=== PATIENT | male | born 1960 | race Caucasian/White ===

== ENCOUNTER 2020-04-06 20:52 | Emergency (ER) | payer OTHER, MEDICAID, SELFPAY ==
[2020-04-06 20:59] VITALS: BP 156/68; PULSE 87; RESP 18; TEMP 36.4; O2SAT 98
--- NOTE | 2020-04-06 21:01 | ED.GENADUL_ITS ---
Discharge Plan Disposition Patient Disposition: HOME Condition: Good Discharge Details Chief Complaint: RashLesion Clinical Impression: Acute neck pain Primary Care Provider: Rekha Keys ED Provider: Yvonne Kunz Home Meds and New Rx's Prescriptions: New ibuprofen 800 mg tablet 800 mg PO Q8H PRN (Reason: pain) Qty: 20 RF: 0 Continued trazodone 50 MG tablet 100 mg PO HS RF: 0 lisinopril 20 MG tablet 20 mg PO DAILY RF: 0 fluphenazine HCl 5 MG tablet 15 mg PO HS RF: 0 Benztropine 2 mg PO BID RF: 0 aspirin 81 MG tablet,delayed release (DR/EC) 81 mg PO DAILY Qty: 90 RF: 0 metformin 500 MG tablet 1,000 mg PO BID Qty: 180 RF: 0 amlodipine 10 MG tablet 10 mg PO DAILY Qty: 0 RF: 0 atorvastatin [Lipitor] 20 MG tablet 20 mg PO QPM RF: 0 divalproex 500 MG tablet extended release 24 hr 1,000 mg PO BID RF: 0 ibuprofen 800 MG tablet 800 mg PO TID PRN PRNRF: 0 fluphenazine decanoate 125 MG/5 ML solution 25 mg IJ Q14D RF: 0 Humulin N NPH U-100 Insulin 100 UNIT/ML suspension 40 unit SQ HS RF: 0 insulin lispro [Humalog U-100 Insulin] 100 UNIT/ML solution 0 unit SQ DIRECTED RF: 0 Discontinued baclofen 10 MG tablet 10 mg PO BID PRN PRNRF: 0 Discharge Instructions Instructions: Neck Pain (ED) Additional Instructions: Encourage gentle stretching as discussed. Encourage good posture. You may use the ibuprofen as prescribed. Please follow-up with your primary care next week if pain persist. If you develop any weakness, sensation changes, fever/chills or other new/worsening symptoms please seek care urgently once again. Referrals: Rekha Keys PA [Primary Care Provider] - Medical Decision Making <Lamont Mckenna MD - Last Filed: 04/06/20 21:05> I had a [id number] encounter with the patient. I evaluated the patient. I discussed case with CYLINDER TESTER/PA and I reviewed CYLINDER TESTER/PA note and agree with note as documented <JEAN Centeno - Last Filed: 04/06/20 21:55> Patient is a pleasant 59-year-old male presented with chief complaint of right neck lump. He reports the pain began yesterday. States that he did have an increase in Zyprexa approximately 1 month ago and is concerned that this may be linked. Has not had any symptoms until yesterday. Patient also reports that he did recently get a little dog and has been bending forward to watch the dog and walk with the dog more frequently. He denies any weakness. No sensory deficits. No known trauma. Indicates the base of the occipital region of the skull on the right side is area of discomfort. Patient objectively feels a mass I am unable to feel any abnormality. However, the patient does feel tight along the trapezius and this is the area of discomfort for the patient. He has no nuchal rigidity, rash, evidence of infection. He has great range of motion. 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 He has not tried anything for his discomfort but states that 800 mg ibuprofen 3 times daily has worked well for him historically. Will prescribe ibuprofen once again. Advise close follow-up with primary care. He was given return precautions. Advised is likely muscular. All questions and concerns were addressed and is in agreement this plan. HPI <Lamont Mckenna MD - Last Filed: 04/06/20 21:05> General Date/Time Provider Initiated Documentation: 04/06/20 21:01 . Related Data Home Medications Medication Instructions Recorded Confirmed Benztropine 2 mg PO BID 09/14/14 04/06/20 fluphenazine HCl 15 mg PO HS 09/14/14 11/20/16 lisinopril 20 mg PO DAILY 09/14/14 04/06/20 trazodone 100 mg PO HS 09/14/14 04/06/20 amlodipine 10 mg PO DAILY #0 09/15/14 11/20/16 aspirin 81 mg PO DAILY #90 tabec 09/15/14 04/06/20 metformin 1,000 mg PO BID #180 09/15/14 04/06/20 Humulin N NPH U-100 Insulin 40 unit SQ HS 11/20/16 04/06/20 atorvastatin [Lipitor] 20 mg PO QPM 11/20/16 04/06/20 divalproex 1,000 mg PO BID 02/16/17 07/03/20 fluphenazine decanoate 25 mg IJ Q14D 11/20/16 11/20/16 ibuprofen 800 mg PO TID PRN PRN 11/20/16 11/20/16 insulin lispro [Humalog U-100 0 unit SQ DIRECTED 11/20/16 04/06/20 Insulin] ibuprofen 800 mg PO Q8H PRN #20 tab 04/06/20 Previous Rx's Medication Instructions Recorded amlodipine 10 mg PO DAILY #0 09/15/14 aspirin 81 mg PO DAILY #90 tabec 09/15/14 metformin 1,000 mg PO BID #180 09/15/14 ibuprofen 800 mg PO Q8H PRN #20 tab 04/06/20 Allergies Allergy/AdvReac Type Severity Reaction Status Date / Time Penicillins Allergy Mild Skin Rash Unverified 04/06/20 21:03 clopidogrel [From Plavix] Allergy Unverified 04/06/20 21:03 <JEAN Centeno - Last Filed: 04/06/20 21:55> General Mode of arrival: ambulatory . Limitations to Documentation: no limitations . Information obtained by: patient and RN notes reviewed . History of Present Illness 59 year old M presents to the emergency department with the chief complaint of right sided neck pain, described as severe, with intensity rated at 10. Quality is described as aching, and is localized to the neck. Patient reports no radiation. Patient started experiencing this day(s) (1) and it has been constant. Immobilization improves symptom(s), Movement worsens symptoms . Patient notes no other symptoms.. Patient did receive the following treatments prior to arrival, none <JEAN Centeno - Last Filed: 04/06/20 21:55> Constitutional Constitutional: Reports as per HPI, Denies chills, Denies fatigue, Denies feve r(s), Denies frequent falls and Denies headache(s) Eyes Eyes: Denies change in vision ENT Ears, Nose, Mouth, and Throat: Denies headache(s) Cardiovascular Cardiovascular: Denies chest pain, Denies dyspnea and Denies dyspnea on exertion Respiratory Respiratory: Denies cough, Denies dyspnea and Denies dyspnea on exertion Gastrointestinal Gastrointestinal: Denies abdominal pain, Denies change in bowel habits and Denies fecal incontinence Genitourinary Genitourinary: Reports as per HPI, Denies urinary hesitancy and Denies urinary incontinence Musculoskeletal Musculoskeletal: Reports as per HPI, Reports back pain (neck pain), Denies muscle weakness, Denies numbness, Denies radiating pain into limb, Reports stiffness and Denies tingling Integumentary/Breasts Skin/Breast: Reports as per HPI and Denies rash Neurologic Neurologic: Reports as per HPI, Denies frequent falls, Denies headache(s), Denies localized weakness, Denies numbness, Denies radicular pain, Denies sensory deficit, Denies tingling and Denies paresthesias Endocrine Endocrine: Denies fatigue PFSH <Lamont Mckenna MD - Last Filed: 04/06/20 21:05> Social History Smoking/Tobacco Use Status: Current every day Tobacco Type: cigarettes Alcohol Intake: current Drug use: Never Do you feel safe at home: Yes Do you feel safe in your relationship?: Yes Exam <Lamont Mckenna MD - Last Filed: 04/06/20 21:05> Neck Neck images: 1. area of discomfort. Patient feels subjective lump. Unable to palpate this myself. Patient does feel tight along trapezius bilaterally. No erythema, warmth,fluctuance, swelling. No nuchal rigidity. No lymphadenopathy. <JEAN Centeno - Last Filed: 04/06/20 21:55> Const General: cooperative, healthy appearing, comfortable (patient has poor posture, hunches forward), no acute distress, well developed and well groomed Nutritional Appearance: average body habitus and well nourished Orientation: alert and awake Eyes General: appearance normal, both eyes and all related structures Neck Neck: normal visual inspection, full ROM, no lymphadenopathy, no meningeal signs, trachea midline, supple, no anterior neck swelling, no lymphadenopathy noted, no midline deformity, tender (as drawn below) and no torticollis Thyroid: thyroid normal Carotids: normal carotid upstroke Lymphatic: no lymphadenopathy noted and no lymphedema noted Neck images: 1. area of discomfort. Patient feels subjective lump. Unable to palpate this myself. Patient does feel tight along trapezius bilaterally. No erythema, warmth,fluctuance, swelling. No nuchal rigidity. No lymphadenopathy. Resp Effort & Inspection: normal respiratory effort and able to speak in complete sentences Auscultation: clear to auscultation bilaterally, no rales, no rhonchi and no wheezes Cardio Rate: regular rate Rhythm: regular rhythm Heart Sounds: S1 normal and S2 normal Back/Spine/Pelvis Cervical Spine: No normal cervical lordosis (patient is kyphotic, he reports this is baseline and unchanged) and cervical ROM normal Thoracic/Lumbar Spine: thoraco-lumbar ROM normal, kyphosis and No thoracic spinal tenderness Skin General skin exam: no rashes or lesions noted Neuro General: patient alert and patient awake Cognition: normal cognition Speech: speech normal Gait: normal gait Motor: muscle tone normal throughout, strength 5/5 throughout, no movement abnormalities noted and no fasciculations Extrem General: normal to inspection, full ROM, capillary refill normal, no joint enlargement, no pedal edema, no calf tenderness and normal gait Psych Appearance: grossly normal and well kempt Mental Status: mental status grossly normal Speech and Movement: speech and movement normal
[2020-04-06 21:20] VITALS: BP 156/68; PULSE 87; RESP 18; TEMP 36.4; O2SAT 98
[2020-04-06] MEDS: Ibuprofen 800 MG TAB PO (21:21)
== END 2020-04-06 21:25 | disposition home or self-care (01) ==
LOC: ER 21:47
PROVIDERS: Emergency Provider Physician Assistant; PCP Physician Assistant Medical
DX: M54.2 Cervicalgia (principal)
CPT/HCPCS: 99282

== ENCOUNTER 2020-08-31 14:34 | Outpatient (REF) | payer OTHER, MEDICAID, SELFPAY ==
[2020-09-03 04:08] LABS: Patient Race White; SARS-CoV-2 RNA Undetected (Undetected); SARS-CoV-2 Specimen Source Nasal
== END 2020-08-31 14:54 ==
LOC: NCHCN 14:34
PROVIDERS: PCP Physician Assistant Medical; Visit Provider Physician Assistant Medical
DX: R09.89 Other specified symptoms and signs involving the circulatory and respiratory systems (principal)
CPT/HCPCS: U0003

== ENCOUNTER 2021-01-18 16:54 | Outpatient (REF) | payer OTHER, MEDICAID, SELFPAY ==
[2021-01-18 18:48] LABS: Anion Gap 11.8 mmol/L (3-11); BUN 19 mg/dL (7-18); CO2 25.2 mmol/L (21.0-32.0); Chloride 102 mmol/L (98-107); Glucose 169 mg/dL (74-106); Magnesium 2.2 mg/dL (1.8-2.4); Potassium 5.1 mmol/L (3.5-5.1); Sodium 139 mmol/L (136-145)
== END 2021-01-18 16:55 | disposition home or self-care (01) ==
LOC: NCHCN 16:54
PROVIDERS: PCP Physician Assistant Medical; Visit Provider Physician Assistant Medical
DX: R25.2 Cramp and spasm (principal)
CPT/HCPCS: 80048; 83735

== ENCOUNTER 2021-03-13 16:06 | Outpatient (REF) | payer OTHER, SELFPAY ==
[2021-03-13 20:32] LABS: Hemoglobin A1C 7.8 % (<5.7)
[2021-03-13 20:50] LABS: VALPROIC ACID 97.2 ug/mL (50-100)
[2021-03-13 21:16] LABS: ALT 26 U/L (16-63); AST 18 U/L (15-37); Albumin 3.9 g/dL (3.4-5.0); Alkaline Phosphatase 56 U/L (46-116); Anion Gap 14.3 mmol/L (3-11); BUN 22 mg/dL (7-18); Bilirubin, Total 0.3 mg/dL (0.2-1.0); CO2 22.7 mmol/L (21.0-32.0); CREATININE 0.9 mg/dL (0.70-1.30); Calcium 9.3 mg/dL (8.5-10.1); Calculated LDL 47 mg/dL (<100); Chloride 107 mmol/L (98-107); Cholesterol 100 mg/dL (<200); Glucose 179 mg/dL (74-106); HDL Cholesterol 38 mg/dL (40-60); Sodium 144 mmol/L (136-145); TSH 0.97 uIU/mL (0.36-3.74); Total Protein 7.1 g/dL (6.4-8.2); Triglyceride 79 mg/dL (<150); Vitamin B12 590 pg/mL (193-986)
[2021-03-14 05:15] LABS: Vitamin D 25 Total 25.6 ng/mL (30-100)
[2021-03-14 17:10] LABS: CRP, High Sensitivity <0.34 mg/L (See Note)
[2021-03-14 18:47] LABS: T3,Free 3.9 pg/mL (2.8-5.3)
== END 2021-03-13 16:07 | disposition home or self-care (01) ==
LOC: NCHCN 16:06
PROVIDERS: PCP Physician Assistant Medical; Visit Provider Physician Assistant Medical
DX: E11.8 Type 2 diabetes mellitus with unspecified complications (principal); Z79.4 Long term (current) use of insulin; F25.9 Schizoaffective disorder, unspecified
CPT/HCPCS: 80053; 80061; 82306; 86141; 80164; 82607; 83036; 83735; 84439; 84443; 84481

== ENCOUNTER 2021-07-12 23:10 | Emergency (ER) | payer OTHER, SELFPAY ==
[2021-07-12 23:14] VITALS: BP 134/73; PULSE 83; RESP 16; TEMP 36.4; O2SAT 95
[2021-07-12 23:24] LABS: Bilirubin Negative (Negative); Blood Large (Negative); Clarity Sl Cloudy (Clear); Glucose Negative (Negative); Ketones 15 mg/dL (Negative); Leukocyte Esterase Negative (Negative); Nitrite Negative (Negative); Specific Gravity >= 1.030 (1.005-1.025)
--- NOTE | 2021-07-12 23:25 | ED.GENADUL_ITS ---
Discharge Plan Disposition Patient Disposition: HOME Condition: Good Discharge Details Clinical Impression: Hematuria, Prostate irregularity Primary Care Provider: Rekha Keys ED Provider: Jeffrey Lopez Bessemer Meds and New Rx's Prescriptions: Continued trazodone 50 MG tablet 100 mg PO HS RF: 0 lisinopril 20 MG tablet 40 mg PO DAILY RF: 0 Benztropine 2 mg PO BID RF: 0 aspirin 81 MG tablet,delayed release (DR/EC) 81 mg PO DAILY Qty: 90 RF: 0 metformin 500 MG tablet 1,000 mg PO BID Qty: 180 RF: 0 amlodipine 10 MG tablet 10 mg PO DAILY Qty: 0 RF: 0 atorvastatin [Lipitor] 20 MG tablet 40 mg PO QPM RF: 0 divalproex 500 MG tablet extended release 24 hr 1,000 mg PO BID RF: 0 Humulin N NPH U-100 Insulin 100 UNIT/ML suspension 40 unit SQ HS RF: 0 insulin lispro [Humalog U-100 Insulin] 100 UNIT/ML solution 0 unit SQ DIRECTED RF: 0 diazepam 2 mg tablet 2 mg PO BID RF: 0 olanzapine 15 mg tablet 15 mg PO HS RF: 0 Discharge Instructions Additional Instructions: We will treat you with a one-time dose of antibiotic for presumed bladder infection. However, because of the blood in your urine and irregular prostate will have you follow-up with Dr. Jaramillo. Keep your appointment with primary care as well. Recommend follow-up with colonoscopy due to the findings of possible rectal wall thickening on CAT scan. Return to ED for inability to void, fever, flank pain, abdominal pain, pelvic pain, other concerns. Referrals: Juan Jaramillo MD [ [facility] STAFF PHYSICIAN] - Rekha Keys PA [Primary Care Provider] - Medical Decision Making Urine collected from triage was manuel-colored but not grossly bloody per nursing. UA is positive for blood, ketones, protein and urobilinogen. On micro greater than 50 red cells noted. No white cells and rare bacteria. Will place IV to check CBC and chemistry and hydrate. If no evidence of renal injury will obtain CT of the abdomen/pelvis due to the fall last night. Obtain bladder scan to rule out urinary retention. Bladder scan revealed only 18 mL in the bladder. White count elevated. Kidney function normal. CT scan with no kidney injury. Prostate noted to be enlarged and irregular. Rectal wall questionably thickened. Age-indeterminate L2 fracture which patient reports occurred a long time ago. Because of the couple of days prior to this evening symptoms of urgency, frequency, burning and elevated white count will presume cystitis. He has no CVAT, fever, abdominal pain, perineal pain. Will treat with one-time dose of fosfomycin. Because of the hematuria and irregular prostate will refer to Dr. Jaramillo for follow-up. Also discussed the rectal wall findings with patient. He reports that he has follow-up with primary care and is due for colonoscopy. Discharge home to return to ED for inability to urinate, fever, flank pain, abdominal pain, other concerns. HPI General Mode of arrival: ambulatory . Date/Time Provider Initiated Documentation: 07/12/21 23:21 . Limitations to Documentation: no limitations . Information obtained by: patient and RN notes reviewed . HPI Narrative: Patient presents to ED with complaint of blood in urine. Patient reports difficulty urinating with decreased urination over the last couple of days. He fell getting out of bed last night to go to the bathroom. Complains of back pain also seems lower in the flank region. He denies any fever, cough, chest pain, shortness of breath, abdominal pain, vomiting. He denies having hematuria for the past. He states he is able to urinate but the stream does not seem to be as strong. Related Data Home Medications Medication Instructions Recorded Confirmed Benztropine 2 mg PO BID 09/14/14 07/12/21 lisinopril 40 mg PO DAILY 09/14/14 07/12/21 trazodone 100 mg PO HS 09/14/14 07/12/21 amlodipine 10 mg PO DAILY #0 09/15/14 11/20/16 aspirin 81 mg PO DAILY #90 tabec 09/15/14 07/12/21 metformin 1,000 mg PO BID #180 09/15/14 07/12/21 Humulin N NPH U-100 Insulin 40 unit SQ HS 11/20/16 07/12/21 atorvastatin [Lipitor] 40 mg PO QPM 11/20/16 07/12/21 divalproex 1,000 mg PO BID 11/20/16 07/12/21 insulin lispro [Humalog U-100 0 unit SQ DIRECTED 11/20/16 07/12/21 Insulin] diazepam 2 mg PO BID 07/12/21 07/12/21 olanzapine 15 mg PO HS 07/12/21 07/12/21 Previous Rx's Medication Instructions Recorded amlodipine 10 mg PO DAILY #0 09/15/14 aspirin 81 mg PO DAILY #90 tabec 09/15/14 metformin 1,000 mg PO BID #180 09/15/14 Allergies Allergy/AdvReac Type Severity Reaction Status Date / Time Penicillins Allergy Mild Skin Rash Unverified 07/12/21 23:25 clopidogrel [From Plavix] Allergy Unverified 07/12/21 23:25 General Stated Complaint: Urinary HALLIE: 3 Review of Systems Narrative: As documented in HPI otherwise negative as below. Const: no fever, chills, weakness Resp: no cough, SOB, pleuritic pain CV: no CP, diaphoresis, edema, syncope GI: no abdominal pain, nausea, vomiting, diarrhea Neuro: no headache, numbness, focal weakness, confusion PFSH Medical History Benign prostatic hypertrophy CAD (coronary artery disease) COPD (chronic obstructive pulmonary disease) chronic tobacco use, but no symptoms Hypertension Schizoaffective disorder (09/15/14) a. increased delusional thoughts b. depressed mood Type II diabetes mellitus Surgical History History of heart artery stent Social History Smoking/Tobacco Use Status: Current every day Tobacco Type: cigarettes Smoking risk assessment performed?: Yes Alcohol Intake: current Alcohol Intake frequency: a few times a week Alcohol type: beer Drug use: Never Substance use type: does not use Do you feel safe at home: Yes Do you feel safe in your relationship?: Yes Exam Narrative Exam Narrative: Const: WDWN male in NAD. HEENT: NC/AT. Normal facial exam. Eyes: Normal conjunctiva and sclera. Neck: Supple. Trachea midline. Lungs: Normal respiratory effort. Lungs are clear. Cor: RRR without murmur/gallop. Good radial pulses. GI: Soft. NT/ND. No guarding or rebound. Back: No CVAT. No spinal tenderness. Neuro: A+O x 3. Normal speech, mentation. Cranial nerves II - XII grossly intact. No gross motor or sensory deficit. Ext: No C/C/E. Skin: Warm and dry without rash. Course Vital Signs Vital signs: Vital Signs Temperature 97.5 F L 07/12/21 23:14 Pulse 83 07/12/21 23:14 Respiratory Rate 16 07/12/21 23:14 Blood Pressure 134/73 07/12/21 23:14 Pulse Oximetry 95 07/12/21 23:14 Temperature 97.5 F L 07/12/21 23:14 Temperature Source Skin 07/12/21 23:14 Pulse 83 07/12/21 23:14 Respiratory Rate 16 07/12/21 23:14 Blood Pressure 134/73 07/12/21 23:14 Blood Pressure Position Sitting 07/12/21 23:14 Pulse Oximetry 95 07/12/21 23:14 Oxygen Delivery Method Room Air 07/12/21 23:14 Oxygen Flow Rate 0 07/12/21 23:14 Pain Level 7 07/12/21 23:14 Comment 07/12/21 23:14
[2021-07-12 23:32] LABS: Bacteria Few HPF (Negative); C & S Indicated? No; Casts Negative LPF (Negative); Crystals Negative HPF (Negative); Epithelial Cells Few HPF (Negative); Mucus Negative (Negative); RBC >50 HPF (0-2); WBC 0-2 HPF (0-5)
[2021-07-12 23:49] LABS: Abs Immature Grans 0.09 10^3/uL (0.0-0.06); Absolute Eosinophil Count 0.08 10^3/uL (0.0-0.7); Absolute Lymphocyte Count 3.14 10^3/uL (1.2-3.4); Absolute Monocyte Count 2.42 10^3/uL (0.1-0.8); Basophils % 0.3; Eosinophils % 0.4; HCT 40.6 % (40.0-50.0); HGB 13.4 g/dL (13.5-17.5); Immature Grans % 0.5; Lymphocytes % 16.6; MCH 27.9 pg (27.0-33.0); MCV 84.6 fL (80-95); MPV 8.6 fL (8.0-11.0); Monocytes % 12.8; Neutrophils % 69.4; Nucleated RBC 0 %; Platelet Count 132 10^3/uL (130-400); RDW 14.8 % (11.8-14.1); RDW-SD 45.5 fL; WBC 18.94 10^3/uL (4.4-10.8)
[2021-07-12 23:53] LABS: Absolute Basophil Count 0.06 10^3/uL (0.0-0.2); Absolute Neutrophil Count 13.14 10^3/uL (1.2-6.7)
[2021-07-12] MEDS: Normal Saline 1,000 ML 1000 ML IV (23:54)
[2021-07-12 23:59] LABS: BUN 23 mg/dL (7-18); CREATININE 1.1 mg/dL (0.70-1.30); Calcium 9.4 mg/dL (8.5-10.1); Chloride 103 mmol/L (98-107); Glucose 95 mg/dL (74-106); Potassium 4.4 mmol/L (3.5-5.1); Sodium 137 mmol/L (136-145)
--- NOTE | 2021-07-13 | DI.CT_ITS ---
Exam(s) CT ABDOMEN PELVIS W EXAM: CT ABDOMEN PELVIS W CLINICAL HISTORY: fall, back pain, hematuria. TECHNIQUE: Imaging Protocol: Axial computed tomography images with coronal and sagittal reformatted images were created and reviewed CONTRAST MATERIAL: Intravenous: Omnipaque 100cc Oral: None COMPARISON: No exams were available for comparison FINDINGS: VISUALIZED LUNG BASES: Mild increased markings right lung base. No pleural effusions. ABDOMEN: There is no ascites. No evidence of mesenteric nor bowel wall hematoma. LIVER: There are no focal hepatic lesions evident. No evidence of hepatic laceration. GALLBLADDER/BILIARY: No obvious gallbladder pathology. CBD is not dilated. PANCREAS: No evidence of pancreatic mass nor dilatation of the pancreatic duct. SPLEEN: Spleen is not enlarged. No obvious intrasplenic lesions. No splenic laceration. Splenic an d portal veins are patent. ADRENALS: There are no significant adrenal masses. KIDNEYS:No cysts evident. No solid renal masses nor calculi nor hydronephrosis. No evidence of subca psular hematoma nor renal laceration. No evidence of retroperitoneal hemorrhage.. ABDOMINAL AORTA: Atherosclerotic-calcified but not enlarged. LYMPH NODES:There is no retroperitoneal nor paraaortic adenopathy. ABDOMINAL WALL: No evidence of significant anterior abdominal hernia. GI: There is no evidence of bowel obstruction, free air, nor abscess. Redundant sigmoid which reaches to the level of the transverse colon. No significant diverticular di sease. Abundant fecal material throughout the colon with the exception of the rectum. PELVIS: GI: No evidence of appendicitis.No evidence of sigmoid diverticulitis. LYMPH NODES: There is no intrapelvic nor inguinal adenopathy. REPRODUCTIVE: Enlarged prostate gland URINARY BLADDER: Urinary bladder wall thickening both left and right sides with masses blow sides the urinary bladder continue contiguous with prostate extension. Possible malignancy OSSEOUS: There is a compression fracture of L2, age indeterminate. Vacuum phenomenon seen within the L1-2 disc space and within the anterior aspect of the L2-3 disc space. There is 3 millimeters poste rior displacement of the posterior cortex of the L2 vertebral body. IMPRESSION: 1. L2 vertebral body compression fracture; difficult to determine old versus new. 3 millimeters retr opulsion posterior cortex at this level. No prominent central spinal canal stenosis. 2. Enlarged and regularly shaped prostate with bladder extension. Suspicious for possible malignancy , either prostate with extension or bladder primary. Urology consultation is recommended. This study 1st read by [facility]. RADIATION DOSE DELIVERED: 1,107.53mGy.cm Total DLP DATA REPOSITORY: All CT scans at this facility are submitted to the National Radiology Data Registry (NRDR) Dose Index Registry (DIR) with the [employer] (A[employer]). RADIATION OPTIMIZATION: All CT scans at this facility use at least one of these dose optimization te chniques: automated exposure control; mA and/or kV adjustment per patient size (includes targeted exa ms where dose is matched to clinical indication); or iterative reconstruction.
[2021-07-13 00:03] LABS: Diff Comment Agrees w/ Instrument; RBC Morphology Normal
[2021-07-13] MEDS: Normal Saline - Diluent 50 ML VIAL IV (00:27)
[2021-07-13] MEDS: Omnipaque 350 MG/ML 100 ML BTL IJ (00:35)
[2021-07-13 00:40] VITALS: BP 119/61; PULSE 69; RESP 16; O2SAT 96
[2021-07-13 01:00] VITALS: BP 123/66; PULSE 72; RESP 16; O2SAT 100
[2021-07-13 01:30] VITALS: BP 118/56; PULSE 68; RESP 16; O2SAT 96
--- NOTE | 2021-07-13 01:56 | DI.VRAD_ITS ---
PROCEDURE INFORMATION: Exam: CT Abdomen And Pelvis With Contrast Exam date and time: 07/13/2021 12:04 AM Age: 61 years old Clinical indication: Other: Fall, back pain, hematuria TECHNIQUE: Imaging protocol: Computed tomography of the abdomen and pelvis with contrast. COMPARISON: No relevant prior studies available. FINDINGS: Mediastinal space: Small hiatal hernia. Liver: Normal. No mass. Gallbladder and bile ducts: Normal. No calcified stones. No ductal dilation. Pancreas: Normal. No ductal dilation. Spleen: Normal. No splenomegaly. Adrenal glands: Normal. No mass. Kidneys and ureters: Normal. No hydronephrosis. Stomach and bowel: No dilated loops of small bowel or colonic dilatation. There is a large amount of stool in the colon. Circumferential thickening of rectal wall to between 7 and 8 mm. Appendix: Normal appendix. Intraperitoneal space: Unremarkable. No free air. No significant fluid collection. Vasculature: Unremarkable. No abdominal aortic aneurysm. Lymph nodes: Unremarkable. No enlarged lymph nodes. Urinary bladder: Urinary bladder wall minimally thickened. Reproductive: Enlarged irregularly-shaped prostate with extrinsic compression on or extension into bladder floor. Bones/joints: Age-indeterminate, L2 vertebral body compression fracture. No retropulsion. Soft tissues: Unremarkable. IMPRESSION: 1. Age-indeterminate L2 vertebral body compression fracture. Correlate clinically as to acuity. 2. Enlarged, irregularly shaped prostate with extrinsic compression upon or extension into bladder floor. Clinical and laboratory correlation recommended. 3. Circumferential thickening of rectal wall may be due to incomplete distension, inflammatory process, infection or diffuse infiltrating process. Follow-up recommended. 4. Small hiatal hernia. Dictated and Authenticated by: Navarro Neely MD. Ordering:GO Murphy MD
[2021-07-13 02:00] VITALS: BP 115/51; PULSE 67; RESP 18; O2SAT 96
[2021-07-13] MEDS: Fosfomycin Tromethamine 3 GM PACKET PO (02:34)
== END 2021-07-13 02:42 | disposition home or self-care (01) ==
PROVIDERS: Emergency Provider Emergency Medicine; PCP Physician Assistant Medical
DX: R31.9 Hematuria, unspecified (principal); N42.89 Other specified disorders of prostate; N40.0 Benign prostatic hyperplasia without lower urinary tract symptoms
CPT/HCPCS: 80048; 96360; 96361; 99285; 74177; 81003; 81015; 85025; 99284; J3490

== ENCOUNTER 2021-07-16 12:42 | Emergency (ER) | payer OTHER, SELFPAY ==
[2021-07-16 12:51] VITALS: BP 133/64; PULSE 80; RESP 16; TEMP 36.5; O2SAT 98
--- NOTE | 2021-07-16 13:00 | DI.CT_ITS ---
Exam(s) CT HEAD WO EXAM: CT HEAD WO CLINICAL HISTORY: Fall, Urinary incontinence. TECHNIQUE: Imaging Protocol: Axial computed tomography images with coronal and sagittal reformatted images were created and reviewed COMPARISON: No exams were available for comparison FINDINGS: There are no skull fractures nor fluid in the visualized paranasal sinuses. There is no evidence of intracranial hemorrhage, mass effect, or shift of midline structures. There are no extra-axial fluid collections. The ventricles are not enlarged or shifted and there is no blo od within the ventricular system nor within the basal cisterns. IMPRESSION: No acute intracranial findings on this noninfused CT scan of the brain. Report called to emergency room. RADIATION DOSE DELIVERED: 858.98mGy.cm Total DLP DATA REPOSITORY: All CT scans at this facility are submitted to the National Radiology Data Registry (NRDR) Dose Index Registry (DIR) with the [employer] (ACR). RADIATION OPTIMIZATION: All CT scans at this facility use at least one of these dose optimization te chniques: automated exposure control; mA and/or kV adjustment per patient size (includes targeted exa ms where dose is matched to clinical indication); or iterative reconstruction.
--- NOTE | 2021-07-16 13:07 | ED.GENADUL_ITS ---
Discharge Plan Disposition Patient Disposition: HOME Condition: Stable Discharge Details Clinical Impression: Hematuria Primary Care Provider: Rekha Keys ED Provider: Yamileth Mckenzie Home Meds and New Rx's Prescriptions: New phenazopyridine [Pyridium] 100 mg tablet 100 mg PO TID PRN (Reason: pain) Qty: 6 RF: 0 No Action trazodone 50 MG tablet 100 mg PO HS RF: 0 lisinopril 20 MG tablet 40 mg PO DAILY RF: 0 Benztropine 2 mg PO BID RF: 0 aspirin 81 MG tablet,delayed release (DR/EC) 81 mg PO DAILY Qty: 90 RF: 0 metformin 500 MG tablet 1,000 mg PO BID Qty: 180 RF: 0 amlodipine 10 MG tablet 10 mg PO DAILY Qty: 0 RF: 0 atorvastatin [Lipitor] 20 MG tablet 40 mg PO QPM RF: 0 divalproex 500 MG tablet extended release 24 hr 1,000 mg PO BID RF: 0 Humulin N NPH U-100 Insulin 100 UNIT/ML suspension 40 unit SQ HS RF: 0 insulin lispro [Humalog U-100 Insulin] 100 UNIT/ML solution 0 unit SQ DIRECTED RF: 0 diazepam 2 mg tablet 2 mg PO BID RF: 0 olanzapine 15 mg tablet 15 mg PO HS RF: 0 Discharge Instructions Instructions: Hematuria (ED) Additional Instructions: I spoke with Dr. Jaramillo and he is setting up a different type of x-ray to look specifically at your bladder and prostate. He will then after that test is done, schedule you for an appointment in the clinic. A CT urogram with and without contrast should be ordered by your primary care provider according to Dr. Jaramillo. Follow up with primary care provider in 3-5 days. Return to ED sooner if any worsening or concerns. Increase oral fluids. Take the Pyridium as instructed as needed for difficulty urinating. Referrals: Juan Jaramillo MD [ [facility] STAFF PHYSICIAN] - Rekha Keys PA [Primary Care Provider] - Discharge Data Discharge Date/Time-TO BE ENTERED AT DEPARTURE: 07/16/21 16:19 Medical Decision Making 61-year-old male presents to the ER with chief complaint of worsening urinary frequency and hematuria. Patient was seen here in the emergency department on July 12 1 day status post a fall. He had a CT abdomen pelvis ordered at that time and urinalysis at that time he did have a high white blood cell count of 18,000. He was given fosfomycin one-time dose. Instead he has been in contact with his primary care provider who has placed him on a sulfa antibiotic twice daily which he has been taking per patient report. Patient was referred to Dr. Jaramillo with urology when he was seen on the . Medical records reviewed. On CT abdomen pelvis the lumbar spine was seen and no canal stenosis or concerns for cauda equina. CT T and L-spine canceled at this time. Patient is alert and oriented x4. Urine dip by the lab today shows 15 ketones large blood positive nitrite small bilirubin 1.0 urobilinogen. Patient has given a another urine sample an additional urinalysis was ordered. Bladder scan per staff scientist is 0. Patient is able to urinate in the urinal. 1604: Spoke with Dr. Jaramillo he is familar with patient, he recommends outpatient CT urogram which should be ordered by PCP, will inform patient about plan of care. This text was generated using [employer] system, please disregard any oddities of phrase or misspellings. HPI General Mode of arrival: ambulatory . Date/Time Provider Initiated Documentation: 07/16/21 13:02 . Limitations to Documentation: no limitations . Information obtained by: patient, RN notes reviewed and old records reviewed . HPI Narrative: 61-year-old male presents to the ER with chief complaint of worsening urinary frequency and hematuria. Patient was seen here in the emergency department on July 12 1 day status post a fall. He had a CT abdomen pelvis ordered at that time and urinalysis at that time he did have a high white blood cell count of 18,000. He was given fosfomycin one-time dose. Instead he has been in contact with his primary care provider who has placed him on a sulfa antibiotic twice daily which he has been taking per patient report. Patient was referred to Dr. Jaramillo with urology when he was seen on the . Related Data Home Medications Medication Instructions Recorded Confirmed Benztropine 2 mg PO BID 09/14/14 07/17/21 lisinopril 40 mg PO DAILY 09/14/14 07/17/21 trazodone 100 mg PO HS 09/14/14 07/17/21 amlodipine 10 mg PO DAILY #0 09/15/14 07/17/21 aspirin 81 mg PO DAILY #90 tabec 09/15/14 07/17/21 metformin 1,000 mg PO BID #180 09/15/14 07/17/21 Humulin N NPH U-100 Insulin 40 unit SQ HS 11/20/16 07/17/21 atorvastatin [Lipitor] 40 mg PO QPM 11/20/16 07/17/21 divalproex 1,000 mg PO BID 11/20/16 07/17/21 insulin lispro [Humalog U-100 0 unit SQ DIRECTED 11/20/16 07/17/21 Insulin] diazepam 2 mg PO BID 07/12/21 07/17/21 olanzapine 15 mg PO HS 07/12/21 07/17/21 phenazopyridine [Pyridium] 100 mg PO TID PRN #6 tab 07/16/21 07/17/21 Previous Rx's Medication Instructions Recorded amlodipine 10 mg PO DAILY #0 09/15/14 aspirin 81 mg PO DAILY #90 tabec 09/15/14 metformin 1,000 mg PO BID #180 09/15/14 phenazopyridine [Pyridium] 100 mg PO TID PRN #6 tab 07/16/21 Allergies Allergy/AdvReac Type Severity Reaction Status Date / Time Penicillins Allergy Mild Skin Rash Unverified 07/17/21 05:55 clopidogrel [From Plavix] Allergy Unverified 07/17/21 05:55 General Stated Complaint: Urinary HALLIE: 3 Review of Systems Genitourinary Genitourinary: Reports as per HPI, Reports hematuria, Reports dysuria, Reports nocturia and Reports urinary frequency Comments: Reports blood clots after urination [facility] Medical History Benign prostatic hypertrophy CAD (coronary artery disease) COPD (chronic obstructive pulmonary disease) chronic tobacco use, but no symptoms Hypertension Schizoaffective disorder (09/15/14) a. increased delusional thoughts b. depressed mood Type II diabetes mellitus Surgical History History of heart artery stent Social History Smoking/Tobacco Use Status: Current every day Tobacco Type: cigarettes Smoking risk assessment performed?: Yes Alcohol Intake: current Alcohol Intake frequency: a few times a week Alcohol type: beer Drug use: Never Substance use type: does not use Do you feel safe at home: Yes Do you feel safe in your relationship?: Yes Exam Narrative Exam Narrative: Constitutional: Alert and oriented x3. Appears stated age. Normal body habitus. Head: Normocephalic, no trauma. Eyes: Pupils PERRLA, Red reflex noted, EOM's intact. Eyelids symmetrical without lesions, discharge, or swelling. ENT: Bilateral TM's WNL, External ear normal to inspection, no mastoid TTP, swelling, or erythema, Nasal turbinates WNL, no nasal discharge. Normal dentition, Posterior pharynx WNL, no exudate. Chest: RRR, Normal S1, S2, distal pulses intact. Resp: Lungs clear to auscultation bilaterally, no wheezes, rales, or rhonchi. Abdomen: Soft, nondistended nontender with palpation. : No scrotal swelling Musculoskeletal: Normal gait, 5/5 strength to all four extremities. Skin: No suspicious rashes or lesions. Capillary refill less than 2 sec. Neurologic: Cranial nerves II-XII intact. Alert and oriented x 3. DTR's intact. Hematologic/Lymphatic: No ecchymosis, no lymphadenopathy. Course Vital Signs Vital signs: Vital Signs Temperature 36.5 C 07/16/21 12:51 Pulse 80 07/16/21 12:51 Respiratory Rate 16 07/16/21 12:51 Blood Pressure 133/64 07/16/21 12:51 Pulse Oximetry 98 07/16/21 12:51 Temperature 36.5 C 07/16/21 12:51 Temperature Source Temporal Artery Scan 07/16/21 12:51 Pulse 80 07/16/21 12:51 Respiratory Rate 16 07/16/21 12:51 Respiratory Effort 07/16/21 12:55 Blood Pressure 133/64 07/16/21 12:51 Pulse Oximetry 98 07/16/21 12:51 Oxygen Delivery Method Room Air 07/16/21 12:51 Oxygen Flow Rate 0 07/16/21 12:51
[2021-07-16 13:25] LABS: Bilirubin Small (Negative); Blood Large (Negative); Clarity Sl Cloudy (Clear); Glucose 500 mg/dL (Negative); Ketones 15 mg/dL (Negative); Leukocyte Esterase Negative (Negative); Nitrite Positive (Negative); Specific Gravity >= 1.030 (1.005-1.025)
[2021-07-16 13:29] LABS: C & S Indicated? No
[2021-07-16 13:32] LABS: Abs Immature Grans 0.05 10^3/uL (0.0-0.06); Absolute Basophil Count 0.04 10^3/uL (0.0-0.2); Absolute Eosinophil Count 0.51 10^3/uL (0.0-0.7); Absolute Lymphocyte Count 2.37 10^3/uL (1.2-3.4); Absolute Monocyte Count 1.01 10^3/uL (0.1-0.8); Absolute Neutrophil Count 5.67 10^3/uL (1.2-6.7); Basophils % 0.4; Eosinophils % 5.3; HCT 43.4 % (40.0-50.0); HGB 13.8 g/dL (13.5-17.5); Immature Grans % 0.5; Lymphocytes % 24.6; MCHC 31.8 % (32.0-36.0); MPV 8.4 fL (8.0-11.0); Monocytes % 10.5; Neutrophils % 58.7; Nucleated RBC 0 %; Platelet Count 202 10^3/uL (130-400); RBC 4.93 10^6/uL (4.36-5.78); RDW 14.4 % (11.8-14.1); RDW-SD 46.4 fL; WBC 9.65 10^3/uL (4.4-10.8)
[2021-07-16 13:51] LABS: ALT 26 U/L (16-63); AST 20 U/L (15-37); Albumin 3.3 g/dL (3.4-5.0); Alkaline Phosphatase 73 U/L (46-116); Anion Gap 8.6 mmol/L (3-11); BUN 12 mg/dL (7-18); Bilirubin, Total 0.3 mg/dL (0.2-1.0); CO2 28.4 mmol/L (21.0-32.0); CREATININE 1.2 mg/dL (0.70-1.30); Calcium 9.2 mg/dL (8.5-10.1); Chloride 102 mmol/L (98-107); Glucose 249 mg/dL (74-106); Potassium 4.7 mmol/L (3.5-5.1); Sodium 139 mmol/L (136-145); Total Protein 6.7 g/dL (6.4-8.2)
[2021-07-16] MEDS: Normal Saline 500 ML IV (14:22)
[2021-07-16] MEDS: Phenazopyridine 100 MG TAB PO (16:10)
[2021-07-16 16:18] VITALS: BP 127/82; PULSE 88; RESP 20; TEMP 36.8; O2SAT 98
== END 2021-07-16 16:19 | disposition home or self-care (01) ==
PROVIDERS: Emergency Provider Registered Nurse Emergency; PCP Physician Assistant Medical
DX: R31.9 Hematuria, unspecified (principal); R35.0 Frequency of micturition; R32 Unspecified urinary incontinence
CPT/HCPCS: 36415; 80053; 96360; 99284; 70450; 81003; 81015; 85025

== ENCOUNTER 2021-07-17 05:49 | Emergency (ER) | payer OTHER, SELFPAY ==
[2021-07-17 05:49] VITALS: BP 142/54; PULSE 85; RESP 18; TEMP 36.6; O2SAT 96
--- NOTE | 2021-07-17 06:07 | ED.GENADUL_ITS ---
Discharge Plan Disposition Patient Disposition: HOME Condition: Good Discharge Details Clinical Impression: Urinary hesitancy, Mahmood catheter present Primary Care Provider: Rekha Keys ED Provider: Tyler Field Home Meds and New Rx's Prescriptions: Continued trazodone 50 MG tablet 100 mg PO HS RF: 0 lisinopril 20 MG tablet 40 mg PO DAILY RF: 0 Benztropine 2 mg PO BID RF: 0 aspirin 81 MG tablet,delayed release (DR/EC) 81 mg PO DAILY Qty: 90 RF: 0 metformin 500 MG tablet 1,000 mg PO BID Qty: 180 RF: 0 amlodipine 10 MG tablet 10 mg PO DAILY Qty: 0 RF: 0 phenazopyridine [Pyridium] 100 mg tablet 100 mg PO TID PRN (Reason: pain) Qty: 6 RF: 0 atorvastatin [Lipitor] 20 MG tablet 40 mg PO QPM RF: 0 divalproex 500 MG tablet extended release 24 hr 1,000 mg PO BID RF: 0 Humulin N NPH U-100 Insulin 100 UNIT/ML suspension 40 unit SQ HS RF: 0 insulin lispro [Humalog U-100 Insulin] 100 UNIT/ML solution 0 unit SQ DIRECTED RF: 0 diazepam 2 mg tablet 2 mg PO BID RF: 0 olanzapine 15 mg tablet 15 mg PO HS RF: 0 Discharge Instructions Instructions: Mahmood Catheter Placement and Care (ED) Additional Instructions: At your request we have placed a Mahmood catheter. We have included instructions for care of a Mahmood catheter. Because of your bleeding it may get clogged. If it does, do not hesitate to contact us or the urologist for troubleshooting of this. Please follow-up closely with Dr. Jaramillo. If you notice any worsening of your symptoms, or any new symptoms such as vomiting, diarrhea, fever, chills, shortness of breath, chest pain, numbness, weakness, or fainting , please return immediately to the emergency department for reevaluation. Please follow up with your primary care provider as soon as possible for reassessment and reevaluation. As always, it was a pleasure participating in your medical care today. Referrals: Juan Jaramillo MD [ [facility] STAFF PHYSICIAN] - Rekha Keys PA [Primary Care Provider] - Medical Decision Making This is a 61-year-old male with a past medical history of COPD, coronary artery disease, BPH, hypertension, type 2 diabetes, schizoaffective disorder, who presents today for evaluation of penile abnormality. Over the past few weeks the patient has had bladder spasms and intermittent hematuria. The patient was seen and assessed in the emergency department and by his PCP. Most recent CAT scan of the abdomen demonstrated evidence of thickening/mass of the bladder, and prostatic hypertrophy concerning for malignancy. He is scheduled for outpatient follow-up with Dr. Jaramillo. Over the last few weeks he has had mild difficulty urinating, and has been passing occasional blood and blood clots. However this evening he states that while he had an erection he felt a firm mass on the proximal component of the urethra. He was concerned it was a kidney stone or gallstone or ricardo that he had swallowed years ago, and came to the ER via EMS for further evaluation. He denies any acute change in his symptoms otherwise. No other complaints at this time. Of note he is currently taking oral antibiotics for urinary tract infection. Physical exam demonstratesunremarkable penis, palpation of the urethra demonstrates some mild firmness throughout the urethral tract itself, but no large significant abnormality. Bedside ultrasound of the urethra does demonstrate small atypical tissue structure at the proximal component of the urethra outside of the urethra, but there is no evidence of stone otherwise. Patient is still able to urinate. He does not show evidence of retention at this time. I had a long discussion with the patient regarding risks and benefits of Mahmood catheter and the importance of urology follow-up. Through shared decision-making process weighing the risks and benefits and options, patient has requested a Mahmood catheter. We will place Mahmood catheter, and have the patient follow-up closely with urology on a prompt outpatient basis at his scheduled appointment. If you notice any worsening of your symptoms, or any new symptoms such as vomiting, diarrhea, fever, chills, shortness of breath, chest pain, numbness, weakness, or fainting , please return immediately to the emergency department for reevaluation. Please follow up with your primary care provider as soon as possible for reassessment and reevaluation. As always, it was a pleasure participating in your medical care today. HPI General Date/Time Provider Initiated Documentation: 07/17/21 06:07 . HPI Narrative: This is a 61-year-old male with a past medical history of COPD, coronary artery disease, BPH, hypertension, type 2 diabetes, schizoaffective disorder, who presents today for evaluation of penile abnormality. Over the past few weeks the patient has had bladder spasms and intermittent hematuria. The patient was seen and assessed in the emergency department and by his PCP. Most recent CAT scan of the abdomen demonstrated evidence of thickening/mass of the bladder, and prostatic hypertrophy concerning for malignancy. He is scheduled for outpatient follow-up with Dr. Jaramillo. Over the last few weeks he has had mild difficulty urinating, and has been passing occasional blood and blood clots. However this evening he states that while he had an erection he felt a firm mass on the proximal component of the urethra. He was concerned it was a kidney stone or gallstone or ricardo that he had swallowed years ago, and came to the ER via EMS for further evaluation. He denies any acute change in his symptoms otherwise. No other complaints at this time. Of note he is currently taking oral antibiotics for urinary tract infection. Related Data Home Medications Medication Instructions Recorded Confirmed Benztropine 2 mg PO BID 09/14/14 07/17/21 lisinopril 40 mg PO DAILY 09/14/14 07/17/21 trazodone 100 mg PO HS 09/14/14 07/17/21 amlodipine 10 mg PO DAILY #0 09/15/14 07/17/21 aspirin 81 mg PO DAILY #90 tabec 09/15/14 07/17/21 metformin 1,000 mg PO BID #180 09/15/14 07/17/21 Humulin N NPH U-100 Insulin 40 unit SQ HS 11/20/16 07/17/21 atorvastatin [Lipitor] 40 mg PO QPM 11/20/16 07/17/21 divalproex 1,000 mg PO BID 11/20/16 07/17/21 insulin lispro [Humalog U-100 0 unit SQ DIRECTED 11/20/16 07/17/21 Insulin] diazepam 2 mg PO BID 07/12/21 07/17/21 olanzapine 15 mg PO HS 07/12/21 07/17/21 phenazopyridine [Pyridium] 100 mg PO TID PRN #6 tab 07/16/21 07/17/21 Previous Rx's Medication Instructions Recorded amlodipine 10 mg PO DAILY #0 09/15/14 aspirin 81 mg PO DAILY #90 tabec 09/15/14 metformin 1,000 mg PO BID #180 09/15/14 phenazopyridine [Pyridium] 100 mg PO TID PRN #6 tab 07/16/21 Allergies Allergy/AdvReac Type Severity Reaction Status Date / Time Penicillins Allergy Mild Skin Rash Unverified 07/17/21 05:55 clopidogrel [From Plavix] Allergy Unverified 07/17/21 05:55 General Stated Complaint: Urinary HALLIE: 4 Review of Systems All systems reviewed & are unremarkable except as noted in HPI and below PFSH Medical History Benign prostatic hypertrophy CAD (coronary artery disease) COPD (chronic obstructive pulmonary disease) chronic tobacco use, but no symptoms Hypertension Schizoaffective disorder (09/15/14) a. increased delusional thoughts b. depressed mood Type II diabetes mellitus Surgical History History of heart artery stent Social History Smoking/Tobacco Use Status: Current every day Tobacco Type: cigarettes Smoking risk assessment performed?: Yes Alcohol Intake: current Alcohol Intake frequency: a few times a week Alcohol type: beer Drug use: Never Substance use type: does not use Do you feel safe at home: Yes Do you feel safe in your relationship?: Yes Exam Narrative Exam Narrative: 1.Const: Well-nourished, Well-developed, appearing stated age 2.Eyes: PERRL, no conjunctival injection, and symmetrical lids. 3.ENT: Atraumatic external nose and ears. Moist MM. Neck: Symmetric, trachea midline, No thyromegaly. 4.CVS: +S1/S2, No murmurs or gallops. Peripheral pulses 2+ and equal in all extremities. Brisk capillary refill in all extremities. 5.RESP: Unlabored respiratory effort. Clear to auscultation bilaterally. No wheezes rales or rhonchi 6.GI: Soft, Nontender/Nondistended, No hepatosplenomegaly. No guarding or rebound. Genital exam: Genital exam demonstrates unremarkable penis, palpation of the urethra demonstrates some mild firmness throughout the urethral tract itself, but no large significant abnormality. Bedside ultrasound of the urethra does demonstrate small atypical tissue structure at the proximal component of the urethra outside of the urethra, but there is no evidence of stone otherwise. 7.MSK: Normocephalic/Atraumatic, Extremities w/o deformity or ttp No cyanosis or clubbing, Normal movement of all extremities 8.Skin: Warm, Dry. No rashes or lesions. 9.Neuro: electronic lab technician II-XII grossly intact. Sensation grossly intact, no focal neurologic deficits. 10.Psych: (AAO) x3. Appropriate mood and affect Course Vital Signs Vital signs: Vital Signs Temperature 36.6 C 07/17/21 05:49 Pulse 85 07/17/21 05:49 Respiratory Rate 18 07/17/21 05:49 Blood Pressure 142/54 H 07/17/21 05:49 Pulse Oximetry 96 07/17/21 05:49 Temperature 36.6 C 07/17/21 05:49 Temperature Source Temporal Artery Scan 07/17/21 05:49 Pulse 85 07/17/21 05:49 Respiratory Rate 18 07/17/21 05:49 Respiratory Effort Non-Labored 07/17/21 05:57 Blood Pressure 142/54 H 07/17/21 05:49 Blood Pressure Position Sitting 07/17/21 05:49 Pulse Oximetry 96 07/17/21 05:49 Oxygen Delivery Method Room Air 07/17/21 05:49 Oxygen Flow Rate 0 07/17/21 05:49 Pain Level 0 07/17/21 05:59
[2021-07-17] MEDS: Lidocaine 2% Jelly 11 ML SYR (06:22)
== END 2021-07-17 06:30 | disposition home or self-care (01) ==
LOC: ER 06:36
PROVIDERS: Emergency Provider Student in an Organized Health Care Education/Training Program; PCP Physician Assistant Medical
DX: N40.1 Benign prostatic hyperplasia with lower urinary tract symptoms (principal); R39.11 Hesitancy of micturition; Z96.0 Presence of urogenital implants
CPT/HCPCS: 51702; 99283

== ENCOUNTER 2021-07-23 11:31 | Outpatient (REF) | payer OTHER, SELFPAY | END 2021-07-23 11:32 | disposition home or self-care (01) | LOC: NCHCN 11:31 | PROVIDERS: PCP Physician Assistant Medical; Visit Provider Physician Assistant Medical | DX: Z12.5 Encounter for screening for malignant neoplasm of prostate (principal); R31.9 Hematuria, unspecified; N42.9 Disorder of prostate, unspecified | CPT/HCPCS: 84153 ==

== ENCOUNTER 2021-08-01 01:30 | Outpatient (CLI) | payer MEDICARE, SELFPAY ==
[2021-08-01] MEDS: Normal Saline - Diluent 50 ML VIAL IV (08:52)
[2021-08-01] MEDS: Omnipaque 350 MG/ML 100 ML BTL IJ (08:52)
[2021-08-01] MEDS: Normal Saline Flush 10 ML SYR IVP (08:55)
--- NOTE | 2021-08-01 09:00 | DI.CT_ITS ---
Exam(s) CT ABDOMEN PELVIS WO/W EXAM: CT ABDOMEN PELVIS WO/W CLINICAL HISTORY: HEMATURIA, R31.9,PROSTATE IRREGULARITY,N42.9. TECHNIQUE: Imaging Protocol: Axial computed tomography images with coronal and sagittal reformatted images were created and reviewed CONTRAST MATERIAL: Intravenous: Omnipaque 100cc Oral: None COMPARISON: CT CT ABDOMEN PELVIS W from 07/13/2021 FINDINGS: VISUALIZED LUNG BASES: No nodules nor pleural effusions evident. ABDOMEN: There is no ascites. LIVER: There are no focal hepatic lesions evident . GALLBLADDER/BILIARY: No obvious gallbladder pathology. CBD is not dilated. PANCREAS: No evidence of pancreatic mass nor dilatation of the pancreatic duct. SPLEEN: Spleen is not enlarged. No obvious intrasplenic lesions. Splenic and portal veins are paten t. ADRENALS: There are no significant adrenal masses. KIDNEYS:No cysts evident. No solid renal masses. No calculi nor hydronephrosis.. ABDOMINAL AORTA: Abdominal aorta is not enlarged. LYMPH NODES:There is no retroperitoneal nor paraaortic adenopathy. ABDOMINAL WALL: No evidence of significant anterior abdominal wall nor inguinal hernia. GI: There is no evidence of bowel obstruction, free air, nor abscess. PELVIS: GI: No evidence of appendicitis.No evidence of sigmoid diverticulitis. LYMPH NODES: There is no intrapelvic nor inguinal adenopathy. REPRODUCTIVE: Prostate gland size is slightly prominent. It contains calcifications. Seminal vesicl es appear unremarkable. URINARY BLADDER: There is now Mahmood catheter in the urinary bladder. The bladder is collapsed around the Mahmood catheter and therefore cannot be assessed accurately. OSSEOUS: L2 compression fractures again noted. Appears unchanged. IMPRESSION: 1. There is no Mahmood catheter in the urinary bladder. The bladder is collapsed around this Mahmood cat heter and therefore cannot assess the wall of the urinary bladder (which appeared abnormal on the rec ent CT scan of 07/13/2021). This should be followed by urology. Prostate size is unchanged, slightl y prominent. The prostate is also noted to contain calcifications. 2. L2 compression fracture appears unchanged. No new fractures identified. 3. 4. RADIATION DOSE DELIVERED: 2,475.34mGy.cm Total DLP DATA REPOSITORY: All CT scans at this facility are submitted to the National Radiology Data Registry (NRDR) Dose Index Registry (DIR) with the [employer] ([employer]). RADIATION OPTIMIZATION: All CT scans at this facility use at least one of these dose optimization te chniques: automated exposure control; mA and/or kV adjustment per patient size (includes targeted exa ms where dose is matched to clinical indication); or iterative reconstruction.
[2021-08-01 09:12] LABS: Abs Immature Grans 0.04 10^3/uL (0.0-0.06); Absolute Basophil Count 0.08 10^3/uL (0.0-0.2); Absolute Eosinophil Count 0.36 10^3/uL (0.0-0.7); Absolute Lymphocyte Count 2.78 10^3/uL (1.2-3.4); Absolute Monocyte Count 0.77 10^3/uL (0.1-0.8); Absolute Neutrophil Count 6.82 10^3/uL (1.2-6.7); Basophils % 0.7; Eosinophils % 3.3; HCT 43.4 % (40.0-50.0); HGB 13.7 g/dL (13.5-17.5); Immature Grans % 0.4; Lymphocytes % 25.6; MCH 27.8 pg (27.0-33.0); MCHC 31.6 % (32.0-36.0); MCV 88.2 fL (80-95); MPV 8.6 fL (8.0-11.0); Monocytes % 7.1; Neutrophils % 62.9; Nucleated RBC 0 %; Platelet Count 210 10^3/uL (130-400); RBC 4.92 10^6/uL (4.36-5.78); RDW 14.6 % (11.8-14.1); RDW-SD 47.1 fL; WBC 10.85 10^3/uL (4.4-10.8)
[2021-08-01 18:27] LABS: PSA, Screening 2.1 ng/mL (0.0-4.5)
== END 2021-08-01 01:50 ==
PROVIDERS: PCP Physician Assistant Medical; Visit Provider Physician Assistant Medical
DX: R31.9 Hematuria, unspecified (principal); N42.89 Other specified disorders of prostate; Z12.5 Encounter for screening for malignant neoplasm of prostate
CPT/HCPCS: 84153; 74178; 85025; J3490

== ENCOUNTER 2021-08-07 23:29 | Emergency (ER) | payer MEDICARE, SELFPAY ==
--- NOTE | 2021-08-07 23:31 | W.ED.GENAD ---
Discharge Plan Disposition Patient Disposition: HOME Condition: Good Discharge Details Clinical Impression: Malfunction of Mahmood catheter, Encounter for Mahmood catheter replacement Primary Care Provider: Rekha Keys ED Provider: Jeffrey Lopez Home Meds and New Rx's Prescriptions: Continued trazodone 50 MG tablet 100 mg PO HS RF: 0 lisinopril 20 MG tablet 40 mg PO DAILY RF: 0 Benztropine 2 mg PO BID RF: 0 aspirin 81 MG tablet,delayed release (DR/EC) 81 mg PO DAILY Qty: 90 RF: 0 metformin 500 MG tablet 1,000 mg PO BID Qty: 180 RF: 0 amlodipine 10 MG tablet 10 mg PO DAILY Qty: 0 RF: 0 phenazopyridine [Pyridium] 100 mg tablet 100 mg PO TID PRN (Reason: pain) Qty: 6 RF: 0 budesonide-formoterol [Symbicort] 160-4.5 mcg/actuation HFA aerosol inhaler 2 inh INHALATION BID RF: 0 Trulicity 1.5 mg/0.5 mL pen injector 3 mg SUBCUT QWEEK RF: 0 atorvastatin [Lipitor] 20 MG tablet 40 mg PO QPM RF: 0 divalproex 500 MG tablet extended release 24 hr 1,000 mg PO BID RF: 0 Humulin N NPH U-100 Insulin 100 UNIT/ML suspension 40 unit SQ HS RF: 0 insulin lispro [Humalog U-100 Insulin] 100 UNIT/ML solution 0 unit SQ DIRECTED RF: 0 diazepam 2 mg tablet 2 mg PO BID RF: 0 olanzapine 15 mg tablet 15 mg PO HS RF: 0 Discharge Instructions Additional Instructions: Keep your scheduled follow-up appointment especially with [facility] appointment for procedure. Return to ED for further problems with catheter, fever, abdominal pain, back pain. Medical Decision Making I am unable to find a note from urology here in regards to his referral to [facility]. In any event patient seems to be having a catheter malfunction. Bladder scanning only reveals about 50 mL, however, patient report leakage around the catheter whenever he stands. We will go ahead and have nursing change his catheter. We will keep his scheduled appointment with urology as planned. Medical Records Medical records reviewed: Yes I reviewed the patient's medical records. HPI General Mode of arrival: EMS. Date/Time Provider Initiated Documentation: 08/07/21 23:31. Limitations to Documentation: no limitations. Information obtained by: patient. HPI Narrative: Patient presents to the with Mahmood malfunction. Patient reports that he has had suprapubic discomfort on and off today. Catheter does not seem to be draining daily usually does. He has a lot of narrowing around the catheter. Catheter is in place until he is seen at [facility] later this month for procedure. He has been seen here and found to have an enlarged irregular prostate. He has followed up in the urology clinic but has been referred to For further management. There has been no hematuria as of late. He denies fever. He denies back or flank pain. Related Data Home Medications Medication Instructions Recorded Confirmed Benztropine 2 mg PO BID 09/14/14 08/07/21 lisinopril 40 mg PO DAILY 09/14/14 08/07/21 trazodone 100 mg PO HS 09/14/14 08/07/21 amlodipine 10 mg PO DAILY #0 09/15/14 07/17/21 aspirin 81 mg PO DAILY #90 tabec 09/15/14 08/07/21 metformin 1,000 mg PO BID #180 09/15/14 08/07/21 Humulin N NPH U-100 Insulin 40 unit SQ HS 11/20/16 08/07/21 atorvastatin [Lipitor] 40 mg PO QPM 11/20/16 08/07/21 divalproex 1,000 mg PO BID 11/20/16 08/07/21 insulin lispro [Humalog U-100 0 unit SQ DIRECTED 11/20/16 07/17/21 Insulin] diazepam 2 mg PO BID 07/12/21 08/07/21 olanzapine 15 mg PO HS 07/12/21 08/07/21 phenazopyridine [Pyridium] 100 mg PO TID PRN #6 tab 07/16/21 07/17/21 Trulicity 3 mg SUBCUT QWEEK 08/07/21 08/07/21 budesonide-formoterol [Symbicort] 2 inh INHALATION BID 08/07/21 08/07/21 Previous Rx's Medication Instructions Recorded amlodipine 10 mg PO DAILY #0 09/15/14 aspirin 81 mg PO DAILY #90 tabec 09/15/14 metformin 1,000 mg PO BID #180 09/15/14 phenazopyridine [Pyridium] 100 mg PO TID PRN #6 tab 07/16/21 Allergies Allergy/AdvReac Type Severity Reaction Status Date / Time Penicillins Allergy Mild Skin Rash Unverified 08/07/21 23:37 clopidogrel [From Plavix] Allergy Unverified 08/07/21 23:37 General HALLIE: 4 Review of Systems Narrative: As documented in HPI otherwise negative as below. Const: no fever, chills, weakness Resp: no cough, SOB, pleuritic pain CV: no CP, diaphoresis, edema, syncope GI: no nausea, vomiting, diarrhea Neuro: no headache, numbness, focal weakness, confusion PFSH Medical History Benign prostatic hypertrophy CAD (coronary artery disease) COPD (chronic obstructive pulmonary disease) chronic tobacco use, but no symptoms Hypertension Schizoaffective disorder (09/15/14) a. increased delusional thoughts b. depressed mood Type II diabetes mellitus Surgical History History of heart artery stent Social History Smoking/Tobacco Use Status: Current every day Tobacco Type: cigarettes Smoking risk assessment performed?: Yes Alcohol Intake: current Alcohol Intake frequency: a few times a week Alcohol type: beer Drug use: Never Substance use type: does not use Do you feel safe at home: Yes Do you feel safe in your relationship?: Yes Exam Narrative Exam Narrative: Const: WDWN male in NAD. HEENT: NC/AT. Normal facial exam. Eyes: Normal conjunctiva and sclera. Neck: Supple. Trachea midline. Lungs: Normal respiratory effort. Cor: RRR. Good radial pulses. GI: Soft. NT/ND. No guarding or rebound. Neuro: A+O x 3. Normal speech, mentation, gait. Cranial nerves II - XII grossly intact. No gross motor or sensory deficit. Ext: No C/C/E.
[2021-08-07 23:34] VITALS: BP 146/61; PULSE 81; RESP 16; TEMP 36.8; O2SAT 97
[2021-08-07] MEDS: Lidocaine 2% Jelly 6 ML SYR (23:49)
== END 2021-08-08 01:43 | disposition home or self-care (01) ==
LOC: ER 08-08 01:09
PROVIDERS: Emergency Provider Emergency Medicine; PCP Physician Assistant Medical
DX: T83.098A Other mechanical complication of other urinary catheter, initial encounter (principal)
CPT/HCPCS: 51702; 99283

== ENCOUNTER 2021-08-13 03:15 | Emergency (ER) | payer MEDICARE, SELFPAY ==
[2021-08-13 03:13] VITALS: PULSE 74; RESP 16; TEMP 36.4; O2SAT 97
[2021-08-13 03:22] VITALS: BP 129/67
[2021-08-13 03:23] VITALS: RESP 16
--- NOTE | 2021-08-13 03:28 | W.ED.GENAD ---
Discharge Plan Disposition Patient Disposition: HOME Condition: Good Discharge Details Clinical Impression: Muscle twitching Primary Care Provider: Rekha Keys ED Provider: Tyler Field Home Meds and New Rx's Prescriptions: Continued trazodone 50 MG tablet 100 mg PO HS RF: 0 lisinopril 20 MG tablet 40 mg PO DAILY RF: 0 Benztropine 2 mg PO BID RF: 0 aspirin 81 MG tablet,delayed release (DR/EC) 81 mg PO DAILY Qty: 90 RF: 0 metformin 500 MG tablet 1,000 mg PO BID Qty: 180 RF: 0 amlodipine 10 MG tablet 10 mg PO DAILY Qty: 0 RF: 0 phenazopyridine [Pyridium] 100 mg tablet 100 mg PO TID PRN (Reason: pain) Qty: 6 RF: 0 budesonide-formoterol [Symbicort] 160-4.5 mcg/actuation HFA aerosol inhaler 2 inh INHALATION BID RF: 0 Trulicity 1.5 mg/0.5 mL pen injector 3 mg SUBCUT QWEEK RF: 0 atorvastatin [Lipitor] 20 MG tablet 40 mg PO QPM RF: 0 divalproex 500 MG tablet extended release 24 hr 1,000 mg PO BID RF: 0 Humulin N NPH U-100 Insulin 100 UNIT/ML suspension 40 unit SQ HS RF: 0 insulin lispro [Humalog U-100 Insulin] 100 UNIT/ML solution 0 unit SQ DIRECTED RF: 0 diazepam 2 mg tablet 2 mg PO BID RF: 0 olanzapine 15 mg tablet 15 mg PO HS RF: 0 Discharge Instructions Additional Instructions: At this time it is unclear as to what caused your twitching, but it may have been from mild dehydration, or muscle spasm. At this time there is no evidence of significant abnormality noted on your work-up. Symptoms are inconsistent with stroke and seizures thankfully. Please drink plenty of fluids, stay well-hydrated and follow-up closely with your primary care provider. If you notice any worsening of your symptoms, or any new symptoms such as vomiting, diarrhea, fever, chills, shortness of breath, chest pain, numbness, weakness, or fainting , please return immediately to the emergency department for reevaluation. Please follow up with your primary care provider as soon as possible for reassessment and reevaluation. As always, it was a pleasure participating in your medical care today. Referrals: Rekha Keys PA [Primary Care Provider] - Medical Decision Making This is a 61-year-old male with a past medical history of COPD, coronary artery disease, BPH, hypertension, type 2 diabetes, schizoaffective disorder, and Mahmood catheter presents today for evaluation of twitching of his right foot. About an hour ago the patient states that he was lying in bed watching a movie when he noticed his toes twitching and subsequently his foot began twitching. He contacted 911 and when [facility] arrived his twitching stopped and resolved. He came to the ER for further assessment. He does have peripheral neuropathy but he denies any new numbness or tingling. He denies any new weakness falls or trauma. No significant changes in medication. No pain in his foot. No history of seizures. No other complaints this time. No other modifying factors. Right now the patient states he feels fine, and the symptoms have completely resolved. Physical exam demonstrates a completely reassuring exam, no focal neurologic deficits, normal sensation both to light touch and pinprick on the foot. No tenderness, normal neurovascular exam. Symptoms at this time are clinically inconsistent with stroke. History appears inconsistent with focal seizure. We will gently rehydrate the patient, evaluate for electrolyte abnormality, monitor closely and reassess. Laboratory work-up has returned negative, no significant abnormality. Patient continues to have a normal neurologic exam. Symptoms and consider with stroke, or seizure. Recommend close follow-up with his primary care provider on an outpatient basis. Discussed red flags which to return. I have extensively reviewed the treatment plan and discharge instructions with the patient. I have addressed all patient concerns at this time. The patient was made aware of what symptoms to monitor for that would warrant a return to the emergency department. Discussed the plan with the patient, they demonstrate verbal understanding and agreement with our assessment and plan at this time. The documentation in this chart was dictated using [employer] dictation software. Please excuse any dictation errors. HPI General Date/Time Provider Initiated Documentation: 08/13/21 03:25. HPI Narrative: This is a 61-year-old male with a past medical history of COPD, coronary artery disease, BPH, hypertension, type 2 diabetes, schizoaffective disorder, and Mahmood catheter presents today for evaluation of twitching of his right foot. About an hour ago the patient states that he was lying in bed watching a movie when he noticed his toes twitching and subsequently his foot began twitching. He contacted 911 and when [facility] arrived his twitching stopped and resolved. He came to the ER for further assessment. He does have peripheral neuropathy but he denies any new numbness or tingling. He denies any new weakness falls or trauma. No significant changes in medication. No pain in his foot. No history of seizures. No other complaints this time. No other modifying factors. Right now the patient states he feels fine, and the symptoms have completely resolved. Related Data Home Medications Medication Instructions Recorded Confirmed Benztropine 2 mg PO BID 09/14/14 08/13/21 lisinopril 40 mg PO DAILY 09/14/14 08/13/21 trazodone 100 mg PO HS 09/14/14 08/13/21 amlodipine 10 mg PO DAILY #0 09/15/14 08/13/21 aspirin 81 mg PO DAILY #90 tabec 09/15/14 08/13/21 metformin 1,000 mg PO BID #180 09/15/14 08/13/21 Humulin N NPH U-100 Insulin 40 unit SQ HS 11/20/16 08/13/21 atorvastatin [Lipitor] 40 mg PO QPM 11/20/16 08/13/21 divalproex 1,000 mg PO BID 11/20/16 08/13/21 insulin lispro [Humalog U-100 0 unit SQ DIRECTED 11/20/16 08/13/21 Insulin] diazepam 2 mg PO BID 07/12/21 08/13/21 olanzapine 15 mg PO HS 07/12/21 08/13/21 phenazopyridine [Pyridium] 100 mg PO TID PRN #6 tab 07/16/21 08/13/21 Trulicity 3 mg SUBCUT QWEEK 08/07/21 08/13/21 budesonide-formoterol [Symbicort] 2 inh INHALATION BID 08/07/21 08/13/21 Previous Rx's Medication Instructions Recorded amlodipine 10 mg PO DAILY #0 09/15/14 aspirin 81 mg PO DAILY #90 tabec 09/15/14 metformin 1,000 mg PO BID #180 09/15/14 phenazopyridine [Pyridium] 100 mg PO TID PRN #6 tab 07/16/21 Allergies Allergy/AdvReac Type Severity Reaction Status Date / Time Penicillins Allergy Mild Skin Rash Unverified 08/13/21 03:22 clopidogrel [From Plavix] Allergy Unverified 08/13/21 03:22 General Stated Complaint: GenMedical HALLIE: 3 Review of Systems All systems reviewed & are unremarkable except as noted in HPI and below PFSH Medical History Benign prostatic hypertrophy CAD (coronary artery disease) COPD (chronic obstructive pulmonary disease) chronic tobacco use, but no symptoms Hypertension Schizoaffective disorder (09/15/14) a. increased delusional thoughts b. depressed mood Type II diabetes mellitus Surgical History History of heart artery stent Social History Smoking/Tobacco Use Status: Current every day Tobacco Type: cigarettes Smoking risk assessment performed?: Yes Alcohol Intake: current Alcohol Intake frequency: a few times a week Alcohol type: beer Drug use: Never Substance use type: does not use Do you feel safe at home: Yes Do you feel safe in your relationship?: Yes Exam Narrative Exam Narrative: 1.Const: Well-nourished, Well-developed, appearing stated age 2.Eyes: PERRL, no conjunctival injection, and symmetrical lids. 3.ENT: Atraumatic external nose and ears. Moist MM. Neck: Symmetric, trachea midline, No thyromegaly. 4.CVS: +S1/S2, No murmurs or gallops. Peripheral pulses 2+ and equal in all extremities. Brisk capillary refill in all extremities. 5.RESP: Unlabored respiratory effort. Clear to auscultation bilaterally. No wheezes rales or rhonchi 6.GI: Soft, Nontender/Nondistended, No hepatosplenomegaly. No guarding or rebound. 7.MSK: Normocephalic/Atraumatic, Extremities w/o deformity or ttp No cyanosis or clubbing, Normal movement of all extremities, right foot demonstrates intact sensation throughout to both light touch and pinprick. No significant abnormalities. Dorsalis pedis and posterior tibial pulse 2 bilaterally. Normal plantar and dorsiflexion of the foot and toes. Normal strength throughout. No calf tenderness. 8.Skin: Warm, Dry. No rashes or lesions. 9.Neuro: subassembly assembler II-XII grossly intact. Sensation grossly intact, no focal neurologic deficits. All 6 cardinal planes of vision are fully intact. No evidence of rotatory or vertical nystagmus. The patient demonstrated a normal [id number], good dexterity. There was no evidence of dysdiadochokinesia. Patient was able to ambulate without difficulty. There was no wide-based gait. Romberg testing was normal. [id number]-[id number] testing was normal. Sensation was intact bilaterally as well as muscle strength bilaterally for all extremities. Patient was able to verbalize butter cup with no slurring, or miss pronunciation. 10.Psych: (AAO) x3. Appropriate mood and affect Course Vital Signs Vital signs: Vital Signs Temperature 36.4 C L 08/13/21 03:13 Pulse 74 08/13/21 03:13 Respiratory Rate 16 08/13/21 03:13 Pulse Oximetry 97 08/13/21 03:13 Temperature 36.4 C L 08/13/21 03:13 Temperature Source Skin 08/13/21 03:13 Pulse 74 08/13/21 03:13 Respiratory Rate 16 08/13/21 03:23 Respiratory Effort 08/13/21 03:23 Blood Pressure 129/67 08/13/21 03:22 Pulse Oximetry 97 08/13/21 03:13
[2021-08-13] MEDS: Normal Saline 1,000 ML 1000 ML IV (03:29)
[2021-08-13 03:35] LABS: Abs Immature Grans 0.03 10^3/uL (0.0-0.06); Absolute Basophil Count 0.04 10^3/uL (0.0-0.2); Absolute Eosinophil Count 0.55 10^3/uL (0.0-0.7); Absolute Lymphocyte Count 2.55 10^3/uL (1.2-3.4); Absolute Monocyte Count 0.87 10^3/uL (0.1-0.8); Absolute Neutrophil Count 4.15 10^3/uL (1.2-6.7); Basophils % 0.5; Eosinophils % 6.7; HCT 38.1 % (40.0-50.0); HGB 12.4 g/dL (13.5-17.5); Immature Grans % 0.4; Lymphocytes % 31.1; MCH 27.9 pg (27.0-33.0); MCHC 32.5 % (32.0-36.0); MCV 85.8 fL (80-95); MPV 8.6 fL (8.0-11.0); Monocytes % 10.6; Neutrophils % 50.7; Nucleated RBC 0 %; Platelet Count 159 10^3/uL (130-400); RBC 4.44 10^6/uL (4.36-5.78); RDW 13.9 % (11.8-14.1); RDW-SD 43.4 fL; WBC 8.19 10^3/uL (4.4-10.8)
[2021-08-13 03:53] LABS: ALT 28 U/L (16-63); AST 19 U/L (15-37); Alkaline Phosphatase 52 U/L (46-116); BUN 18 mg/dL (7-18); Bilirubin, Total 0.2 mg/dL (0.2-1.0); CREATININE 0.9 mg/dL (0.70-1.30); Calcium 9.1 mg/dL (8.5-10.1); Chloride 104 mmol/L (98-107); Glucose 209 mg/dL (74-106); Potassium 4.3 mmol/L (3.5-5.1); Sodium 141 mmol/L (136-145); Total Protein 6.3 g/dL (6.4-8.2)
[2021-08-13 05:09] VITALS: BP 123/71; PULSE 62; RESP 18; O2SAT 97
== END 2021-08-13 05:20 | disposition home or self-care (01) ==
LOC: ER 03:37
PROVIDERS: Emergency Provider Student in an Organized Health Care Education/Training Program; PCP Physician Assistant Medical
DX: R25.3 Fasciculation (principal)
CPT/HCPCS: 80053; 99283; 85025; 99282

== ENCOUNTER 2021-08-29 02:51 | Emergency (ER) | payer MEDICARE, SELFPAY ==
--- NOTE | 2021-08-29 02:53 | ED.GENADUL_ITS ---
Discharge Plan Disposition Patient Disposition: HOME Condition: Good Discharge Details Clinical Impression: Malfunction of Mahmood catheter Primary Care Provider: Rekha Keys ED Provider: Jeffrey Lopez Home Meds and New Rx's Prescriptions: No Action trazodone 50 MG tablet 100 mg PO HS RF: 0 lisinopril 20 MG tablet 40 mg PO DAILY RF: 0 Benztropine 2 mg PO BID RF: 0 aspirin 81 MG tablet,delayed release (DR/EC) 81 mg PO DAILY Qty: 90 RF: 0 metformin 500 MG tablet 1,000 mg PO BID Qty: 180 RF: 0 amlodipine 10 MG tablet 10 mg PO DAILY Qty: 0 RF: 0 phenazopyridine [Pyridium] 100 mg tablet 100 mg PO TID PRN (Reason: pain) Qty: 6 RF: 0 budesonide-formoterol [Symbicort] 160-4.5 mcg/actuation HFA aerosol inhaler 2 inh INHALATION BID RF: 0 Trulicity 1.5 mg/0.5 mL pen injector 3 mg SUBCUT QWEEK RF: 0 atorvastatin [Lipitor] 20 MG tablet 40 mg PO QPM RF: 0 divalproex 500 MG tablet extended release 24 hr 1,000 mg PO BID RF: 0 Humulin N NPH U-100 Insulin 100 UNIT/ML suspension 40 unit SQ HS RF: 0 insulin lispro [Humalog U-100 Insulin] 100 UNIT/ML solution 0 unit SQ DIRECTED RF: 0 diazepam 2 mg tablet 2 mg PO BID RF: 0 olanzapine 15 mg tablet 15 mg PO HS RF: 0 Discharge Instructions Additional Instructions: Follow-up with primary care as planned. Return if problems. Medical Decision Making New bag was exchanged for old bag. Patient reports that as he has no further blood in the urine he is not following up at [facility]. I did discuss with him that I thought his referral to [facility] was because of the irregularity noted in his prostate. Patient states he was not told that and will discuss with his primary care when he sees him. Patient requesting discharge and request a second Mahmood bag so that he does not need to return if this develops leak. HPI General Mode of arrival: EMS . Date/Time Provider Initiated Documentation: 08/29/21 02:53 . Limitations to Documentation: no limitations . Information obtained by: patient, RN notes reviewed and old records reviewed . HPI Narrative: Patient presents to the ED by ambulance with complaint that his Mahmood bag is leaking. Patient has had Mahmood in place for some time now. He was supposed to have an appointment at [facility] but canceled it. Catheter itself is working fine but the bag has a leak and patient called EMS to bring him to the ED to have it changed. He otherwise has no complaint. Related Data Home Medications Medication Instructions Recorded Confirmed Benztropine 2 mg PO BID 09/14/14 08/13/21 lisinopril 40 mg PO DAILY 09/14/14 08/13/21 trazodone 100 mg PO HS 09/14/14 08/13/21 amlodipine 10 mg PO DAILY #0 09/15/14 08/13/21 aspirin 81 mg PO DAILY #90 tabec 09/15/14 08/13/21 metformin 1,000 mg PO BID #180 09/15/14 08/13/21 Humulin N NPH U-100 Insulin 40 unit SQ HS 11/20/16 08/13/21 atorvastatin [Lipitor] 40 mg PO QPM 11/20/16 08/13/21 divalproex 1,000 mg PO BID 11/20/16 08/13/21 insulin lispro [Humalog U-100 0 unit SQ DIRECTED 11/20/16 08/13/21 Insulin] diazepam 2 mg PO BID 07/12/21 08/13/21 olanzapine 15 mg PO HS 07/12/21 08/13/21 phenazopyridine [Pyridium] 100 mg PO TID PRN #6 tab 07/16/21 08/13/21 Trulicity 3 mg SUBCUT QWEEK 08/07/21 08/13/21 budesonide-formoterol [Symbicort] 2 inh INHALATION BID 08/07/21 08/13/21 Previous Rx's Medication Instructions Recorded amlodipine 10 mg PO DAILY #0 09/15/14 aspirin 81 mg PO DAILY #90 tabec 09/15/14 metformin 1,000 mg PO BID #180 09/15/14 phenazopyridine [Pyridium] 100 mg PO TID PRN #6 tab 07/16/21 Allergies Allergy/AdvReac Type Severity Reaction Status Date / Time Penicillins Allergy Mild Skin Rash Unverified 08/29/21 03:08 clopidogrel [From Plavix] Allergy Unverified 08/29/21 03:08 General HALLIE: 3 Review of Systems Constitutional Constitutional: Denies fever(s) Cardiovascular Cardiovascular: Denies chest pain and Denies dyspnea Respiratory Respiratory: Denies cough and Denies dyspnea Gastrointestinal Gastrointestinal: Denies abdominal pain [facility] Active Problem List Hematuria (Acute) Prostate irregularity (Acute) Hematuria (Acute) Urinary hesitancy (Acute) Mahmood catheter present (Acute) Malfunction of Mahmood catheter (Acute) Encounter for Mahmood catheter replacement (Acute) Muscle twitching (Acute) Benign prostatic hypertrophy (Chronic) Elevated WBC count (Acute 09/15/14) Hyponatremia (Chronic) Person awaiting admission to adequate facility elsewhere (Acute 09/15/14) Tobacco use disorder (Chronic) 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 increased delusional thoughts b. depressed mood Type II diabetes mellitus Surgical History History of heart artery stent Social History Smoking/Tobacco Use Status: Current every day Tobacco Type: cigarettes Smoking risk assessment performed?: Yes Alcohol Intake: current Alcohol Intake frequency: a few times a week Alcohol type: beer Drug use: Never Substance use type: does not use Do you feel safe at home: Yes Do you feel safe in your relationship?: Yes Exam Const General: no acute distress Orientation: alert HENAK Head: normocephalic and atraumatic Neck Neck: trachea midline and supple Resp Effort & Inspection: normal respiratory effort Neuro General: patient alert, patient oriented x3 and moves all extremities Cognition: normal cognition Speech: speech normal Gait: normal gait
[2021-08-29 02:55] VITALS: BP 163/94; PULSE 96; RESP 16; TEMP 37.1; O2SAT 100
== END 2021-08-29 03:53 | disposition home or self-care (01) ==
LOC: ER 03:02
PROVIDERS: Emergency Provider Emergency Medicine; PCP Physician Assistant Medical
DX: T83.118A Breakdown (mechanical) of other urinary devices and implants, initial encounter (principal)
CPT/HCPCS: 99283; 99282

== ENCOUNTER 2021-09-23 16:36 | Outpatient (REF) | payer MEDICARE, SELFPAY | END 2021-09-23 16:37 | disposition home or self-care (01) | LOC: LBN 16:36 | PROVIDERS: PCP Physician Assistant Medical; Visit Provider Family Medicine | DX: N42.89 Other specified disorders of prostate (principal); R82.79 Other abnormal findings on microbiological examination of urine | CPT/HCPCS: 87077; 87086; 87186 ==

== ENCOUNTER 2021-09-25 16:13 | Outpatient (REF) | payer MEDICARE, SELFPAY ==
[2021-09-25 21:14] LABS: Anion Gap 5.3 mmol/L (3-11); BUN 17 mg/dL (7-18); CO2 29.7 mmol/L (21.0-32.0); CREATININE 0.8 mg/dL (0.70-1.30); Calcium 9.2 mg/dL (8.5-10.1); Chloride 100 mmol/L (98-107); Glucose 156 mg/dL (74-106); Potassium 4.9 mmol/L (3.5-5.1); Sodium 135 mmol/L (136-145)
[2021-09-27 13:56] LABS: COVID-19 RT-PCR UVMMC Result Negative (Negative)
== END 2021-09-25 16:14 | disposition home or self-care (01) ==
LOC: NCHCN 16:13
PROVIDERS: PCP Physician Assistant Medical; Visit Provider Physician Assistant Medical
DX: I10 Essential (primary) hypertension (principal); I25.10 Atherosclerotic heart disease of native coronary artery without angina pectoris; R05.8 Other specified cough; Z20.822 Contact with and (suspected) exposure to COVID-19
CPT/HCPCS: 80048; U0003

== ENCOUNTER 2021-09-30 16:30 | Outpatient (REF) | payer MEDICARE, SELFPAY ==
[2021-09-30 19:29] LABS: Anion Gap 4.9 mmol/L (3-11); BUN 16 mg/dL (7-18); CO2 28.1 mmol/L (21.0-32.0); CREATININE 0.9 mg/dL (0.70-1.30); Calcium 9.1 mg/dL (8.5-10.1); Chloride 92 mmol/L (98-107); Glucose 185 mg/dL (74-106); Potassium 4.9 mmol/L (3.5-5.1); Sodium 125 mmol/L (136-145)
== END 2021-09-30 16:31 | disposition home or self-care (01) ==
LOC: NCHCN 16:30
PROVIDERS: PCP Physician Assistant Medical; Visit Provider Nurse Practitioner Family
DX: Z00.8 Encounter for other general examination (principal)
CPT/HCPCS: 80048

== ENCOUNTER → 2021-11-06 08:28 | Outpatient (BNVA) | payer MEDICARE, SELFPAY | PROVIDERS: PCP Physician Assistant Medical; Referring Provider Family Medicine; Visit Provider Nurse Practitioner Gerontology | DX: E11.9 Type 2 diabetes mellitus without complications (principal); I10 Essential (primary) hypertension; J44.9 Chronic obstructive pulmonary disease, unspecified; R31.9 Hematuria, unspecified; N42.9 Disorder of prostate, unspecified; Z96.0 Presence of urogenital implants; F17.210 Nicotine dependence, cigarettes, uncomplicated | CPT/HCPCS: 99214 ==

== ENCOUNTER 2021-11-07 10:25 | Observation (INO) | payer MEDICARE, SELFPAY ==
[2021-11-07] VITALS (106 sets, daily range): BP systolic 115–212; BP diastolic 40–107; PULSE 59–114; RESP 8–25; TEMP 36.3–37; O2SAT 66–100; BMI 29.2
[2021-11-07] MEDS: EPINEPHrine 1 MG/ML AMP pres-free 0.3 MG SC (10:25)
--- NOTE | 2021-11-07 10:29 | ED.GENADUL_ITS ---
Discharge Plan Disposition Patient Disposition: [facility] INPATIENT Condition: Stable Discharge Details Clinical Impression: Angioedema Primary Care Provider: Rekha Keys ED Provider: Daniel Munguia Home Meds and New Rx's Prescriptions: Discontinued lisinopril 20 MG tablet 40 mg PO DAILY RF: 0 No Action acetaminophen 325 mg capsule 650 mg PO ONCE PRNRF: 0 olanzapine [Zyprexa] 15 mg tablet 15 mg PO DAILY RF: 0 rosuvastatin 40 mg tablet 40 mg PO DAILY RF: 0 trazodone 50 MG tablet 100 mg PO HS RF: 0 Benztropine 2 mg PO BID RF: 0 metformin 500 MG tablet 1,000 mg PO BID Qty: 180 RF: 0 budesonide-formoterol [Symbicort] 160-4.5 mcg/actuation HFA aerosol inhaler 2 inh INHALATION BID RF: 0 Trulicity 1.5 mg/0.5 mL pen injector 3 mg SUBCUT QWEEK RF: 0 Humulin N NPH U-100 Insulin 100 UNIT/ML suspension 40 unit SQ HS RF: 0 insulin lispro [Humalog U-100 Insulin] 100 UNIT/ML solution 0 unit SQ DIRECTED RF: 0 diazepam 2 mg tablet 2 mg PO BID RF: 0 olanzapine 15 mg tablet 15 mg PO HS RF: 0 Medical Decision Making 61-year-old male presents via EMS. He presents with angioedema and near complete airway obstruction. He states by writing that this began he believes after cutting his tongue on broken teeth. He does take an 8 inhibitor, lisinopril 40 mg. Patient had been given 10 mg of dexamethasone and 50 mg of Benadryl by EMS. He arrives unable to speak, writing by communication. Exam is concerning for progressive and occlusive airway obstruction. Patient administered subcutaneous epinephrine, additional anti-inflammatory with Solu-Medrol as well as antihistamine with famotidine. 1 g transexamic acid ordered. Anesthesia consulted emergently and screening chest x-ray obtained. Anesthesia consented the patient for intubation. Multiple attempts by multiple providers with assisted video laryngoscopy, nasopharyngeal approach, direct laryngoscopy with bougie were unsuccessful. We were able to ventilate the patient. Dr. Salcedo consulted and presented to the bedside to evaluate the patient including bedside nasopharyngoscopy. He recommends admission to the ICU with repeat nasopharyngoscopy this afternoon. We will continue steroids, transexamic and FFP. After patient's evaluation by Dr. Salcedo, he is able to handle secretions, his tongue is less protuberant, and he is able to begin speaking. HPI General Date/Time Provider Initiated Documentation: 11/07/21 10:27 . History of Present Illness 61 year old M presents to the emergency department with the chief complaint of Swollen tongue, difficulty breathing, described as moderate and similar to prior episodes, and is localized to the mouth. Patient reports no radiation. Patient started experiencing this hour(s) and it has been constant. No relieving factors improve symptom(s), No exacerbating factors reported . Patient notes shortness of breath; denies syncope. Patient did receive the following treatments prior to arrival, other (50 Benadryl 50 mg, dexamethasone 10 mg) Related Data Home Medications Medication Instructions Recorded Confirmed Benztropine 2 mg PO BID 09/14/14 11/07/21 trazodone 100 mg PO HS 09/14/14 11/07/21 metformin 1,000 mg PO BID #180 09/15/14 11/07/21 Humulin N NPH U-100 Insulin 40 unit SQ HS 11/20/16 11/07/21 insulin lispro [Humalog U-100 0 unit SQ DIRECTED 11/20/16 11/07/21 Insulin] diazepam 2 mg PO BID 07/12/21 11/07/21 olanzapine 15 mg PO HS 07/12/21 11/07/21 Trulicity 3 mg SUBCUT QWEEK 08/07/21 11/07/21 budesonide-formoterol [Symbicort] 2 inh INHALATION BID 08/07/21 11/07/21 rosuvastatin 40 mg tablet 40 mg PO DAILY 10/02/21 11/07/21 acetaminophen 325 mg capsule 650 mg PO ONCE PRN cap 11/06/21 11/07/21 olanzapine 15 mg tablet 15 mg PO DAILY 11/06/21 11/07/21 Previous Rx's Medication Instructions Recorded metformin 1,000 mg PO BID #180 09/15/14 Allergies Allergy/AdvReac Type Severity Reaction Status Date / Time Penicillins Allergy Mild Skin Rash Unverified 11/06/21 08:39 clopidogrel [From Plavix] Allergy Unverified 11/06/21 08:39 Sulfa (Sulfonamide Allergy Verified 11/06/21 08:40 Antibiotics) JOSE Inhibitors AdvReac Severe Verified 11/07/21 12:40 General HALLIE: 5 Review of Systems Narrative: Patient is communicating by writing. States he has had similar tongue swelling 1 his poor dentition/broken teeth have cut the tongue and feels this is recurrent. 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 increased delusional thoughts b. depressed mood Type II diabetes mellitus Surgical History History of heart artery stent Social History Smoking/Tobacco Use Status: Current every day Tobacco Type: cigarettes Smoking risk assessment performed?: Yes Alcohol Intake: current Alcohol Intake frequency: a few times a week Alcohol type: beer Drug use: Never Substance use type: does not use Do you feel safe at home: Yes Do you feel safe in your relationship?: Yes Exam Narrative Exam Narrative: GEN: awake, alert, well groomed, interactive. HEAD: Normocephalic, atraumatic ENT: Mucous membranes moist, nearly occlusive angioedema of the tongue. With tongue depressor unable to see the posterior pharynx/hard palate. Broken teeth noted. EYES: PERRL, EOMI NECK: Full ROM, no ALEKS, no menigismus CHEST/RESP: Nontender, clear to auscultation bilateral, no wheeze/rhonchi/rales CARDIOVASCULAR: RRR, no murmur, rub marilee. 2+ Rad pulse bilateral ABDOMEN: Soft, nontender, no mass. +Bowel sounds EXT: Full ROM, no edema, no rash Neuro: Grossly normal neurologic exam. Psych: Speech fluent, thoughts congruent, affect normal Critical Care Time Critical Care Time Critical Care Time: Yes Total Critical Care Time: 30 Attestation: Bedside management, discussion with consultants
[2021-11-07] MEDS: methylPREDNISolone SUCC 125 MG VIAL IVP ×4 (10:30→21:27)
--- NOTE | 2021-11-07 10:30 | DI.RAD_ITS ---
Exam(s) XR PORTABLE CHEST AP EXAM: XR PORTABLE CHEST AP CLINICAL HISTORY: airway obstruction TECHNIQUE: COMPARISON: CR CHEST 2 VIEWS PA,LAT from 01/09/2015 FINDINGS: The lungs appear hypoinflated but clear. Cardiac size is within normal limits. No gross pleural eff usion seen on this AP view. IMPRESSION: RADIATION DOSE DELIVERED: Total DLP
[2021-11-07] MEDS: FAMOTIDINE 20 MG/50 ML BAG 200 MG IVPB (10:39)
--- NOTE | 2021-11-07 10:49 | ANES.PREOP_ITS ---
General Info Date of Service Date Performed: 11/07/21 Height: 5 ft 9 in Weight: 89.8 kg Body Mass Index (BMI): 29.2 Meds Allergies and Home Medications Allergies Allergy/AdvReac Type Severity Reaction Status Date / Time Penicillins Allergy Mild Skin Rash Unverified 11/06/21 08:39 clopidogrel [From Plavix] Allergy Unverified 11/06/21 08:39 Sulfa (Sulfonamide Allergy Verified 11/06/21 08:40 Antibiotics) Home Medication Medication Instructions Recorded Benztropine 2 mg PO BID 09/14/14 lisinopril 40 mg PO DAILY 09/14/14 trazodone 100 mg PO HS 09/14/14 metformin 1,000 mg PO BID #180 09/15/14 Humulin N NPH U-100 Insulin 40 unit SQ HS 11/20/16 insulin lispro [Humalog U-100 0 unit SQ DIRECTED 11/20/16 Insulin] diazepam 2 mg PO BID 07/12/21 olanzapine 15 mg PO HS 07/12/21 Trulicity 3 mg SUBCUT QWEEK 08/07/21 budesonide-formoterol [Symbicort] 2 inh INHALATION BID 08/07/21 rosuvastatin 40 mg tablet 40 mg PO DAILY 10/02/21 acetaminophen 325 mg capsule 650 mg PO ONCE PRN cap 11/06/21 olanzapine 15 mg tablet 15 mg PO DAILY 11/06/21 Current Visit Medications: Current Medications Generic Name Dose Route Start Last Admin Trade Name Freq PRN Reason Stop Dose Admin Succinylcholine Chloride 100 mg 11/07/21 10:45 Succinylcholine 200 Mg/10 Ml Vial IVP DIRECTED [facility] Active Problems Active Problems: Problem Status Onset Code Hematuria R31.9 Prostate irregularity N42.9 Hematuria R31.9 Urinary hesitancy R39.11 Mahmood catheter present Z97.8 Malfunction of Mahmood catheter T83.011A Encounter for Mahmood catheter replacement Z46.6 Muscle twitching R25.3 Benign prostatic hypertrophy N40.0 Elevated WBC count 09/15/14 D72.829 Hyponatremia E87.1 Person awaiting admission to adequate facility elsewhere 09/15/14 Z75.1 Tobacco use disorder Z72.0 Type II diabetes mellitus with ophthalmic manifestations E11.39 Medical History Medical History CAD (coronary artery disease) COPD (chronic obstructive pulmonary disease) chronic tobacco use, but no symptoms Hypertension 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 increased delusional thoughts b. depressed mood Type II diabetes mellitus Surgical History Surgical History History of heart artery stent Tobacco Smoking/Tobacco Use Status: Current every day Tobacco Type: cigarettes Alcohol Alcohol Intake: current Alcohol intake frequency: a few times a week Alcohol type: beer Substance Use Substance use: Never Substance use type: does not use Vital Signs and Lab Results Lab Results Result Diagrams: 11/07/21 10:25 11/07/21 10:25 Blood Type / Crossmatch: No Data to Display Complete Blood Count: White Blood Count 12.75 10^3/uL (4.4-10.8) H 11/07/21 10:25 11/07/21 Red Blood Count 5.03 10^6/uL (4.36-5.78) 11/07/21 10:25 11/07/21 Hemoglobin 13.9 g/dL (13.5-17.5) 11/07/21 10:25 11/07/21 Hematocrit 42.0 % (40.0-50.0) 11/07/21 10:25 11/07/21 Platelet Count 190 10^3/uL (130-400) 11/07/21 10:25 11/07/21 Complete Metabolic Panel: No Data to Display Liver Function Panel: No Data to Display Coagulation Panel: No Data to Display Cardiac Panel: No Data to Display Arterial Blood Gas: No Data to Display Venous Blood Gas: No Data to Display Pancreas Panel: No Data to Display Thyroid Panel: No Data to Display Infectious Disease: No Data to Display Blood Cultures: No Data to Display Toxicology Panel: No Data to Display Anesthesia Assessment and Plan Anesthesia History Personal History: No History of Anesthesia Complications Family History: No Family History of Anesthesia Complications Exercise Tolerance Exercise Tolerance: Metabolic Equivalents>4 Pertinent Negatives Pertinent Negatives: No Symptoms of GERD, No Major Pulmonary Symptoms or Complaints and No History of CVA/TIA Cardiac & Pulmonary Exam Cardiac Exam: Normal S1/S2 Heart Sounds Pulmonary Exam: Clear Bilateral Breath Sounds Implantable Cardiac Device Does patient have a Pacemaker or an ICD?: No Airway Exam Known Difficult Airway: No Previous Airway Comments:: Significant angioedema, no stridor Mallampati Class: Unable to Assess Mouth Opening: Normal (> 3cm) Thyromental Distance: Greater than 3 cm Neck Range of Motion: Full ROM Neck Circumference: Normal Teeth Condition: Unable to Assess ASA Classification ASA Score: ASA 2 Emergency Case?: Yes NPO Status NPO Status: NPO Clears >2 hours, Solids >8 hours Anesthesia Plan Resuscitation Status: Full Code Anesthesia Technique: General Anesthesia Airway Planned: Endotracheal Tube (RSI glidescope) Monitors Used: Standard Monitors
[2021-11-07 10:55] LABS: Abs Immature Grans 0.13 10^3/uL (0.0-0.06); Absolute Basophil Count 0.08 10^3/uL (0.0-0.2); Absolute Lymphocyte Count 2.61 10^3/uL (1.2-3.4); Absolute Monocyte Count 1.31 10^3/uL (0.1-0.8); Basophils % 0.6; Eosinophils % 3.5; HGB 13.9 g/dL (13.5-17.5); Lymphocytes % 20.5; MCH 27.6 pg (27.0-33.0); MCHC 33.1 % (32.0-36.0); MCV 83.5 fL (80-95); MPV 8.4 fL (8.0-11.0); Monocytes % 10.3; Neutrophils % 64.1; Nucleated RBC 0 %; Platelet Count 190 10^3/uL (130-400); RBC 5.03 10^6/uL (4.36-5.78); RDW 14.6 % (11.8-14.1); RDW-SD 44.9 fL; WBC 12.75 10^3/uL (4.4-10.8)
[2021-11-07 10:56] LABS: Absolute Eosinophil Count 0.45 10^3/uL (0.0-0.7); Absolute Neutrophil Count 8.17 10^3/uL (1.2-6.7)
[2021-11-07 11:08] LABS: ALT 12 U/L (16-63); AST 9 U/L (15-37); Albumin 3.3 g/dL (3.4-5.0); Alkaline Phosphatase 71 U/L (46-116); BUN 15 mg/dL (7-18); Bilirubin, Total 0.3 mg/dL (0.2-1.0); CREATININE 0.8 mg/dL (0.70-1.30); Calcium 9.7 mg/dL (8.5-10.1); Chloride 97 mmol/L (98-107); Glucose 91 mg/dL (74-106); Potassium 4.6 mmol/L (3.5-5.1); Sodium 133 mmol/L (136-145); Total Protein 7.4 g/dL (6.4-8.2)
[2021-11-07 11:10] LABS: PTT Activated 28.3 sec (21.0-27.5); Prothrombin Time 10.4 sec (9.3-11.0)
[2021-11-07] MEDS: Propofol 200 MG/20 ML VIAL 70 MG IVP (11:33)
[2021-11-07] MEDS: PROPOFOL 500 MG/50 ML BTL 26.7 MG IVPB (11:34)
[2021-11-07] MEDS: Succinylcholine 200 MG/10 ML VIAL 100 MG IVP (11:34)
--- NOTE | 2021-11-07 12:46 | ANES.AIR_ITS ---
Airway Management Note Procedure Date and Time DO NOT use this note for patients in the OR, Use Intraop Record Instead Date Performed: 11/07/21 Procedure Time: 11:30 Procedure Location Procedure Location: Emergency Department Requesting Provider: Daniel Munguia Number of Previous Intubation attempts by other providers: 0 Procedure Type Procedure Type: Urgent Pre-Induction Setup Sterility: Hand Hygiene, Surgical Cap, Surgical Mask and Chlorhexidine (Neck was prepped but not cut. ) Preinduction Setup: Standard monitors applied, BVM at bedside, Suction ready (x2), Airway equipment ready, Medications ready, IV/IO access patent & flowing and Post induction medications ready Induction Induction Time: 11:27 Induction setup: Pt. evaluated prior to induction, Pt. Ramped, Head of Bed Elevated, Apneic Oxygenation, NRB - High Flow, Bag Valve Mask Ventilation (Available post RSI), Rapid Sequence Induction and Cricoid Pressure Applied Induction Medications (Indicate Dose Given): Propofol IV Dose:: 200 mg, Propofol (mcg/kg/min) Dose:: 100 mcg and Succinylcholine IV Dose:: 200 mg Mask Ventilation: None (Initially none.), 2 provider Technique (Two provider after first desaturation) and Oral Airway Used Airway Device Airway Type: Intubation Laryngoscopy: Teeth Intact (to baseline ), Pre-existing tooth chip, Poor Dentition and Soft Tissue Injury (See Explanation) (Posterior nasopharynx) Airway Grade: 4 Airway Blades: Mac 4, Glidescope 3, Glidescope 4 and Flexible Video Scope Used Fiberoptic: Oral Placement, Nasal Placement, Used with Video Laryngoscopy, Pt. Sedated for placement and Unable to place into trachea despite repositioning Endotracheal Tube: Oral, Nasal, Cuffed, Stylet Used, Bougie Used, 6.5mm and 7.0mm ETT Depth Where Secured (cm): 0 Placement Confirmation: Cuff inflated with minimally occlusive pressure, Absent breath sounds, ETCO2 waveform present (with bag mask ventilation), ETCO2 absent (on intubation attempts) and Recognized Esophageal Intubation, ETT Removed Number of Attempts (See previous attempts in note section): 6 Post Induction Management Post Induction Medications (Indicate Dose Given): Managed by Requesting Provider (Allowed to awaken) Gastric Tube Gastric Tube: Not Placed Procedure Complications Procedure Complications: Blood Noted in Airway/Soft Tissue Injury and Difficult Airway Procedure Outcome Procedure Outcome: Unsuccessful Procedure Comment: Called to ER for patient at risk for airway compromise. Patient's tongue severely swollen and protruding. Patient unable to close mouth, patient is unable to make himself clear and is having difficulty managing his secretions. Agreed and consented for attempt to intubate with GA and discussed all risks, benefits, and possible outcomes. Patient allowed to call his bottom liner one more time, left voicemail. All materials and personnel required at bedside. Timeout performed for recognized difficult airway due to angioedema. Patient preoxygenated with N/C, plan for RSI. Patient induced and post-fasciculation attempted indirect laryngoscopy with [place] 3. Unable to distinguish normal landmarks. Severely edematous posterior airway. Des Hodgson attempted with fiberoptic glide, unable to place ETT. Third attempt by Sarah Schwab with [place] 4, visualized the epiglottis, unable to visualize edge of epiglottis or glottic opening. Direct laryngoscopy with bougie by Lisandro Munguia; no ETCO2, appeared in the esophagus, removed and bagged the patient. Des Hodgson attempted with glide 4, able to once again visualize epiglottis, unable to pass ETT. Attempted nasally as final attempt, able to visualize esophagus, unable to visualize glottic opening. Patient airway had some difficulty, discussed potential for crichothyrotemy or waking patient. Notified Dr. Salcedo, ENT for consult. Able to maintain patients airway with OPA. Decision was to awaken with backup plan to perform crichothyrotemy on the patient if his airway deteriorated. Propofol turned off and patient woke and able to maintain airway. Dr. Salcedo at bedside. Patient tongue size has noticeably improved. After his assessment Dr. Salcedo and team discussed options with the patient. Decision to admit to ICU without an airway and continuing medications that have appeared to help. Patient agrees and is maintaining 99% saturation on 7 lpm facemask. Patient left in care of ER team and Dr. Munguia. Proceduralist Performed By: Jeramie Schwab Other (not listed above): Rupert Hodgson and Daniel Munguia also attempted.
[2021-11-07 13:22] LABS: Source Nasal/Nares
--- NOTE | 2021-11-07 13:23 | W.PM.HP.N ---
Date of service: 11/07/21 Time of Service: 13:23 Assessment and Plan Assessment and plan (1) Angioedema: Status: Acute Assessment and plan: Continue high-dose Solu-Medrol along with further doses of tranexamic acid 1 gm. I have ordered this 1 gm q4hr prn however, I will have nursing give this on scheduled basis for two more doses tonight. He will remain in the ICU overnight. Cricothyrotomy kit should be immediately available. Qualifiers: Encounter type: initial encounter Qualified Code(s): T78.3XXA - Angioneurotic edema, initial encounter (2) Hypertension: Status: Acute Assessment and plan: patient should not have any further JOSE-inhibitors nor ARB for his bp control. I would treat his HTN w/ either BB or CCB. Qualifiers: Hypertension type: primary hypertension Qualified Code(s): I10 - Essential (primary) hypertension (3) Type II diabetes mellitus with ophthalmic manifestations: Status: Chronic Assessment and plan: patient will be NPO for tonight. I will order SSI Novolog and monitor glucose q6h while NPO. History of Present Illness History of Present Illness Chief Complaint: swollen tongue, and face Narrative: 61-year-old male with type 2 diabetes mellitus on chronic insulin therapy, essential hypertension, BPH who has been chronically on lisinopril presented with acute swelling of his tongue, mouth and lips and had trouble swalling his saliva. He says that he went to bed last night and was fine but woke up this morning w/ swelling of his face, and tongue and it became progressively worse to the point that he was drooling and his tongue protruded out of his mouth so his called EMS. Patient has poor dentition and blames the swollen tongue on biting his tongue. EMS treated the patient with dexamethasone 10 mg IV push and Benadryl 50 mg IV push. After arrival to emergency department Dr. Munguia assumed his care and treat him with Solu-Medrol 125 mg and Pepcid and epinephrine 0.3 mg and Transexamic acid 1 gm and FFP 1 unit. It was decided that the patient should be intubated to protect his airway but after multiple attempts by the ED personnel and anesthesia, the patient could not be intubated but they were able to manage his airway noninvasively and called Dr. Salcedo, ENT who performed nasopharyngeal endoscopy. It was decided after the PEN AND PENCIL REPAIRER endoscopy that the patient's airway was ok and that he could be treated medically in the ICU w/ further steroids and further TXA. I evaluated the patient upon his arrival to the ICU and he was feeling much better but still had a Mallampati class 4 airway but his tongue was no longer protruding out of his mouth and he was able to talk and he was controlling his secretions. His tongue still obscured his uvula but I could see his soft palate. I later evaluated the patient with the recessing machine operator during sign out and at that time the patient's airway was now class 2/3 Mallampati in which his uvula is visible and I could see the beginning of his posterior pharynx. Review of Systems Unobtainable due to (unobtainable d/t patient's upper airway condition) [facility] All Active Problems (Updated 11/07/21 @ 20:45 by Joni Hinojosa) Schizoaffective disorder (Acute 09/15/14) a. increased delusional thoughts b. 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 increased delusional thoughts b. depressed mood Type II diabetes mellitus Surgical History History of heart artery stent Social History Smoking/Tobacco Use Status: Current every day Tobacco Type: cigarettes Smoking risk assessment performed?: Yes Alcohol Intake: current Alcohol Intake frequency: a few times a week Alcohol type: beer Drug use: Never Substance use type: does not use Do you feel safe at home: Yes Do you feel safe in your relationship?: Yes Meds Allergies and Home Medications Allergies Allergy/AdvReac Type Severity Reaction Status Date / Time Penicillins Allergy Mild Skin Rash Unverified 11/06/21 08:39 clopidogrel [From Plavix] Allergy Unverified 11/06/21 08:39 Sulfa (Sulfonamide Allergy Verified 11/06/21 08:40 Antibiotics) JOSE Inhibitors AdvReac Severe Verified 11/07/21 12:40 Home Medications Medication Instructions Recorded Confirmed Type Benztropine 2 mg PO BID 09/14/14 11/07/21 History trazodone 100 mg PO HS 09/14/14 11/07/21 History metformin 1,000 mg PO BID #180 09/15/14 11/07/21 Rx Humulin N NPH U-100 Insulin 40 unit SQ HS 11/20/16 11/07/21 History insulin lispro [Humalog U-100 0 unit SQ DIRECTED 11/20/16 11/07/21 History Insulin] diazepam 2 mg PO BID 07/12/21 11/07/21 History olanzapine 15 mg PO HS 07/12/21 11/07/21 History Trulicity 3 mg SUBCUT QWEEK 08/07/21 11/07/21 History budesonide-formoterol [Symbicort] 2 inh INHALATION BID 08/07/21 11/07/21 History rosuvastatin 40 mg tablet 40 mg PO DAILY 10/02/21 11/07/21 History acetaminophen 325 mg capsule 650 mg PO ONCE PRN cap 11/06/21 11/07/21 History olanzapine 15 mg tablet 15 mg PO DAILY 11/06/21 11/07/21 History Exam Narrative Exam Narrative: Obese white male sitting up right in his bed. He is no longer drooling. Speech is still difficult to understand due to his thick tongue but he is able to talk. HEENT is remarkable for swollen lips and tongue however I am now able to see his uvula and his tongue is no longer protruding. Neck is supple nontender Lungs are clear to auscultation no wheezes rales or rhonchi and no stridor. Heart is regular rate and rhythm Abdomen is obese soft and nontender Extremities without peripheral cyanosis or edema Neuro exam nonfocal grossly intact no focal motor deficits. Sensory exam not performed DTRs not performed as these are not relevant to his current condition Results Labs Result diagrams: 11/07/21 10:25 11/07/21 10:25 Labs: Laboratory Results - last 24 hr 11/07/21 11/07/21 11/07/21 10:25 10:25 10:25 WBC 12.75 H RBC 5.03 Hgb 13.9 Hct 42.0 MCV 83.5 MCH 27.6 MCHC 33.1 RDW 14.6 H Plt Count 190 MPV 8.4 Immature Gran % 1.0 Neutrophils % 64.1 Lymphocytes % 20.5 Monocytes % 10.3 Eosinophils % 3.5 Basophils % 0.6 Nucleated RBC % 0 Absolute Neutrophils 8.17 H Absolute Lymphocytes 2.61 Absolute Monocytes 1.31 H Absolute Eosinophils 0.45 Absolute Basophils 0.08 PT 10.4 INR 1.0 APTT 28.3 H Sodium 133 L Potassium 4.6 Chloride 97 L Carbon Dioxide 27.0 Anion Gap 9.0 BUN 15 Creatinine 0.8 Estimated GFR/1.73 m2 >= 60.00 Glucose 91 Calcium 9.7 Total Bilirubin 0.3 AST 9 L ALT 12 L Alkaline Phosphatase 71 Total Protein 7.4 Albumin 3.3 L COVID-19 Source Patient ABO/Rh 11/07/21 11/07/21 12:20 13:13 WBC RBC Hgb Hct MCV MCH MCHC RDW Plt Count MPV Immature Gran % Neutrophils % Lymphocytes % Monocytes % Eosinophils % Basophils % Nucleated RBC % Absolute Neutrophils Absolute Lymphocytes Absolute Monocytes Absolute Eosinophils Absolute Basophils PT INR APTT Sodium Potassium Chloride Carbon Dioxide Anion Gap BUN Creatinine Estimated GFR/1.73 m2 Glucose Calcium Total Bilirubin AST ALT Alkaline Phosphatase Total Protein Albumin COVID-19 Source Nasal/Nares Patient ABO/Rh A Positive Last Vital Signs Temp 36.6 C 11/07/21 11:09 Pulse 79 11/07/21 13:00 Resp 14 11/07/21 13:00 BP 132/69 11/07/21 13:00 Pulse Ox 98 11/07/21 13:00
[2021-11-07] MEDS: CLINDAMYCIN 900 MG/50 ML BAG 50 MG IVPB ×2 (13:40→21:20)
[2021-11-07 16:14] LABS: COVID-19 PCR Negative (Negative)
[2021-11-07] MEDS: Normal Saline Flush 10 ML SYR ×2 (17:12→21:27)
--- NOTE | 2021-11-07 17:50 | W.ENTCONSULT ---
History of Present Illness History of Present Illness Chief Complaint: Angioedema Narrative: The patient is feeling markedly better. He feels that he can breathe more comfortably, and is finding speaking easily. He notes no pain with swallowing. He notes no soreness in his mouth. He notes that his voice is returning to normal. He denies any shortness of breath. Assessment and Plan Assessment and plan (1) Angioedema: Status: Acute Assessment and plan: I spoke with the hospitalist. My recommendation would be to continue the steroids and the TXA until all edema within the oral cavity has resolved completely. I would also keep him in the ICU overnight. I would then discontinue the TXA and steroids, but continue to observe him for 24 hours to make sure that the problem does not recur. As I strongly believe this angioedema was probably secondary to his JOSE inhibitor's, I have also strongly recommended that they he discontinue these. Assuming no worsening of symptoms and only continued improvement, I do not see a role for me reassessing his airway at this point in time. If despite discontinuing the JOSE inhibitor's, this were to ever recur, he will need a work-up for idiopathic angioedema. Qualifiers: Encounter type: initial encounter Qualified Code(s): T78.3XXA - Angioneurotic edema, initial encounter [facility] All Active Problems Angioedema (Acute) Hematuria (Acute) Prostate irregularity (Acute) Hematuria (Acute) Urinary hesitancy (Acute) Mahmood catheter present (Acute) Malfunction of Mahmood catheter (Acute) Encounter for Mahmood catheter replacement (Acute) Muscle twitching (Acute) Benign prostatic hypertrophy (Chronic) Elevated WBC count (Acute 09/15/14) Hyponatremia (Chronic) Person awaiting admission to adequate facility elsewhere (Acute 09/15/14) Tobacco use disorder (Chronic) 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 increased delusional thoughts b. depressed mood Type II diabetes mellitus Surgical History History of heart artery stent Social History Smoking/Tobacco Use Status: Current every day Tobacco Type: cigarettes Smoking risk assessment performed?: Yes Alcohol Intake: current Alcohol Intake frequency: a few times a week Alcohol type: beer Drug use: Never Substance use type: does not use Do you feel safe at home: Yes Do you feel safe in your relationship?: Yes Exam HENDE Head: normal to inspection Ears: external ears normal and TM's normal bilaterally General nose exam: external nose normal and nasal mucous membranes and turbinates normal Face and sinus: normal facial exam Teeth and gingiva: dentition normal Other: Oral examination reveals that his tongue edema continues to recede. The floor of mouth is not elevated. There is no tenderness. There are no discrete masses. I cannot visualize his hypopharynx or larynx using a mirror secondary to anatomy and residual tongue edema. Flexible laryngoscopy: Flexible laryngoscopy was performed again through the right naris. This revealed that the epiglottic, uvular, and arytenoid edema is dramatically reduced. Vocal cord motion is symmetric. His airway appears markedly improved. There are no signs of masses or lesions. Neck Lymphatic: no lymphadenopathy noted Other: Neck edema continues to recede. There is no palpable crepitance or tenderness. Resp Auscultation: clear to auscultation bilaterally Cardio Rate: regular rate Rhythm: regular rhythm Skin Other: No evidence of cellulitis across the head and neck Results Last Vital Signs Temp 36.7 C 11/07/21 15:29 Pulse 76 11/07/21 15:56 Resp 17 11/07/21 15:56 BP 134/67 11/07/21 15:02 Pulse Ox 99 11/07/21 15:56 Labs Result diagrams: 11/07/21 10:25 11/07/21 10:25 Labs: Laboratory Results - last 24 hr 11/07/21 11/07/21 11/07/21 10:25 10:25 10:25 WBC 12.75 H RBC 5.03 Hgb 13.9 Hct 42.0 MCV 83.5 MCH 27.6 MCHC 33.1 RDW 14.6 H Plt Count 190 MPV 8.4 Immature Gran % 1.0 Neutrophils % 64.1 Lymphocytes % 20.5 Monocytes % 10.3 Eosinophils % 3.5 Basophils % 0.6 Nucleated RBC % 0 Absolute Neutrophils 8.17 H Absolute Lymphocytes 2.61 Absolute Monocytes 1.31 H Absolute Eosinophils 0.45 Absolute Basophils 0.08 PT 10.4 INR 1.0 APTT 28.3 H Sodium 133 L Potassium 4.6 Chloride 97 L Carbon Dioxide 27.0 Anion Gap 9.0 BUN 15 Creatinine 0.8 Estimated GFR/1.73 m2 >= 60.00 Glucose 91 Calcium 9.7 Total Bilirubin 0.3 AST 9 L ALT 12 L Alkaline Phosphatase 71 Total Protein 7.4 Albumin 3.3 L COVID-19 Source SARS-CoV-2 (PCR) Patient ABO/Rh 11/07/21 11/07/21 12:20 13:13 WBC RBC Hgb Hct MCV MCH MCHC RDW Plt Count MPV Immature Gran % Neutrophils % Lymphocytes % Monocytes % Eosinophils % Basophils % Nucleated RBC % Absolute Neutrophils Absolute Lymphocytes Absolute Monocytes Absolute Eosinophils Absolute Basophils PT INR APTT Sodium Potassium Chloride Carbon Dioxide Anion Gap BUN Creatinine Estimated GFR/1.73 m2 Glucose Calcium Total Bilirubin AST ALT Alkaline Phosphatase Total Protein Albumin COVID-19 Source Nasal/Nares SARS-CoV-2 (PCR) Negative Patient ABO/Rh A Positive
[2021-11-07] MEDS: Nicotine 21 MG/24 HR PATCH TD (19:10)
[2021-11-07] MEDS: Insulin Aspart 300 UNITS/3 ML PEN SC (23:53)
[2021-11-08] VITALS (51 sets, daily range): BP systolic 107–158; BP diastolic 52–99; PULSE 59–81; RESP 11–25; TEMP 36–37.2; O2SAT 92–100
[2021-11-08] MEDS: Insulin Aspart 300 UNITS/3 ML PEN SC ×3 (06:38→17:29)
[2021-11-08] MEDS: CLINDAMYCIN 900 MG/50 ML BAG 50 MG IVPB ×3 (07:29→21:13)
--- NOTE | 2021-11-08 08:40 | W.PULMCC ---
General Date of Service Date of service: 11/08/21 Time of Service: 08:41 Reason for Admission to ICU: Angioedema Assessment and Plan Assessment and plan (1) Tobacco use disorder: Status: Chronic (2) Type II diabetes mellitus with ophthalmic manifestations: Status: Chronic (3) Prostate irregularity: Status: Acute (4) Angioedema: Status: Acute Qualifiers: Encounter type: initial encounter Qualified Code(s): T78.3XXA - Angioneurotic edema, initial encounter (5) COPD (chronic obstructive pulmonary disease): Status: Acute (6) Tongue laceration: Status: Acute (7) Dental caries: Status: Acute Assessment and plan: This is a 61 yo man with COPD, tobacco use and diabetes who is admitted to the ICU for angioedema. He had failed intubation attempts yesterday but did not require emergent cric and he began to improve with medical management. It is most likely that the angioedema is due to his ACEi, however still would recommend some blood work for this. Typically a C4 level, C1 esterase functional testing, CRP and ESR are indicated for him. It does not seem as though he had anaphylaxis or any urticaria. He does have poor dentition, so it is reasonable to continue a short course of Clindamycin. He does not need the ICU anymore, but would recommend one more night in hospital for observation to ensure he does not have recurrence of swelling once the steroids wear off. Recommendations Pulmonary: Angioedema - s/p TXA, steroids, benadryl, famotidine, FFP - improving - I have ordered C1 esterase inhibitor functional status and antigen, C4, ESR and CRP - reasonable to advance diet as tolerate - if his swelling returns and he cannot be conventionally intubated would recommend an awake nasal intubation (6.0 tube typically will fit) or fiberoptic intubation with a bronchoscope h/o COPD - no current exacerbation, no negative pressure pulmonary edema - at home he is on Symbicort, but given his COPD diagnosis and the state of his mouth I do not think an ICS inhaler to appropriate for him - would recommend Stiolto while in hospital and on discharge (no ICS) - order for stiolto placed - added albuterol HFA to MAR and for him to have on D/C in addition to prn Duonebs - orders placed Cardiac: No acute concerns - can restart his home rosuvastatin Renal: No acute concerns - continue to hold metformin and utilize sliding scale I&O: Intake & Output 11/05/21 11/06/21 11/07/21 11/08/21 23:59 23:59 23:59 23:59 Intake Total 952.47 / 952.47 110 / 110 Output Total 1025 / 1025 1000 / 1000 Balance -72.53 / -72.53 -890 / -890 Weight 90.8 kg Daily Fluid Goal:: even GI Nutrition: Can advance diet as tolerated Date of Last Bowel Movement: 11/07/21 Infectious Disease: Dental caries - agree with clindamycin for 5 days - recommend probiotics or eating yogurt with this medication - can be switched from IV to PO Hematologic: No acute concerns Neurologic: No acute concerns - would continue to hold any potentially sedating medications for now including trazodone, diazepam, and olanzapine Endocrine: No acute concerns Lines: PIV Prophylaxis: Recommend DVT ppx - Lovenox No indication for GI ppx currently Code Status: Resuscitation Status Full Code Subjective Critical and life-threatening events over the past 24 hours: This is a 61 yo man admitted to the ICU for angioedema in the setting of ACEi use. There were attempts at intubation however these were unsuccessful given the degree of swelling, luckily the patient began to improve with time. He tells me that a month ago he did notice some swelling but that it went away on its own. He has never had tongue or lip swlling in the past for any reason. He received TXA and FFP in the ED in addition to steroids, benadryl, 0.3 of epi and famotidine. He was seen by ENT who recommended keeping him on steroids and TXA until all of the swelling had resolved and to observe him for 24 hour to ensure the symptoms do not recur. It is through his angioedema is due to the ACEi. Today he is doing much better. He feels well and is anxious to go home as he has a service dog who has anxiety. He does not think his mouth feels full but does mention some voice hoarseness. Exam Const General: no acute distress Nutritional Appearance: well nourished [facility] Head: other (fullness of cheeks L>R) Ears: external ears normal and no periauricular adenopathy General nose exam: nasal mucous membranes and turbinates normal Face and sinus: sinuses nontender Mouth: moist mucous membranes, muffled voice and tongue abnormal discolored Teeth and gingiva: dentition normal Eyes General: appearance normal, both eyes and all related structures Pupils: PERRL Neck Neck: normal visual inspection and no lymphadenopathy Chest Chest: normal inspection of the chest Resp Effort & Inspection: normal respiratory effort Auscultation: clear to auscultation bilaterally, no rales, no rhonchi, no wheezes and other (NO STRIDOR) Cardio Rate: regular rate Rhythm: regular rhythm Heart Sounds: S1 normal, S2 normal and no murmurs Pulses: radial pulses present bilaterally GI Inspection: normal to inspection Palpation: soft Skin General skin exam: no rashes or lesions noted Neuro General: patient alert, patient awake and patient oriented x3 Extrem General: no clubbing, cyanosis or edema Psych Mental Status: mental status grossly normal Affect: normal affect Attitude: cooperative Most Recent VS/Results Last Vital Signs Temp 36.9 C 11/08/21 04:13 Pulse 63 11/08/21 06:00 Resp 15 11/08/21 06:01 BP 111/66 11/08/21 06:00 Pulse Ox 95 11/08/21 08:35 Laboratory Results - last 24 hr 11/07/21 11/07/21 11/07/21 10:25 10:25 10:25 WBC 12.75 H RBC 5.03 Hgb 13.9 Hct 42.0 MCV 83.5 MCH 27.6 MCHC 33.1 RDW 14.6 H Plt Count 190 MPV 8.4 Immature Gran % 1.0 Neutrophils % 64.1 Lymphocytes % 20.5 Monocytes % 10.3 Eosinophils % 3.5 Basophils % 0.6 Nucleated RBC % 0 Absolute Neutrophils 8.17 H Absolute Lymphocytes 2.61 Absolute Monocytes 1.31 H Absolute Eosinophils 0.45 Absolute Basophils 0.08 PT 10.4 INR 1.0 APTT 28.3 H Sodium 133 L Potassium 4.6 Chloride 97 L Carbon Dioxide 27.0 Anion Gap 9.0 BUN 15 Creatinine 0.8 Estimated GFR/1.73 m2 >= 60.00 Glucose 91 Calcium 9.7 Total Bilirubin 0.3 AST 9 L ALT 12 L Alkaline Phosphatase 71 Total Protein 7.4 Albumin 3.3 L COVID-19 Source SARS-CoV-2 (PCR) Patient ABO/Rh 11/07/21 11/07/21 12:20 13:13 WBC RBC Hgb Hct MCV MCH MCHC RDW Plt Count MPV Immature Gran % Neutrophils % Lymphocytes % Monocytes % Eosinophils % Basophils % Nucleated RBC % Absolute Neutrophils Absolute Lymphocytes Absolute Monocytes Absolute Eosinophils Absolute Basophils PT INR APTT Sodium Potassium Chloride Carbon Dioxide Anion Gap BUN Creatinine Estimated GFR/1.73 m2 Glucose Calcium Total Bilirubin AST ALT Alkaline Phosphatase Total Protein Albumin COVID-19 Source Nasal/Nares SARS-CoV-2 (PCR) Negative Patient ABO/Rh A Positive Review of Systems All systems reviewed & are unremarkable except as noted in HPI and below Time spent with patient Time spent in Critical Care: 45 Time spent in Critical care included: Coordination of care, Chart review, Documenting critically ill care, Time at immediate bedside and Discussing critically ill care with other medical staff
[2021-11-08 11:49] LABS: ESR 7 mm/hr (0-20)
--- NOTE | 2021-11-08 15:27 | W.PULMCC ---
General Date of Service Date of service: 11/08/21 Time of Service: 12:00 Recommendations I&O: Intake & Output 11/05/21 11/06/21 11/07/21 11/08/21 23:59 23:59 23:59 23:59 Intake Total 952.47 / 952.47 520 / 520 Output Total 1025 / 1025 1000 / 1000 Balance -72.53 / -72.53 -480 / -480 Weight 90.8 kg Date of Last Bowel Movement: 11/07/21 Code Status: Resuscitation Status Full Code Most Recent VS/Results Last Vital Signs Temp 36.5 C 11/08/21 08:20 Pulse 67 11/08/21 14:01 Resp 14 11/08/21 14:01 BP 126/63 11/08/21 14:01 Pulse Ox 96 11/08/21 14:01 Laboratory Results - last 24 hr 11/07/21 11/07/21 11/08/21 12:20 13:13 10:44 ESR C-Reactive Protein 1.60 H SARS-CoV-2 (PCR) Negative Patient ABO/Rh A Positive 11/08/21 10:44 ESR 7 C-Reactive Protein SARS-CoV-2 (PCR) Patient ABO/Rh
--- NOTE | 2021-11-08 16:24 | W.PM.PROGNOT ---
Date of Service Date of service: 11/08/21 Time of Service: 16:25 Assessment and Plan Assessment and plan (1) Angioedema: Status: Acute Assessment and plan: An episode of severe angioedema of the tongue and oropharynx. Attempts to intubate him failed but the medications took effect in time to allow him to resume normal breathing. He appears to have near complete resolution of the swelling. He is now just getting off of the Solu-Medrol, Pepcid, TXA. To ensure that he does not have any evidence of recurrence will observe him overnight. Transfer to the regular floor. He can no longer take JOSE/ARB inhibitor medication. Qualifiers: Encounter type: initial encounter Qualified Code(s): T78.3XXA - Angioneurotic edema, initial encounter (2) Dental caries: Status: Acute Assessment and plan: He has severe dental caries. He has an appointment with the dentist. He has been on IV clindamycin for the subclinical infections. Transition to p.o. clindamycin with follow-up as an outpatient with oral surgery for extractions. (3) Schizoaffective disorder: Status: Acute Assessment and plan: Longstanding mental illness. He says he is planning to write a book about all of his treatment since 1980. Continue present medications which include olanzapine. (4) Type II diabetes mellitus with ophthalmic manifestations: Status: Chronic Assessment and plan: Blood sugars have been under reasonably good control. (5) Obstructive uropathy: Status: Acute Assessment and plan: He has a chronic indwelling Mahmood. I spoke with Dr. Jaramillo. He was evaluated on 11/06/2021 by Magdalena June. He apparently has his Mahmood catheter personal preference. He had some hematuria in the past and has not had that worked up completely. He needs a cystoscopy which Dr. Jaramillo's office plans to schedule him for. The plan was to continue the Mahmood catheter per patient preference. Subjective Subjective Interval history since last seen: 61-year-old that came in with severe angioedema of her tongue and oropharynx. He responded to medical treatments overnight and today he states his tongue feels back to normal but his neck still has some swelling. He was started back on a regular diet and has tolerated it well. He is finishing off a course of Solu-Medrol, Pepcid, [place] a. He is being further observe off of all of these medications with plan discharge tomorrow if he remains stable. Exam Narrative Exam Narrative: On exam he is somewhat gregarious and talkative. He has no respiratory difficulty. He showed me his tongue and oropharynx which appeared grossly normal midline and without significant swelling. His neck is supple without significant adenopathy or asymmetry. His lung exam showed no wheezes or rales on the right or left. He was able to breathe with full excursion and no apparent difficulty. He has an obese abdomen that is nontender lower extremities no significant edema. Objective Last Vital Signs Temp 36.5 C 11/08/21 08:20 Pulse 67 11/08/21 14:01 Resp 14 11/08/21 14:01 BP 126/63 11/08/21 14:01 Pulse Ox 96 11/08/21 14:01 Laboratory Results - last 24 hr 11/08/21 11/08/21 10:44 10:44 ESR 7 C-Reactive Protein 1.60 H PAWSS Pt Consumed Any Amount of Alcohol Within the Last 30 days OR had positive SHMUEL Upon Admission: No
[2021-11-08] MEDS: Nicotine 21 MG/24 HR PATCH TD (17:31)
--- NOTE | 2021-11-08 18:20 | INITIAL_ITS ---
- If Service Date Differs Date of service: 11/08/21 Time of Service: 18:20 Care Management Initial Assess REASON FOR HOSPITALIZATION:: Angioedema PAST MEDICAL HISTORY/PAST SURGICAL HISTORY:: All Active Problems. Schizoaffective disorder (Acute 09/15/14). a. increased delusional thoughts. b. depressed mood. COPD (chronic obstructive pulmonary disease) (Acute). chronic tobacco use, but no symptoms. Hypertension (Acute). Angioedema (Acute). Prostate irregularity (Acute). Urinary hesitancy (Acute). Encounter for Casillas catheter replacement (Acute). Benign prostatic hypertrophy (Chronic). Tobacco use disorder (Chronic). 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 Medical History. CAD (coronary artery disease). COPD (chronic obstructive pulmonary disease). chronic tobacco use, but no symptoms. Hypertension. Retinopathy. a. due to diabetes type 2. Schizoaffective disorder (09/15/14). a. increased delusional thoughts. b. depressed mood. Type II diabetes mellitus. Surgical History. History of heart artery stent PREVIOUS FUNCTIONAL STATUS/SOCIAL/FAMILY SUPPORTS:: Kel lives in [place], alone. He reports that he has supportive neighbors, friends at [employer], and has a therapy dog at home. He is retired from working as a electrical machinist for many years. He has HH RN currently, but is independent with ADL's at baseline. He uses [facility] for transportation. CURRENT FUNCTIONAL STATUS:: Kel was lying in bed when CM met with him. He reported that his experience was very scary, but he is feeling much better today. He stated that he is able to eat and swallow well now, and per MD he will likely be ready for discharge tomorrow after a period of observation tonight. He will need a resumption of HH RN for his casillas care, and a ride home via [employer] vehicle. CM will continue to follow. ADVANCE DIRECTIVES:: None on file. Has patient been provided with info about the portal/API?: Yes Did the patient sign up for the portal?: No CODE STATUS:: Full Code INSURANCE COVERAGE / FINANCIAL ISSUES:: [facility] replacement; financial assist 100% CURRENT HOME/COMMUNITY SERVICES/EQUIPMENT:: Kel has current HH RN for casillas care, and uses [facility] for transportation. PRIMARY CARE PHYSICIAN:: Jeniane Rathburn POTENTIAL DISCHARGE NEEDS:: Evaluation for further needs, follow up appointments. PATIENT/FAMILY EDUCATION NEEDS:: Review discharge instructions regarding activity levels and medications, discussion of self care needs including ask me three. ANTICIPATED BARRIERS TO DISCHARGE:: None identified at this time. TRANSPORTATION:: via [facility] private vehicle. PLAN:: Kel will be observed overnight. When he is medically cleared he will return home with a resumption of RN. He will be driven home via private vehicle by [facility], coordinated by CM. He will follow up with his PCP and discharge plan of care. CM will continue to follow.
[2021-11-08 19:37] LABS: Bilirubin Negative (Negative); Blood Small (Negative); Clarity Clear (Clear); Glucose 250 mg/dL (Negative); Ketones Negative (Negative); Leukocyte Esterase Moderate (Negative); Nitrite Negative (Negative)
[2021-11-08 19:46] LABS: Bacteria Moderate HPF (Negative); C & S Indicated? Yes; Casts Negative LPF (Negative); Crystals Negative HPF (Negative); Epithelial Cells Few HPF (Negative); Mucus Negative (Negative); RBC 0-2 HPF (0-2); WBC >50 HPF (0-5)
[2021-11-08] MEDS: diazePAM 2 MG TAB PO (21:10)
[2021-11-08] MEDS: Divalproex Sodium 500 MG TAB.ER.24H 1000 MG PO (21:11)
[2021-11-08] MEDS: Benztropine 1 MG TAB 2 MG PO (21:11)
[2021-11-08] MEDS: traZODone 50 MG TAB 100 MG PO (21:12)
[2021-11-08] MEDS: OLANZapine 5 MG TAB 15 MG PO (21:12)
[2021-11-08] MEDS: Budesonide/Formoterol 160/4.5 6 GM 60 PUFF INH IH (21:13)
[2021-11-08] MEDS: Insulin NPH-Human 300 UNITS/3 ML PEN 40 UNIT SC (21:28)
[2021-11-08 22:43] LABS: Bilirubin Negative (Negative); Blood Moderate (Negative); Clarity Sl Cloudy (Clear); Glucose 500 mg/dL (Negative); Ketones Negative (Negative); Leukocyte Esterase Small (Negative); Nitrite Negative (Negative); pH 7.5 (5-8)
[2021-11-08 22:53] LABS: Bacteria Few HPF (Negative); Crystals Negative HPF (Negative); Epithelial Cells Rare HPF (Negative); WBC 20-50 HPF (0-5)
[2021-11-08 22:54] LABS: Casts Negative LPF (Negative); Mucus Negative (Negative)
[2021-11-08 23:05] LABS: C & S Indicated? No
[2021-11-09] VITALS: BP 103/62; PULSE 58; RESP 18; O2SAT 93
[2021-11-09] MEDS: CLINDAMYCIN 900 MG/50 ML BAG 50 MG IVPB (05:21)
[2021-11-09 06:14] VITALS: BP 92/58; PULSE 55; PULSE 68; RESP 14; O2SAT 90
--- NOTE | 2021-11-09 06:52 | NUR.NOTE ---
Nursing Note: Patient's morning FS - 58, rechecked after 3 mins FS 56. Patient asymptomatic HR-61, BP-92/58, RR-17, SpO2 98% on room air. Patient coherent, talking, verbalized not feeling dizzy. Given 300ml orange juice, 2 pkts of harpreet crackers and oral glucose gel 15gm. after 15 mints, FS-127.
[2021-11-09 07:22] VITALS: BP 103/55; PULSE 59; RESP 13; TEMP 36.5; O2SAT 98
[2021-11-09] MEDS: Normal Saline Flush 10 ML SYR (07:36)
[2021-11-09] MEDS: Benztropine 1 MG TAB 2 MG PO (07:43)
[2021-11-09] MEDS: Tiotropium/Olodaterol 10 PUFF INHALER 2 PUFF IH (07:44)
[2021-11-09] MEDS: diazePAM 2 MG TAB PO (07:44)
[2021-11-09] MEDS: Divalproex Sodium 500 MG TAB.ER.24H 1000 MG PO (07:44)
[2021-11-09] MEDS: Budesonide/Formoterol 160/4.5 6 GM 60 PUFF INH IH (07:45)
--- NOTE | 2021-11-09 07:54 | DSE_ITS ---
Date of service: 11/09/21 Time of Service: 07:54 DS: Diagnosis Discharge Diagnosis (1) Angioedema: Status: Acute (2) Dental caries: Status: Acute (3) Schizoaffective disorder: Status: Acute (4) Type II diabetes mellitus with ophthalmic manifestations: Status: Chronic (5) Obstructive uropathy: Status: Acute Discharge Plan Disposition Patient Disposition: HOME Condition: Good Discharge Details Reason For Visit: Angioedema Admit Date/Time: 11/07/21 13:22 Admit Provider: Joni Hinojosa Attending Provider: Joni Hinojosa Primary Care Provider: Rekha Keys Hospital Course Hospital Course: This is a 61-year-old male with type 2 diabetes mellitus on chronic insulin therapy, essential hypertension, BPH who has been chronically on lisinopril presented with acute swelling of his tongue, mouth and lips and had trouble swallowing his saliva. He says that he went to bed the night prior to admission and was fine but woke up in the morning w/ swelling of his face, and tongue and it became progressively worse to the point that he was drooling and his tongue protruded out of his mouth so his called EMS. Patient has poor dentition and blamed the swollen tongue on biting his tongue. EMS treated the patient with dexamethasone 10 mg IV push and Benadryl 50 mg IV push. After arrival to emergency department Dr. Munguia assumed his care and treated him with Solu-Medrol 125 mg, Pepcid, epinephrine 0.3 mg and Transexamic acid 1 gm. He also received FFP 1 unit. It was decided that the patient should be intubated to protect his airway but after multiple attempts by the ED personnel and anesthesia, the patient could not be intubated but they were able to manage his airway noninvasively and called Dr. Salcedo, ENT who performed nasopharyngeal endoscopy. It was decided after the [facility] endoscopy that the patient's airway was ok and that he could be treated medically in the ICU w/ further steroids and further TXA. Upon arrival in the ICU and he was feeling much better but still had a Mallampati class 4 airway but his tongue was no longer protruding out of his mouth and he was able to talk and he was controlling his secretions. His tongue still obscured his uvula but his soft palate was visible. His tongue swelling continue to subside and then normalized. His lisinopril was the likely causative agent for the angioedema and it was discontinued. He will begin amlodapine 5mg daily for hypertension. He will, unfortunately, need to avoid ACEI's and ARB's that would otherwise be beneficial for renal protection in background of DM2. He does have an appt with a dentist in December. He will complete a course of outpt clindamycin (seven days). Follow up with PCP in 1-2 weeks. Home Meds and New Rx's Prescriptions: New amlodipine 5 mg tablet 5 mg PO DAILY Qty: 30 RF: 0 clindamycin HCl [Cleocin HCl] 300 mg capsule 300 mg PO TID Qty: 21 RF: 0 Continued acetaminophen 325 mg capsule 650 mg PO ONCE PRNRF: 0 rosuvastatin 40 mg tablet 40 mg PO DAILY RF: 0 trazodone 50 MG tablet 100 mg PO HS RF: 0 metformin 500 MG tablet 1,000 mg PO BID Qty: 180 RF: 0 budesonide-formoterol [Symbicort] 160-4.5 mcg/actuation HFA aerosol inhaler 2 inh INHALATION BID RF: 0 Trulicity 1.5 mg/0.5 mL pen injector 1.5 mg SUBCUT QWEEK RF: 0 Humulin N NPH U-100 Insulin 100 UNIT/ML suspension 40 unit SQ HS RF: 0 insulin lispro [Humalog U-100 Insulin] 100 UNIT/ML solution 0 unit SQ DIRECTED RF: 0 diazepam 2 mg tablet 2 mg PO BID RF: 0 olanzapine 15 mg tablet 15 mg PO HS RF: 0 triamcinolone acetonide 55 mcg aerosol,spray 1 spray INTRANASAL DAILY RF: 0 benztropine 2 mg tablet 2 mg PO BID RF: 0 divalproex 500 mg tablet extended release 24 hr 1,000 mg PO BID RF: 0 Discontinued lisinopril 20 MG tablet 40 mg PO DAILY RF: 0 Discharge Instructions Instructions: Angioedema (ED), Angioedema (GEN) Activity:: Activity as Tolerated Equipment/Supplies:: No Equipment Needed Diet:: resume usual home diet Discharge Orders Discharge Orders: Discharge Order (Routine); Ordered 11/09/21 Ordered By: Vadim Márquez DS: Summary Time Spent with Patient providing and/or coordinating discharge services: Less than 30 minutes Status at Discharge Functional status at discharge: independent ambulation Overall status at discharge: patient is back to baseline Mental Status: mental status grossly normal Speech and Movement: speech and movement normal Mood: congruent mood Affect: normal affect Exam Narrative Exam Narrative: On exam he is somewhat gregarious and talkative as has been previously noted. Tongue and oropharynx which appeared grossly normal midline and without significant swelling. His neck is supple without significant adenopathy or asymmetry. No increased work of breathing. No adventitious lung sounds. No pedal edema. A&O x 3. Psych Mental Status: mental status grossly normal Speech and Movement: speech and movement normal Mood: congruent mood Affect: normal affect DS: Data Vitals/I&O Vitals and I&O: Vital Signs Temperature 36.5 C 11/09/21 07:22 Temperature Source Temporal Artery Scan 11/09/21 07:22 Pulse 59 L 11/09/21 07:22 Pulse Rhythm Regular 11/08/21 20:14 Pulse 68 11/09/21 06:14 Respiratory Rate 13 11/09/21 07:22 Respiratory Effort 11/09/21 07:24 Respiratory Depth Normal 11/08/21 20:14 Respiratory Pattern Normal 11/08/21 20:14 Blood Pressure 103/55 L 11/09/21 07:22 Blood Pressure Mean 66 11/09/21 06:14 Blood Pressure Position Supine 11/08/21 17:30 Pulse Oximetry 98 11/09/21 07:22 Respiratory End-tidal CO2 37 11/07/21 11:58 Oxygen Delivery Method Room Air 11/09/21 07:22 Oxygen Flow Rate 0 11/09/21 07:22 Fraction of Inspired Oxygen (FIO2) 28 11/07/21 20:30 Pain Level 0 11/09/21 07:22 Intake & Output 11/08/21 11/08/21 11/09/21 11:59 23:59 11:59 Intake Total 520 / 1530 1010 / 1530 400 / 400 Output Total 1000 / 2500 1500 / 2500 1500 / 1500 Balance -480 / -970 -490 / -970 -1100 / -1100 Weight 80.9 kg Intake: IV 160 / 310 150 / 310 50 / 50 Oral 360 / 1220 860 / 1220 350 / 350 Output: Urine 1000 / 2500 1500 / 2500 1500 / 1500 Other: Urine Color Yellow Pale Light Anya Yellow Urine Appearance Clear Clear Clear Urine Odor None Normal Comment chronic casillas since 07/2021. chronic casillas since 07/2021. Voiding Methods Urinal Urinal Data Completed and Pending Labs on day of discharge: Labs from last 24 hours 11/08/21 11/08/21 11/08/21 22:30 18:15 10:44 ESR 7 C-Reactive Protein Urine Color Yellow Yellow Urine Clarity Sl Cloudy Clear Urine pH 7.5 7.0 Ur Specific [place] 1.020 1.020 Urine Protein Negative Negative Urine Ketones Negative Negative Urine Blood Moderate H Small H Urine Nitrite Negative Negative Urine Bilirubin Negative Negative Urine Urobilinogen 1.0 H 1.0 H Ur Leukocyte Esterase Small H Moderate H Urine RBC 10-20 H 0-2 Urine WBC 20-50 H >50 H Ur Epithelial Cells Rare Few Urine Crystals Negative Negative Urine Bacteria Few Moderate Urine Casts Negative Negative Urine Mucus Negative Negative Ur Culture Indicated? No Yes Urine Glucose 500 H 250 H Func C1 Esterase Inhib C1 Esterase Inhib Ag Complement C4 11/08/21 11/08/21 10:44 10:44 ESR C-Reactive Protein 1.60 H Urine Color Urine Clarity Urine pH Ur Specific [place] Urine Protein Urine Ketones Urine Blood Urine Nitrite Urine Bilirubin Urine Urobilinogen Ur Leukocyte Esterase Urine RBC Urine WBC Ur Epithelial Cells Urine Crystals Urine Bacteria Urine Casts Urine Mucus Ur Culture Indicated? Urine Glucose Func C1 Esterase Inhib Pending C1 Esterase Inhib Ag Pending Complement C4 Pending 11/08/21 18:15 Urine - Reflex from [facility] Urine Culture - Pending Preliminary micro results at discharge 11/08/21 18:15 Urine Culture - Pending Urine - Reflex from [facility] All Active Problems Obstructive uropathy (Acute) Dental caries (Acute) Tongue laceration (Acute) Schizoaffective disorder (Acute 09/15/14) a. increased delusional thoughts b. 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 due to diabetes type 2 Type II diabetes mellitus Surgical History History of heart artery stent Social History Smoking/Tobacco Use Status: Current every day Tobacco Type: cigarettes Smoking risk assessment performed?: Yes Alcohol Intake: current Alcohol Intake frequency: a few times a week Alcohol type: beer Drug use: Never Substance use type: does not use Do you feel safe at home: Yes Do you feel safe in your relationship?: Yes
[2021-11-09] MEDS: Fosfomycin Tromethamine 3 GM PACKET PO (08:02)
[2021-11-09 08:06] VITALS: PULSE 59
--- NOTE | 2021-11-09 08:07 | NUR.NOTE ---
Patient set up with breakfast.Nursing Note:
[2021-11-09 09:23] VITALS: O2SAT 96
--- NOTE | 2021-11-09 09:23 | CMDISCH_ITS ---
- If Service Date Differs Date of service: 11/09/21 Time of Service: 09:23 LACE Index Scoring Tool - Questions: Length of Stay (in days): 2 Acuity (Admit via E.D.?): Yes Comorbidities: Chronic Pulmonary Disease E.D. Visits: 7 - Answers: Total Score: 11 Risk of Readmission: High Risk Care Management Discharge Reason for Hospitalization: Angioedema Discharge Plan: Kel is discharged home with a resumption of Home Health nursing. He will follow up with his PCP and discharge plan of care as directed. Kel is transported home by [facility] private special education bus driver. Patient/Family Education Needs: Review of discharge instructions including medications and follow up plan of care; discuss Ask Me Three and self management. Services Needed at Discharge: Home Health Care Services, Transportation ([facility] private vehicle)
--- NOTE | 2021-11-09 10:17 | NUR.NOTE ---
Patient is given his Budesonide, and Tiotrupium inhalers and NPH pen.Nursing Note:
[2021-11-11 10:37] LABS: C4 Complement 29 mg/dL (13-39)
[2021-11-14 17:00] LABS: C1 Esterase Inhib, Functional 85 %of norm
== END 2021-11-09 10:05 | disposition home or self-care (01) ==
LOC: ER 14:01 → ICU 14:40
PROVIDERS: Internal Medicine; Nurse Practitioner Acute Care; Student in an Organized Health Care Education/Training Program; Admitting Provider Internal Medicine; Emergency Provider Emergency Medicine; PCP Physician Assistant Medical; Visit Provider Internal Medicine
DX: T78.3XXA Angioneurotic edema, initial encounter (principal); Z20.822 Contact with and (suspected) exposure to COVID-19; J98.8 Other specified respiratory disorders; F17.210 Nicotine dependence, cigarettes, uncomplicated; Z79.4 Long term (current) use of insulin; J44.9 Chronic obstructive pulmonary disease, unspecified; I25.10 Atherosclerotic heart disease of native coronary artery without angina pectoris; I10 Essential (primary) hypertension; F25.9 Schizoaffective disorder, unspecified; E11.319 Type 2 diabetes mellitus with unspecified diabetic retinopathy without macular edema; N40.0 Benign prostatic hyperplasia without lower urinary tract symptoms; N40.1 Benign prostatic hyperplasia with lower urinary tract symptoms; N13.8 Other obstructive and reflux uropathy; T46.4X5A Adverse effect of angiotensin-converting-enzyme inhibitors, initial encounter
CPT/HCPCS: 31575; 31500; 36415; 80053; 85652; 86900; 86901; 87077; 87635; 96365; 96372; 96375; 96376; 99291; 71045; 81003; 81015; 83520; 85025; 85610; 85730; 86140; 86160; 86161; 87086; 87186; 99217; 99225; G0378; J0171; J2704; J2930; J3490; P9059

== ENCOUNTER 2021-11-19 19:04 | Outpatient (REF) | payer MEDICARE, SELFPAY ==
[2021-11-19 19:13] LABS: Bilirubin Negative (Negative); Blood Trace-intact (Negative); Clarity Clear (Clear); Glucose >=1000 mg/dL (Negative); Ketones Negative (Negative); Leukocyte Esterase Moderate (Negative); Nitrite Negative (Negative); Urobilinogen 0.2 EU/dL (Up TO 0.2); pH 5.5 (5-8)
[2021-11-19 19:32] LABS: Bacteria Few HPF (Negative); C & S Indicated? Yes; Casts Negative LPF (Negative); Crystals Negative HPF (Negative); Epithelial Cells Negative HPF (Negative); Mucus Negative (Negative); WBC >50 HPF (0-5)
== END 2021-11-19 19:05 | disposition home or self-care (01) ==
LOC: NCHCN 19:04
PROVIDERS: PCP Physician Assistant Medical; Visit Provider Physician Assistant Medical
DX: N39.0 Urinary tract infection, site not specified (principal)
CPT/HCPCS: 87077; 81003; 81015; 87086; 87186

== ENCOUNTER 2021-12-12 09:27 | Emergency (ER) | payer MEDICARE, MEDICAID, SELFPAY ==
[2021-12-12 09:38] VITALS: BP 136/74; PULSE 77; RESP 18; TEMP 36.8; O2SAT 96
--- NOTE | 2021-12-12 10:00 | DI.RAD_ITS ---
Exam(s) XR ANKLE RT COMPLETE EXAM: XR ANKLE RT COMPLETE CLINICAL HISTORY: Fall, Pain TECHNIQUE: COMPARISON: No exams were available for comparison FINDINGS: Three views were obtained. Ankle mortise appears well maintained. No evidence of acute fracture or dislocation. IMPRESSION: RADIATION DOSE DELIVERED: Total DLP
--- NOTE | 2021-12-12 10:00 | DI.RAD_ITS ---
Exam(s) XR ELBOW RT COMPLETE EXAM: XR ELBOW RT COMPLETE CLINICAL HISTORY: Fall, pain TECHNIQUE: COMPARISON: No exams were available for comparison FINDINGS: Three views were obtained. There is no evidence of an elbow joint effusion or hemarthrosis. No frac ture is seen. IMPRESSION: RADIATION DOSE DELIVERED: Total DLP
--- NOTE | 2021-12-12 10:00 | DI.RAD_ITS ---
Exam(s) XR LUMBAR SPINE COMPLETE EXAM: XR LUMBAR SPINE COMPLETE CLINICAL HISTORY: Fall, Back Pain TECHNIQUE: COMPARISON: CT CT ABDOMEN PELVIS WO/W from 08/01/2021 FINDINGS: Five views were obtained. There is an L2 anterior compression fracture which was present on prior ex amination of August 01, 2021. No change in alignment since that time. No new fracture identified. Mild degenerative changes of the lumbar spine noted. IMPRESSION: RADIATION DOSE DELIVERED: Total DLP
--- NOTE | 2021-12-12 10:06 | ED.GENADUL_ITS ---
Discharge Plan Disposition Patient Disposition: HOME Condition: Stable Discharge Details Clinical Impression: Fall, Ankle sprain, Lumbar back sprain Primary Care Provider: Rekha Keys ED Provider: Yamileth Mckenzie Home Meds and New Rx's Prescriptions: Continued acetaminophen 325 mg capsule 650 mg PO ONCE PRN0RF rosuvastatin 40 mg tablet 40 mg PO DAILY 0RF trazodone 50 MG tablet 100 mg PO HS 0RF metformin 500 MG tablet 1,000 mg PO BID Qty: 180 0RF budesonide-formoterol [Symbicort] 160-4.5 mcg/actuation HFA aerosol inhaler 2 inh INHALATION BID 0RF Trulicity 1.5 mg/0.5 mL pen injector 1.5 mg SUBCUT QWEEK 0RF Label Comments: INJECT 0.5 ML SUBCUTANEOUSLY EVERY WEEK Humulin N NPH U-100 Insulin 100 UNIT/ML suspension 40 unit SQ HS 0RF insulin lispro [Humalog U-100 Insulin] 100 UNIT/ML solution 0 unit SQ DIRECTED 0RF diazepam 2 mg tablet 2 mg PO BID PRN0RF olanzapine 15 mg tablet 15 mg PO HS 0RF Label Comments: TAKE ONE TABLET BY MOUTH EVERY EVENING triamcinolone acetonide 55 mcg aerosol,spray 1 spray INTRANASAL DAILY 0RF Label Comments: INSTILL 1 SPRAY IN EACH NOSTRIL DAILY benztropine 2 mg tablet 2 mg PO BID 0RF Label Comments: TAKE ONE TABLET BY MOUTH TWICE A DAY divalproex 500 mg tablet extended release 24 hr 1,000 mg PO BID 0RF Label Comments: TAKE TWO TABLETS BY MOUTH TWICE A DAY amlodipine 5 mg tablet 5 mg PO DAILY Qty: 30 0RF terbinafine HCl 1 % Cream 1 applic TOPICAL BID 0RF aspirin 81 mg Tablet,Delayed Release (Dr/Ec) 81 mg PO DAILY 0RF baclofen 10 mg tablet 10 mg PO BID PRN PRN0RF Label Comments: TAKE ONE TABLET BY MOUTH TWICE A DAY NEEDED FOR PAIN diphenhydramine HCl [Benadryl Allergy] 25 mg Tablet 25 mg PO Q6H PRN0RF albuterol sulfate 90 mcg/actuation HFA aerosol inhaler 2 inh INHALATION Q6H PRN PRN0RF Label Comments: INHALE 2 PUFFS EVERY 4 TO 6 HOURS NEEDED melatonin 10 mg capsule 10 mg PO HS PRN PRN0RF Label Comments: TAKE ONE CAPSULE BY MOUTH AT BEDTIME Discharge Instructions Instructions: Ankle Sprain (ED), Fall Prevention (ED), Lower Back Exercises (ED) Additional Instructions: There is no acute abnormality noted on the x-rays. He did have an old L2 compression fracture. The fall couple days ago may have exacerbated this. Rest, ice, compression, elevation when sitting or lying down. Please take Tylenol or Ibuprofen with food every 4-6 hours as needed for pain and swelling. Follow up with primary care provider in 3-5 days. Return to ED sooner if any worsening or concerns. Increase oral fluids. Referrals: Rekha Keys PA [Primary Care Provider] - 5 days Medical Decision Making 61-year-old male presents to the ER after a fall on the ice 2 days ago. Patient states that he slipped back landing on a mound of ice landing on his back. Reports he put his right arm out to brace himself. Since then has been complaining of some lower back pain, right elbow pain and right ankle pain. Mild swelling noted to his right ankle, no obvious deformity. No midline tenderness, crepitus or step-off with palpation. He has full range of motion. He reports that he has been waking up with his right arm going numb ever since his recent hospital stay. He was admitted and discharged early November after an angioedema episode which has since resolved. He has been taking Tylenol for pain he did take 1 this morning. He has a past medical history of type 2 diabetes, BPH, prostate irregularity, hypertension, COPD, schizoaffective disorder. XR Lumbar Spine Complete: FINDINGS: Five views were obtained. There is an L2 anterior compression fracture which was present on prior examination of August 01, 2021. No change in alignment since that time. No new fracture identified. Mild degenerative changes of the lumbar spine noted. EXAM: XR ANKLE RT COMPLETE CLINICAL HISTORY: Fall, Pain TECHNIQUE: COMPARISON: No exams were available for comparison FINDINGS: Three views were obtained. Ankle mortise appears well maintained. No evidence of acute fracture or dislocation. EXAM: XR ELBOW RT COMPLETE CLINICAL HISTORY: Fall, pain TECHNIQUE: COMPARISON: No exams were available for comparison FINDINGS: Three views were obtained. There is no evidence of an elbow joint effusion or hemarthrosis. No fracture is seen. Patient was given Gonzalo wrap for his elbow and a lace up ankle splint to his right ankle. Discussed RICE procedures. Discuss strict return instructions. This text was generated using [employer] dictation system, please disregard any oddities of phrase or misspellings. HPI General Mode of arrival: ambulatory . Date/Time Provider Initiated Documentation: 12/12/21 09:28 . Limitations to Documentation: no limitations . Information obtained by: patient, RN notes reviewed and old records reviewed . HPI Narrative: 61-year-old male presents to the ER after a fall on the ice 2 days ago. Patient states that he slipped back landing on a mound of ice landing on his back. Reports he put his right arm out to brace himself. Since then has been complaining of some lower back pain, right elbow pain and right ankle pain. Mild swelling noted to his right ankle, no obvious deformity. No midline tenderness, crepitus or step-off with palpation. He has full range of motion. He reports that he has been waking up with his right arm going numb ever since his recent hospital stay. He was admitted and discharged early November after an angioedema episode which has since resolved. He has been taking Tylenol for pain he did take 1 this morning. He has a past medical history of type 2 diabetes, BPH, prostate irregularity, hypertension, COPD, schizoaffective disorder. Related Data Home Medications Medication Instructions Recorded Confirmed trazodone 50 mg tablet 100 mg PO HS 09/14/14 12/12/21 metformin 500 mg tablet 1,000 mg PO BID #180 09/15/14 12/12/21 insulin NPH isoph U-100 human 100 40 unit SQ HS 11/20/16 12/12/21 unit/mL subcutaneous suspension (Humulin N NPH U-100 Insulin (isophane susp)) insulin lispro 100 unit/mL 0 unit SQ DIRECTED 11/20/16 12/12/21 subcutaneous solution (Humalog U-100 Insulin) diazepam 2 mg tablet 2 mg PO BID PRN 07/12/21 12/12/21 olanzapine 15 mg tablet 15 mg PO HS 07/12/21 12/12/21 budesonide-formoterol HFA 160 2 inh INHALATION BID 08/07/21 12/12/21 mcg-4.5 mcg/actuation aerosol inhaler (Symbicort) dulaglutide 1.5 mg/0.5 mL 1.5 mg SUBCUT QWEEK 08/07/21 12/12/21 subcutaneous pen injector (Trulicity) rosuvastatin 40 mg tablet 40 mg PO DAILY 10/02/21 12/12/21 acetaminophen 325 mg capsule 650 mg PO ONCE PRN cap 11/06/21 12/12/21 benztropine 2 mg tablet 2 mg PO BID 11/08/21 12/12/21 divalproex 500 mg tablet,extended 1,000 mg PO BID 11/08/21 12/12/21 release 24 hr triamcinolone acetonide 55 mcg 1 spray INTRANASAL DAILY 11/08/21 11/08/21 nasal spray aerosol amlodipine 5 mg tablet 5 mg PO DAILY #30 tab 11/09/21 12/12/21 albuterol sulfate 90 mcg/actuation 2 inh INHALATION Q6H PRN PRN 12/12/21 12/12/21 aerosol inhaler aspirin 81 mg tablet,delayed 81 mg PO DAILY 12/12/21 12/12/21 release baclofen 10 mg tablet 10 mg PO BID PRN PRN 12/12/21 12/12/21 diphenhydramine HCl 25 mg tablet 25 mg PO Q6H PRN 12/12/21 12/12/21 (Benadryl Allergy) melatonin 10 mg capsule 10 mg PO HS PRN PRN 12/12/21 12/12/21 terbinafine HCl 1 % topical cream 1 applic TOPICAL BID 12/12/21 12/12/21 Previous Rx's Medication Instructions Recorded metformin 500 mg tablet 1,000 mg PO BID #180 09/15/14 amlodipine 5 mg tablet 5 mg PO DAILY #30 tab 11/09/21 Allergies Allergy/AdvReac Type Severity Reaction Status Date / Time Penicillins Allergy Mild Skin Rash Unverified 12/12/21 09:43 ARB-Angiotensin Receptor Allergy Verified 12/12/21 09:43 Antagonist clopidogrel [From Plavix] Allergy Unverified 12/12/21 09:43 Sulfa (Sulfonamide Allergy Verified 12/12/21 09:43 Antibiotics) GONZALO Inhibitors AdvReac Severe Verified 12/12/21 09:43 General Stated Complaint: Orthopedic HALLIE: 3 Review of Systems All systems reviewed & are unremarkable except as noted in HPI and below Musculoskeletal Musculoskeletal: Denies abnormal gait, Reports back pain, Denies deformity, Reports arthralgias, Reports joint swelling, Denies loss of height, Denies muscle weakness and Reports numbness (Right arm) Neurologic Neurologic: Denies abnormal gait and Reports numbness (Right arm) PFSH All Active Problems (Updated 12/12/21 @ 11:06 by Yamileth Mckenzie) Fall (Acute) Ankle sprain (Acute) Lumbar back sprain (Acute) Obstructive uropathy (Acute) Dental caries (Acute) Tongue laceration (Acute) Schizoaffective disorder (Acute 09/15/14) a. increased delusional thoughts b. 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 due to diabetes type 2 Type II diabetes mellitus Surgical History History of heart artery stent Social History Smoking/Tobacco Use Status: Current every day Tobacco Type: cigarettes Smoking risk assessment performed?: Yes Alcohol Intake: current Alcohol Intake frequency: a few times a week Alcohol type: beer Drug use: Never Substance use type: does not use Do you feel safe at home: Yes Do you feel safe in your relationship?: Yes Exam Narrative Exam Narrative: Constitutional: Alert and oriented x3. Appears stated age. Normal body habitus. Head: Normocephalic, no trauma. Eyes: Pupils PERRL, Red reflex noted, EOM's intact. Eyelids symmetrical without lesions, discharge, or swelling. ENT: Bilateral TM's WNL, External ear normal to inspection, no mastoid TTP, swelling, or erythema, Nasal turbinates WNL, no nasal discharge. Normal dentition, Posterior pharynx WNL, no exudate. Chest: RRR, Normal S1, S2, distal pulses intact. Resp: Lungs clear to auscultation bilaterally, no wheezes, rales, or rhonchi. Abdomen: Soft, non-distended, Normoactive bowel sounds all 4 quads. Musculoskeletal: Normal gait, 5/5 strength to all four extremities. Skin: No suspicious rashes or lesions. Capillary refill less than 2 sec. Neurologic: Cranial nerves II-XII intact. Alert and oriented x 3. Motor: No deficits noted. Sensory: Intact bilaterally all 4 extremities. Reflexes: DTR's intact bilaterally.. Hematologic/Lymphatic: No ecchymosis, no lymphadenopathy. Course Vital Signs Vital signs: Vital Signs Temperature 36.8 C 12/12/21 09:38 Pulse 77 12/12/21 09:38 Respiratory Rate 18 12/12/21 09:38 Blood Pressure 136/74 12/12/21 09:38 Pulse Oximetry 96 12/12/21 09:38 Temperature 36.8 C 12/12/21 09:38 Temperature Source Temporal Artery Scan 12/12/21 09:38 Pulse 77 12/12/21 09:38 Respiratory Rate 18 12/12/21 09:38 Respiratory Effort Non-Labored 12/12/21 09:41 Blood Pressure 136/74 12/12/21 09:38 Blood Pressure Position Sitting 12/12/21 09:38 Pulse Oximetry 96 12/12/21 09:38 Oxygen Delivery Method Room Air 12/12/21 09:38 Oxygen Flow Rate 0 12/12/21 09:38 Pain Level 7 12/12/21 09:44 PAWSS Have you Been Recently Intoxicated or Drunk Within the Last 30 days?: No Have you Ever Experienced Previous Episodes of Alcohol Withdrawal?: No Have you ever Experienced Withdrawal Seizures?: No Have you ever Experienced Delirium Tremens(DT)s?: No Have you ever undergone Alcohol Rehabilitation Treatment (i.e, inpt ot outpatient treatment programs)?: No Have you ever Experienced Blackouts?: No Have you ever Combined Alcohol with other Downers within the last 90 days?: No Have you ever Combined Alcohol with any other Substance of Abuse during the last 90 days?: No Positive Blood Alcohol level on Presentation? [PCS.BAL]: No Evidence of Increased Autonomic Activity (i.e. HR>120, tremor, sweating, agitation, nausea)?: No Result: 0
[2021-12-12 11:20] VITALS: BP 138/73; PULSE 77; TEMP 36.6; O2SAT 96
== END 2021-12-12 11:42 | disposition home or self-care (01) ==
PROVIDERS: Emergency Provider Registered Nurse Emergency; PCP Physician Assistant Medical
DX: S93.491A Sprain of other ligament of right ankle, initial encounter (principal); S33.5XXA Sprain of ligaments of lumbar spine, initial encounter; M25.521 Pain in right elbow; W00.0XXA Fall on same level due to ice and snow, initial encounter
CPT/HCPCS: 29515; 99284; 72110; 73080; 73610; 99283

== ENCOUNTER → 2022-01-24 00:44 | Outpatient (CLI) | payer MEDICARE, MEDICAID, SELFPAY ==
--- NOTE | 2022-01-24 14:46 | DI.RAD_ITS ---
Exam(s) XR KNEE RT 3V AP,LAT,DEION EXAM: XR KNEE RT 3V AP,LAT,DEION CLINICAL HISTORY: RT KNEE PAIN, M25.561. TECHNIQUE: 2D digital imaging was performed. Three views. COMPARISON: No exams were available for comparison FINDINGS: BONES: No acute fracture is present. No bony destructive lesion is seen. JOINTS: Joint spaces are well maintained. No significant periarticular spurring. The knee is normal ly aligned. there is a question of a joint effusion.. SOFT TISSUE: Normal. IMPRESSION: Question of a joint effusion. DATA REPOSITORY: RADIATION DOSE DELIVERED:
== END ==
PROVIDERS: PCP Physician Assistant Medical; Visit Provider Physician Assistant Medical
DX: M25.561 Pain in right knee (principal); M25.461 Effusion, right knee
CPT/HCPCS: 73562

== ENCOUNTER 2022-02-21 22:10 | Emergency (ER) | payer MEDICARE, MEDICAID, SELFPAY ==
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
[2022-02-21 22:36] VITALS: BP 119/46; PULSE 78; RESP 18; TEMP 36.6; O2SAT 100
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
[2022-02-22 00:24] VITALS: BP 122/60; PULSE 72; RESP 14; O2SAT 98
== END 2022-02-22 00:25 | disposition home or self-care (01) ==
PROVIDERS: Emergency Provider Physician Assistant; PCP Physician Assistant Medical
DX: M25.461 Effusion, right knee (principal); S80.01XA Contusion of right knee, initial encounter; V19.9XXA Pedal cyclist (driver) (passenger) injured in unspecified traffic accident, initial encounter
CPT/HCPCS: 29505; 73562; 99283

== ENCOUNTER 2022-02-28 18:41 | Outpatient (REF) | payer MEDICARE, MEDICAID, SELFPAY | END 2022-02-28 18:42 | disposition home or self-care (01) | LOC: NCHCN 18:41 | PROVIDERS: PCP Student in an Organized Health Care Education/Training Program; Visit Provider Physician Assistant Medical | DX: R32 Unspecified urinary incontinence (principal) | CPT/HCPCS: 87077; 87086; 87186 ==

== ENCOUNTER → 2022-03-12 08:07 | Outpatient (BNVA) | payer MEDICARE, MEDICAID, SELFPAY | PROVIDERS: PCP Student in an Organized Health Care Education/Training Program; Referring Provider Physician Assistant Medical; Visit Provider Physician Assistant | DX: S80.01XA Contusion of right knee, initial encounter (principal); X58.XXXA Exposure to other specified factors, initial encounter; M23.91 Unspecified internal derangement of right knee; M22.41 Chondromalacia patellae, right knee | CPT/HCPCS: 99213 ==

== ENCOUNTER 2022-06-24 14:31 | Emergency (ER) | payer MEDICARE, MEDICAID, SELFPAY ==
--- NOTE | 2022-06-24 14:30 | DI.US_ITS ---
Exam(s) US SCROTUM EXAM: US SCROTUM CLINICAL HISTORY: R testicle swollen, r/o torsion/epididmyitis TECHNIQUE: Ultrasound of the testes performed using grayscale, color, and Doppler imaging. COMPARISON: No exams were available for comparison FINDINGS: RIGHT HEMISCROTUM: The right testicle exhibits normal size and echo architecture with no evidence of intratesticular mas s. Vascular flow was demonstrated within the right testicle, including arterial waveforms. The right epididymis appears slightly prominent and hypoechoic when compared to the opposite side and exhibits some mild increased vascularity. Small ipsilateral hydrocele. No varicocele. LEFT HEMISCROTUM: The left testicle exhibits normal size and echo architecture with no evidence of intratesticular mass . Vascular flow is demonstrated within the left testicle, including arterial waveforms. The epididymis appears unremarkable. There are no epididymal head cysts. There is no ipsilateral hydrocele or varicocele. IMPRESSION: 1. No evidence of testicular mass nor testicular torsion. 2. Right epididymis appears slightly prominent and hyperemic. Suspect epididymitis. 3. Small ipsilateral right hydrocele evident. Discussed with ER physician. DATA REPOSITORY:
[2022-06-24 14:36] VITALS: BP 163/73; PULSE 73; RESP 16; TEMP 37.2; O2SAT 98
--- NOTE | 2022-06-24 16:10 | W.ED.GENAD ---
Discharge Plan Disposition Patient Disposition: HOME Condition: Stable Discharge Details Clinical Impression: UTI (urinary tract infection), Epididymitis, right Primary Care Provider: Jimmy Martínez ED Provider: Karly Cuevas Home Meds and New Rx's Prescriptions: New levofloxacin 750 mg tablet 750 mg PO DAILY 9 Days Qty: 9 0RF Continued acetaminophen 325 mg capsule 650 mg PO ONCE PRN trazodone 50 mg tablet 50 mg PO HS olanzapine 20 mg tablet 20 mg PO DAILY rosuvastatin 40 mg tablet 40 mg PO DAILY metformin 500 MG tablet 1,000 mg PO BID Qty: 180 0RF budesonide-formoterol [Symbicort] 160-4.5 mcg/actuation HFA aerosol inhaler 2 inh INHALATION BID Trulicity 1.5 mg/0.5 mL pen injector 1.5 mg SUBCUT QWEEK Label Comments: INJECT 0.5 ML SUBCUTANEOUSLY EVERY WEEK Humulin N NPH U-100 Insulin 100 UNIT/ML suspension 40 unit SQ HS insulin lispro [Humalog U-100 Insulin] 100 UNIT/ML solution 0 unit SQ DIRECTED diazepam 2 mg tablet 2 mg PO BID PRN triamcinolone acetonide 55 mcg aerosol,spray 1 spray INTRANASAL DAILY Label Comments: INSTILL 1 SPRAY IN EACH NOSTRIL DAILY benztropine 2 mg tablet 2 mg PO BID Label Comments: TAKE ONE TABLET BY MOUTH TWICE A DAY divalproex 500 mg tablet extended release 24 hr 1,000 mg PO BID Label Comments: TAKE TWO TABLETS BY MOUTH TWICE A DAY amlodipine 5 mg tablet 5 mg PO DAILY Qty: 30 0RF terbinafine HCl 1 % Cream 1 applic TOPICAL BID aspirin 81 mg Tablet,Delayed Release (Dr/Ec) 81 mg PO DAILY albuterol sulfate 90 mcg/actuation HFA aerosol inhaler 2 inh INHALATION Q6H PRN PRN Label Comments: INHALE 2 PUFFS EVERY 4 TO 6 HOURS NEEDED Discharge Instructions Instructions: Epididymitis (ED), Urinary Tract Infection in Men (ED) Additional Instructions: Your tests today revealed that you have a possible urinary tract infection and/or epididymitis which is an inflammation of your epididymis within your scrotum which is also treated with antibiotics. A prescription for antibiotics has been sent electronically to your pharmacy to take as directed until finished. Follow-up with your scheduled appointment with urology at [facility] on July 15. Return immediately to the emergency department if you develop any worsening or new concerning symptoms. Discharge Data Discharge Date/Time-TO BE ENTERED AT DEPARTURE: 06/24/22 17:47 Discharge Physician: Karly Cuevas Medical Decision Making 62-year-old male with a history of coronary artery disease, COPD, diabetes, schizoaffective disorder and chronic urinary incontinence presents for hematuria since yesterday morning. States he has had more urinary retention since yesterday rather than incontinence. Also admits to right-sided testicular swelling which he states is improved since he had a bowel movement. Vitals within normal limits. Patient appears somewhat anxious. He is declining Mahmood catheter here as he states he has had a previous bad experience with urology. Patient referred for ultrasound on arrival which notes a possible right-sided epididymitis. Screening labs and urinalysis obtained. History and presentation does not appear consistent with kidney stone, AAA and do not see an indication for CT imaging at this time. Labs reviewed. Normal white blood cell count and renal function. Urinalysis notes findings consistent with UTI. Will treat with Levaquin for UTI and/or epididymitis. Patient advised to follow-up with his scheduled appointment with urology next month. Usual and customary return precautions given prior to discharge. Medical Records Medical records reviewed: Yes I reviewed the patient's medical records. Imaging Data Radiologic Study: Radiologist's impression: US SCROTUM CLINICAL HISTORY:? R testicle swollen, r/o torsion/epididmyitis TECHNIQUE:? Ultrasound of the testes performed using grayscale, color, and Doppler imaging. COMPARISON:? No exams were available for comparison FINDINGS: RIGHT HEMISCROTUM: The right testicle exhibits normal size and echo architecture with no evidence of intratesticular mass.? Vascular flow was demonstrated within the right testicle, including arterial waveforms. The right epididymis appears slightly prominent and hypoechoic when compared to the opposite side and exhibits some mild increased vascularity. Small ipsilateral hydrocele.? No varicocele. LEFT HEMISCROTUM: The left testicle exhibits normal size and echo architecture with no evidence of intratesticular mass.? Vascular flow is demonstrated within the left testicle, including arterial waveforms. The epididymis appears unremarkable.? There are no epididymal head cysts. There is no ipsilateral hydrocele or varicocele. IMPRESSION: 1. No evidence of testicular mass nor testicular torsion. 2. Right epididymis appears slightly prominent and hyperemic.? Suspect epididymitis. 3. Small ipsilateral right hydrocele evident. Lab Data Lab results reviewed: Yes I reviewed the patient's lab results. Labs: 06/24/22 16:30 Urine - Reflex from Ua Urine Culture - Pending Laboratory Tests Range/Units 06/24/22 06/24/22 06/24/22 16:00 16:00 16:30 WBC (4.4-10.8) 10^3/uL 9.94 RBC (4.36-5.78) 10^6/uL 4.87 Hgb (13.5-17.5) g/dL 13.6 Hct (40.0-50.0) % 41.3 MCV (80-95) fL 85 MCH (27.0-33.0) pg 27.9 MCHC (32.0-36.0) % 32.9 RDW (11.8-14.1) % 14.0 Plt Count (130-400) 10^3/uL 171 MPV (8.0-11.0) fL 8.3 Immature Gran % 0.4 Neutrophils % 59.9 Lymphocytes % 26.8 Monocytes % 9.9 Eosinophils % 2.6 Basophils % 0.4 Nucleated RBC % (0.0-0.3) % 0.0 Absolute Neutrophils (1.2-6.7) 10^3/uL 5.96 Absolute Lymphocytes (1.2-3.4) 10^3/uL 2.66 Absolute Monocytes (0.1-0.8) 10^3/uL 0.98 H Absolute Eosinophils (0.0-0.7) 10^3/uL 0.26 Absolute Basophils (0.0-0.2) 10^3/uL 0.04 Sodium (136-145) mmol/L 133 L Potassium (3.5-5.1) mmol/L 4.3 Chloride (98-107) mmol/L 99 Carbon Dioxide (21.0-32.0) mmol/L 27.9 Anion Gap (3-11) mmol/L 6.1 BUN (7-18) mg/dL 13 Creatinine (0.70-1.30) mg/dL 0.9 Est GFR (CKD-EPI 2020) (mL/min/1.73m2) 96.57 Glucose (74-106) mg/dL 137 H Calcium (8.5-10.1) mg/dL 9.3 Total Bilirubin (0.2-1.0) mg/dL 0.3 AST (15-37) U/L 14 L ALT (16-63) U/L 13 L Alkaline Phosphatase (46-116) U/L 62 Total Protein (6.4-8.2) g/dL 6.9 Albumin (3.4-5.0) g/dL 3.0 L Urine Color (Yellow) Yellow Urine Clarity (Clear) Cloudy Urine pH (5-8) 7.0 Ur Specific [place] (1.005-1.025) 1.015 Urine Protein (Negative) mg/dL 30 H Urine Ketones (Negative) mg/dL Negative Urine Blood (Negative) Large H Urine Nitrite (Negative) Negative Urine Bilirubin (Negative) Negative Urine Urobilinogen (Up TO 0.2) EU/dL 0.2 Ur Leukocyte Esterase (Negative) Moderate H Urine RBC (0-2) HPF 20-50 H Urine WBC (0-5) HPF >50 H Ur Epithelial Cells (Negative) HPF Few Urine Crystals Not Applicable Urine Bacteria (Negative) HPF Rare Urine Mucus Not Applicable Urine Other (Negative) Ur Culture Indicated? Yes Urine Glucose (Negative) mg/dL Negative HPI General Mode of arrival: ambulatory. Date/Time Provider Initiated Documentation: 06/24/22 14:43. Limitations to Documentation: no limitations. Information obtained by: patient. HPI Narrative: Patient is a 62-year-old male with a history of coronary artery disease, COPD, schizoaffective disorder, diabetes, chronic urinary incontinence for which she has seen urology here in November 2021 presents for hematuria since yesterday morning. Patient also states that he did note right testicular swelling but states this is since improved since he had a bowel movement. He states he drank coffee at his apartment yesterday which was coffee grounds instead of his normal liquid coffee and he feels that someone tampered with my coffee at home. Patient states he does feel safe at home. Patient states since drinking his coffee he has had blood in his urine with clots. He denies any fever, abdominal pain, back pain, vomiting, or dysuria. He states he normally has urinary incontinence but states she has had more retention since yesterday. Patient states he did not want a Mahmood catheter as he had one placed by urology here previously and states she went to my rectum with the catheter and I think she did it purposefully . Patient states he has an appointment with [facility] urology July 15 and does not want a Mahmood catheter and plans to follow-up with them for a cystoscopy. Related Data Home Medications Medication Instructions Recorded Confirmed metformin 500 mg tablet 1,000 mg PO BID ##180 09/15/14 06/24/22 insulin NPH isoph U-100 human 100 40 unit SQ HS 11/20/16 03/12/22 unit/mL subcutaneous suspension (Humulin N NPH U-100 Insulin (isophane susp)) insulin lispro 100 unit/mL 0 unit SQ DIRECTED 11/20/16 03/12/22 subcutaneous solution (Humalog U-100 Insulin) diazepam 2 mg tablet 2 mg PO BID PRN 07/12/21 06/24/22 budesonide-formoterol HFA 160 2 inh inhalation BID 08/07/21 03/12/22 mcg-4.5 mcg/actuation aerosol inhaler (Symbicort) dulaglutide 1.5 mg/0.5 mL 1.5 mg subcut QWEEK 08/07/21 03/12/22 subcutaneous pen injector (Trulicity) rosuvastatin 40 mg tablet 40 mg PO DAILY 10/02/21 06/24/22 acetaminophen 325 mg capsule 650 mg PO ONCE PRN 11/06/21 06/24/22 benztropine 2 mg tablet 2 mg PO BID 11/08/21 06/24/22 divalproex 500 mg tablet,extended 1,000 mg PO BID 11/08/21 06/24/22 release 24 hr triamcinolone acetonide 55 mcg 1 spray intranasal DAILY 11/08/21 03/12/22 nasal spray aerosol amlodipine 5 mg tablet 5 mg PO DAILY #30 tabs 11/09/21 06/24/22 albuterol sulfate 90 mcg/actuation 2 inh inhalation Q6H PRN PRN 12/12/21 03/12/22 aerosol inhaler aspirin 81 mg tablet,delayed 81 mg PO DAILY 12/12/21 03/12/22 release terbinafine HCl 1 % topical cream 1 applic topical BID 12/12/21 03/12/22 olanzapine 20 mg tablet 20 mg PO DAILY 03/12/22 06/24/22 trazodone 50 mg tablet 50 mg PO HS 03/12/22 06/24/22 levofloxacin 750 mg tablet 750 mg PO DAILY 9 days #9 tabs 06/24/22 Previous Rx's Medication Instructions Recorded metformin 500 mg tablet 1,000 mg PO BID ##180 09/15/14 amlodipine 5 mg tablet 5 mg PO DAILY #30 tabs 11/09/21 levofloxacin 750 mg tablet 750 mg PO DAILY 9 days #9 tabs 06/24/22 Allergies Allergy/AdvReac Type Severity Reaction Status Date / Time Penicillins Allergy Mild Skin Rash Unverified 06/24/22 14:41 ARB-Angiotensin Receptor Allergy Verified 06/24/22 14:41 Antagonist clopidogrel [From Plavix] Allergy Unverified 06/24/22 14:41 Sulfa (Sulfonamide Allergy Verified 06/24/22 14:41 Antibiotics) JOSE Inhibitors AdvReac Severe Verified 06/24/22 14:41 General Stated Complaint: Male Reproductive Problem HALLIE: 3 Review of Systems All systems reviewed & are unremarkable except as noted in HPI and below Constitutional Constitutional: Reports as per HPI, Denies chills and Denies fever(s) Eyes Eyes: Denies blurry vision ENT Ears, Nose, Mouth, and Throat: Denies dizziness, Denies sore throat and Denies throat swelling Cardiovascular Cardiovascular: Denies chest pain and Denies dyspnea Respiratory Respiratory: Denies cough and Denies dyspnea Gastrointestinal Gastrointestinal: Denies abdominal pain, Denies diarrhea and Denies vomiting Genitourinary Genitourinary: Reports hematuria, Denies dysuria and Reports urinary incontinence (chronic ) Musculoskeletal Musculoskeletal: Denies back pain and Denies numbness Integumentary/Breasts Skin/Breast: Denies lesions and Denies rash Neurologic Neurologic: Denies dizziness, Denies localized weakness and Denies numbness Allergic/Immunologic Allergic/Immunologic: Denies throat swelling PFSH All Active Problems (Updated 06/24/22 @ 17:29 by Karly Cuevas DO) UTI (urinary tract infection) (Acute) Epididymitis, right (Acute) Chondromalacia of right patella (Acute) Internal derangement of right knee (Acute) Obstructive uropathy (Acute) Dental caries (Acute) Tongue laceration (Acute) Schizoaffective disorder (Acute 09/15/14) a. increased delusional thoughts b. 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 due to diabetes type 2 Type II diabetes mellitus Surgical History History of heart artery stent Social History Smoking/Tobacco Use Status: Current every day Tobacco Type: cigarettes Smoking risk assessment performed?: Yes Alcohol Intake: current Alcohol Intake frequency: a few times a week Alcohol type: beer Drug use: Never Substance use type: does not use Current gender identity: male Do you feel safe at home: Yes Do you feel safe in your relationship?: Yes Exam Const General: cooperative and no acute distress Orientation: alert, awake and oriented x3 HENMT Head: normal to inspection Mouth: oral mucosae normal Eyes General: appearance normal, both eyes and all related structures Neck Neck: normal visual inspection Resp Effort & Inspection: normal respiratory effort and able to speak in complete sentences Cardio Rate: regular rate Male General Exam: Yes normal external exam Penis: normal penis Scrotum: scrotum normal, not edematous, not erythematous and no scrotal swelling Testes: normal, no testicular swelling and no testicular tenderness Skin General skin exam: no rashes or lesions noted Neuro General: patient alert, patient awake and patient oriented x3 Motor: muscle tone normal throughout Extrem General: normal to inspection and full ROM Psych Appearance: grossly normal Affect: normal affect Course Vital Signs Vital signs: Vital Signs Temperature 99.0 F 06/24/22 14:36 Pulse 73 06/24/22 14:36 Respiratory Rate 16 06/24/22 14:36 Blood Pressure 163/73 H 06/24/22 14:36 Pulse Oximetry 98 06/24/22 14:36 Temperature 99.0 F 06/24/22 14:36 Pulse 73 06/24/22 14:36 Respiratory Rate 16 06/24/22 14:36 Respiratory Effort 06/24/22 14:44 Blood Pressure 163/73 H 06/24/22 14:36 Pulse Oximetry 98 06/24/22 14:36
[2022-06-24 16:22] LABS: Abs Immature Grans 0.04 10^3/uL (0.0-0.06); Absolute Basophil Count 0.04 10^3/uL (0.0-0.2); Absolute Eosinophil Count 0.26 10^3/uL (0.0-0.7); Absolute Lymphocyte Count 2.66 10^3/uL (1.2-3.4); Absolute Monocyte Count 0.98 10^3/uL (0.1-0.8); Absolute Neutrophil Count 5.96 10^3/uL (1.2-6.7); Basophils % 0.4; Eosinophils % 2.6; HCT 41.3 % (40.0-50.0); HGB 13.6 g/dL (13.5-17.5); Immature Grans % 0.4; Lymphocytes % 26.8; MCH 27.9 pg (27.0-33.0); MCHC 32.9 % (32.0-36.0); MCV 85 fL (80-95); MPV 8.3 fL (8.0-11.0); Monocytes % 9.9; Neutrophils % 59.9; Platelet Count 171 10^3/uL (130-400); RBC 4.87 10^6/uL (4.36-5.78); RDW-SD 43.4 fL; WBC 9.94 10^3/uL (4.4-10.8)
[2022-06-24 16:38] LABS: Bilirubin Negative (Negative); Blood Large (Negative); Clarity Cloudy (Clear); Glucose Negative (Negative); Ketones Negative (Negative); Leukocyte Esterase Moderate (Negative); Nitrite Negative (Negative); Specific Gravity 1.015 (1.005-1.025); Urobilinogen 0.2 EU/dL (Up TO 0.2)
[2022-06-24 16:38] LABS: ALT 13 U/L (16-63); AST 14 U/L (15-37); Alkaline Phosphatase 62 U/L (46-116); Anion Gap 6.1 mmol/L (3-11); BUN 13 mg/dL (7-18); Bilirubin, Total 0.3 mg/dL (0.2-1.0); CO2 27.9 mmol/L (21.0-32.0); CREATININE 0.9 mg/dL (0.70-1.30); Calcium 9.3 mg/dL (8.5-10.1); Chloride 99 mmol/L (98-107); Estimated GFR 96.57 (mL/min/1.73m2); Glucose 137 mg/dL (74-106); Potassium 4.3 mmol/L (3.5-5.1); Sodium 133 mmol/L (136-145); Total Protein 6.9 g/dL (6.4-8.2)
[2022-06-24 16:56] LABS: Bacteria Rare HPF (Negative); Epithelial Cells Few HPF (Negative); RBC 20-50 HPF (0-2); WBC >50 HPF (0-5)
[2022-06-24 16:57] LABS: C & S Indicated? Yes
[2022-06-24] MEDS: levoFLOXacin 500 MG, levoFLOXacin 250 MG 750 MG PO (17:36)
[2022-06-24 17:38] VITALS: PULSE 67; RESP 16; TEMP 35.8; O2SAT 97
== END 2022-06-24 17:47 | disposition home or self-care (01) ==
LOC: ER 17:34
PROVIDERS: Emergency Provider Physician Assistant; PCP Student in an Organized Health Care Education/Training Program
DX: N39.0 Urinary tract infection, site not specified (principal); B96.89 Other specified bacterial agents as the cause of diseases classified elsewhere; N45.1 Epididymitis; E11.9 Type 2 diabetes mellitus without complications; J44.9 Chronic obstructive pulmonary disease, unspecified; F17.210 Nicotine dependence, cigarettes, uncomplicated; Z79.4 Long term (current) use of insulin; Z79.84 Long term (current) use of oral hypoglycemic drugs; Z79.51 Long term (current) use of inhaled steroids
CPT/HCPCS: 80053; 87077; 99284; 76870; 81003; 81015; 85025; 87086; 87186

== ENCOUNTER 2022-09-08 17:11 | Emergency (ER) | payer MEDICARE, MEDICAID, SELFPAY ==
[2022-09-08 17:23] VITALS: BP 145/62; PULSE 85; RESP 17; TEMP 36.7; O2SAT 96
--- NOTE | 2022-09-08 20:15 | DI.RAD_ITS ---
Exam(s) XR PORTABLE CHEST AP EXAM: XR PORTABLE CHEST AP CLINICAL HISTORY: cough TECHNIQUE: 2D digital imaging was performed of the chest. One image was obtained. An AP view was ob tained. COMPARISON: CR XR PORTABLE CHEST AP from 11/07/2021 FINDINGS: MEDIASTINUM: Normal. HEART: Normal. PULMONARY VASCULATURE: Normal. LUNGS: Clear. PLEURAL SPACE: No pleural effusion or pneumothorax. BONE:Within normal limits for the patient's age. OTHER FINDINGS:Normal. IMPRESSION: No acute pulmonary findings. DATA REPOSITORY: RADIATION DOSE DELIVERED:
--- NOTE | 2022-09-08 20:51 | W.ED.GENAD ---
Discharge Plan Disposition Patient Disposition: Home Condition: Stable Discharge Details Clinical Impression: Flu Primary Care Provider: Rekha Keys ED Provider: Joni Russell Home Meds and New Rx's Prescriptions: Continued acetaminophen 325 mg capsule 650 mg PO ONCE PRN trazodone 50 mg tablet 50 mg PO HS olanzapine 20 mg tablet 20 mg PO DAILY rosuvastatin 40 mg tablet 40 mg PO DAILY metformin 500 MG tablet 1,000 mg PO BID Qty: 180 0RF budesonide-formoterol [Symbicort] 160-4.5 mcg/actuation HFA aerosol inhaler 2 inh INHALATION BID Trulicity 1.5 mg/0.5 mL pen injector 1.5 mg SUBCUT QWEEK Label Comments: INJECT 0.5 ML SUBCUTANEOUSLY EVERY WEEK Humulin N NPH U-100 Insulin 100 UNIT/ML suspension 40 unit SQ HS insulin lispro [Humalog U-100 Insulin] 100 UNIT/ML solution 0 unit SQ DIRECTED diazepam 2 mg tablet 2 mg PO BID PRN triamcinolone acetonide 55 mcg aerosol,spray 1 spray INTRANASAL DAILY Label Comments: INSTILL 1 SPRAY IN EACH NOSTRIL DAILY benztropine 2 mg tablet 2 mg PO BID Label Comments: TAKE ONE TABLET BY MOUTH TWICE A DAY divalproex 500 mg tablet extended release 24 hr See Rx Instructions .ROUTE .COMPLEX Label Comments: TAKE TWO TABLETS BY MOUTH TWICE A DAY Rx Instructions: Take 500 mg in the AM and 1000 mg at night amlodipine 5 mg tablet 5 mg PO DAILY Qty: 30 0RF terbinafine HCl 1 % Cream 1 applic TOPICAL BID aspirin 81 mg Tablet,Delayed Release (Dr/Ec) 81 mg PO DAILY albuterol sulfate 90 mcg/actuation HFA aerosol inhaler 2 inh INHALATION Q6H PRN PRN Label Comments: INHALE 2 PUFFS EVERY 4 TO 6 HOURS NEEDED Discharge Instructions Instructions: Influenza (ED) Additional Instructions: Tamiflu as directed. [id number] medications as directed for symptomatic control. Please watch for new or worsening symptoms and return to the ER for any concerns. Lastly, please contact your primary care provider tomorrow to discuss your ER visit and need for outpatient reevaluation. Medical Decision Making 62-year-old gentleman presents with URI-like symptoms over the past 24 hours. Clinically he appears well, nontoxic, pulse in the 80s, respirations 17, afebrile, O2 sat 96% on room air. Plan to obtain a rapid flu and COVID. Will also obtain a chest x-ray. Chest x-ray without any obvious consolidation COVID-negative, flu positive Symptoms less than 48 hours, will initiate Tamiflu, first dose here. Standard discharge and return precautions were provided. Patient understands, is agreeable to this plan, and has no additional questions or concerns upon discharge. This documentation was generated using [employer] dictation system, please disregard any oddities of phrase or misspellings. Medical Records Medical records reviewed: Yes I reviewed the patient's medical records. Imaging Data Radiologic Study: Attestation: I personally reviewed and interpreted this imaging study as follows: Imaging: X-Ray Radiologist's impression: PROCEDURE INFORMATION: Exam: XR Chest Exam date and time: 09/08/2022 8:53 PM Age: 62 years old Clinical indication: Other: Cough TECHNIQUE: Imaging protocol: Radiologic exam of the chest. Views: 1 view. COMPARISON: CR XR PORTABLE CHEST AP 11/07/2021 10:45 AM FINDINGS: Lungs: Mild interstitial prominence No consolidation. Pleural spaces: No pleural effusion. No pneumothorax. Heart/Mediastinum: Grossly stable. Bones/joints: Unremarkable. IMPRESSION: Mild interstitial prominence which may be chronic. Mild superimposed bronchitis not excluded No focal consolidation Thank you for allowing us to participate in the care of your patient. Lab Data Lab results reviewed: Yes I reviewed the patient's lab results. Labs: Flu positive, COVID-negative Sign Out No HPI General Mode of arrival: ambulatory. Date/Time Provider Initiated Documentation: 09/08/22 20:23. Limitations to Documentation: no limitations. Information obtained by: patient. HPI Narrative: This is a 62-year-old gentleman, current smoker, past medical history of diabetes, hypertension, schizoaffective disorder, COPD, presenting to the ER today for evaluation of URI-like symptoms that began over the past 24 hours. He states that when he does have a coughing episode he feels short of breath otherwise denies any chest pain or shortness of breath. He denies fever. Has reported feeling rundown today. He is a primary concern is that of pneumonia. He stated he took a negative home COVID test. Related Data Home Medications Medication Instructions Recorded Confirmed metformin 500 mg tablet 1,000 mg PO BID ##180 09/15/14 09/08/22 insulin NPH isoph U-100 human 100 40 unit SQ HS 11/20/16 09/08/22 unit/mL subcutaneous suspension (Humulin N NPH U-100 Insulin (isophane susp)) insulin lispro 100 unit/mL 0 unit SQ DIRECTED 11/20/16 09/08/22 subcutaneous solution (Humalog U-100 Insulin) diazepam 2 mg tablet 2 mg PO BID PRN 07/12/21 09/08/22 budesonide-formoterol HFA 160 2 inh inhalation BID 08/07/21 09/08/22 mcg-4.5 mcg/actuation aerosol inhaler (Symbicort) dulaglutide 1.5 mg/0.5 mL 1.5 mg subcut QWEEK 08/07/21 09/08/22 subcutaneous pen injector (Trulicity) rosuvastatin 40 mg tablet 40 mg PO DAILY 10/02/21 09/08/22 acetaminophen 325 mg capsule 650 mg PO ONCE PRN 11/06/21 09/08/22 benztropine 2 mg tablet 2 mg PO BID 11/08/21 09/08/22 divalproex 500 mg tablet,extended See Rx Instructions .Route .COMPLEX 11/08/21 09/08/22 release 24 hr triamcinolone acetonide 55 mcg 1 spray intranasal DAILY 11/08/21 09/08/22 nasal spray aerosol amlodipine 5 mg tablet 5 mg PO DAILY #30 tabs 11/09/21 09/08/22 albuterol sulfate 90 mcg/actuation 2 inh inhalation Q6H PRN PRN 12/12/21 09/08/22 aerosol inhaler aspirin 81 mg tablet,delayed 81 mg PO DAILY 12/12/21 09/08/22 release terbinafine HCl 1 % topical cream 1 applic topical BID 12/12/21 09/08/22 olanzapine 20 mg tablet 20 mg PO DAILY 03/12/22 09/08/22 trazodone 50 mg tablet 50 mg PO HS 03/12/22 09/08/22 Previous Rx's Medication Instructions Recorded metformin 500 mg tablet 1,000 mg PO BID ##180 09/15/14 amlodipine 5 mg tablet 5 mg PO DAILY #30 tabs 11/09/21 Allergies Allergy/AdvReac Type Severity Reaction Status Date / Time Penicillins Allergy Mild Skin Rash Unverified 09/08/22 17:27 ARB-Angiotensin Receptor Allergy Verified 09/08/22 17:27 Antagonist clopidogrel [From Plavix] Allergy Unverified 09/08/22 17:27 Sulfa (Sulfonamide Allergy Verified 09/08/22 17:27 Antibiotics) JOSE Inhibitors AdvReac Severe Verified 09/08/22 17:27 General Stated Complaint: RespSymp HALLIE: 4 Review of Systems Constitutional Constitutional: Reports fatigue and Denies fever(s) ENT Ears, Nose, Mouth, and Throat: Denies neck pain and Denies sore throat Cardiovascular Cardiovascular: Denies chest pain and Reports dyspnea (With excessive coughing) Respiratory Respiratory: Reports cough and Reports dyspnea (With excessive coughing) Gastrointestinal Gastrointestinal: Denies abdominal pain, Denies nausea and Denies vomiting Musculoskeletal Musculoskeletal: Denies back pain, Reports myalgias and Denies neck pain Integumentary/Breasts Skin/Breast: Denies rash Endocrine Endocrine: Reports fatigue PFSH All Active Problems (Updated 09/08/22 @ 22:20 by JEAN Leyva) Flu (Acute) Chondromalacia of right patella (Acute) Internal derangement of right knee (Acute) Obstructive uropathy (Acute) Dental caries (Acute) Tongue laceration (Acute) Schizoaffective disorder (Acute 09/15/14) a. increased delusional thoughts b. 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 due to diabetes type 2 Type II diabetes mellitus Surgical History History of heart artery stent Social History Smoking/Tobacco Use Status: Current every day Tobacco Type: cigarettes Smoking risk assessment performed?: Yes Alcohol Intake: current Alcohol Intake frequency: a few times a week Alcohol type: beer Drug use: Never Substance use type: does not use Current gender identity: male Do you feel safe at home: Yes Do you feel safe in your relationship?: Yes Exam Const General: cooperative, healthy appearing, comfortable and no acute distress Orientation: alert and awake [facility] Head: normal to inspection, normocephalic and atraumatic Face and sinus: normal facial exam Mouth: moist mucous membranes Throat: posterior oropharynx normal Eyes General: appearance normal, both eyes and all related structures Conjunctivae: conjunctivae normal Neck Neck: normal visual inspection, full ROM, no meningeal signs, trachea midline and supple Resp Effort & Inspection: normal respiratory effort, able to speak in complete sentences and cough Quality of cough: dry Auscultation: clear to auscultation bilaterally Cardio Rate: regular rate Rhythm: regular rhythm Back/Spine/Pelvis Back: No back tenderness Skin General skin exam: no rashes or lesions noted Neuro General: patient alert, patient awake, moves all extremities and no focal motor deficits Cognition: normal cognition Speech: speech normal Sensory Exam: no sensory deficits noted Psych Appearance: grossly normal Mental Status: mental status grossly normal Course Vital Signs Vital signs: Vital Signs Temperature 36.7 C 09/08/22 17:23 Pulse 85 09/08/22 17:23 Respiratory Rate 17 09/08/22 17:23 Blood Pressure 145/62 H 09/08/22 17:23 Pulse Oximetry 96 09/08/22 17:23 Temperature 36.7 C 09/08/22 17:23 Temperature Source Temporal Artery Scan 09/08/22 17:23 Pulse 85 09/08/22 17:23 Respiratory Rate 17 09/08/22 17:23 Respiratory Effort Short of Breath 09/08/22 17:26 Respiratory Depth Normal 09/08/22 17:59 Blood Pressure 145/62 H 09/08/22 17:23 Blood Pressure Position Sitting 09/08/22 17:23 Pulse Oximetry 96 09/08/22 17:23 Oxygen Delivery Method Room Air 09/08/22 17:23 Oxygen Flow Rate 0 09/08/22 17:23 Pain Level 6 09/08/22 17:23 PAWSS Have you Been Recently Intoxicated or Drunk Within the Last 30 days?: No Have you Ever Experienced Previous Episodes of Alcohol Withdrawal?: No Have you ever Experienced Withdrawal Seizures?: No Have you ever Experienced Delirium Tremens(DT)s?: No Have you ever undergone Alcohol Rehabilitation Treatment (i.e, inpt ot outpatient treatment programs)?: No Have you ever Experienced Blackouts?: No Have you ever Combined Alcohol with other Downers within the last 90 days?: No Have you ever Combined Alcohol with any other Substance of Abuse during the last 90 days?: No Result: 0
--- NOTE | 2022-09-08 21:21 | DI.VRAD_ITS ---
PROCEDURE INFORMATION: Exam: XR Chest Exam date and time: 09/08/2022 8:53 PM Age: 62 years old Clinical indication: Other: Cough TECHNIQUE: Imaging protocol: Radiologic exam of the chest. Views: 1 view. COMPARISON: CR XR PORTABLE CHEST AP 11/07/2021 10:45 AM FINDINGS: Lungs: Mild interstitial prominence No consolidation. Pleural spaces: No pleural effusion. No pneumothorax. Heart/Mediastinum: Grossly stable. Bones/joints: Unremarkable. IMPRESSION: Mild interstitial prominence which may be chronic. Mild superimposed bronchitis not excluded No focal consolidation Dictated and Authenticated by: Uriel Miles MD. Ordering:HUSAM Quinones MD
== END 2022-09-08 22:27 | disposition home or self-care (01) ==
PROVIDERS: Emergency Provider Physician Assistant; PCP Physician Assistant Medical
DX: J10.1 Influenza due to other identified influenza virus with other respiratory manifestations (principal)
CPT/HCPCS: 99283; 71045

== ENCOUNTER 2022-09-23 18:07 | Outpatient (REF) | payer MEDICARE, MEDICAID, SELFPAY | END 2022-09-23 18:08 | disposition home or self-care (01) | LOC: NCHCN 18:07 | PROVIDERS: PCP Physician Assistant Medical; Visit Provider Physician Assistant Medical | DX: R32 Unspecified urinary incontinence (principal) | CPT/HCPCS: 87086 ==

== ENCOUNTER 2022-11-15 22:16 | Emergency (ER) | payer MEDICARE, MEDICAID, SELFPAY ==
[2022-11-15 22:20] VITALS: BP 148/78; PULSE 94; RESP 18; TEMP 36.6; O2SAT 96
--- NOTE | 2022-11-15 22:43 | ED.GENADUL_ITS ---
Discharge Plan Disposition Patient Disposition: Home Discharge Details Clinical Impression: Mahmood catheter problem, UTI (urinary tract infection) Primary Care Provider: Rekha Keys ED Provider: Yamileth Mckenzie Home Meds and New Rx's Prescriptions: New ciprofloxacin HCl [Cipro] 500 mg tablet 500 mg PO BID 7 Days Qty: 14 0RF Rx Instructions: Take one tablet twice daily by mouth for the next 7 days. Continued acetaminophen 325 mg capsule 650 mg PO ONCE PRN trazodone 50 mg tablet 50 mg PO HS olanzapine 20 mg tablet 20 mg PO DAILY rosuvastatin 40 mg tablet 40 mg PO DAILY metformin 500 MG tablet 1,000 mg PO BID Qty: 180 0RF budesonide-formoterol [Symbicort] 160-4.5 mcg/actuation HFA aerosol inhaler 2 inh INHALATION BID Trulicity 1.5 mg/0.5 mL pen injector 1.5 mg SUBCUT QWEEK Patient Comments: INJECT 0.5 ML SUBCUTANEOUSLY EVERY WEEK Humulin N NPH U-100 Insulin 100 UNIT/ML suspension 40 unit SQ HS insulin lispro [Humalog U-100 Insulin] 100 UNIT/ML solution 0 unit SQ DIRECTED diazepam 2 mg tablet 2 mg PO BID PRN triamcinolone acetonide 55 mcg aerosol,spray 1 spray INTRANASAL DAILY Patient Comments: INSTILL 1 SPRAY IN EACH NOSTRIL DAILY benztropine 2 mg tablet 2 mg PO BID Patient Comments: TAKE ONE TABLET BY MOUTH TWICE A DAY divalproex 500 mg tablet extended release 24 hr See Rx Instructions .ROUTE .COMPLEX Patient Comments: TAKE TWO TABLETS BY MOUTH TWICE A DAY Rx Instructions: Take 500 mg in the AM and 1000 mg at night amlodipine 5 mg tablet 5 mg PO DAILY Qty: 30 0RF terbinafine HCl 1 % Cream 1 applic TOPICAL BID aspirin 81 mg Tablet,Delayed Release (Dr/Ec) 81 mg PO DAILY albuterol sulfate 90 mcg/actuation HFA aerosol inhaler 2 inh INHALATION Q6H PRN PRN Patient Comments: INHALE 2 PUFFS EVERY 4 TO 6 HOURS NEEDED Discharge Instructions Instructions: Urinary Tract Infection in Men (ED), Mahmood Catheter Placement and Care (ED) Additional Instructions: At this time we are going to leave the catheter in because this was placed with urology and appears to be a specialty type catheter. Please take care to clean around your urethral meatus daily with soap and water. Please wash your hands first before cleaning the area. Please take the antibiotics twice daily with yogurt or probiotic as directed. You were given the first dose here and 2 tablets to go. Please take them until they are gone. Follow-up with your urologist at [facility] for any continued problems. Follow up with primary care provider in 3-5 days. Return to ED sooner if any worsening or concerns. Increase oral fluids. Please take Tylenol or Ibuprofen with food every 4-6 hours as needed for pain and swelling. Referrals: UROLOGY,[facility] [OTHER] - Edith Cristobal [ NON-[facility] STAFF PHYSICIAN] - 5 days Rekha Keys PA [Primary Care Provider] - 1 week Medical Decision Making 62-year-old male presents to the ER with a chief complaint of discharge around the catheter which he reported he noticed tonight. He does see urology at [facility] he reports that he spoke with them earlier tonight and they encouraged him to present for further eval. Of note EMS reports the patient evicted from his apartment. He reports that he is still having some blood clots from the catheter however it is draining without difficulty. He denies any fever chills or any other associated symptoms. He is requesting to have the catheter changed out. It was placed on November 10. Does have a past medical history of type 2 diabetes and coronary artery disease, hypertension, BPH, COPD, schizoaffective disorder and obstructive uropathy. On exam he does have slight erythematous around the meatus and some purulent discharge. Catheter is draining yellow urine with some cloudy sediment and small blood clots. It is draining without difficulty. At this time due to the Mahmood catheter draining without difficulty and specialty type catheter of an S shaped 16 FR dilator catheter which was placed by urologist, we will leave the catheter in place and encourage patient to follow- up with [facility] urology. We will reinforce cleaning around the catheter insertion site and I will give patient ciprofloxacin 500 mg first dose given here twice daily for the next 7 days. This text was generated using [employer]comation system, please disregard any oddities of phrase or misspellings. Medical Records Medical records reviewed: Yes I reviewed the patient's medical records. Medical records narrative: [facility] records reviewed a S shaped dilator catheter was placed on November [address] Cristobal at [facility]. HPI General Mode of arrival: EMS . Date/Time Provider Initiated Documentation: 11/15/22 22:17 . Limitations to Documentation: no limitations . Information obtained by: patient, EMS, RN notes reviewed and old records reviewed . HPI Narrative: 62-year-old male presents to the ER with a chief complaint of discharge around the catheter which he reported he noticed tonight. He does see urology at [facility] he reports that he spoke with them earlier tonight and they encouraged him to present for further eval. Of note EMS reports the patient evicted from his apartment. He reports that he is still having some blood clots from the catheter however it is draining without difficulty. He denies any fever chills or any other associated symptoms. He is requesting to have the catheter changed out. It was placed on November 10. Does have a past medical history of type 2 diabetes and coronary artery disease, hypertension, BPH, COPD, schizoaffective disorder and obstructive uropathy. Related Data Home Medications Medication Instructions Recorded Confirmed metformin 500 mg tablet 1,000 mg PO BID ##180 09/15/14 09/08/22 insulin NPH isoph U-100 human 100 40 unit SQ HS 11/20/16 09/08/22 unit/mL subcutaneous suspension (Humulin N NPH U-100 Insulin (isophane susp)) insulin lispro 100 unit/mL 0 unit SQ DIRECTED 11/20/16 09/08/22 subcutaneous solution (Humalog U-100 Insulin) diazepam 2 mg tablet 2 mg PO BID PRN 07/12/21 09/08/22 budesonide-formoterol HFA 160 2 inh inhalation BID 08/07/21 09/08/22 mcg-4.5 mcg/actuation aerosol inhaler (Symbicort) dulaglutide 1.5 mg/0.5 mL 1.5 mg subcut QWEEK 08/07/21 09/08/22 subcutaneous pen injector (Trulicity) rosuvastatin 40 mg tablet 40 mg PO DAILY 10/02/21 09/08/22 acetaminophen 325 mg capsule 650 mg PO ONCE PRN 11/06/21 09/08/22 benztropine 2 mg tablet 2 mg PO BID 11/08/21 09/08/22 divalproex 500 mg tablet,extended See Rx Instructions .Route .COMPLEX 11/08/21 09/08/22 release 24 hr triamcinolone acetonide 55 mcg 1 spray intranasal DAILY 11/08/21 09/08/22 nasal spray aerosol amlodipine 5 mg tablet 5 mg PO DAILY #30 tabs 11/09/21 09/08/22 albuterol sulfate 90 mcg/actuation 2 inh inhalation Q6H PRN PRN 12/12/21 09/08/22 aerosol inhaler aspirin 81 mg tablet,delayed 81 mg PO DAILY 12/12/21 09/08/22 release terbinafine HCl 1 % topical cream 1 applic topical BID 12/12/21 09/08/22 olanzapine 20 mg tablet 20 mg PO DAILY 03/12/22 09/08/22 trazodone 50 mg tablet 50 mg PO HS 03/12/22 09/08/22 ciprofloxacin HCl 500 mg tablet 500 mg PO BID uti 7 days #14 tabs 11/15/22 (Cipro) Previous Rx's Medication Instructions Recorded metformin 500 mg tablet 1,000 mg PO BID ##180 09/15/14 amlodipine 5 mg tablet 5 mg PO DAILY #30 tabs 11/09/21 ciprofloxacin HCl 500 mg tablet 500 mg PO BID uti 7 days #14 tabs 11/15/22 (Cipro) Allergies Allergy/AdvReac Type Severity Reaction Status Date / Time Penicillins Allergy Mild Skin Rash Unverified 09/08/22 17:27 ARB-Angiotensin Receptor Allergy Verified 09/08/22 17:27 Antagonist clopidogrel [From Plavix] Allergy Unverified 09/08/22 17:27 Sulfa (Sulfonamide Allergy Verified 09/08/22 17:27 Antibiotics) JOSE Inhibitors AdvReac Severe Verified 09/08/22 17:27 General Stated Complaint: Urinary HALLIE: 3 Review of Systems All systems reviewed & are unremarkable except as noted in HPI and below Constitutional Constitutional: Denies chills and Denies fever(s) Genitourinary Genitourinary: Reports as per HPI, Reports hematuria and Reports dysuria (Slight burning at insertion site) PFSH All Active Problems (Updated 11/15/22 @ 23:40 by Yamileth Mckenzie NP) Mahmood catheter problem (Acute) UTI (urinary tract infection) (Acute) Chondromalacia of right patella (Acute) Internal derangement of right knee (Acute) Obstructive uropathy (Acute) Dental caries (Acute) Tongue laceration (Acute) Schizoaffective disorder (Acute 09/15/14) a. increased delusional thoughts b. 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 due to diabetes type 2 Type II diabetes mellitus Surgical History History of heart artery stent Social History Smoking/Tobacco Use Status: Current every day Tobacco Type: cigarettes Smoking risk assessment performed?: Yes Alcohol Intake: current Alcohol Intake frequency: a few times a week Alcohol type: beer Drug use: Never Substance use type: does not use Current gender identity: male Do you feel safe at home: Yes Do you feel safe in your relationship?: Yes Exam Const General: cooperative, healthy appearing, comfortable, well developed and well groomed Nutritional Appearance: average body habitus Orientation: alert, awake and oriented x3 Cardio Rate: regular rate Rhythm: regular rhythm Heart Sounds: S1 normal and S2 normal Meatus: meatal discharge (Purulent) Testes: normal Other: Mahmood leg bag in place which is draining well. Small amount of yellowish, white purulent discharge from meatus with slight erythema. Course Vital Signs Vital signs: Vital Signs Temperature 36.6 C 11/15/22 22:20 Pulse 94 H 11/15/22 22:20 Respiratory Rate 18 11/15/22 22:20 Blood Pressure 148/78 H 11/15/22 22:20 Pulse Oximetry 96 11/15/22 22:20 Temperature 36.6 C 11/15/22 22:20 Temperature Source Skin 11/15/22 22:20 Pulse 94 H 11/15/22 22:20 Respiratory Rate 18 11/15/22 22:20 Respiratory Effort Normal 11/15/22 22:34 Blood Pressure 148/78 H 11/15/22 22:20 Blood Pressure Position Sitting 11/15/22 22:20 Pulse Oximetry 96 11/15/22 22:20 Oxygen Delivery Method Room Air 11/15/22 22:20 Oxygen Flow Rate 0 11/15/22 22:20 Pain Level 0 11/15/22 22:20
[2022-11-16] MEDS: Ciprofloxacin 500 MG TAB PO (00:02)
== END 2022-11-16 00:15 | disposition home or self-care (01) ==
PROVIDERS: Emergency Provider Registered Nurse Emergency; PCP Physician Assistant Medical
DX: N39.0 Urinary tract infection, site not specified (principal); E11.319 Type 2 diabetes mellitus with unspecified diabetic retinopathy without macular edema; I25.10 Atherosclerotic heart disease of native coronary artery without angina pectoris; I10 Essential (primary) hypertension; J44.9 Chronic obstructive pulmonary disease, unspecified; F25.9 Schizoaffective disorder, unspecified; T83.091A Other mechanical complication of indwelling urethral catheter, initial encounter; Y83.8 Other surgical procedures as the cause of abnormal reaction of the patient, or of later complication, without mention of misadventure at the time of the procedure
CPT/HCPCS: 99283; 99284

== ENCOUNTER 2022-12-23 17:38 | Outpatient (REF) | payer MEDICARE, MEDICAID, SELFPAY | END 2022-12-23 17:39 | disposition home or self-care (01) | LOC: NCHCN 17:38 | PROVIDERS: PCP Physician Assistant Medical; Visit Provider Physician Assistant Medical | DX: E11.8 Type 2 diabetes mellitus with unspecified complications (principal); I25.10 Atherosclerotic heart disease of native coronary artery without angina pectoris | CPT/HCPCS: 83036 ==

== ENCOUNTER 2023-01-07 17:28 | Outpatient (REF) | payer MEDICARE, MEDICAID, SELFPAY ==
[2023-01-07 15:58] LABS: Bilirubin Negative (Negative); Blood Trace-intact (Negative); Clarity Sl Cloudy (Clear); Glucose 500 mg/dL (Negative); Ketones Negative (Negative); Leukocyte Esterase Small (Negative); Nitrite Negative (Negative); pH 6.5 (5-8)
[2023-01-07 16:01] LABS: ALT 22 U/L (16-63); AST 18 U/L (15-37); Albumin 3.4 g/dL (3.4-5.0); Alkaline Phosphatase 54 U/L (46-116); Anion Gap 5.9 mmol/L (3-11); BUN 15 mg/dL (7-18); Bilirubin, Total 0.2 mg/dL (0.2-1.0); CO2 30.1 mmol/L (21.0-32.0); CREATININE 0.9 mg/dL (0.70-1.30); Calculated LDL 25 mg/dL (<100); Chloride 100 mmol/L (98-107); Cholesterol 72 mg/dL (<200); Estimated GFR 96.57 (mL/min/1.73m2); Glucose 207 mg/dL (74-106); HDL Cholesterol 35 mg/dL (40-60); Potassium 4.7 mmol/L (3.5-5.1); Sodium 136 mmol/L (136-145); Total Protein 6.9 g/dL (6.4-8.2); Triglyceride 63 mg/dL (<150)
[2023-01-07 16:22] LABS: Bacteria Few HPF (Negative); C & S Indicated? Yes; Casts Negative LPF (Negative); Crystals Negative HPF (Negative); Epithelial Cells Few HPF (Negative); Mucus Negative (Negative); RBC 0-2 HPF (0-2)
[2023-01-07 16:33] LABS: VALPROIC ACID 95.1 ug/mL
== END 2023-01-07 17:29 | disposition home or self-care (01) ==
LOC: NCHCN 17:28
PROVIDERS: PCP Physician Assistant Medical; Visit Provider Physician Assistant Medical
DX: E11.8 Type 2 diabetes mellitus with unspecified complications (principal); I25.10 Atherosclerotic heart disease of native coronary artery without angina pectoris; F25.9 Schizoaffective disorder, unspecified; Z51.81 Encounter for therapeutic drug level monitoring; Z79.899 Other long term (current) drug therapy; R32 Unspecified urinary incontinence
CPT/HCPCS: 80053; 80061; 82306; 87077; 80164; 81003; 81015; 87086; 87186

== ENCOUNTER 2023-02-15 11:00 | Inpatient (IN) | payer MEDICARE, MEDICAID, SELFPAY ==
[2023-02-15] VITALS (55 sets, daily range): BP systolic 108–148; BP diastolic 56–105; PULSE 77–105; RESP 4–34; TEMP 36.8–38.4; O2SAT 88–100
--- NOTE | 2023-02-15 11:15 | RT.EKG_ITS ---
APPROVED REPORT Exam: Resting ECG Reason for Exam: chest pain Patient Location: E HR:86 bpm ECG Measurements Heart Rate 86 AXIS OH 128 P 79 QRSd 104 QRS -16 QT 337 T 66 QTc 403 Conclusion Sinus rhythm...normal P axis, V-rate 60- [address] elevation, anterior leads...ST >0.15mV in V1-V4 Sinus rhythm at a rate of 86 with left axis deviation no signs of LVH based on voltage criteria. Int erventricular conduction delay mild ST segment depressions left lateral chest wall leads and elevatio n in 2. T wave flattening in aVL. No acute injury pattern. No prior for comparison.
--- NOTE | 2023-02-15 11:29 | NUR.NOTE ---
Nursing Note: Pt seen after triage. Oxygen sat 86% on room air. Placed on 2L NC up to 91%. Pt states hx of COPD. Pt appears lethargic.
--- NOTE | 2023-02-15 12:15 | DI.CT_ITS ---
Exam(s) CT HEAD WO EXAM: CT HEAD WO CLINICAL HISTORY: ams. TECHNIQUE: Imaging Protocol: Axial computed tomography images with coronal and sagittal reformatted images were created and reviewed COMPARISON: CT CT HEAD WO from 07/16/2021 FINDINGS: Ventricles and Extra axial spaces: Normal in size and morphology for the patient's age. Hemorrhage: None. Cerebral parenchyma: Minimal white matter changes small vessel disease.. Minimal atrophy Midline shift: None. Brainstem/Cerebellum: Normal. Calvarium: Normal. Visualized Paranasal sinuses/Mastoids: Mucosal thickening throughout. Mucous retention left maxilla ry sinus. Soft Tissues: Unremarkable. IMPRESSION: No acute intracranial process. RADIATION DOSE DELIVERED: 884.25mGy.cm Total DLP DATA REPOSITORY: All CT scans at this facility are submitted to the National Radiology Data Registry (NRDR) Dose Index Registry (DIR) with the [employer] ([employer]). RADIATION OPTIMIZATION: All CT scans at this facility use at least one of these dose optimization te chniques: automated exposure control; mA and/or kV adjustment per patient size (includes targeted exa ms where dose is matched to clinical indication); or iterative reconstruction.
[2023-02-15 12:53] LABS: COVID-19 PCR Negative (Negative); Influenza A PCR Negative (Negative); Influenza B PCR Negative (Negative); RSV PCR Negative (Negative)
[2023-02-15 13:04] LABS: ALT 25 U/L (16-63); AST 40 U/L (15-37); Albumin 2.1 g/dL (3.4-5.0); Alkaline Phosphatase 79 U/L (46-116); Anion Gap 8.8 mmol/L (3-11); BUN 59 mg/dL (7-18); Bilirubin, Total 0.4 mg/dL (0.2-1.0); CO2 27.2 mmol/L (21.0-32.0); CREATININE 1.6 mg/dL (0.70-1.30); Calcium 9.2 mg/dL (8.5-10.1); Chloride 102 mmol/L (98-107); Estimated GFR 48.41 (mL/min/1.73m2); Glucose 214 mg/dL (74-106); Magnesium 2.5 mg/dL (1.8-2.4); Sodium 138 mmol/L (136-145); Total Protein 6.6 g/dL (6.4-8.2); Troponin I < 50 ng/L (<or=60)
[2023-02-15 13:10] LABS: INR 0.9 (0.9-1.1); PTT Activated 30.3 sec (21.5-31.9); Prothrombin Time 9.6 sec (9.3-11.0)
[2023-02-15 13:11] LABS: HCT 38.9 % (40.0-50.0); HGB 12.9 g/dL (13.5-17.5); MCH 27.4 pg (27.0-33.0); MCHC 33.2 % (32.0-36.0); MCV 83 fL (80-95); RBC 4.71 10^6/uL (4.36-5.78); RDW 14.8 % (11.8-14.1); RDW-SD 45.2 fL; WBC 11.51 10^3/uL (4.4-10.8)
--- NOTE | 2023-02-15 13:22 | DI.CT_ITS ---
Exam(s) CT CHEST PE ABD PELVIS W EXAM: CT CHEST PE ABD PELVIS W CLINICAL HISTORY: Shortness of breath, hypoxia. TECHNIQUE: Imaging Protocol: Axial computed tomography images with coronal and sagittal reformatted images were created and reviewed CONTRAST MATERIAL: Intravenous: Omnipaque 350 Contrast volume:100 ml Oral:/ no COMPARISON: CT CT ABDOMEN PELVIS WO/W from 08/01/2021 CR,XR XR PORTABLE CHEST AP from 09/08/2022 FINDINGS: CHEST: Tracheobronchial tree: Patent where visualized. Pulmonary parenchyma: Nearly complete consolidation of the left lower lobe. Areas of low density cou ld represent necrosis versus patchy areas of aeration. Compressive affect on the lingula. Respirato ry motion. No abnormality was seen in the left lower lobe on prior CT or chest x-ray. Pleura: Small left pleural effusion. Lymph nodes: Within normal limits. Aorta: Thoracic portion non-dilated. Mild calcification. Heart: Not enlarged. No pericardial effusion. Bones: Mild scoliosis. Old sternal fracture. No lytic or blastic lesions.No compression fractures. ABDOMEN: Exam mildly limited by motion. Liver: Normal density. No measurable mass. Gallbladder and biliary tract: No radiodense calculus or dilation. Pancreas: Normal density, no abnormal calcifications or inflammatory process. Spleen: Normal. Kidneys: Normal size, contour and axis. No radiodense stones or obstructive uropathy. No suspicious m asses seen. Adrenal glands: No masses seen. Aorta: Abdominal portion non-dilated. Atherosclerotic changes. Lymph nodes: Within normal limits. Soft tissues: Unremarkable. PELVIS: Bladder: Symmetric distention, no gross wall thickening. Bowel: No obstruction or bowel wall thickening. Peritoneal cavity: No ascites, collection or mesenteric inflammatory response. Bones: Old L2 compression fracture. Degenerative changes. Reproductive organs: Within normal limits. IMPRESSION: Left lower lobe consolidation with question of some necrosis. Small left pleural effusion. No acute abnormality abdomen or pelvis. RADIATION DOSE DELIVERED: 1,671.73mGy.cm Total DLP 1,671.73mGy.cm Total DLP DATA REPOSITORY: All CT scans at this facility are submitted to the National Radiology Data Registry (NRDR) Dose Index Registry (DIR) with the [employer] (A[employer]). RADIATION OPTIMIZATION: All CT scans at this facility use at least one of these dose optimization te chniques: automated exposure control; mA and/or kV adjustment per patient size (includes targeted exa ms where dose is matched to clinical indication); or iterative reconstruction.
--- NOTE | 2023-02-15 13:32 | ED.GENADUL_ITS ---
Discharge Plan Disposition Patient Disposition: Admit to [facility] Condition: Serious Discharge Details Clinical Impression: Pneumonia, Hypoxia Admit Date/Time: 02/15/23 16:22 Admit Provider: Haley Gooden Attending Provider: Haley Gooden Primary Care Provider: Rekha Keys ED Provider: Konstantin Hallman Discharge Data Discharge Date/Time-TO BE ENTERED AT DEPARTURE: 02/15/23 17:53 Medical Decision Making Patient presenting to the emergency department for chief complaint of back pain been going on for the last 3 days. He does also state some chest discomfort. Patient does have significant fatigue and was dropped off. Patient does have some altered mental status, is somnolent to lethargic but will respond and follow commands, no focal neurological deficits are noted. Patient's altered mental status does limit some of the review of systems. Patient does have a past medical history of schizoaffective disorder, COPD, hypertension type 2 diabetes coronary artery disease. Physical exam shows generalized weakness again with no focal findings, diminished lung sounds in left lower base with crackles heard, patient is nontachycardic. He is hypoxic on room air so we will place patient on oxygen. Concern for possible pneumonia versus thrombosis. Given altered mental status will perform CT imaging of head chest and abdomen. We will draw labs including blood cultures we will start patient on some fluids but patient not hypotensive and afebrile. We will also perform COVID testing due to hypoxia and abnormal lung sounds. Reviewed patient's labs and patient has slight leukocytosis with white count of 11.51, neutrophils elevated at 10.36 and low lymphocytes 8.92. Hemoglobin is 12.9 there is some noted abnormal morphology of RBCs. Coagulation studies within normal range, lactate 1.4. CMP shows elevated BUN of 59 with creatinine of 1.6. We will add on CK. Glucose of 214, magnesium slightly elevated at 2.5, AST high at 40 ALT alk phos and total bili within normal range, initial troponin is negative/nondetected. Low albumin of 2.1. Reviewed CT imaging and radiologist interpretation that shows no acute findings noted on head CT. There are significant pulmonary findings noted on CTA imaging of chest. No noted embolism aortic aneurysm or dissection. Patient does have lobular consolidation with radiologist questioning possible necrotic pneumonia. There is compressive atelectasis, pleural effusion in left pleural space superior to the left lower lobe. No noted abdominal findings. We will start patient on Levaquin and metronidazole given penicillin allergy. Also did add on procalcitonin along with UDS and other tox given altered mental status. Patient negative for acetaminophen, salicylates, or alcohol, patient negative for COVID flu RSV CK is elevated at 412 and procalcitonin is 11.4. Will speak to hospitalist in regards to admission for pneumonia. We will also order patient 125mg Solu-Medrol. Hospitalist agreed to have patient admitted for further antibiotics and m onitoring of condition. Imaging Data Radiologic Study: Imaging: CT Scan Radiologist's impression: Exam(s) PROCEDURE INFORMATION: Exam: CT Head Without Contrast Exam date and time: 02/15/2023 1:57 PM Age: 62 years old Clinical indication: Altered mental status/memory loss TECHNIQUE: Imaging protocol: Computed tomography of the head without contrast. COMPARISON: CT HEAD WO 07/16/2021 3:40 PM FINDINGS: Brain: There is no acute intracranial hemorrhage. There is lucency in the cerebral white matter, likely microvascular disease although non-specific. No evidence of mass. There is no mass effect or midline shift. Lee white differentiation is intact. There are no extra-axial fluid collections. Cerebral ventricles: The ventricles and sulci are enlarged, consistent with volume loss / atrophy. No hydrocephalus. Paranasal sinuses: There is mucosal thickening in paranasal sinuses. There is retention cyst or polyp in left maxillary sinus. Mastoid air cells: No significant mastoid effusion. Bones/joints: No acute fracture. Soft tissues: Unremarkable as visualized. Vasculature: There is vascular calcification. IMPRESSION: 1. No evidence of acute intracranial abnormality. No evidence of acute infarction, hemorrhage, or mass. 2. Atrophy and microvascular disease. Radiologic Study #2: Imaging: CT Scan Radiologist's impression: Exam(s) PROCEDURE INFORMATION: Exam: CTA Chest With Contrast CTA Abdomen With Contrast Exam date and time: 02/15/2023 2:04 PM Age: 62 years old Clinical indication: Other: Shortness of breath, hypoxia; Patient HX: Back pain TECHNIQUE: Imaging protocol: Computed tomographic angiography of the chest with contrast. Computed tomographic angiography of the abdomen with contrast. 3D rendering (Not supervised by radiologist): MIP and/or 3D reconstructed images were created by the technologist. Contrast material: OMNIPAQUE 350; Contrast volume: 100 ml; Contrast route: INTRAVENOUS (IV); COMPARISON: CR XR PORTABLE CHEST AP 09/08/2022 8:53 PM FINDINGS: VASCULATURE: Pulmonary arteries: Normal. No pulmonary emboli. Aorta: No aortic aneurysm or dissection. Celiac trunk and mesenteric arteries: No occlusion or significant stenosis. Renal arteries: No occlusion or significant stenosis. CHEST: Lungs: Consolidation involving the entirety of the left lower lobe. Is heterogeneous enhancement worrisome for necrosis. The lingula has compressive atelectatic findings. No consolidations in the right lung or left upper lobe. Pleural spaces: There is a small left pleural effusion that is superior to the left lower lobe consolidation. Heart: Unremarkable. No cardiomegaly. No pericardial effusion. ABDOMEN AND PELVIS: Liver: No mass. Gallbladder and bile ducts: Unremarkable. No calcified stones. No ductal dilation. Pancreas: Unremarkable. No mass. No ductal dilation. Spleen: Unremarkable. No splenomegaly. Adrenal glands: Unremarkable. No mass. Kidneys and ureters: Unremarkable. No solid mass. No hydronephrosis. Stomach and bowel: Unremarkable. No obstruction. No mucosal thickening. Intraperitoneal space: Unremarkable. No free air. No significant fluid collection. Lymph nodes: Unremarkable. No enlarged lymph nodes. Bones/joints: Unremarkable. No acute fracture. Chronic compression L2. Soft tissues: Unremarkable. Other findings: The vasculature demonstrates diffuse moderate atherosclerotic calcification. IMPRESSION: 1. Lobar consolidation involving left lower lobe. This has heterogeneous characteristics worrisome for necrotic pneumonia. Nor abnormality in this location August 01, 2021 or chest radiograph dated September 08, 2022 so this is unlikely to be rapidly row neoplasm. 2. Compressive atelectasis in the lingula. 3. There is a pleural effusion in the left pleural space superior to the left lower lobe. 4. No pulmonary embolism, aortic aneurysm or dissection. 5. Mild atherosclerotic peripheral vascular disease. Lab Data Lab results reviewed: Yes I reviewed the patient's lab results. HPI General Mode of arrival: ambulatory . Date/Time Provider Initiated Documentation: 02/15/23 11:37 . Limitations to Documentation: no limitations . Information obtained by: patient and RN notes reviewed . History of Present Illness 62 year old M presents to the emergency department with the chief complaint of Back pain, chest pain, fatigue, described as moderate, Quality is described as aching, and is localized to the back. Patient started experiencing this day(s) (3) and it has been constant. Patient did receive the following treatments prior to arrival, none Related Data Home Medications Medication Instructions Recorded Confirmed insulin NPH isoph U-100 human 100 0 unit SQ HS 11/20/16 02/17/23 unit/mL subcutaneous suspension (Humulin N NPH U-100 Insulin (isophane susp)) diazepam 2 mg tablet 2 mg PO BID 07/12/21 02/17/23 dulaglutide 1.5 mg/0.5 mL 1.5 mg subcut QWEEK 08/07/21 02/17/23 subcutaneous pen injector (Trulicity) rosuvastatin 40 mg tablet 40 mg PO DAILY 10/02/21 02/17/23 acetaminophen 325 mg capsule 650 mg PO Q4H PRN PRN 11/06/21 02/17/23 benztropine 2 mg tablet 2 mg PO BID 11/08/21 02/17/23 divalproex 500 mg tablet,extended See Rx Instructions .Route .COMPLEX 11/08/21 02/17/23 release 24 hr amlodipine 5 mg tablet 5 mg PO DAILY #30 tabs 11/09/21 02/17/23 albuterol sulfate 90 mcg/actuation 2 inh inhalation Q6H PRN PRN 12/12/21 02/17/23 aerosol inhaler olanzapine 20 mg tablet 20 mg PO HS 03/12/22 02/17/23 trazodone 50 mg tablet 50 mg PO HS 03/12/22 02/17/23 aspirin 81 mg chewable tablet 81 mg PO DAILY 02/17/23 02/17/23 insulin aspart U-100 100 unit/mL 0 unit subcut DIRECTED 02/17/23 02/17/23 (3 mL) subcutaneous pen (Novolog FlexPen U-100 Insulin aspart) metformin 1,000 mg tablet 1,000 mg PO BID 02/17/23 02/17/23 levofloxacin 750 mg tablet 750 mg PO DAILY #4 tabs 02/18/23 prednisone 20 mg tablet 40 mg PO DAILY #6 tabs 02/18/23 tiotropium 2.5 mcg-olodaterol 2.5 2 puff inhalation DAILY #1 g 02/18/23 mcg/actuation mist for inhalation (Stiolto Respimat) Previous Rx's Medication Instructions Recorded amlodipine 5 mg tablet 5 mg PO DAILY #30 tabs 11/09/21 levofloxacin 750 mg tablet 750 mg PO DAILY #4 tabs 02/18/23 prednisone 20 mg tablet 40 mg PO DAILY #6 tabs 02/18/23 tiotropium 2.5 mcg-olodaterol 2.5 2 puff inhalation DAILY #1 g 02/18/23 mcg/actuation mist for inhalation (Stiolto Respimat) Allergies Allergy/AdvReac Type Severity Reaction Status Date / Time Penicillins Allergy Mild Skin Rash Unverified 11/15/22 23:56 ARB-Angiotensin Receptor Allergy Verified 11/15/22 23:56 Antagonist clopidogrel [From Plavix] Allergy Unverified 11/15/22 23:56 Sulfa (Sulfonamide Allergy Verified 11/15/22 23:56 Antibiotics) JOSE Inhibitors AdvReac Severe Verified 11/15/22 23:56 General Stated Complaint: Nk/Back Pain HALLIE: 3 Review of Systems Unobtainable due to mental status PFSH All Active Problems (Updated 02/16/23 @ 07:05 by Sakshi Miramontes MD) Respiratory failure with hypoxia (Acute) KIZZY (acute kidney injury) (Acute) COPD exacerbation (Acute) Discharge planning issues (Acute) DVT prophylaxis (Acute) Type II diabetes mellitus (Acute) CAD (coronary artery disease) (Acute) Pneumonia (Acute) Hypoxia (Acute) Schizoaffective disorder (Acute 09/15/14) a. increased delusional thoughts b. depressed mood COPD (chronic obstructive pulmonary disease) (Acute) chronic tobacco use, but no symptoms Hypertension (Acute) Medical History (Updated 02/16/23 @ 07:05 by Sakshi Miramontes MD) Benign prostatic hypertrophy Chondromalacia of right patella Dental caries Encounter for Mahmood catheter replacement Internal derangement of right knee Obstructive uropathy Prostate irregularity Retinopathy a. due to diabetes type 2 Tobacco use disorder Tongue laceration Type II diabetes mellitus with ophthalmic manifestations Urinary hesitancy Surgical History History of heart artery stent Family History (Updated 02/15/23 @ 20:10 by Teresa Zapata NP) Other Family history unobtainable Social History Smoking/Tobacco Use Status: Current every day Tobacco Type: cigarettes Smoking risk assessment performed?: Yes Alcohol Intake: current Alcohol Intake frequency: a few times a week Alcohol type: beer Drug use: Never Substance use type: does not use Current gender identity: male Do you feel safe at home: Yes Do you feel safe in your relationship?: Yes Exam Const General: ill appearing Nutritional Appearance: obese Orientation: obtunded Limitations: altered mental status [facility] Head: normal to inspection Ears: hearing grossly normal bilaterally Mouth: oral mucosae normal and moist mucous membranes Neck Neck: normal visual inspection, full ROM, no lymphadenopathy and no meningeal signs Chest Chest: normal inspection of the chest Resp Effort & Inspection: able to speak in complete sentences and tachypneic Auscultation: crackles on the left at the base and 1/[address] up and diminished lung sounds on the left in the lower lung sr Cardio Rate: regular rate Rhythm: regular rhythm Heart Sounds: S1 normal and S2 normal Neuro General: tone normal, moves all extremities, patient confused and other (Follows commands, lethargic) Cognition: abnormal cognition (Altered) Motor: muscle tone normal throughout, no pronator drift, no movement abnormalities noted and no fasciculations Sensory Exam: no sensory deficits noted Course Vital Signs Vital signs: Vital Signs Temperature 36.8 C 02/15/23 11:02 Pulse 96 H 02/15/23 11:02 Respiratory Rate 20 02/15/23 11:02 Blood Pressure 108/66 02/15/23 11:02 Pulse Oximetry 95 02/15/23 11:02 Temperature 37.2 C 02/15/23 11:41 Temperature Source Oral 02/15/23 11:41 Pulse 105 H 02/15/23 11:41 Pulse 84 02/15/23 12:50 Respiratory Rate 14 02/15/23 12:21 Respiratory Effort Non-Labored, Short of Breath 02/15/23 12:33 Blood Pressure 133/105 H 02/15/23 12:21 Blood Pressure Mean 111 02/15/23 12:21 Blood Pressure Position Sitting 02/15/23 11:02 Pulse Oximetry 92 02/15/23 12:50 Oxygen Delivery Method Room Air 02/15/23 11:02 Oxygen Flow Rate 0 02/15/23 11:02 Lab/Test Results Lab/Test Results: 02/15/23 13:10 Blood Blood Culture - Pending 02/15/23 12:29 Blood Blood Culture - Pending Laboratory Tests Range/Units 02/15/23 02/15/23 02/15/23 11:23 12:29 12:29 PT (9.3-11.0) sec 9.6 INR (0.9-1.1) 0.9 APTT (21.5-31.9) sec 30.3 Sodium (136-145) mmol/L 138 Potassium (3.5-5.1) mmol/L 4.0 Chloride (98-107) mmol/L 102 Carbon Dioxide (21.0-32.0) mmol/L 27.2 Anion Gap (3-11) mmol/L 8.8 BUN (7-18) mg/dL 59 H Creatinine (0.70-1.30) mg/dL 1.6 H Est GFR (CKD-EPI 2020) (mL/min/1.73m2) 48.41 Glucose (74-106) mg/dL 214 H Calcium (8.5-10.1) mg/dL 9.2 Magnesium (1.8-2.4) mg/dL 2.5 H Total Bilirubin (0.2-1.0) mg/dL 0.4 AST (15-37) U/L 40 H ALT (16-63) U/L 25 Alkaline Phosphatase (46-116) U/L 79 Troponin I (<or=60) ng/L < 50 Total Protein (6.4-8.2) g/dL 6.6 Albumin (3.4-5.0) g/dL 2.1 L COVID-19 Source Cancelled SARS-CoV-2 (PCR) Cancelled Influenza Type A (PCR) Cancelled Influenza Type B (PCR) Cancelled RSV (PCR) Cancelled
[2023-02-15 13:35] LABS: Absolute Lymphocyte Count 0.92 10^3/uL (1.2-3.4); Absolute Monocyte Count 0.23 10^3/uL (0.1-0.8); Absolute Neutrophil Count 10.36 10^3/uL (1.2-6.7); Anisocytosis 1+; Bands % 23; Diff Comment Manual Differential; Platelet Count 133 10^3/uL (130-400)
[2023-02-15 13:36] LABS: Microcytosis 1+
[2023-02-15 13:40] LABS: Source Nasopharynx
[2023-02-15] MEDS: Normal Saline 1,000 ML 1000 ML IV (14:09)
[2023-02-15] MEDS: Normal Saline - Diluent 50 ML VIAL IJ (14:17)
[2023-02-15] MEDS: Omnipaque 350 MG/ML 100 ML BTL IJ (14:18)
[2023-02-15] MEDS: Normal Saline Flush 10 ML SYR IVP ×2 (14:18→22:54)
--- NOTE | 2023-02-15 14:32 | DI.VRAD_ITS ---
PROCEDURE INFORMATION: Exam: CT Head Without Contrast Exam date and time: 02/15/2023 1:57 PM Age: 62 years old Clinical indication: Altered mental status/memory loss TECHNIQUE: Imaging protocol: Computed tomography of the head without contrast. COMPARISON: CT HEAD WO 07/16/2021 3:40 PM FINDINGS: Brain: There is no acute intracranial hemorrhage. There is lucency in the cerebral white matter, likely microvascular disease although non-specific. No evidence of mass. There is no mass effect or midline shift. Lee white differentiation is intact. There are no extra-axial fluid collections. Cerebral ventricles: The ventricles and sulci are enlarged, consistent with volume loss / atrophy. No hydrocephalus. Paranasal sinuses: There is mucosal thickening in paranasal sinuses. There is retention cyst or polyp in left maxillary sinus. Mastoid air cells: No significant mastoid effusion. Bones/joints: No acute fracture. Soft tissues: Unremarkable as visualized. Vasculature: There is vascular calcification. IMPRESSION: 1. No evidence of acute intracranial abnormality. No evidence of acute infarction, hemorrhage, or mass. 2. Atrophy and microvascular disease. Dictated and Authenticated by: Amarilis Wilkerson MD. Ordering:JUVE Pryor MD
[2023-02-15 14:59] LABS: Lactate 1.4 mmol/L (0.6-1.4)
--- NOTE | 2023-02-15 15:01 | DI.VRAD_ITS ---
PROCEDURE INFORMATION: Exam: CTA Chest With Contrast CTA Abdomen With Contrast Exam date and time: 02/15/2023 2:04 PM Age: 62 years old Clinical indication: Other: Shortness of breath, hypoxia; Patient HX: Back pain TECHNIQUE: Imaging protocol: Computed tomographic angiography of the chest with contrast. Computed tomographic angiography of the abdomen with contrast. 3D rendering (Not supervised by radiologist): MIP and/or 3D reconstructed images were created by the technologist. Contrast material: OMNIPAQUE 350; Contrast volume: 100 ml; Contrast route: INTRAVENOUS (IV); COMPARISON: CR XR PORTABLE CHEST AP 09/08/2022 8:53 PM FINDINGS: VASCULATURE: Pulmonary arteries: Normal. No pulmonary emboli. Aorta: No aortic aneurysm or dissection. Celiac trunk and mesenteric arteries: No occlusion or significant stenosis. Renal arteries: No occlusion or significant stenosis. CHEST: Lungs: Consolidation involving the entirety of the left lower lobe. Is heterogeneous enhancement worrisome for necrosis. The lingula has compressive atelectatic findings. No consolidations in the right lung or left upper lobe. Pleural spaces: There is a small left pleural effusion that is superior to the left lower lobe consolidation. Heart: Unremarkable. No cardiomegaly. No pericardial effusion. ABDOMEN AND PELVIS: Liver: No mass. Gallbladder and bile ducts: Unremarkable. No calcified stones. No ductal dilation. Pancreas: Unremarkable. No mass. No ductal dilation. Spleen: Unremarkable. No splenomegaly. Adrenal glands: Unremarkable. No mass. Kidneys and ureters: Unremarkable. No solid mass. No hydronephrosis. Stomach and bowel: Unremarkable. No obstruction. No mucosal thickening. Intraperitoneal space: Unremarkable. No free air. No significant fluid collection. Lymph nodes: Unremarkable. No enlarged lymph nodes. Bones/joints: Unremarkable. No acute fracture. Chronic compression L2. Soft tissues: Unremarkable. Other findings: The vasculature demonstrates diffuse moderate atherosclerotic calcification. IMPRESSION: 1. Lobar consolidation involving left lower lobe. This has heterogeneous characteristics worrisome for necrotic pneumonia. Nor abnormality in this location August 01, 2021 or chest radiograph dated September 08, 2022 so this is unlikely to be rapidly row neoplasm. 2. Compressive atelectasis in the lingula. 3. There is a pleural effusion in the left pleural space superior to the left lower lobe. 4. No pulmonary embolism, aortic aneurysm or dissection. 5. Mild atherosclerotic peripheral vascular disease. Dictated and Authenticated by: jK Arredondo MD. Ordering:JUVE Pryor MD
[2023-02-15] MEDS: metroNIDAZOLE 500 MG/100 ML BAG 100 MG IVPB (15:16)
[2023-02-15 15:21] LABS: ETHANOL BLOOD < 3.0 mg/dL (<10)
[2023-02-15 15:22] LABS: Creatine Kinase 412 U/L (39-308)
[2023-02-15 15:30] LABS: Acetaminophen < 2 ug/mL (10-30); Salicylate 2.8 mg/dL (<2.8)
[2023-02-15 15:34] LABS: Procalcitonin 11.4 ng/mL
[2023-02-15 15:40] LABS: Troponin I < 50 ng/L (<or=60)
[2023-02-15 15:44] LABS: *AMPHETAMINES SCREEN URINE Negative (Negative); *BARBITURATES SCREEN URINE Negative (Negative); *BENZODIAZEPINES SCREEN URINE Positive (Negative); Cannabinoids THC Negative (Negative); Cocaine Screen,Urine Negative (Negative); METHADONE URINE SCREEN Negative (Negative); OPIATES URINE SCREEN Negative (Negative)
[2023-02-15] MEDS: methylPREDNISolone SUCC 125 MG VIAL IVP (15:44)
[2023-02-15 15:47] LABS: Bilirubin Negative (Negative); Blood Moderate (Negative); Clarity Sl Cloudy (Clear); Glucose 100 mg/dL (Negative); Ketones Trace mg/dL (Negative); Leukocyte Esterase Negative (Negative); Nitrite Negative (Negative); Specific Gravity >= 1.030 (1.005-1.025); Urobilinogen 0.2 mg/dL (Up to 0.2); pH 5.5 (5-8)
[2023-02-15 15:49] LABS: Tricyclic Antidepressants Negative (Negative)
[2023-02-15 15:56] LABS: Bacteria Few HPF (Negative); C & S Indicated? Yes; Casts 3-5 Hyaline LPF (Negative); Crystals Negative HPF (Negative); Epithelial Cells Few HPF (Negative); Mucus Moderate (Negative); Other Cells Few Transitional (Negative)
[2023-02-15 16:39] LABS: BE (Venous) 3 mmol/L (-2-3); HCO3 (Venous) 27 mmol/L (23-28); O2 Sat (Venous) 96 %; TCO2 (Venous) 25 mmol/L (24-29); pCO2 (Venous) 41 mmHg (41-51); pH (Venous) 7.43 (7.31-7.41); pO2 (Venous) 77 mmHg
[2023-02-15] MEDS: levoFLOXacin 750 MG/150 ML BAG 100 MG IVPB (16:40)
--- NOTE | 2023-02-15 16:49 | HPE_ITS ---
Date of service: 02/15/23 Time of Service: 16:49 Assessment and Plan Assessment and plan (1) Pneumonia: Status: Acute Assessment and plan: Came to the ED with CC of back pain - CT of the chest : 1. ? Lobar consolidation involving left lower lobe. This has heterogeneous characteristics worrisome for necrotic pneumonia. Nor abnormality in this location August 01, 2021 or chest radiograph dated September 08, 2022 so this is unlikely to be rapidly row neoplasm. 2. ? Compressive atelectasis in the lingula. 3. ? There is a pleural effusion in the left pleural space superior to the left lower lobe. 4. ? No pulmonary embolism, aortic aneurysm or dissection. 5. ? Mild atherosclerotic peripheral vascular disease. Levofloxacin and Metronidazole; added Vancomycin IS Acapella Pulmonology consult Legionella Ag and Streptococcus Pneumoniae Ag, Mycomplasma, MRSA, Sputum, BC, and urine cx - all pending (2) Hypoxia: Status: Acute Assessment and plan: See above oxygen to keep SPO2 > 88% (hx COPD) (3) COPD (chronic obstructive pulmonary disease): Status: Acute Assessment and plan: Solumedrol 40 mg every 8h IV (4) Type II diabetes mellitus: Status: Acute Assessment and plan: Hold metformin and hold tulicity Sliding scale mod sensitivity insulin FSBG AC HS Insulin NPH 40 units qHS - home dose [facility] [place] med rec (5) Schizoaffective disorder: Status: Acute Assessment and plan: Longstanding mental illness, chronic and managed with current regime Continue home meds; including olanzapine, benztropine, trazodone, divalproex ER and diazepam (6) Hypertension: Status: Acute Assessment and plan: Chronic - controlled, continue amlodipine Qualifiers: Hypertension type: primary hypertension Qualified Code(s): I10 - Essential (primary) hypertension (7) CAD (coronary artery disease): Status: Acute Assessment and plan: Continue aspirin and rosuvastatin (8) DVT prophylaxis: Status: Acute Assessment and plan: Enoxaparin (9) Discharge planning issues: Status: Acute Assessment and plan: Home when medically stable History of Present Illness History of Present Illness Chief Complaint: Back pain Narrative: This is a 62-year-old male patient with a past medical history of schizoaffecti ve disorder, COPD, hypertension type 2 diabetes coronary artery disease, who presented to the [facility] emergency department for chief complaint of back pain with chest discomfort for the last 3 days.? Patient in the ED did have some altered mental status, was somnolent to lethargic but did respond and follow commands, no focal neurological deficits were noted.? Patient's altered mental status limits the review of systems. Patient did have generalized weakness, diminished lung sounds in left lower base with crackles heard, and was nontachycardic.? He was hypoxic on room air and placed on oxygen.? Patient has slight leukocytosis with white count of 11.51, neutrophils elevated at 10.36 and low lymphocytes 8.92.? Hemoglobin is 12.9 there is some noted abnormal morphology of RBCs.? Coagulation studies within normal range, lactate 1.4.? CMP shows elevated BUN of 59 with creatinine of 1.6.? We will add on CK.? Glucose of 214, magnesium slightly elevated at 2.5, AST high at 40 ALT alk phos and total bili within normal range, initial troponin is negative. Low albumin of 2.1. Patient negative for acetaminophen, salicylates, or alcohol, patient negative for COVID, flu, and RSV. CK is elevated at 412 and procalcitonin is 11.4.?CT imaging ?radiologist interpretation shows no acute findings noted on head CT.? There are significant pulmonary findings noted on CTA imaging of chest.? No noted embolism, no aortic aneurysm or dissection.? Patient does have left lower lobular consolidation with radiologist questioning possible necrotic pneumonia.? There is compressive atelectasis, pleural effusion in left pleural space superior to the left lower lobe.? No noted abdominal findings. Patient was started on Levaquin and Metronidazole given penicillin allergy.? Patient was administered 125mg Solu-M edrol in the ED.? Patient is admitted to the medical floor for treatment of pneumonia.? Review of Systems Unobtainable due to mental status PFSH All Active Problems (Updated 02/15/23 @ 17:52 by Teresa Zapata NP) Discharge planning issues (Acute) DVT prophylaxis (Acute) Type II diabetes mellitus (Acute) CAD (coronary artery disease) (Acute) Pneumonia (Acute) Hypoxia (Acute) Schizoaffective disorder (Acute 09/15/14) a. increased delusional thoughts b. depressed mood COPD (chronic obstructive pulmonary disease) (Acute) chronic tobacco use, but no symptoms Hypertension (Acute) Medical History (Updated 02/15/23 @ 17:52 by Teresa Zapata NP) Benign prostatic hypertrophy Chondromalacia of right patella Dental caries Encounter for Mahmood catheter replacement Internal derangement of right knee Obstructive uropathy Prostate irregularity Retinopathy a. due to diabetes type 2 Tobacco use disorder Tongue laceration Type II diabetes mellitus with ophthalmic manifestations Urinary hesitancy Surgical History History of heart artery stent Family History (Updated 02/15/23 @ 20:10 by Teresa Zapata NP) Other Family history unobtainable Social History Smoking/Tobacco Use Status: Current every day Tobacco Type: cigarettes Smoking risk assessment performed?: Yes Alcohol Intake: current Alcohol Intake frequency: a few times a week Alcohol type: beer Drug use: Never Substance use type: does not use Current gender identity: male Do you feel safe at home: Yes Do you feel safe in your relationship?: Yes Meds Allergies and Home Medications Allergies Allergy/AdvReac Type Severity Reaction Status Date / Time Penicillins Allergy Mild Skin Rash Unverified 11/15/22 23:56 ARB-Angiotensin Receptor Allergy Verified 11/15/22 23:56 Antagonist clopidogrel [From Plavix] Allergy Unverified 11/15/22 23:56 Sulfa (Sulfonamide Allergy Verified 11/15/22 23:56 Antibiotics) JOSE Inhibitors AdvReac Severe Verified 11/15/22 23:56 Home Medications Medication Instructions Recorded Confirmed Type metformin 500 mg tablet 1,000 mg PO BID ##180 09/15/14 09/08/22 Rx insulin NPH isoph U-100 human 100 40 unit SQ HS 11/20/16 09/08/22 History unit/mL subcutaneous suspension (Humulin N NPH U-100 Insulin (isophane susp)) insulin lispro 100 unit/mL 0 unit SQ DIRECTED 11/20/16 09/08/22 History subcutaneous solution (Humalog U-100 Insulin) diazepam 2 mg tablet 2 mg PO BID PRN 07/12/21 09/08/22 History budesonide-formoterol HFA 160 2 inh inhalation BID 08/07/21 09/08/22 History mcg-4.5 mcg/actuation aerosol inhaler (Symbicort) dulaglutide 1.5 mg/0.5 mL 1.5 mg subcut QWEEK 08/07/21 09/08/22 History subcutaneous pen injector (Trulicity) rosuvastatin 40 mg tablet 40 mg PO DAILY 10/02/21 09/08/22 History acetaminophen 325 mg capsule 650 mg PO ONCE PRN 11/06/21 09/08/22 History benztropine 2 mg tablet 2 mg PO BID 11/08/21 09/08/22 History divalproex 500 mg tablet,extended See Rx Instructions .Route .COMPLEX 11/08/21 09/08/22 History release 24 hr triamcinolone acetonide 55 mcg 1 spray intranasal DAILY 11/08/21 09/08/22 History nasal spray aerosol amlodipine 5 mg tablet 5 mg PO DAILY #30 tabs 11/09/21 09/08/22 Rx albuterol sulfate 90 mcg/actuation 2 inh inhalation Q6H PRN PRN 12/12/21 09/08/22 History aerosol inhaler aspirin 81 mg tablet,delayed 81 mg PO DAILY 12/12/21 09/08/22 History release terbinafine HCl 1 % topical cream 1 applic topical BID 12/12/21 09/08/22 History olanzapine 20 mg tablet 20 mg PO DAILY 03/12/22 09/08/22 History trazodone 50 mg tablet 50 mg PO HS 03/12/22 09/08/22 History Exam Const General: ill appearing Nutritional Appearance: obese Orientation: obtunded Limitations: altered mental status [facility] Head: normal to inspection Ears: hearing grossly normal bilaterally Mouth: oral mucosae normal and moist mucous membranes Neck Neck: normal visual inspection, full ROM, no lymphadenopathy and no meningeal signs Chest Chest: normal inspection of the chest Resp Effort & Inspection: able to speak in complete sentences and tachypneic Auscultation: crackles on the left at the base and 1/[address] up and diminished lung sounds on the left in the lower lung sr Cardio Rate: regular rate Rhythm: regular rhythm Heart Sounds: S1 normal and S2 normal Neuro General: tone normal, moves all extremities, patient confused and other (Follows commands, lethargic) Cognition: abnormal cognition (Altered) Motor: muscle tone normal throughout, no pronator drift, no movement abnormalities noted and no fasciculations Sensory Exam: no sensory deficits noted Results Labs 02/15/23 12:29 02/15/23 12:29 Labs: Laboratory Results - last 24 hr 02/15/23 02/15/23 02/15/23 11:23 12:03 12:29 WBC RBC Hgb Hct MCV MCH MCHC RDW Plt Count MPV Immature Gran % Neutrophils % Band Neutrophils % Lymphocytes % Monocytes % Eosinophils % Basophils % Nucleated RBC % Absolute Neutrophils Absolute Lymphocytes Absolute Monocytes Absolute Eosinophils Absolute Basophils RBC Morphology Anisocytosis Microcytosis PT 9.6 INR 0.9 APTT 30.3 VBG pH VBG pCO2 VBG pO2 VBG HCO3 VBG Total CO2 VBG O2 Saturation VBG Base Excess VBG Lactate Sodium Potassium Chloride Carbon Dioxide Anion Gap BUN Creatinine Est GFR (CKD-EPI 2020) Glucose Calcium Magnesium Total Bilirubin AST ALT Alkaline Phosphatase Creatine Kinase Troponin I Total Protein Albumin Procalcitonin Urine Color Urine Clarity Urine pH Ur Specific [place] Urine Protein Urine Ketones Urine Blood Urine Nitrite Urine Bilirubin Urine Urobilinogen Ur Leukocyte Esterase Urine RBC Urine WBC Ur Epithelial Cells Urine Crystals Urine Bacteria Urine Casts Urine Mucus Urine Other Ur Culture Indicated? Urine Glucose Salicylates Urine Opiates Screen Urine Methadone Screen Acetaminophen Ur Barbiturates Screen Ur Tricyclics Screen Ur Amphetamines Screen U Benzodiazepines Scrn Urine Cocaine Screen Ur THC Screen Ethyl Alcohol COVID-19 Source Cancelled Nasopharynx SARS-CoV-2 (PCR) Cancelled Negative Influenza Type A (PCR) Cancelled Negative Influenza Type B (PCR) Cancelled Negative RSV (PCR) Cancelled Negative 02/15/23 02/15/23 02/15/23 12:29 12:29 14:45 WBC 11.51 H RBC 4.71 Hgb 12.9 L Hct 38.9 L MCV 83 MCH 27.4 MCHC 33.2 RDW 14.8 H Plt Count 133 MPV 9.0 Immature Gran % See Differential Neutrophils % 67.0 Band Neutrophils % 23 Lymphocytes % 8.0 Monocytes % 2.0 Eosinophils % 0.0 Basophils % 0.0 Nucleated RBC % 0.0 Absolute Neutrophils 10.36 H Absolute Lymphocytes 0.92 L Absolute Monocytes 0.23 Absolute Eosinophils 0.00 Absolute Basophils 0.00 RBC Morphology See Below Anisocytosis 1+ Microcytosis 1+ PT INR APTT VBG pH VBG pCO2 VBG pO2 VBG HCO3 VBG Total CO2 VBG O2 Saturation VBG Base Excess VBG Lactate Sodium 138 Potassium 4.0 Chloride 102 Carbon Dioxide 27.2 Anion Gap 8.8 BUN 59 H Creatinine 1.6 H Est GFR (CKD-EPI 2020) 48.41 Glucose 214 H Calcium 9.2 Magnesium 2.5 H Total Bilirubin 0.4 AST 40 H ALT 25 Alkaline Phosphatase 79 Creatine Kinase Troponin I < 50 Total Protein 6.6 Albumin 2.1 L Procalcitonin Urine Color Urine Clarity Urine pH Ur Specific [place] Urine Protein Urine Ketones Urine Blood Urine Nitrite Urine Bilirubin Urine Urobilinogen Ur Leukocyte Esterase Urine RBC Urine WBC Ur Epithelial Cells Urine Crystals Urine Bacteria Urine Casts Urine Mucus Urine Other Ur Culture Indicated? Urine Glucose Salicylates Urine Opiates Screen Negative Urine Methadone Screen Negative Acetaminophen Ur Barbiturates Screen Negative Ur Tricyclics Screen Negative Ur Amphetamines Screen Negative U Benzodiazepines Scrn Positive A Urine Cocaine Screen Negative Ur THC Screen Negative Ethyl Alcohol COVID-19 Source SARS-CoV-2 (PCR) Influenza Type A (PCR) Influenza Type B (PCR) RSV (PCR) 02/15/23 02/15/23 02/15/23 14:45 14:48 14:48 WBC RBC Hgb Hct MCV MCH MCHC RDW Plt Count MPV Immature Gran % Neutrophils % Band Neutrophils % Lymphocytes % Monocytes % Eosinophils % Basophils % Nucleated RBC % Absolute Neutrophils Absolute Lymphocytes Absolute Monocytes Absolute Eosinophils Absolute Basophils RBC Morphology Anisocytosis Microcytosis PT INR APTT VBG pH VBG pCO2 VBG pO2 VBG HCO3 VBG Total CO2 VBG O2 Saturation VBG Base Excess VBG Lactate 1.4 Sodium Potassium Chloride Carbon Dioxide Anion Gap BUN Creatinine Est GFR (CKD-EPI 2020) Glucose Calcium Magnesium Total Bilirubin AST ALT Alkaline Phosphatase Creatine Kinase Troponin I Total Protein Albumin Procalcitonin 11.4 Urine Color Yellow Urine Clarity Sl Cloudy Urine pH 5.5 Ur Specific [place] >= 1.030 H Urine Protein >=300 H Urine Ketones Trace H Urine Blood Moderate H Urine Nitrite Negative Urine Bilirubin Negative Urine Urobilinogen 0.2 Ur Leukocyte Esterase Negative Urine RBC 5-10 H Urine WBC 3-5 Ur Epithelial Cells Few Urine Crystals Negative Urine Bacteria Few Urine Casts 3-5 Hyaline Urine Mucus Moderate Urine Other Few Transitional Ur Culture Indicated? Yes Urine Glucose 100 H Salicylates 2.8 Urine Opiates Screen Urine Methadone Screen Acetaminophen < 2 Ur Barbiturates Screen Ur Tricyclics Screen Ur Amphetamines Screen U Benzodiazepines Scrn Urine Cocaine Screen Ur THC Screen Ethyl Alcohol COVID-19 Source SARS-CoV-2 (PCR) Influenza Type A (PCR) Influenza Type B (PCR) RSV (PCR) 02/15/23 02/15/23 02/15/23 14:48 14:48 15:16 WBC RBC Hgb Hct MCV MCH MCHC RDW Plt Count MPV Immature Gran % Neutrophils % Band Neutrophils % Lymphocytes % Monocytes % Eosinophils % Basophils % Nucleated RBC % Absolute Neutrophils Absolute Lymphocytes Absolute Monocytes Absolute Eosinophils Absolute Basophils RBC Morphology Anisocytosis Microcytosis PT INR APTT VBG pH VBG pCO2 VBG pO2 VBG HCO3 VBG Total CO2 VBG O2 Saturation VBG Base Excess VBG Lactate Sodium Potassium Chloride Carbon Dioxide Anion Gap BUN Creatinine Est GFR (CKD-EPI 2020) Glucose Calcium Magnesium Total Bilirubin AST ALT Alkaline Phosphatase Creatine Kinase 412 H Troponin I < 50 Total Protein Albumin Procalcitonin Urine Color Urine Clarity Urine pH Ur Specific [place] Urine Protein Urine Ketones Urine Blood Urine Nitrite Urine Bilirubin Urine Urobilinogen Ur Leukocyte Esterase Urine RBC Urine WBC Ur Epithelial Cells Urine Crystals Urine Bacteria Urine Casts Urine Mucus Urine Other Ur Culture Indicated? Urine Glucose Salicylates Urine Opiates Screen Urine Methadone Screen Acetaminophen Ur Barbiturates Screen Ur Tricyclics Screen Ur Amphetamines Screen U Benzodiazepines Scrn Urine Cocaine Screen Ur THC Screen Ethyl Alcohol < 3.0 COVID-19 Source SARS-CoV-2 (PCR) Influenza Type A (PCR) Influenza Type B (PCR) RSV (PCR) 02/15/23 16:34 WBC RBC Hgb Hct MCV MCH MCHC RDW Plt Count MPV Immature Gran % Neutrophils % Band Neutrophils % Lymphocytes % Monocytes % Eosinophils % Basophils % Nucleated RBC % Absolute Neutrophils Absolute Lymphocytes Absolute Monocytes Absolute Eosinophils Absolute Basophils RBC Morphology Anisocytosis Microcytosis PT INR APTT VBG pH 7.43 H VBG pCO2 41 VBG pO2 77 VBG HCO3 27 VBG Total CO2 25 VBG O2 Saturation 96 VBG Base Excess 3 VBG Lactate Sodium Potassium Chloride Carbon Dioxide Anion Gap BUN Creatinine Est GFR (CKD-EPI 2020) Glucose Calcium Magnesium Total Bilirubin AST ALT Alkaline Phosphatase Creatine Kinase Troponin I Total Protein Albumin Procalcitonin Urine Color Urine Clarity Urine pH Ur Specific [place] Urine Protein Urine Ketones Urine Blood Urine Nitrite Urine Bilirubin Urine Urobilinogen Ur Leukocyte Esterase Urine RBC Urine WBC Ur Epithelial Cells Urine Crystals Urine Bacteria Urine Casts Urine Mucus Urine Other Ur Culture Indicated? Urine Glucose Salicylates Urine Opiates Screen Urine Methadone Screen Acetaminophen Ur Barbiturates Screen Ur Tricyclics Screen Ur Amphetamines Screen U Benzodiazepines Scrn Urine Cocaine Screen Ur THC Screen Ethyl Alcohol COVID-19 Source SARS-CoV-2 (PCR) Influenza Type A (PCR) Influenza Type B (PCR) RSV (PCR) Last Vital Signs Temp 37.2 C 02/15/23 11:41 Pulse 80 02/15/23 15:01 Resp 34 H 02/15/23 13:00 BP 148/56 H 02/15/23 15:01 Pulse Ox 93 02/15/23 15:10 Time Spent Time spent with Patient: 55-74 minutes Time was spent: preparing to see the patient(eg.review tests), ordering medic ations,tests, procedures, referring, communicating with other health healthcare corporate account director, indepentently interpreting results, counseling the patient and care coordination
[2023-02-15] MEDS: Enoxaparin 40 MG/0.4 ML SYR SC (18:28)
[2023-02-15] MEDS: ACETAMINOPHEN 1,000 MG/100 ML BTL 400 MG IVPB (18:46)
[2023-02-15] MEDS: Normal Saline 1,000 ML 150 ML IV (19:09)
[2023-02-15] MEDS: Budesonide/Formoterol 160/4.5 6 GM 60 PUFF INH IH (21:02)
[2023-02-15] MEDS: Albuterol/Ipratropium 3 ML UPD VIAL UPD (21:03)
[2023-02-15] MEDS: Benzonatate 200 MG CAP PO (21:05)
[2023-02-15] MEDS: guaiFENesin 600 MG TABCR PO (21:05)
[2023-02-15] MEDS: Water,Injection,Sterile 10 ML VIAL (21:15)
[2023-02-15] MEDS: VANCOMYCIN 2,000 MG in Normal Saline 500 ML 250 MG IVPB (21:50)
[2023-02-15] MEDS: Divalproex Sodium 500 MG TAB.ER.24H 1000 MG PO (21:50)
[2023-02-15] MEDS: Benztropine 1 MG TAB 2 MG PO (21:50)
[2023-02-15] MEDS: methylPREDNISolone SUCC 125 MG VIAL 40 MG IVP (22:42)
[2023-02-15] MEDS: Insulin Aspart 300 UNITS/3 ML PEN SC (22:47)
[2023-02-15] MEDS: Insulin NPH-Human 300 UNITS/3 ML PEN 40 UNIT SC (23:24)
[2023-02-16] VITALS (11 sets, daily range): BP systolic 119–136; BP diastolic 67–78; PULSE 73–88; RESP 1–24; TEMP 36.7–37.6; O2SAT 88–93
[2023-02-16] MEDS: Albuterol/Ipratropium 3 ML UPD VIAL UPD ×2 (03:00→07:48)
[2023-02-16] MEDS: Normal Saline 1,000 ML 150 ML IV ×2 (05:27→13:48)
[2023-02-16] MEDS: methylPREDNISolone SUCC 125 MG VIAL 40 MG IVP (06:05)
[2023-02-16 06:48] LABS: Abs Immature Grans 0.08 10^3/uL (0.0-0.06); HCT 35.6 % (40.0-50.0); HGB 11.8 g/dL (13.5-17.5); MCH 27.5 pg (27.0-33.0); MCHC 33.1 % (32.0-36.0); MCV 83 fL (80-95); MPV 9.2 fL (8.0-11.0); Platelet Count 134 10^3/uL (130-400); RBC 4.29 10^6/uL (4.36-5.78); RDW 15.1 % (11.8-14.1); RDW-SD 45.7 fL; WBC 10.25 10^3/uL (4.4-10.8)
--- NOTE | 2023-02-16 06:56 | PUCON_ITS ---
General Date Of Service Date of service: 02/16/23 Time of Service: 06:57 Reason for Consult: Pneumonia Assessment and Plan Assessment and plan (1) Pneumonia: Status: Acute (2) COPD exacerbation: Status: Acute (3) KIZZY (acute kidney injury): Status: Acute (4) Elevated WBC count: Status: Resolved (5) Respiratory failure with hypoxia: Status: Acute Assessment and plan: This is a 62 yo admitted for a LLL pneumonia and a COPD exacerbation. He has not had PFT's, but does have a smoking history. Again I advise against ICS therapy (as is in Symbicort) due to his poor dentition and increased risk of pnuemonia. I have changed this to Stiolto and recommend he is discharged on this. His LLL pneumonia is dense with a small parapneumonia effusion that tracks into the fissure. Levaquin is an appropriate antibiotic for him given his dentition and higher risk for gram negatives. I do not see that vanc or Flagyl were continued and I agree with not giving these additional antibiotics: anaerobic pneumonia is exceedingly rare outside of a defined lung abscess (which he does not have). Additionally, rate of MRSA pneumonia in our area are also very rare and MRSA coverage for CAP is not indicated. He has a MRSA nares pending. Given how socked in the pneumonia is, I would recommend aggressive airway clearance. He will need a follow CT scan in 6 weeks to ensure resolution of the pneumonia. Pneumonia - continue Levaquin for a total of 7 days - no need for Flagyl or vanc - Acapella and IS - consider LLL percussor if above is insufficient for airway clearance - urine antigens, sputum and blood cultures pending - repeat chest CT in 6 weeks - I have ordered COPD - stop methylpred IV q 8h - start prednisone 40mg for total of 5 days, 40mg for 3 days, 30mg for 3 days, 20mg for 3 days, 10mg for 3 days, 5mg for 3 days - stop Symbicort - start Stiolto - ordered - albuterol prn - Duonebs prn - I will see him as an outpatient for follow up after a repeat CT (I have ordered) Hypoxic respiratory failure - supplemental O2 for sats 88-92% - once approaching D/C, ambulatory pulse ox History of Present Illness Narrative: This is a 62 yo whom I have met previously in the setting of an ICU stay for angioedema due to ACEi's, is now hospitalized for a LLL pneumonia and a COPD exacerbation. On evaluation of his imgaing, he has a socked in LLL pneumonia with a likely parapneumonic effusion that tracks in the fissure. There is bulky chest LAD as well.The effusion is not large enough to tap. He is on Levaquin, but also received Flagyl and Vanc. He also holds a diagnosis of COPD (no PFT's that I can see). At his last hospital stay I recommended against ICS medications due to poor dentition and increased risk of pneumonia in him, but it appears as though he is back on Symbicort. He tells me he is smoking around 1 ppd prior to falling ill. His labs are significant for an KIZZY and an elevated neutrophil to lymphocyte ratio. Today, he states he does not have chest pains, but does have a productive cough. Although Acapella and IS are ordered, he does not have either in his room. He has some difficulty with breathing but is doing better than previously. Review of Systems All systems reviewed & are unremarkable except as noted in HPI and below PFSH All Active Problems (Updated 02/16/23 @ 07:05 by Sakshi Miramontes MD) Respiratory failure with hypoxia (Acute) KIZZY (acute kidney injury) (Acute) COPD exacerbation (Acute) Discharge planning issues (Acute) DVT prophylaxis (Acute) Type II diabetes mellitus (Acute) CAD (coronary artery disease) (Acute) Pneumonia (Acute) Hypoxia (Acute) Schizoaffective disorder (Acute 09/15/14) a. increased delusional thoughts b. depressed mood COPD (chronic obstructive pulmonary disease) (Acute) chronic tobacco use, but no symptoms Hypertension (Acute) Medical History (Updated 02/16/23 @ 07:05 by Sakshi Miramonets MD) Benign prostatic hypertrophy Chondromalacia of right patella Dental caries Encounter for Mahmood catheter replacement Internal derangement of right knee Obstructive uropathy Prostate irregularity Retinopathy a. due to diabetes type 2 Tobacco use disorder Tongue laceration Type II diabetes mellitus with ophthalmic manifestations Urinary hesitancy Surgical History History of heart artery stent Family History (Updated 02/15/23 @ 20:10 by Teresa Zapata NP) Other Family history unobtainable Social History Smoking/Tobacco Use Status: Current every day Tobacco Type: cigarettes Smoking risk assessment performed?: Yes Alcohol Intake: current Alcohol Intake frequency: a few times a week Alcohol type: beer Drug use: Never Substance use type: does not use Current gender identity: male Do you feel safe at home: Yes Do you feel safe in your relationship?: Yes Visit Medication and Allergies Active Medications Generic Name Dose Route Start Last Admin Trade Name Freq PRN Reason Stop Dose Admin Acetaminophen 0 mg 02/15/23 16:21 Acetaminophen 325 Mg Tab PO Q4H PRN PRN Albuterol Sulfate 2.5 mg 02/15/23 19:42 Albuterol 2.5 Mg/3 Ml Inh Soln Vial UPD Q3H PRN PRN Albuterol/Ipratropium 3 ml 02/15/23 20:00 02/16/23 03:00 Albuterol/Ipratropium 3 Ml Upd Vial UPD 3 ml Q6H KARLA Administration Amlodipine Besylate 5 mg 02/16/23 08:30 Amlodipine 5 Mg Tab PO DAILY KARLA Aspirin 81 mg 02/16/23 08:30 Aspirin E.C. 81 Mg Tabec PO DAILY KARLA Benzonatate 200 mg 02/15/23 20:00 02/15/23 21:05 Benzonatate 200 Mg Cap PO 200 mg TID KARLA Administration Benztropine Mesylate 2 mg 02/15/23 21:00 02/15/23 21:50 Benztropine 1 Mg Tab PO 2 mg BID KARLA Administration Device 1 each 02/15/23 20:00 Inhaler, Assist Device MC DIRECTED KARLA Device 1 each 02/16/23 07:00 Inhaler, Assist Device MC DIRECTED KARLA Dextrose 0 gm 02/15/23 16:27 Glucose Oral Gel 15 Gm/37.5 Gm Tube PO PRN PRN Dextrose/Water 0 gm 02/15/23 16:27 Dextrose 50%-Water 25 Gm/50 Ml Syr IVP PRN PRN Divalproex Sodium 1,000 mg 02/15/23 21:00 02/15/23 21:50 Divalproex Sodium 500 Mg Tab.Er.24h PO 1,000 mg QPM KARLA Administration Divalproex Sodium 500 mg 02/16/23 08:30 Divalproex Sodium 500 Mg Tab.Er.24h PO QAM KARLA Docusate Sodium 100 mg 02/15/23 16:21 Docusate Sodium 100 Mg Cap PO TID PRN PRN Enoxaparin Sodium 40 mg 02/15/23 18:00 02/15/23 18:28 Enoxaparin 40 Mg/0.4 Ml Syr SC 40 mg Q24H KARLA Administration Guaifenesin 600 mg 02/15/23 20:00 02/15/23 21:05 Guaifenesin 600 Mg Tabcr PO 600 mg BID KARLA Administration Levofloxacin 750 mg in 150 mls @ 100 mls/hr 02/16/23 08:00 Levaquin Premixed Bag IVPB 02/22/23 08:00 Q24H [facility] Protocol Acetaminophen 1,000 mg in 100 mls @ 400 mls/hr 02/15/23 20:00 02/15/23 19:09 Ofirmev IVPB Infused Q8H PRN PRN Infusion Sodium Chloride 1,000 mls @ 150 mls/hr 02/15/23 20:00 02/16/23 05:27 Saline 1000ml Bag IV 02/17/23 19:59 150 mls/hr INFUSION [facility] Administration IV Miscellaneous Supplies 1 each 02/15/23 12:30 Iv Access-Emergency Dept IV DIRECTED [facility] Insulin Aspart 0 units 02/15/23 17:00 02/15/23 22:47 Insulin Aspart 300 Units/3 Ml Pen SC 6 units 0800,1200,1700,2200 [facility] Administration Protocol Insulin Human NPH 40 unit 02/15/23 23:00 02/15/23 23:24 Insulin Nph-Human 300 Units/3 Ml Pen SC 40 units [facility] Administration Iohexol 100 ml 02/15/23 14:30 02/15/23 14:18 Omnipaque 350 Mg/Ml 100 Ml Btl IJ 03/17/23 23:59 100 ml DIRECTED [facility] Administration Magnesium Hydroxide 30 ml 02/15/23 16:21 Milk Of Magnesia 30 Ml Cup PO DAILY PRN PRN Olanzapine 20 mg 02/16/23 08:30 Olanzapine 5 Mg Tab PO DAILY KARLA Polyethylene Glycol 17 gm 02/15/23 16:21 Polyethylene Glycol 3350 17 Gm Packet PO DAILY PRN PRN Constipation Prednisone 40 mg 05/15/23 08:30 Prednisone 20 Mg Tab PO DAILY [facility] Rosuvastatin Calcium 40 mg 02/16/23 08:30 Rosuvastatin 10 Mg Tab PO DAILY [facility] Sodium Chloride 0 ml 02/15/23 12:21 02/15/23 22:54 Normal Saline Flush 10 Ml Syr IVP 10 ml PRN PRN Administration Sodium Chloride 50 ml 02/15/23 14:30 02/15/23 14:17 Normal Saline - Diluent 50 Ml Vial IJ 50 ml .FOR DI USE KARLA Administration Tiotropium [place]/Olodaterol 2 puff 02/16/23 08:30 Tiotropium/Olodaterol 10 Puff Inhaler IH DAILY [facility] Trazodone HCl 50 mg 02/15/23 22:00 02/15/23 22:44 Trazodone 50 Mg Tab PO Not Given HS KARLA Allergies Penicillins Allergy (Mild, Unverified 11/15/22 23:56) Skin Rash ARB-Angiotensin Receptor Antagonist Allergy (Verified 11/15/22 23:56) clopidogrel [From Plavix] Allergy (Unverified 11/15/22 23:56) Sulfa (Sulfonamide Antibiotics) Allergy (Verified 11/15/22 23:56) JOSE Inhibitors Adverse Reaction (Severe, Verified 11/15/22 23:56) Exam Narrative Exam Narrative: Gen: NAD, normal respiratory effort, well-nourished, poor dentition HENT: PERRL Chest: No respiratory distress, normal appearance of chest, diminished left sided breath sounds with crackles LLL. No overt wheeze. Heart: regular rate and rhythym, no murmurs, rubs or gallops Abdomen: Non-distended, soft, non tender Extremities: No clubbing, edema, cyanosis, rashes Neuro: AAOx3 , non focal Psych: cooperative, appropriate mental affect Results Last Vital Signs Temp 37.6 C H 02/16/23 06:50 Pulse 80 02/16/23 06:50 Resp 24 02/16/23 06:50 BP 119/70 02/16/23 06:50 Pulse Ox 91 L 02/16/23 06:50 Labs 02/16/23 06:30 02/16/23 06:30 Labs: Laboratory Results - last 24 hr 02/15/23 02/15/23 02/15/23 11:23 12:03 12:29 WBC RBC Hgb Hct MCV MCH MCHC RDW Plt Count MPV Immature Gran % Neutrophils % Band Neutrophils % Lymphocytes % Monocytes % Eosinophils % Basophils % Nucleated RBC % Absolute Neutrophils Absolute Lymphocytes Absolute Monocytes Absolute Eosinophils Absolute Basophils RBC Morphology Anisocytosis Microcytosis PT 9.6 INR 0.9 APTT 30.3 VBG pH VBG pCO2 VBG pO2 VBG HCO3 VBG Total CO2 VBG O2 Saturation VBG Base Excess VBG Lactate Sodium Potassium Chloride Carbon Dioxide Anion Gap BUN Creatinine Est GFR (CKD-EPI 2020) Glucose Calcium Magnesium Total Bilirubin AST ALT Alkaline Phosphatase Creatine Kinase Troponin I Total Protein Albumin Procalcitonin Urine Color Urine Clarity Urine pH Ur Specific [place] Urine Protein Urine Ketones Urine Blood Urine Nitrite Urine Bilirubin Urine Urobilinogen Ur Leukocyte Esterase Urine RBC Urine WBC Ur Epithelial Cells Urine Crystals Urine Bacteria Urine Casts Urine Mucus Urine Other Ur Culture Indicated? Urine Glucose Salicylates Urine Opiates Screen Urine Methadone Screen Acetaminophen Ur Barbiturates Screen Ur Tricyclics Screen Ur Amphetamines Screen U Benzodiazepines Scrn Urine Cocaine Screen Ur THC Screen Ethyl Alcohol COVID-19 Source Cancelled Nasopharynx SARS-CoV-2 (PCR) Cancelled Negative Influenza Type A (PCR) Cancelled Negative Influenza Type B (PCR) Cancelled Negative RSV (PCR) Cancelled Negative 02/15/23 02/15/23 02/15/23 12:29 12:29 14:45 WBC 11.51 H RBC 4.71 Hgb 12.9 L Hct 38.9 L MCV 83 MCH 27.4 MCHC 33.2 RDW 14.8 H Plt Count 133 MPV 9.0 Immature Gran % See Differential Neutrophils % 67.0 Band Neutrophils % 23 Lymphocytes % 8.0 Monocytes % 2.0 Eosinophils % 0.0 Basophils % 0.0 Nucleated RBC % 0.0 Absolute Neutrophils 10.36 H Absolute Lymphocytes 0.92 L Absolute Monocytes 0.23 Absolute Eosinophils 0.00 Absolute Basophils 0.00 RBC Morphology See Below Anisocytosis 1+ Microcytosis 1+ PT INR APTT VBG pH VBG pCO2 VBG pO2 VBG HCO3 VBG Total CO2 VBG O2 Saturation VBG Base Excess VBG Lactate Sodium 138 Potassium 4.0 Chloride 102 Carbon Dioxide 27.2 Anion Gap 8.8 BUN 59 H Creatinine 1.6 H Est GFR (CKD-EPI 2020) 48.41 Glucose 214 H Calcium 9.2 Magnesium 2.5 H Total Bilirubin 0.4 AST 40 H ALT 25 Alkaline Phosphatase 79 Creatine Kinase Troponin I < 50 Total Protein 6.6 Albumin 2.1 L Procalcitonin Urine Color Urine Clarity Urine pH Ur Specific [place] Urine Protein Urine Ketones Urine Blood Urine Nitrite Urine Bilirubin Urine Urobilinogen Ur Leukocyte Esterase Urine RBC Urine WBC Ur Epithelial Cells Urine Crystals Urine Bacteria Urine Casts Urine Mucus Urine Other Ur Culture Indicated? Urine Glucose Salicylates Urine Opiates Screen Negative Urine Methadone Screen Negative Acetaminophen Ur Barbiturates Screen Negative Ur Tricyclics Screen Negative Ur Amphetamines Screen Negative U Benzodiazepines Scrn Positive A Urine Cocaine Screen Negative Ur THC Screen Negative Ethyl Alcohol COVID-19 Source SARS-CoV-2 (PCR) Influenza Type A (PCR) Influenza Type B (PCR) RSV (PCR) 02/15/23 02/15/23 02/15/23 14:45 14:48 14:48 WBC RBC Hgb Hct MCV MCH MCHC RDW Plt Count MPV Immature Gran % Neutrophils % Band Neutrophils % Lymphocytes % Monocytes % Eosinophils % Basophils % Nucleated RBC % Absolute Neutrophils Absolute Lymphocytes Absolute Monocytes Absolute Eosinophils Absolute Basophils RBC Morphology Anisocytosis Microcytosis PT INR APTT VBG pH VBG pCO2 VBG pO2 VBG HCO3 VBG Total CO2 VBG O2 Saturation VBG Base Excess VBG Lactate 1.4 Sodium Potassium Chloride Carbon Dioxide Anion Gap BUN Creatinine Est GFR (CKD-EPI 2020) Glucose Calcium Magnesium Total Bilirubin AST ALT Alkaline Phosphatase Creatine Kinase Troponin I Total Protein Albumin Procalcitonin 11.4 Urine Color Yellow Urine Clarity Sl Cloudy Urine pH 5.5 Ur Specific [place] >= 1.030 H Urine Protein >=300 H Urine Ketones Trace H Urine Blood Moderate H Urine Nitrite Negative Urine Bilirubin Negative Urine Urobilinogen 0.2 Ur Leukocyte Esterase Negative Urine RBC 5-10 H Urine WBC 3-5 Ur Epithelial Cells Few Urine Crystals Negative Urine Bacteria Few Urine Casts 3-5 Hyaline Urine Mucus Moderate Urine Other Few Transitional Ur Culture Indicated? Yes Urine Glucose 100 H Salicylates 2.8 Urine Opiates Screen Urine Methadone Screen Acetaminophen < 2 Ur Barbiturates Screen Ur Tricyclics Screen Ur Amphetamines Screen U Benzodiazepines Scrn Urine Cocaine Screen Ur THC Screen Ethyl Alcohol COVID-19 Source SARS-CoV-2 (PCR) Influenza Type A (PCR) Influenza Type B (PCR) RSV (PCR) 02/15/23 02/15/23 02/15/23 14:48 14:48 15:16 WBC RBC Hgb Hct MCV MCH MCHC RDW Plt Count MPV Immature Gran % Neutrophils % Band Neutrophils % Lymphocytes % Monocytes % Eosinophils % Basophils % Nucleated RBC % Absolute Neutrophils Absolute Lymphocytes Absolute Monocytes Absolute Eosinophils Absolute Basophils RBC Morphology Anisocytosis Microcytosis PT INR APTT VBG pH VBG pCO2 VBG pO2 VBG HCO3 VBG Total CO2 VBG O2 Saturation VBG Base Excess VBG Lactate Sodium Potassium Chloride Carbon Dioxide Anion Gap BUN Creatinine Est GFR (CKD-EPI 2020) Glucose Calcium Magnesium Total Bilirubin AST ALT Alkaline Phosphatase Creatine Kinase 412 H Troponin I < 50 Total Protein Albumin Procalcitonin Urine Color Urine Clarity Urine pH Ur Specific [place] Urine Protein Urine Ketones Urine Blood Urine Nitrite Urine Bilirubin Urine Urobilinogen Ur Leukocyte Esterase Urine RBC Urine WBC Ur Epithelial Cells Urine Crystals Urine Bacteria Urine Casts Urine Mucus Urine Other Ur Culture Indicated? Urine Glucose Salicylates Urine Opiates Screen Urine Methadone Screen Acetaminophen Ur Barbiturates Screen Ur Tricyclics Screen Ur Amphetamines Screen U Benzodiazepines Scrn Urine Cocaine Screen Ur THC Screen Ethyl Alcohol < 3.0 COVID-19 Source SARS-CoV-2 (PCR) Influenza Type A (PCR) Influenza Type B (PCR) RSV (PCR) 02/15/23 16:34 WBC RBC Hgb Hct MCV MCH MCHC RDW Plt Count MPV Immature Gran % Neutrophils % Band Neutrophils % Lymphocytes % Monocytes % Eosinophils % Basophils % Nucleated RBC % Absolute Neutrophils Absolute Lymphocytes Absolute Monocytes Absolute Eosinophils Absolute Basophils RBC Morphology Anisocytosis Microcytosis PT INR APTT VBG pH 7.43 H VBG pCO2 41 VBG pO2 77 VBG HCO3 27 VBG Total CO2 25 VBG O2 Saturation 96 VBG Base Excess 3 VBG Lactate Sodium Potassium Chloride Carbon Dioxide Anion Gap BUN Creatinine Est GFR (CKD-EPI 2020) Glucose Calcium Magnesium Total Bilirubin AST ALT Alkaline Phosphatase Creatine Kinase Troponin I Total Protein Albumin Procalcitonin Urine Color Urine Clarity Urine pH Ur Specific [place] Urine Protein Urine Ketones Urine Blood Urine Nitrite Urine Bilirubin Urine Urobilinogen Ur Leukocyte Esterase Urine RBC Urine WBC Ur Epithelial Cells Urine Crystals Urine Bacteria Urine Casts Urine Mucus Urine Other Ur Culture Indicated? Urine Glucose Salicylates Urine Opiates Screen Urine Methadone Screen Acetaminophen Ur Barbiturates Screen Ur Tricyclics Screen Ur Amphetamines Screen U Benzodiazepines Scrn Urine Cocaine Screen Ur THC Screen Ethyl Alcohol COVID-19 Source SARS-CoV-2 (PCR) Influenza Type A (PCR) Influenza Type B (PCR) RSV (PCR) Pocus Exam Limited Thoracic Lung Exam DATE OF EXAM: 02/16/23 TIME OF EXAM: 07:30 PROVIDER THAT PERFORMED THE STUDY: Sakshi Miramontes IS THIS A REPEAT EXAM DURING THIS ENCOUNTER: No REASON FOR EXAM: COPD, Pneumonia and Other (pleural effusion) indication: Pleural effusion VISUALIZED STRUCTURES: right anterior, left anterior, right posterior and left posterior PERTINENT FINDINGS/IMPRESSION: Pneumonia (Left Lower) and Left pleural effusion; no B-Lines/left side and no B-lines/left side DIFFERENTIAL DIAGNOSES: LLL pneumonia with a small parapneumonic effusion Exam complete
[2023-02-16 07:11] LABS: ALT 23 U/L (16-63); AST 35 U/L (15-37); Albumin 1.7 g/dL (3.4-5.0); Alkaline Phosphatase 67 U/L (46-116); Anion Gap 6.6 mmol/L (3-11); BUN 47 mg/dL (7-18); Bilirubin, Total 0.3 mg/dL (0.2-1.0); CO2 26.4 mmol/L (21.0-32.0); CREATININE 1.4 mg/dL (0.70-1.30); Calcium 8.9 mg/dL (8.5-10.1); Chloride 107 mmol/L (98-107); Estimated GFR 56.83 (mL/min/1.73m2); Glucose 242 mg/dL (74-106); Magnesium 2.6 mg/dL (1.8-2.4); Potassium 3.8 mmol/L (3.5-5.1); Sodium 140 mmol/L (136-145)
[2023-02-16 07:21] LABS: Absolute Eosinophil Count 0.21 10^3/uL (0.0-0.7); Absolute Lymphocyte Count 1.13 10^3/uL (1.2-3.4); Absolute Monocyte Count 0.62 10^3/uL (0.1-0.8); Bands % 7; Metamyelocytes % 1
[2023-02-16 07:22] LABS: Diff Comment Manual Differential; RBC Morphology Normal
[2023-02-16 07:26] LABS: C-Reactive Protein > 25.00 mg/dL (0.0-0.3)
[2023-02-16] MEDS: Tiotropium/Olodaterol 10 PUFF INHALER 2 PUFF IH (07:54)
[2023-02-16] MEDS: Benztropine 1 MG TAB 2 MG PO ×2 (08:14→19:47)
[2023-02-16] MEDS: Aspirin E.C. 81 MG TABEC PO (08:14)
[2023-02-16] MEDS: amLODIPine 5 MG TAB PO (08:16)
[2023-02-16] MEDS: OLANZapine 5 MG TAB 20 MG PO (08:16)
[2023-02-16] MEDS: Rosuvastatin 10 MG TAB 40 MG PO (08:17)
[2023-02-16] MEDS: Benzonatate 200 MG CAP PO ×3 (08:17→19:47)
[2023-02-16] MEDS: guaiFENesin 600 MG TABCR PO ×2 (08:17→19:47)
[2023-02-16] MEDS: predniSONE 20 MG TAB 40 MG PO (08:17)
[2023-02-16] MEDS: levoFLOXacin 750 MG/150 ML BAG 100 MG IVPB (08:18)
[2023-02-16] MEDS: Divalproex Sodium 500 MG TAB.ER.24H PO (08:18)
[2023-02-16] MEDS: Normal Saline Flush 10 ML SYR IVP ×2 (08:18→19:47)
[2023-02-16] MEDS: Insulin Aspart 300 UNITS/3 ML PEN SC ×4 (08:19→21:24)
--- NOTE | 2023-02-16 09:18 | W.PM.PROGNOT ---
Date of Service Date of service: 02/16/23 Time of Service: 09:18 Assessment and Plan Assessment and plan (1) Pneumonia: Status: Acute Assessment and plan: Continue Levofloxacin discontinue Metronidazole and Vancomycin IS Acapella Pulmonology consult - seen by Dr Miramontes Legionella Ag and Streptococcus Pneumoniae Ag, Mycomplasma, MRSA, Sputum, BC, and urine cx - all pending (2) Hypoxia: Status: Acute Assessment and plan: See above oxygen to keep SPO2 > 88% (hx COPD) (3) COPD (chronic obstructive pulmonary disease): Status: Acute Assessment and plan: Solumedrol 40 mg IV discontinued - Prednisone 40 mg oral started (4) Type II diabetes mellitus: Status: Acute Assessment and plan: Hold metformin and hold tulicity Sliding scale mod sensitivity insulin FSBG AC HS Insulin NPH 40 units qHS - home dose [facility] med rec (5) Schizoaffective disorder: Status: Acute Assessment and plan: Longstanding mental illness, chronic and managed with current regime Continue home meds; including olanzapine, benztropine, trazodone, divalproex ER and diazepam (6) Hypertension: Status: Acute Assessment and plan: Chronic - controlled, continue amlodipine Qualifiers: Hypertension type: primary hypertension Qualified Code(s): I10 - Essential (primary) hypertension (7) CAD (coronary artery disease): Status: Acute Assessment and plan: Continue aspirin and rosuvastatin (8) DVT prophylaxis: Status: Acute Assessment and plan: Enoxaparin (9) Discharge planning issues: Status: Acute Assessment and plan: Home when medically stable Discussed with Dr Hinojosa Subjective Subjective Patient reports: no new complaints and tolerating a regular diet; denies diarrhea, vomiting or shortness of breath Interval history since last seen: Much more awake today, participating in care, eating and drinking. Objective Last Vital Signs Temp 37.6 C H 02/16/23 06:50 Pulse 82 02/16/23 07:57 Resp 20 02/16/23 07:48 BP 119/70 02/16/23 06:50 Pulse Ox 91 L 02/16/23 08:01 Laboratory Results - last 24 hr 02/15/23 02/15/23 02/15/23 11:23 12:03 12:29 WBC RBC Hgb Hct MCV MCH MCHC RDW Plt Count MPV Immature Gran % Neutrophils % Band Neutrophils % Lymphocytes % Monocytes % Eosinophils % Basophils % Metamyelocytes % Nucleated RBC % Absolute Neutrophils Absolute Lymphocytes Absolute Monocytes Absolute Eosinophils Absolute Basophils RBC Morphology Anisocytosis Microcytosis PT 9.6 INR 0.9 APTT 30.3 VBG pH VBG pCO2 VBG pO2 VBG HCO3 VBG Total CO2 VBG O2 Saturation VBG Base Excess VBG Lactate Sodium Potassium Chloride Carbon Dioxide Anion Gap BUN Creatinine Est GFR (CKD-EPI 2020) Glucose Calcium Magnesium Total Bilirubin AST ALT Alkaline Phosphatase Creatine Kinase Troponin I C-Reactive Protein Total Protein Albumin Procalcitonin Urine Color Urine Clarity Urine pH Ur Specific [place] Urine Protein Urine Ketones Urine Blood Urine Nitrite Urine Bilirubin Urine Urobilinogen Ur Leukocyte Esterase Urine RBC Urine WBC Ur Epithelial Cells Urine Crystals Urine Bacteria Urine Casts Urine Mucus Urine Other Ur Culture Indicated? Urine Glucose Salicylates Urine Opiates Screen Urine Methadone Screen Acetaminophen Ur Barbiturates Screen Ur Tricyclics Screen Ur Amphetamines Screen U Benzodiazepines Scrn Urine Cocaine Screen Ur THC Screen Ethyl Alcohol COVID-19 Source Cancelled Nasopharynx SARS-CoV-2 (PCR) Cancelled Negative Influenza Type A (PCR) Cancelled Negative Influenza Type B (PCR) Cancelled Negative RSV (PCR) Cancelled Negative 02/15/23 02/15/23 02/15/23 12:29 12:29 14:45 WBC 11.51 H RBC 4.71 Hgb 12.9 L Hct 38.9 L MCV 83 MCH 27.4 MCHC 33.2 RDW 14.8 H Plt Count 133 MPV 9.0 Immature Gran % See Differential Neutrophils % 67.0 Band Neutrophils % 23 Lymphocytes % 8.0 Monocytes % 2.0 Eosinophils % 0.0 Basophils % 0.0 Metamyelocytes % Nucleated RBC % 0.0 Absolute Neutrophils 10.36 H Absolute Lymphocytes 0.92 L Absolute Monocytes 0.23 Absolute Eosinophils 0.00 Absolute Basophils 0.00 RBC Morphology See Below Anisocytosis 1+ Microcytosis 1+ PT INR APTT VBG pH VBG pCO2 VBG pO2 VBG HCO3 VBG Total CO2 VBG O2 Saturation VBG Base Excess VBG Lactate Sodium 138 Potassium 4.0 Chloride 102 Carbon Dioxide 27.2 Anion Gap 8.8 BUN 59 H Creatinine 1.6 H Est GFR (CKD-EPI 2020) 48.41 Glucose 214 H Calcium 9.2 Magnesium 2.5 H Total Bilirubin 0.4 AST 40 H ALT 25 Alkaline Phosphatase 79 Creatine Kinase Troponin I < 50 C-Reactive Protein Total Protein 6.6 Albumin 2.1 L Procalcitonin Urine Color Urine Clarity Urine pH Ur Specific [place] Urine Protein Urine Ketones Urine Blood Urine Nitrite Urine Bilirubin Urine Urobilinogen Ur Leukocyte Esterase Urine RBC Urine WBC Ur Epithelial Cells Urine Crystals Urine Bacteria Urine Casts Urine Mucus Urine Other Ur Culture Indicated? Urine Glucose Salicylates Urine Opiates Screen Negative Urine Methadone Screen Negative Acetaminophen Ur Barbiturates Screen Negative Ur Tricyclics Screen Negative Ur Amphetamines Screen Negative U Benzodiazepines Scrn Positive A Urine Cocaine Screen Negative Ur THC Screen Negative Ethyl Alcohol COVID-19 Source SARS-CoV-2 (PCR) Influenza Type A (PCR) Influenza Type B (PCR) RSV (PCR) 02/15/23 02/15/23 02/15/23 14:45 14:48 14:48 WBC RBC Hgb Hct MCV MCH MCHC RDW Plt Count MPV Immature Gran % Neutrophils % Band Neutrophils % Lymphocytes % Monocytes % Eosinophils % Basophils % Metamyelocytes % Nucleated RBC % Absolute Neutrophils Absolute Lymphocytes Absolute Monocytes Absolute Eosinophils Absolute Basophils RBC Morphology Anisocytosis Microcytosis PT INR APTT VBG pH VBG pCO2 VBG pO2 VBG HCO3 VBG Total CO2 VBG O2 Saturation VBG Base Excess VBG Lactate 1.4 Sodium Potassium Chloride Carbon Dioxide Anion Gap BUN Creatinine Est GFR (CKD-EPI 2020) Glucose Calcium Magnesium Total Bilirubin AST ALT Alkaline Phosphatase Creatine Kinase Troponin I C-Reactive Protein Total Protein Albumin Procalcitonin 11.4 Urine Color Yellow Urine Clarity Sl Cloudy Urine pH 5.5 Ur Specific [place] >= 1.030 H Urine Protein >=300 H Urine Ketones Trace H Urine Blood Moderate H Urine Nitrite Negative Urine Bilirubin Negative Urine Urobilinogen 0.2 Ur Leukocyte Esterase Negative Urine RBC 5-10 H Urine WBC 3-5 Ur Epithelial Cells Few Urine Crystals Negative Urine Bacteria Few Urine Casts 3-5 Hyaline Urine Mucus Moderate Urine Other Few Transitional Ur Culture Indicated? Yes Urine Glucose 100 H Salicylates 2.8 Urine Opiates Screen Urine Methadone Screen Acetaminophen < 2 Ur Barbiturates Screen Ur Tricyclics Screen Ur Amphetamines Screen U Benzodiazepines Scrn Urine Cocaine Screen Ur THC Screen Ethyl Alcohol COVID-19 Source SARS-CoV-2 (PCR) Influenza Type A (PCR) Influenza Type B (PCR) RSV (PCR) 02/15/23 02/15/23 02/15/23 14:48 14:48 15:16 WBC RBC Hgb Hct MCV MCH MCHC RDW Plt Count MPV Immature Gran % Neutrophils % Band Neutrophils % Lymphocytes % Monocytes % Eosinophils % Basophils % Metamyelocytes % Nucleated RBC % Absolute Neutrophils Absolute Lymphocytes Absolute Monocytes Absolute Eosinophils Absolute Basophils RBC Morphology Anisocytosis Microcytosis PT INR APTT VBG pH VBG pCO2 VBG pO2 VBG HCO3 VBG Total CO2 VBG O2 Saturation VBG Base Excess VBG Lactate Sodium Potassium Chloride Carbon Dioxide Anion Gap BUN Creatinine Est GFR (CKD-EPI 2020) Glucose Calcium Magnesium Total Bilirubin AST ALT Alkaline Phosphatase Creatine Kinase 412 H Troponin I < 50 C-Reactive Protein Total Protein Albumin Procalcitonin Urine Color Urine Clarity Urine pH Ur Specific [place] Urine Protein Urine Ketones Urine Blood Urine Nitrite Urine Bilirubin Urine Urobilinogen Ur Leukocyte Esterase Urine RBC Urine WBC Ur Epithelial Cells Urine Crystals Urine Bacteria Urine Casts Urine Mucus Urine Other Ur Culture Indicated? Urine Glucose Salicylates Urine Opiates Screen Urine Methadone Screen Acetaminophen Ur Barbiturates Screen Ur Tricyclics Screen Ur Amphetamines Screen U Benzodiazepines Scrn Urine Cocaine Screen Ur THC Screen Ethyl Alcohol < 3.0 COVID-19 Source SARS-CoV-2 (PCR) Influenza Type A (PCR) Influenza Type B (PCR) RSV (PCR) 02/15/23 02/16/23 02/16/23 16:34 06:30 06:30 WBC 10.25 RBC 4.29 L Hgb 11.8 L Hct 35.6 L MCV 83 MCH 27.5 MCHC 33.1 RDW 15.1 H Plt Count 134 MPV 9.2 Immature Gran % See Differential Neutrophils % 74.0 Band Neutrophils % 7 Lymphocytes % 11.0 Monocytes % 6.0 Eosinophils % 2.0 Basophils % 0.0 Metamyelocytes % 1 Nucleated RBC % 0.0 Absolute Neutrophils 8.30 H Absolute Lymphocytes 1.13 L Absolute Monocytes 0.62 Absolute Eosinophils 0.21 Absolute Basophils 0.00 RBC Morphology Normal Anisocytosis Microcytosis PT INR APTT VBG pH 7.43 H VBG pCO2 41 VBG pO2 77 VBG HCO3 27 VBG Total CO2 25 VBG O2 Saturation 96 VBG Base Excess 3 VBG Lactate Sodium 140 Potassium 3.8 Chloride 107 Carbon Dioxide 26.4 Anion Gap 6.6 BUN 47 H Creatinine 1.4 H Est GFR (CKD-EPI 2020) 56.83 Glucose 242 H Calcium 8.9 Magnesium 2.6 H Total Bilirubin 0.3 AST 35 ALT 23 Alkaline Phosphatase 67 Creatine Kinase Troponin I C-Reactive Protein > 25.00 H Total Protein 6.0 L Albumin 1.7 L Procalcitonin Urine Color Urine Clarity Urine pH Ur Specific [place] Urine Protein Urine Ketones Urine Blood Urine Nitrite Urine Bilirubin Urine Urobilinogen Ur Leukocyte Esterase Urine RBC Urine WBC Ur Epithelial Cells Urine Crystals Urine Bacteria Urine Casts Urine Mucus Urine Other Ur Culture Indicated? Urine Glucose Salicylates Urine Opiates Screen Urine Methadone Screen Acetaminophen Ur Barbiturates Screen Ur Tricyclics Screen Ur Amphetamines Screen U Benzodiazepines Scrn Urine Cocaine Screen Ur THC Screen Ethyl Alcohol COVID-19 Source SARS-CoV-2 (PCR) Influenza Type A (PCR) Influenza Type B (PCR) RSV (PCR) Time Spent with Patient Time Spent with Patient: 25-34 minutes Time was spent: preparing to see the patient(eg.review tests), ordering medications,tests, procedures, referring, communicating with other health care services manager, indepentently interpreting results, counseling the patient and care coordination
--- NOTE | 2023-02-16 12:25 | PDOC.CMIN ---
Date of service: 02/16/23 Time of Service: 12:25 Care Management Initial Assmt Initial Assessment REASON FOR HOSPITALIZATION:: Pneumonia PREVIOUS FUNCTIONAL STATUS/SOCIAL/FAMILY SUPPORTS:: Kel lives in [place] at [facility]. He receives services from [facility], and is a [employer] client. Diana is his [employer] catalytic case operator. He stated that his mother is supportive, and lives nearby. He remains independent with ADL's and helps out at the farm. CURRENT FUNCTIONAL STATUS:: Kel was sitting up in bed when CM met with him. He stated that he is doing ok today. He remains on supplemental O2, which he does not have at baseline. He is somewhat tangential in speech, but easily redirects himself back to the conversation. Per chart review, he is a [employer] client, and his catalytic case operator is Diana Bello. CM called [employer] and left a message for Diana. Per report, he is receiving antibiotics for pneumonia. CM will continue to follow. ADVANCE DIRECTIVES:: None on file, CM will offer forms. Has patient been provided with info about the portal/API?: Yes Did the patient sign up for the portal?: No CODE STATUS:: Full Code INSURANCE COVERAGE / FINANCIAL ISSUES:: [employer] M[employer] replacement CURRENT HOME/COMMUNITY SERVICES/EQUIPMENT:: Kel lives in a long-term/level three facility, [facility] [place]. He is supported by [employer], [facility], catalytic case operator, Diana. PRIMARY CARE PHYSICIAN:: Rekha Keys POTENTIAL DISCHARGE NEEDS:: Evaluations for further needs, follow up appointments. PATIENT/FAMILY EDUCATION NEEDS:: Review discharge instructions and limitations, discussion of self care needs including ask me three. ANTICIPATED BARRIERS TO DISCHARGE:: None identified. TRANSPORTATION:: Via private vehicle by [facility] PLAN:: Anticipate Kel will return home once medically cleared by . He will likely transport via private vehicle by [facility], coordinated by CM. He will follow up with his PCP and discharge plan of care. CM will continue to follow. [facility] All Active Problems (Updated 02/16/23 @ 07:05 by Sakshi Miramontes MD) Respiratory failure with hypoxia (Acute) KIZZY (acute kidney injury) (Acute) COPD exacerbation (Acute) Discharge planning issues (Acute) DVT prophylaxis (Acute) Type II diabetes mellitus (Acute) CAD (coronary artery disease) (Acute) Pneumonia (Acute) Hypoxia (Acute) Schizoaffective disorder (Acute 09/15/14) a. increased delusional thoughts b. depressed mood COPD (chronic obstructive pulmonary disease) (Acute) chronic tobacco use, but no symptoms Hypertension (Acute) Medical History (Updated 02/16/23 @ 07:05 by Sakshi Miramontes MD) Benign prostatic hypertrophy Chondromalacia of right patella Dental caries Encounter for Mahmood catheter replacement Internal derangement of right knee Obstructive uropathy Prostate irregularity Retinopathy a. due to diabetes type 2 Tobacco use disorder Tongue laceration Type II diabetes mellitus with ophthalmic manifestations Urinary hesitancy Surgical History History of heart artery stent Family History (Updated 02/15/23 @ 20:10 by Teresa Zapata NP) Other Family history unobtainable Social History Smoking/Tobacco Use Status: Current every day Tobacco Type: cigarettes Smoking risk assessment performed?: Yes Alcohol Intake: current Alcohol Intake frequency: a few times a week Alcohol type: beer Drug use: Never Substance use type: does not use Current gender identity: male Do you feel safe at home: Yes Do you feel safe in your relationship?: Yes
--- NOTE | 2023-02-16 13:55 | PHACLINREV_ITS ---
Pharmacy Admission Review - Admission Clinical Review (Last Updated 02/15/23 @ 17:52 by Teresa Zapata NP) Respiratory failure with hypoxia (Acute) KIZZY (acute kidney injury) (Acute) COPD exacerbation (Acute) Discharge planning issues (Acute) DVT prophylaxis (Acute) Type II diabetes mellitus (Acute) CAD (coronary artery disease) (Acute) Pneumonia (Acute) Hypoxia (Acute) Schizoaffective disorder (Acute 09/15/14) COPD (chronic obstructive pulmonary disease) (Acute) Hypertension (Acute) Penicillins Allergy (Mild, Unverified 11/15/22 23:56) Skin Rash ARB-Angiotensin Receptor Antagonist Allergy (Verified 11/15/22 23:56) clopidogrel [From Plavix] Allergy (Unverified 11/15/22 23:56) Sulfa (Sulfonamide Antibiotics) Allergy (Verified 11/15/22 23:56) JOSE Inhibitors Adverse Reaction (Severe, Verified 11/15/22 23:56) Resuscitation Status Full Code Height 5 ft 9 in Weight 106.594 kg - Renal Dosing Renal Dosing: BUN 47 mg/dL (7-18) H 02/16/23 06:30 Creatinine 1.4 mg/dL (0.70-1.30) H 02/16/23 06:30 Medications needing adjustments: Reviewed (Crcl ~65.8 mL/min current meds okay) - Anticoagulation Anticoagulation: Hgb 11.8 g/dL (13.5-17.5) L 02/16/23 06:30 Hct 35.6 % (40.0-50.0) L 02/16/23 06:30 Plt Count 134 10^3/uL (130-400) 02/16/23 06:30 INR 0.9 (0.9-1.1) 02/15/23 12:29 Creatinine 1.4 mg/dL (0.70-1.30) H 02/16/23 06:30 DVT Prophylaxis: Reviewed Medications: Enoxaparin Therapeutic Anticoagulation: N/A - Opiate Usage Evaluate Pain Scale/Pains Meds: N/A - Relevant Labs Sodium 140 mmol/L (136-145) 02/16/23 06:30 Potassium 3.8 mmol/L (3.5-5.1) 02/16/23 06:30 Chloride 107 mmol/L (98-107) 02/16/23 06:30 Magnesium 2.6 mg/dL (1.8-2.4) H 02/16/23 06:30 C-Reactive Protein > 25.00 mg/dL (0.0-0.3) H 02/16/23 06:30 Electrolytes, C-Reactive P, ESR: Reviewed (mag is a little elevated) - DM Control DM Control: Glucose 242 mg/dL (74-106) H 02/16/23 06:30 Finger Stick Blood Glucose 304 Finger Stick Blood Glucose 304 Finger Stick Blood Glucose 304 Finger Stick Blood Glucose 220 Finger Stick Blood Glucose 220 Finger Stick Blood Glucose 220 DM Control: Reviewed (Scheduled insulin NPH and sliding scale aspart ordered.) - Cardiac Review Cardiac Review: Troponin I < 50 ng/L (<or=60) 02/15/23 15:16 BP, HR, EF%: Reviewed - Qtc Review QTc: Reviewed (QTc 403 on admission) - IV to PO Switch IV Medications: Reviewed - Home Meds Home Med List reviewed: Intervened (Trying to follow up on home med list. [facility] [place] [place] Telepharmacy Med Rec was ordered, per end of shift report this was being worked on, but pt had AMS and an attempt would be made again this morning to see if patient is a little better for interview.) - Current meds Current Medication Order Review: Intervened (Discontinued duplicate med orders and DI meds that had already been given.) - Comments Comments/Follow Ups: Watch VS, BG, mag, SCr, labs, for culture results, and for med changes (possible renal dose adjustments). Antibiotic Review - Pharmacy Antibiotic Review Pharmacy Antibiotic Activity: C/S review, Reviewed, no change (IV levofloxacin ordered for pneumonia (day 2). One BC no growth @24 hours; other BC, UC, and MRSA screen pending.) Relevant Labs: Relevant Labs 02/16/23 02/15/23 06:30 14:48 C-Reactive Protein > 25.00 H Procalcitonin 11.4
[2023-02-16] MEDS: Enoxaparin 40 MG/0.4 ML SYR SC (17:34)
[2023-02-16] MEDS: Lidocaine 2% Jelly 11 ML SYR (18:55)
[2023-02-16] MEDS: Divalproex Sodium 500 MG TAB.ER.24H 1000 MG PO (19:46)
[2023-02-16 20:50] LABS: Legionella Ag Detection Urine Negative (Negative)
[2023-02-16] MEDS: Insulin NPH-Human 300 UNITS/3 ML PEN 40 UNIT SC (21:25)
[2023-02-17 03:14] VITALS: BP 124/72; PULSE 64; RESP 15; TEMP 36.5; O2SAT 94
[2023-02-17 07:03] LABS: HCT 37.8 % (40.0-50.0); HGB 12.6 g/dL (13.5-17.5); MCH 27.3 pg (27.0-33.0); MCHC 33.3 % (32.0-36.0); MCV 82 fL (80-95); Platelet Count 146 10^3/uL (130-400); RBC 4.61 10^6/uL (4.36-5.78); RDW 15.1 % (11.8-14.1); RDW-SD 45.6 fL
[2023-02-17 07:16] LABS: Anion Gap 9.2 mmol/L (3-11); BUN 36 mg/dL (7-18); C-Reactive Protein 12.95 mg/dL (0.0-0.3); CO2 25.8 mmol/L (21.0-32.0); CREATININE 1.2 mg/dL (0.70-1.30); Calcium 8.9 mg/dL (8.5-10.1); Chloride 101 mmol/L (98-107); Estimated GFR 68.38 (mL/min/1.73m2); Glucose 118 mg/dL (74-106); Magnesium 2.3 mg/dL (1.8-2.4); Potassium 3.5 mmol/L (3.5-5.1); Sodium 136 mmol/L (136-145)
[2023-02-17 07:30] LABS: Absolute Lymphocyte Count 2.18 10^3/uL (1.2-3.4); Absolute Monocyte Count 0.51 10^3/uL (0.1-0.8); Absolute Neutrophil Count 9.86 10^3/uL (1.2-6.7); Atypical Lymphocytes % 2; Bands % 2; Diff Comment Manual Differential; Metamyelocytes % 2; RBC Morphology Normal
[2023-02-17 07:35] VITALS: BP 115/70; PULSE 64; RESP 16; TEMP 36.3; O2SAT 92
[2023-02-17] MEDS: Tiotropium/Olodaterol 10 PUFF INHALER 2 PUFF IH (08:19)
[2023-02-17] MEDS: Divalproex Sodium 500 MG TAB.ER.24H PO (08:42)
[2023-02-17] MEDS: Benzonatate 200 MG CAP PO ×3 (08:43→19:43)
[2023-02-17] MEDS: guaiFENesin 600 MG TABCR PO ×2 (08:43→19:43)
[2023-02-17] MEDS: OLANZapine 5 MG TAB 20 MG PO (08:43)
[2023-02-17] MEDS: amLODIPine 5 MG TAB PO (08:44)
[2023-02-17] MEDS: Rosuvastatin 10 MG TAB 40 MG PO (08:44)
[2023-02-17] MEDS: Aspirin E.C. 81 MG TABEC PO (08:44)
[2023-02-17] MEDS: Benztropine 1 MG TAB 2 MG PO ×2 (08:44→19:43)
[2023-02-17] MEDS: predniSONE 20 MG TAB 40 MG PO (08:45)
[2023-02-17] MEDS: Normal Saline Flush 10 ML SYR IVP (08:45)
[2023-02-17] MEDS: levoFLOXacin 750 MG/150 ML BAG 100 MG IVPB (08:56)
[2023-02-17] MEDS: Normal Saline 500 ML 30 ML IV (08:56)
--- NOTE | 2023-02-17 09:13 | PDOC.CMPRO ---
Date of service: 02/17/23 Time of Service: 09:13 Care Management Progress Note Progress Note Text Progress Note Text: S/O: Kel was sleeping when CM attempted to visit with him. CM spoke to SAÚL Munoz, and updated her on his discharge plan, which will be to return to the community once he is medically cleared. She clarified that [facility] [place] a [place] [facility], but instead is a community where individuals can rent rooms. She stated that he is very independent at baseline, and communicates well. She stated that [employer] [facility] [employer] may be able to support transportation, if during business hours. CM requested a med list from [facility] [facility] [facility] this afternoon, and later connected [facility] pharmacy with [facility], which is his pharmacy. Per report, he is on room air. CM will continue to follow. A: Kel is a 62 year old male admitted to [facility] on 02/15/23 for pneumonia. P: ?Anticipate Kel will return home once medically cleared by . He will likely transport via private vehicle by [facility], coordinated by [facility]. He will follow up with his PCP and discharge plan of care. CM will continue to follow.
--- NOTE | 2023-02-17 09:26 | W.INDIABCONS ---
Date of service: 02/17/23 Time of Service: 09:26 Diabetes Inpatient Consult Reason for Visit: dm2 DESCRIPTION/ASSESSMENT: Yusef was admitted with PNA and hypoxia. PMH: COPD, DM2, HTN, CAD, Schizo disorder. Home DM meds: 40 u NPH q hs, 1000 mg metformin BID, 1.5 mg trucility q week. A1C in December 2022: 8.0%. A1C goal in view of age and comorbidities is < 8.5%. Suspect he is using NPH due to cost of co pay for long acting insulin. Will need reweigh, typical weight around 200 lbs, weighed in at 30 lbs above usual weight. If weight is accurate and he has gained over 30 lbs since November 2022, will need to find alternative to NPH as well known to cause weight gain and edema. Following diabetic diet with adequate intake. Not considered at nutritional risk. Recommend referral to outpatient diabetes self management Time Spent in Nutritional Counseling and Treatment: 0
[2023-02-17 11:20] VITALS: BP 120/73; PULSE 67; RESP 18; TEMP 36; O2SAT 94
--- NOTE | 2023-02-17 11:25 | PGE_ITS ---
Date of Service Date of service: 02/17/23 Time of Service: 11:25 Assessment and Plan Assessment and plan (1) Pneumonia: Status: Acute Assessment and plan: Continue Levofloxacin day 3 IS Acapella Pulmonology consult - seen by Dr Miramontes Legionella Ag and Streptococcus Pneumoniae Ag, Mycomplasma, MRSA, Sputum, BC, and urine cx - negative (2) Hypoxia: Status: Acute Assessment and plan: on room air oxygen to keep SPO2 > 88% (hx COPD) (3) COPD (chronic obstructive pulmonary disease): Status: Acute Assessment and plan: continue Prednisone 40 mg oral (4) Type II diabetes mellitus: Status: Acute Assessment and plan: Hold metformin and hold tulicity Sliding scale mod sensitivity insulin FSBG AC HS Insulin NPH 40 units qHS - home dose [facility] med rec (5) Schizoaffective disorder: Status: Acute Assessment and plan: Longstanding mental illness, chronic and managed with current regime Continue home meds; including olanzapine, benztropine, trazodone, divalproex ER and diazepam (6) Hypertension: Status: Acute Assessment and plan: Chronic - controlled, continue amlodipine Qualifiers: Hypertension type: primary hypertension Qualified Code(s): I10 - Essential (primary) hypertension (7) CAD (coronary artery disease): Status: Acute Assessment and plan: Continue aspirin and rosuvastatin (8) DVT prophylaxis: Status: Acute Assessment and plan: Enoxaparin (9) Discharge planning issues: Status: Acute Assessment and plan: Home when medically stable Discussed with Dr Hinojosa Subjective Subjective Patient reports: no new complaints, tolerating liquids well, tolerating a regular diet and afebrile; denies shortness of breath Interval history since last seen: coughing, non productive, no oxygen requirements at this time. Exam Const General: cooperative, comfortable and no acute distress Nutritional Appearance: obese Orientation: alert and awake HENDE Head: normal to inspection Ears: hearing grossly normal bilaterally Mouth: oral mucosae normal Eyes General: appearance normal, both eyes and all related structures Neck Neck: normal visual inspection and full ROM Chest Chest: normal inspection of the chest Resp Effort & Inspection: able to speak in complete sentences Auscultation: diminished lung sounds on the left in the lower lung sr Cardio Rate: regular rate Rhythm: regular rhythm Neuro General: tone normal and moves all extremities Motor: muscle tone normal throughout Objective Last Vital Signs Temp 36.0 C L 02/17/23 11:20 Pulse 67 02/17/23 11:20 Resp 18 02/17/23 11:20 BP 120/73 02/17/23 11:20 Pulse Ox 94 02/17/23 11:20 Laboratory Results - last 24 hr 02/15/23 02/17/23 02/17/23 18:13 06:15 06:15 WBC 12.80 H RBC 4.61 Hgb 12.6 L Hct 37.8 L MCV 82 MCH 27.3 MCHC 33.3 RDW 15.1 H Plt Count 146 MPV 9.0 Immature Gran % 0.0 Neutrophils % 75.0 Band Neutrophils % 2 Lymphocytes % 15.0 Atypical Lymphs % 2 Monocytes % 4.0 Eosinophils % 0.0 Basophils % 0.0 Metamyelocytes % 2 Nucleated RBC % 0.0 Absolute Neutrophils 9.86 H Absolute Lymphocytes 2.18 Absolute Monocytes 0.51 Absolute Eosinophils 0.00 Absolute Basophils 0.00 RBC Morphology Normal Sodium 136 Potassium 3.5 Chloride 101 Carbon Dioxide 25.8 Anion Gap 9.2 BUN 36 H Creatinine 1.2 Est GFR (CKD-EPI 2020) 68.38 Glucose 118 H Calcium 8.9 Magnesium 2.3 C-Reactive Protein 12.95 H Urine Legionella Ag Negative Time Spent with Patient Time Spent with Patient: 25-34 minutes Time was spent: preparing to see the patient(eg.review tests), obtaining and/or reviewing separately otained hiistory, ordering medications,tests, procedures, indepentently interpreting results and counseling the patient
[2023-02-17] MEDS: Insulin Aspart 300 UNITS/3 ML PEN SC ×3 (11:57→21:12)
--- NOTE | 2023-02-17 14:27 | CHAPLAIN ---
Kel was in bed when I visited. He engaged in conversation but drifted off to sleep while he was talking. I believe he said that he know Rev. Jewel Luis, but I'm not sure who he was taking about. He thanked for me visiting but then became very drowsy. I will continue to visit. According to Care Management notes, Kel lives at the [facility].
[2023-02-17 15:19] VITALS: BP 106/6; PULSE 64; RESP 18; TEMP 36; O2SAT 92
[2023-02-17] MEDS: Enoxaparin 40 MG/0.4 ML SYR SC (17:27)
[2023-02-17] MEDS: Insulin NPH-Human 300 UNITS/3 ML PEN 40 UNIT SC (19:43)
[2023-02-17] MEDS: Divalproex Sodium 500 MG TAB.ER.24H 1000 MG PO (19:43)
[2023-02-17] MEDS: traZODone 50 MG TAB PO (19:43)
[2023-02-17 19:53] VITALS: BP 111/64; PULSE 68; RESP 18; TEMP 36.5; O2SAT 92
[2023-02-17 23:15] VITALS: BP 131/69; PULSE 61; RESP 18; TEMP 36.3; O2SAT 91
[2023-02-18 03:14] VITALS: BP 108/62; PULSE 72; RESP 18; TEMP 36.6; O2SAT 93
[2023-02-18 07:23] VITALS: BP 120/70; PULSE 68; RESP 16; TEMP 36.6; O2SAT 90
[2023-02-18 07:26] LABS: MCH 27.2 pg (27.0-33.0); MCHC 33.3 % (32.0-36.0); MCV 82 fL (80-95); MPV 8.7 fL (8.0-11.0); Platelet Count 179 10^3/uL (130-400); RBC 5.15 10^6/uL (4.36-5.78); RDW 15.3 % (11.8-14.1); RDW-SD 45.8 fL; WBC 11.65 10^3/uL (4.4-10.8)
[2023-02-18] MEDS: Tiotropium/Olodaterol 10 PUFF INHALER 2 PUFF IH (07:42)
[2023-02-18 07:56] LABS: Absolute Lymphocyte Count 4.08 10^3/uL (1.2-3.4); Absolute Monocyte Count 1.51 10^3/uL (0.1-0.8); Absolute Neutrophil Count 5.24 10^3/uL (1.2-6.7); Atypical Lymphocytes % 15; Diff Comment Manual Differential; Metamyelocytes % 6; Myelocytes % 1; RBC Morphology Normal
[2023-02-18 08:03] LABS: Anion Gap 5.2 mmol/L (3-11); BUN 29 mg/dL (7-18); C-Reactive Protein 5.38 mg/dL (0.0-0.3); CO2 30.8 mmol/L (21.0-32.0); Chloride 105 mmol/L (98-107); Glucose 61 mg/dL (74-106); Potassium 3.1 mmol/L (3.5-5.1); Sodium 141 mmol/L (136-145)
[2023-02-18] MEDS: Aspirin E.C. 81 MG TABEC PO (08:22)
[2023-02-18] MEDS: Benztropine 1 MG TAB 2 MG PO (08:22)
[2023-02-18] MEDS: predniSONE 20 MG TAB 40 MG PO (08:22)
[2023-02-18] MEDS: guaiFENesin 600 MG TABCR PO (08:23)
[2023-02-18] MEDS: Divalproex Sodium 500 MG TAB.ER.24H PO (08:23)
[2023-02-18] MEDS: OLANZapine 5 MG TAB 20 MG PO (08:23)
[2023-02-18] MEDS: Benzonatate 200 MG CAP PO ×2 (08:23→14:13)
[2023-02-18] MEDS: amLODIPine 5 MG TAB PO (08:23)
[2023-02-18] MEDS: Rosuvastatin 10 MG TAB 40 MG PO (08:23)
[2023-02-18] MEDS: levoFLOXacin 750 MG/150 ML BAG 100 MG IVPB (08:37)
--- NOTE | 2023-02-18 10:10 | W.PM.DS.N ---
Date of service: 02/18/23 Time of Service: 10:10 DS: Diagnosis Discharge Diagnosis (1) Pneumonia: Status: Acute (2) Hypoxia: Status: Acute (3) COPD (chronic obstructive pulmonary disease): Status: Acute (4) Type II diabetes mellitus: Status: Acute (5) Schizoaffective disorder: Status: Acute (6) Hypertension: Status: Acute (7) CAD (coronary artery disease): Status: Acute Discharge Plan Disposition Patient Disposition: Home Condition: Stable Discharge Details Reason For Visit: Pneumonia Admit Date/Time: 02/15/23 16:22 Admit Provider: Haley Gooden Attending Provider: Haley Gooden Primary Care Provider: Rekha Keys Hospital Course Hospital Course: This is a 62 yo admitted for a left lower lobe pneumonia and a COPD exacerbation. He has not had PFT's, but does have a smoking history. He was placed on broad spectrum antibiotics and steroids and admitted to hospitalist services. Pulmonary was consulted and advised against ICS therapy (as is in Symbicort) due to his poor dentition and increased risk of pnuemonia. This was changed to Stiolto and he is being discharged on this accordingly. Also antibiotics downstepped to Levofloxacin, which he responded to with clinical improvement and labs trending downward (CRP from > 25 to 5.38 on day of discharge). He was advised to continue aggressive airway clearance with acapella and incentive spirometer which were provided on discharge to continue at home. He will need a follow CT scan in 6 weeks to ensure resolution of the pneumonia, this has been scheduled. He will be given 4 days of levofloxacin and prednisone to complete a 7 day course. discharge discussed with DR Hinojosa. Home Meds and New Rx's Prescriptions: New prednisone 20 mg Tablet 40 mg PO DAILY Qty: 6 0RF Stiolto Respimat 2.5-2.5 mcg/actuation Mist 2 puff inhalation DAILY Qty: 1 0RF levofloxacin 750 mg tablet 750 mg PO DAILY Qty: 4 0RF Continued acetaminophen 325 mg capsule 650 mg PO Q4H PRN PRN trazodone 50 mg tablet 50 mg PO HS olanzapine 20 mg tablet 20 mg PO HS rosuvastatin 40 mg tablet 40 mg PO DAILY Trulicity 1.5 mg/0.5 mL pen injector 1.5 mg SUBCUT QWEEK Patient Comments: INJECT 0.5 ML SUBCUTANEOUSLY EVERY WEEK Humulin N NPH U-100 Insulin 100 UNIT/ML suspension 0 unit SQ HS Rx Instructions: Inject 20-40 units once a day diazepam 2 mg tablet 2 mg PO BID benztropine 2 mg tablet 2 mg PO BID Patient Comments: TAKE ONE TABLET BY MOUTH TWICE A DAY divalproex 500 mg tablet extended release 24 hr See Rx Instructions .ROUTE .COMPLEX Patient Comments: TAKE TWO TABLETS BY MOUTH TWICE A DAY Rx Instructions: Take 500 mg in the AM and 1000 mg at night amlodipine 5 mg tablet 5 mg PO DAILY Qty: 30 0RF albuterol sulfate 90 mcg/actuation HFA aerosol inhaler 2 inh INHALATION Q6H PRN PRN Patient Comments: INHALE 2 PUFFS EVERY 4 TO 6 HOURS NEEDED insulin aspart U-100 [Novolog FlexPen U-100 Insulin] 100 unit/mL (3 mL) insulin pen 0 unit SUBCUT DIRECTED Patient Comments: INJECT UNDER THE SKIN PER SLIDING SCALE BEFORE MEALS +MAX DOSE 60 UNITS PER DAY+ REPALCES HUMALOG Rx Instructions: Inject subq before meals per sliding scale. Max dose 60 units/day aspirin 81 mg tablet,chewable 81 mg PO DAILY Patient Comments: CHEW ONE TABLET BY MOUTH EVERY DAY metformin 1,000 mg tablet 1,000 mg PO BID Patient Comments: TAKE ONE TABLET BY MOUTH TWICE A DAY Discontinued budesonide-formoterol [Symbicort] 160-4.5 mcg/actuation HFA aerosol inhaler 2 inh INHALATION BID Discharge Instructions Instructions: Pneumonia (DC) Additional Instructions: continue to use your acapella and incentive spirometer at home as directed. you need 4 more days of antibiotics and steroids to complete your 7 day course. finish it completely even if you feel better. your blood cultures are negative. your need a repeat chest CT in 6 weeks, this has been ordered. Referrals: [facility] @[facility] [Other] - 03/16/23 1:00 pm Sakshi Miramontes MD [ [facility] STAFF PHYSICIAN] - Rekha Keys PA [Primary Care Provider] - Activity:: Activity as Tolerated Equipment/Supplies:: No Equipment Needed Diet:: As Tolerated Discharge Orders Discharge Orders: Discharge Order (Routine); Ordered 02/18/23 Ordered By: Karena Noguera DS: Summary Time Spent with Patient providing and/or coordinating discharge services: Less than 30 minutes Status at Discharge Functional status at discharge: independent ambulation Overall status at discharge: patient is progressing back to baseline Mental Status: mental status grossly normal Speech and Movement: speech and movement normal Mood: congruent mood Affect: normal affect Exam Const General: cooperative, comfortable and no acute distress Nutritional Appearance: obese Orientation: alert and awake HENMT Head: normal to inspection Ears: hearing grossly normal bilaterally Mouth: oral mucosae normal Eyes General: appearance normal, both eyes and all related structures Neck Neck: normal visual inspection and full ROM Chest Chest: normal inspection of the chest Resp Effort & Inspection: able to speak in complete sentences Auscultation: diminished lung sounds on the left in the lower lung sr Cardio Rate: regular rate Rhythm: regular rhythm Neuro General: tone normal and moves all extremities Motor: muscle tone normal throughout Psych Mental Status: mental status grossly normal Speech and Movement: speech and movement normal Mood: congruent mood Affect: normal affect DS: Data Vitals/I&O Vitals and I&O: Vital Signs Temperature 36.6 C 02/18/23 07:23 Temperature Source Tympanic 02/18/23 07:23 Pulse 68 02/18/23 07:23 Pulse Rhythm Regular 02/18/23 07:15 Pulse 82 02/15/23 13:40 Respiratory Rate 16 02/18/23 07:23 Respiratory Effort Normal, Non-Labored 02/18/23 07:15 Respiratory Depth Normal 02/18/23 07:15 Respiratory Pattern Normal 02/18/23 07:15 Blood Pressure 120/70 02/18/23 07:23 Blood Pressure Mean 86 02/15/23 17:16 Blood Pressure Position Sitting 02/15/23 11:02 Pulse Oximetry 90 L 02/18/23 07:23 Oxygen Delivery Method Room Air 02/18/23 07:23 Oxygen Flow Rate 0 02/18/23 07:23 Pain Level 0 02/18/23 07:23 Comment RN notified 02/18/23 07:23 Intake & Output 02/17/23 02/17/23 02/18/23 11:59 23:59 11:59 Intake Total 720 / 840 120 / 840 790 / 790 Output Total 2200 / 4750 2550 / 4750 1350 / 1350 Balance -1480 / -3910 -2430 / -3910 -560 / -560 Intake: IV 240 / 240 Oral 480 / 600 120 / 600 790 / 790 Output: Urine 2200 / 4750 2550 / 4750 1350 / 1350 Other: Urine Color Pale Yellow Pale Yellow Urine Appearance Clear Clear Cloudy Voiding Methods Indwelling Catheter Data Completed and Pending Labs on day of discharge: Labs from last 24 hours 02/18/23 02/18/23 02/18/23 10:10 07:05 07:05 WBC 11.65 H RBC 5.15 Hgb 14.0 Hct 42.0 MCV 82 MCH 27.2 MCHC 33.3 RDW 15.3 H Plt Count 179 MPV 8.7 Immature Gran % 0.0 Neutrophils % 45.0 Lymphocytes % 20.0 Atypical Lymphs % 15 Monocytes % 13.0 Eosinophils % 0.0 Basophils % 0.0 Metamyelocytes % 6 Myelocytes % 1 Nucleated RBC % 1.0 H Absolute Neutrophils 5.24 Absolute Lymphocytes 4.08 H Absolute Monocytes 1.51 H Absolute Eosinophils 0.00 Absolute Basophils 0.00 RBC Morphology Normal Sodium 141 Potassium 3.1 L Chloride 105 Carbon Dioxide 30.8 Anion Gap 5.2 BUN 29 H Creatinine 1.0 Est GFR (CKD-EPI 2020) 85.10 Glucose 61 L Calcium 9.0 Magnesium Pending C-Reactive Protein 5.38 H Preliminary micro results at discharge 02/16/23 22:55 Sputum Culture - Preliminary Sputum Normal Suha 02/15/23 13:10 Blood Culture - Preliminary Blood NO GROWTH 48 HOURS 02/15/23 12:29 Blood Culture - Preliminary Blood NO GROWTH 48 HOURS PFSH All Active Problems (Updated 02/16/23 @ 07:05 by Sakshi Miramontes MD) Respiratory failure with hypoxia (Acute) KIZZY (acute kidney injury) (Acute) COPD exacerbation (Acute) Discharge planning issues (Acute) DVT prophylaxis (Acute) Type II diabetes mellitus (Acute) CAD (coronary artery disease) (Acute) Pneumonia (Acute) Hypoxia (Acute) Schizoaffective disorder (Acute 09/15/14) a. increased delusional thoughts b. depressed mood COPD (chronic obstructive pulmonary disease) (Acute) chronic tobacco use, but no symptoms Hypertension (Acute) Medical History (Updated 02/16/23 @ 07:05 by Sakshi Miramontes MD) Benign prostatic hypertrophy Chondromalacia of right patella Dental caries Encounter for Mahmood catheter replacement Internal derangement of right knee Obstructive uropathy Prostate irregularity Retinopathy a. due to diabetes type 2 Tobacco use disorder Tongue laceration Type II diabetes mellitus with ophthalmic manifestations Urinary hesitancy Surgical History History of heart artery stent Family History (Updated 02/15/23 @ 20:10 by Teresa Zapata NP) Other Family history unobtainable Social History Smoking/Tobacco Use Status: Current every day Tobacco Type: cigarettes Smoking risk assessment performed?: Yes Alcohol Intake: current Alcohol Intake frequency: a few times a week Alcohol type: beer Drug use: Never Substance use type: does not use Current gender identity: male Do you feel safe at home: Yes Do you feel safe in your relationship?: Yes Time Spent with Patient Time Spent with Patient: <45 minutes Time was spent: preparing to see the patient(eg.review tests), obtaining and/or reviewing separately otained hiistory, ordering medications,tests, procedures, indepentently interpreting results and counseling the patient
--- NOTE | 2023-02-18 10:15 | RT.EKG_ITS ---
APPROVED REPORT Exam: Resting ECG Reason for Exam: chest pain Patient Location: I HR:77 bpm ECG Measurements Heart Rate 77 AXIS VT 140 P 15 QRSd 108 QRS -18 QT 377 T 75 QTc 427 Conclusion Sinus rhythm...normal P axis, V-rate 50- 99 Borderline left axis deviation...QRS axis (-15,-29) RSR' in V1 or V2, probably normal variant...small R' only Consider anterior infarct...Q >30mS in V2-V5
[2023-02-18] MEDS: Potassium Chloride 20 MEQ TABCR 40 MEQ PO (10:24)
[2023-02-18 11:01] LABS: Troponin I < 50 ng/L (<or=60)
[2023-02-18 11:08] VITALS: BP 122/77; PULSE 76; RESP 18; TEMP 36.6; O2SAT 92
[2023-02-18] MEDS: Insulin Aspart 300 UNITS/3 ML PEN SC (12:23)
--- NOTE | 2023-02-18 15:10 | CMDISCH_ITS ---
Date of service: 02/18/23 Time of Service: 15:10 LACE Index Scoring Tool Questions: Length of Stay (in days): 3 Was the patient admitted via the E.D.?: Yes Comorbidities: Diabetes w/o Complication and Chronic Pulmonary Disease E.D. Visits: 2 Answers: Total Score: 11 Risk of Readmission: High Risk Care Management Discharge Plan Reason for Hospitalization: Pneumonia Discharge Plan: Kel will return home to the [facility] with no new services. He will transport via [facility] private vehicle, which will stop at [facility], coordinated by CM. He will follow up with his PCP and his discharge plan of care. He is happy to be returning home. Patient/Family Education Needs: Review discharge instructions and limitations, discussion of self care needs including ask me three. MH Services (Omit if N/A) Current MH Services: [employer]
[2023-02-19 15:33] LABS: Streptococcus Pneumoniae Ag, U Negative (Negative)
[2023-02-20 15:38] LABS: Mycoplasma Pneumoniae PCR Negative; Specimen source SPUTUM
== END 2023-02-18 17:03 | disposition home or self-care (01) | DRG 193 ==
LOC: ER 16:06 → MS 17:53
PROVIDERS: Nurse Practitioner Acute Care; Nurse Practitioner Family; Admitting Provider Internal Medicine; Emergency Provider Nurse Practitioner Family; PCP Physician Assistant Medical; Visit Provider Internal Medicine
DX: J18.9 Pneumonia, unspecified organism (principal); J96.01 Acute respiratory failure with hypoxia; J44.0 Chronic obstructive pulmonary disease with (acute) lower respiratory infection; N17.9 Acute kidney failure, unspecified; J44.1 Chronic obstructive pulmonary disease with (acute) exacerbation; F25.9 Schizoaffective disorder, unspecified; I10 Essential (primary) hypertension; I25.10 Atherosclerotic heart disease of native coronary artery without angina pectoris; E11.319 Type 2 diabetes mellitus with unspecified diabetic retinopathy without macular edema; F17.210 Nicotine dependence, cigarettes, uncomplicated; Z79.4 Long term (current) use of insulin; Z79.84 Long term (current) use of oral hypoglycemic drugs
CPT/HCPCS: 36415; 36416; 71275; 74177; 80048; 80053; 80307; 82550; 82805; 82962; 84145; 87040; 87081; 87449; 87637; 93005; 94640; 96361; 96365; 96366; 96375; 99285; J1650; 70450; 80320; 80329; 81003; 81015; 83605; 83735; 84484; 85025; 85610; 85730; 86140; 87070; 87086; 87205; 87581; 87899; 93010; 94664; 94667; 94668; 94760; 99223; 99232; 99233; 99238; J0131; J1956; J2930; J3490; J7512; J7620

== ENCOUNTER 2023-03-16 02:42 | Outpatient (CLI) | payer MEDICARE, MEDICAID, SELFPAY ==
--- NOTE | 2023-03-16 12:52 | DI.CT_ITS ---
Exam(s) CT CHEST WO EXAM: CT CHEST WO CLINICAL HISTORY: f/u dense LLL consolidation,PNEUMONIA, J18.9. TECHNIQUE: Multi planar reconstructions were performed. CONTRAST MATERIAL: None COMPARISON: CT CT CHEST PE ABD PELVIS W from 02/15/2023 FINDINGS: CHEST: LUNGS: There is a moderate sized left pleural effusion now evident, larger than previous. There is v olume loss-relaxation atelectasis in the left lower lobe again noted although somewhat less than prev ious. The pleural effusion is involving the left major fissure.. No new significant focal findings in the opposite-right lung and there is no pleural fluid on the rig ht side. No new findings in the trachea and mainstem bronchi. MEDIASTINUM: No obvious hilar adenopathy. No subcarinal adenopathy. Few slightly enlarged lymph nod es are noted in the anterior mediastinal fat. CARDIAC: Heart size upper normal. No pericardial effusion. Caliber thoracic aorta is within normal limits. VISUALIZED UPPER ABDOMEN:Right adrenal gland unremarkable. Small nodule in the left adrenal gland ev ident. This is unchanged from the previous study. A contains a small central calcification. Right adrenal gland unremarkable. OSSEOUS: Deformity in the sternum is most probably related to prior healed fracture site and appears unchanged. Compression fracture of L2 again noted. no obvious new distinct lytic lesions.. IMPRESSION: 1. Moderate sized left pleural effusion now evident. This size has increased from 02/15/2023. Also significant volume loss in left lower lobe basal segments. 2. Recommend therapeutic/diagnostic thoracentesis. 3. No findings in the opposite-right hemithorax. L2 wedge compression fracture again noted Small nodule left adrenal gland is unchanged. RADIATION DOSE DELIVERED: 567.58mGy.cm Total DLP DATA REPOSITORY: All CT scans at this facility are submitted to the National Radiology Data Registry (NRDR) Dose Index Registry (DIR) with the [employer] (A[employer]). RADIATION OPTIMIZATION: All CT scans at this facility use at least one of these dose optimization te chniques: automated exposure control; mA and/or kV adjustment per patient size (includes targeted exa ms where dose is matched to clinical indication); or iterative reconstruction.
== END 2023-03-16 03:02 ==
LOC: DI 02:43
PROVIDERS: PCP Physician Assistant Medical; Visit Provider Student in an Organized Health Care Education/Training Program
DX: J18.9 Pneumonia, unspecified organism (principal); J91.8 Pleural effusion in other conditions classified elsewhere
CPT/HCPCS: 71250

== ENCOUNTER 2023-04-03 06:15 | Day surgery (SDC) | payer MEDICARE, MEDICAID, SELFPAY ==
[2023-04-03 06:29] VITALS: BP 126/69; PULSE 66; RESP 20; TEMP 36.4; O2SAT 98
--- NOTE | 2023-04-03 07:45 | PAPNONF_PTH ---
PATIENT: Kel Dillon LOC: [facility] U#:[id number] AGE/SX: 62/M ROOM: RE04/03/[address]: Sakshi Miramontes MD : 1960 BED: DIS: 04/03/2023 SPEC #: [id number] RECD: 04/03/23 13:24 STATUS: SIMON REQ #: [id number] SHRUTHI: 04/03/23 07:[address]: Sakshi Miramontes DEPT: [facility] Cytology RECD BY: Lindsey Dyer ENTERED: 04/03/23 13:26 SP TYPE: JOSE MAYA DR: Rekha Keys Tissues: 1 - BODY FLUID CYTO(NOT S/U/N/EM)[facility] 2 - FLOW CYTOMETRY NODE/TISSUE Procedures: BODY FLUID CYTO(NOT SPU/UR/NIP/ENDOM)[facility] FLOW CYTOMETRY LYMPHOMA PNL Comments: [id number] (DO=135 ml) (FLOW CYTOMETRY - [id number]) (10 ml ADDED TO RPMI) (REFRIGERATED)
[2023-04-03 07:55] VITALS: BP 124/64; PULSE 76; RESP 17; TEMP 36.7; O2SAT 96
--- NOTE | 2023-04-03 08:14 | ROE_ITS ---
Date of service: 04/03/23 Time of Service: 07:30 Operative Note Operative Note PRE-OP DIAGNOSIS: Left Pleural Effusion POST-OP DIAGNOSIS: same Procedure Description: Thoracentesis The patient gave written informed consent for the procedure after risks and benefits were explained to him. Patient was brought to the operating room where his vital signs were taken and were all within normal limits. A complete and OR compliant time out was performed indicating correct patient, site and procedure. Patient was positioned sitting over the side of the bed, leaning forward on a table. I completed an u ltrasound of the left lung and found a moderate, simple appearing pleural effusion. A good pocket was found and the site was marked. The area was cleaned and draped in normal sterile fashion. The site was anesthetized with 5cc of lidocaine effectively. The catheter was inserted (noting the lung was approximately 6cm from skin) without complication. Pleural fluid was withdrawn that was tea colored and transparent in appearance. 50cc of fluid was collected in a syringe and an additional 800cc was collected for cytopathology into appropriate bottles. Although there was still good pleural fluid flow, the patient began feeling chest pain centrally and on the left so the decision was made to stop the procedure. Once the patient moved out of position and after a few minutes he stated that the pain went away. The case was terminated and the patient was brought back to [facility] in stable condition. Post procedure chest x-ray was ordered for a pneumothorax. I did not appreciate a pneumothorax, but the CXR is relatively abnormal so I opted to await radiology read to be sure. Specimens collected: L of pleural fluid of the left lung Tests ordered: Cell diff, bacterial culture, fungal culture, AFB culture, glucose, ldh, flow cytometry, protein, pH, cytopathology Sakshi Miramontes MD Pulmonary & Critical Care
--- NOTE | 2023-04-03 08:18 | DI.RAD_ITS ---
Exam(s) XR PORTABLE CHEST AP EXAM: XR PORTABLE CHEST AP CLINICAL HISTORY: s/p thoracentesis TECHNIQUE: 2D digital imaging was performed. COMPARISON: CR,XR XR PORTABLE CHEST AP from 09/08/[address] CHEST WO from 03/16/2023 FINDINGS: LUNGS: Moderate size left pleural effusion. Roughly unchanged from prior CT. Difficult to directly compare due to differences in position. Fluid seen loculated posteriorly in the fissure, creating th e left upper lobe opacity. Left basilar atelectatic changes again present. The right lung appears c lear. No evidence of pneumothorax. HEART: The cardiac silhouette is partially obscured by the effusion. AORTA: Normal diameter. BONES: Unremarkable for age. Soft tissues: Unremarkable. IMPRESSION: Roughly stable appearance of moderate size left pleural effusion with loculation in the posterior fis sure. No pneumothorax. DATA REPOSITORY: RADIATION DOSE DELIVERED:
[2023-04-03 11:27] LABS: Source: Pleural
[2023-04-03 11:42] LABS: Clarity Cloudy; Source Pleural
[2023-04-03 11:45] LABS: Nucleated Cells 1569 uL (0)
[2023-04-03 12:20] LABS: Mononuclear Cells 83 %; Polynuclear Cells 17 %
[2023-04-03 19:23] LABS: Glucose, Fluid 126 mg/dL (See Note)
[2023-04-05 09:18] LABS: Lactate Dehydrogenase (LD), BF 164 U/L
[2023-04-05 09:43] LABS: Protein,Total, BF 4.9 g/dL
== END 2023-04-03 08:43 | disposition home or self-care (01) ==
PROVIDERS: PCP Physician Assistant Medical; Visit Provider Student in an Organized Health Care Education/Training Program
PROC: (CPT 32554; principal; 2023-04-03 07:30)
DX: J90 Pleural effusion, not elsewhere classified (principal); J94.8 Other specified pleural conditions
CPT/HCPCS: 32554; 87116; 87206; 88185; 71045; 81373; 83615; 83986; 84157; 87070; 87075; 87205; 88104; 88184; 88189; 89051

== ENCOUNTER 2023-05-13 17:14 | Inpatient (IN) | payer MEDICARE, MEDICAID, SELFPAY ==
[2023-05-13 17:17] VITALS: BP 162/78; PULSE 84; RESP 18; TEMP 36.8; O2SAT 97
--- NOTE | 2023-05-13 17:37 | W.ED.GENAD ---
Discharge Plan Disposition Patient Disposition: Admit to [facility] Condition: Good Discharge Details Chief Complaint: PsychEval Clinical Impression: Schizoaffective disorder, Acute paranoia Primary Care Provider: Rekha Keys ED Provider: Tyler Field Home Meds and New Rx's Prescriptions: No Action acetaminophen 325 mg capsule 650 mg PO Q4H PRN PRN trazodone 50 mg tablet 50 mg PO HS olanzapine [Zyprexa] 20 mg tablet 20 mg PO HS rosuvastatin 40 mg tablet 40 mg PO DAILY prednisone 20 mg tablet 20 mg PO DAILY Qty: 10 0RF Patient Comments: RX complete 05/13/23 CT Trulicity 1.5 mg/0.5 mL pen injector 1.5 mg SUBCUT QWEEK Patient Comments: INJECT 0.5 ML SUBCUTANEOUSLY EVERY WEEK amlodipine 5 mg tablet 5 mg PO DAILY Patient Comments: Takes at 3 pm Humulin N NPH U-100 Insulin 100 UNIT/ML suspension 0 unit SQ HS Rx Instructions: Inject 20-40 units once a day diazepam [Valium] 2 mg tablet 2 mg PO BID benztropine 2 mg tablet 2 mg PO BID Patient Comments: TAKE ONE TABLET BY MOUTH TWICE A DAY divalproex 500 mg tablet extended release 24 hr See Rx Instructions .ROUTE .COMPLEX Patient Comments: TAKE TWO TABLETS BY MOUTH TWICE A DAY Rx Instructions: Take 1000 mg in the AM and 1000 mg at night albuterol sulfate 90 mcg/actuation HFA aerosol inhaler 2 inh INHALATION Q6H PRN PRN Patient Comments: INHALE 2 PUFFS EVERY 4 TO 6 HOURS NEEDED insulin aspart U-100 [Novolog FlexPen U-100 Insulin] 100 unit/mL (3 mL) insulin pen 0 unit SUBCUT DIRECTED Patient Comments: INJECT UNDER THE SKIN PER SLIDING SCALE BEFORE MEALS +MAX DOSE 60 UNITS PER DAY+ REPALCES HUMALOG Rx Instructions: Inject subq before meals per sliding scale. Max dose 60 units/day aspirin 81 mg tablet,chewable 81 mg PO DAILY Patient Comments: CHEW ONE TABLET BY MOUTH EVERY DAY metformin 1,000 mg tablet 1,000 mg PO BID Patient Comments: TAKE ONE TABLET BY MOUTH TWICE A DAY Stiolto Respimat 2.5-2.5 mcg/actuation Mist 2 puff inhalation DAILY Qty: 1 0RF Medical Decision Making 62-year-old male with a past medical history of COPD, type 2 diabetes, coronary artery disease, schizoaffective disorder, who presents today for evaluation of paranoia. Patient states that he is concerned for people stealing his stuff where he is currently residing. He currently resides at [facility]. He states that people are coughing and his food, trying to take his things, and out to get him. He is worried that someone might harm him if he continues to stay there. He denies any homicidal or suicidal ideations. He denies any other complaints. He is not willing to talk about auditory visual hallucinations. Exam demonstrates a well-appearing male, who is well-kept. He has somewhat pressured speech, somewhat flight of ideas. He denies any homicidal or suicidal ideations. He is very clear that he is did not feel safe at his current place of living. Uncertain if this is paranoia or reflection of reality. We will medically clear, contact mental health, monitor closely and reassess. No neurologic deficits to suggest intracranial injury or etiology. 8:04 PM Laboratory workup benign. Patient medically clear. Mental health does also recommend admission. Patient was to be here voluntarily. Patient will be admitted pending inpatient psychiatric placement. Discussed the case with Dr. Bernal, he agrees with the assessment and plan. I will place admission orders on his behalf. I have extensively reviewed the treatment plan with the patient. I have addressed all patient concerns at this time. I have also discussed the plan with the admitting physician and they agree with the current assessment and plan and have agreed to assume responsibility for the patient. All parties demonstrate verbal understanding and agreement with our assessment and plan at this time. The documentation in this chart was dictated using [employer] dictation software. Please excuse any dictation errors. HPI General Date/Time Provider Initiated Documentation: 05/13/23 17:14. HPI Narrative: 62-year-old male with a past medical history of COPD, type 2 diabetes, coronary artery disease, schizoaffective disorder, who presents today for evaluation of paranoia. Patient states that he is concerned for people stealing his stuff where he is currently residing. He currently resides at [facility]. He states that people are coughing and his food, trying to take his things, and out to get him. He is worried that someone might harm him if he continues to stay there. He denies any homicidal or suicidal ideations. He denies any other complaints. He is not willing to talk about auditory visual hallucinations. Related Data Home Medications Medication Instructions Recorded Confirmed insulin NPH isoph U-100 human 100 0 unit SQ HS 11/20/16 05/13/23 unit/mL subcutaneous suspension (Humulin N NPH U-100 Insulin (isophane susp)) diazepam 2 mg tablet (Valium) 2 mg PO BID 07/12/21 05/13/23 dulaglutide 1.5 mg/0.5 mL 1.5 mg subcut QWEEK 08/07/21 05/13/23 subcutaneous pen injector (Trulicity) rosuvastatin 40 mg tablet 40 mg PO DAILY 10/02/21 05/13/23 acetaminophen 325 mg capsule 650 mg PO Q4H PRN PRN 11/06/21 05/13/23 benztropine 2 mg tablet 2 mg PO BID 11/08/21 05/13/23 divalproex 500 mg tablet,extended See Rx Instructions .Route .COMPLEX 11/08/21 05/13/23 release 24 hr albuterol sulfate 90 mcg/actuation 2 inh inhalation Q6H PRN PRN 12/12/21 05/13/23 aerosol inhaler olanzapine 20 mg tablet (Zyprexa) 20 mg PO HS 03/12/22 05/13/23 trazodone 50 mg tablet 50 mg PO HS 03/12/22 05/13/23 aspirin 81 mg chewable tablet 81 mg PO DAILY 02/17/23 05/13/23 insulin aspart U-100 100 unit/mL 0 unit subcut DIRECTED 02/17/23 05/13/23 (3 mL) subcutaneous pen (Novolog FlexPen U-100 Insulin aspart) metformin 1,000 mg tablet 1,000 mg PO BID 02/17/23 05/13/23 tiotropium 2.5 mcg-olodaterol 2.5 2 puff inhalation DAILY #1 g 02/18/23 05/13/23 mcg/actuation mist for inhalation (Stiolto Respimat) prednisone 20 mg tablet 20 mg PO DAILY #10 tabs 04/14/23 amlodipine 5 mg tablet 5 mg PO DAILY 05/13/23 05/13/23 Previous Rx's Medication Instructions Recorded tiotropium 2.5 mcg-olodaterol 2.5 2 puff inhalation DAILY #1 g 02/18/23 mcg/actuation mist for inhalation (Stiolto Respimat) prednisone 20 mg tablet 20 mg PO DAILY #10 tabs 04/14/23 Allergies Allergy/AdvReac Type Severity Reaction Status Date / Time Penicillins Allergy Mild Skin Rash Verified 04/03/23 06:44 ARB-Angiotensin Receptor Allergy Verified 04/03/23 06:44 Antagonist clopidogrel [From Plavix] Allergy Verified 04/03/23 06:44 Sulfa (Sulfonamide Allergy Verified 04/03/23 06:44 Antibiotics) JOSE Inhibitors AdvReac Severe Verified 04/03/23 06:44 General Stated Complaint: PsychEval HALLIE: 2 Review of Systems All systems reviewed & are unremarkable except as noted in HPI and below PFSH All Active Problems (Updated 05/13/23 @ 20:06 by Tyler Field DO) Acute paranoia (Acute) Cough (Acute) Nicotine dependence, cigarettes, uncomplicated (Acute) Pleural effusion (Acute) Respiratory failure with hypoxia (Acute) KIZZY (acute kidney injury) (Acute) COPD exacerbation (Acute) Type II diabetes mellitus (Acute) CAD (coronary artery disease) (Acute) Pneumonia (Acute) Hypoxia (Acute) Schizoaffective disorder (Acute 09/15/14) a. increased delusional thoughts b. depressed mood COPD (chronic obstructive pulmonary disease) (Acute) chronic tobacco use, but no symptoms Hypertension (Acute) Medical History Benign prostatic hypertrophy Chondromalacia of right patella Dental caries Encounter for Mahmood catheter replacement Internal derangement of right knee Obstructive uropathy Prostate irregularity Retinopathy a. due to diabetes type 2 Tobacco use disorder Tongue laceration Type II diabetes mellitus with ophthalmic manifestations Urinary hesitancy Surgical History History of heart artery stent Family History Other Family history unobtainable Social History Smoking/Tobacco Use Status: Current every day Tobacco Type: cigarettes Smoking risk assessment performed?: Yes Alcohol Intake: current Alcohol Intake frequency: holidays/special occasions only Alcohol type: beer Drug use: Never Substance use type: does not use Housing: other Current gender identity: male Do you feel safe at home: Yes Do you feel safe in your relationship?: Yes Additional Social history: 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 3.ENT: Atraumatic external nose and ears. Moist MM. Neck: Symmetric, trachea midline, No thyromegaly. 4.CVS: +S1/S2, No murmurs or gallops. Peripheral pulses 2+ and equal in all extremities. Brisk capillary refill in all extremities. 5.RESP: Unlabored respiratory effort. Clear to auscultation bilaterally. No wheezes rales or rhonchi 6.GI: Soft, Nontender/Nondistended, No hepatosplenomegaly. No guarding or rebound. 7.MSK: Normocephalic/Atraumatic, Extremities w/o deformity or ttp No cyanosis or clubbing, Normal movement of all extremities 8.Skin: Warm, Dry. No rashes or lesions. 9.Neuro: shift superintendent II-XII grossly intact. Sensation grossly intact, no focal neurologic deficits. 10.Psych: (AAO) x3. Somewhat pressured speech. Somewhat flight of ideas Course Vital Signs Vital signs: Vital Signs Temperature 36.8 C 05/13/23 17:17 Pulse 84 05/13/23 17:17 Respiratory Rate 18 05/13/23 17:17 Blood Pressure 162/78 H 05/13/23 17:17 Pulse Oximetry 97 05/13/23 17:17 Temperature 36.8 C 05/13/23 17:17 Temperature Source Temporal Artery Scan 05/13/23 17:17 Pulse 84 05/13/23 17:17 Respiratory Rate 18 05/13/23 17:17 Blood Pressure 162/78 H 05/13/23 17:17 Blood Pressure Position Sitting 05/13/23 17:17 Pulse Oximetry 97 05/13/23 17:17 Oxygen Delivery Method Room Air 05/13/23 17:17 Oxygen Flow Rate 0 05/13/23 17:17 Pain Level 0 05/13/23 17:17
[2023-05-13 19:04] LABS: Abs Immature Grans 0.02 10^3/uL (0.0-0.06); Absolute Basophil Count 0.04 10^3/uL (0.0-0.2); Absolute Eosinophil Count 0.21 10^3/uL (0.0-0.7); Absolute Lymphocyte Count 3.31 10^3/uL (1.2-3.4); Absolute Monocyte Count 0.59 10^3/uL (0.1-0.8); Absolute Neutrophil Count 3.81 10^3/uL (1.2-6.7); Basophils % 0.5; Eosinophils % 2.6; HCT 41.6 % (40.0-50.0); HGB 13.9 g/dL (13.5-17.5); Immature Grans % 0.3; Lymphocytes % 41.5; MCH 26.7 pg (27.0-33.0); MCHC 33.4 % (32.0-36.0); MCV 80 fL (80-95); MPV 7.9 fL (8.0-11.0); Monocytes % 7.4; Neutrophils % 47.7; Platelet Count 142 10^3/uL (130-400); RDW 14.8 % (11.8-14.1); RDW-SD 42.8 fL; WBC 7.98 10^3/uL (4.4-10.8)
[2023-05-13 19:31] LABS: ALT 17 U/L (16-63); AST 14 U/L (15-37); Albumin 3.7 g/dL (3.4-5.0); Alkaline Phosphatase 64 U/L (46-116); BUN 9 mg/dL (7-18); Bilirubin, Total 0.4 mg/dL (0.2-1.0); CREATININE 0.8 mg/dL (0.70-1.30); Calcium 9.8 mg/dL (8.5-10.1); Chloride 104 mmol/L (98-107); Estimated GFR 100.06 (mL/min/1.73m2); Glucose 112 mg/dL (74-106); Sodium 142 mmol/L (136-145); TSH (W/Ref FT4) 1.72 uIU/mL (0.36-3.74); Total Protein 7.7 g/dL (6.4-8.2)
[2023-05-13 19:32] LABS: ETHANOL BLOOD < 3.0 mg/dL (<10)
[2023-05-13 19:34] LABS: *AMPHETAMINES SCREEN URINE Negative (Negative); *BARBITURATES SCREEN URINE Negative (Negative); *BENZODIAZEPINES SCREEN URINE Positive (Negative); Cannabinoids THC Negative (Negative); Cocaine Screen,Urine Negative (Negative); METHADONE URINE SCREEN Negative (Negative); OPIATES URINE SCREEN Negative (Negative)
[2023-05-13 19:35] LABS: Tricyclic Antidepressants Negative (Negative)
[2023-05-13 19:42] LABS: Salicylate 3.5 mg/dL (<2.8)
[2023-05-13 19:43] LABS: Acetaminophen < 2 ug/mL (10-30)
--- NOTE | 2023-05-13 20:48 | W.PM.HP.N ---
Date of service: 05/13/23 Time of Service: 21:33 Assessment and Plan Assessment and plan (1) Acute paranoia: Status: Acute Assessment and plan: This appears to be a typical exacerbation of his chronic schizoaffective disease. Unclear trigger. His chronic medications include depakote and olanzapine, will get depakote levels to assess for adherence and monitor for toxicity. UDS only positive for benzos consistent with adherence to his prescribed diazepam. I agree that there does not appear to be an acute medical illness contributing to his presenation. Admission warranted for his safety. (2) Schizoaffective disorder: Status: Acute Assessment and plan: As above. Will continue his outpatient psychiatric medication. Admit pending voluntary psychiatric placement. (3) COPD (chronic obstructive pulmonary disease): Status: Acute Assessment and plan: Stable, continue LAMA/LABA inhaler therapy. (4) CAD (coronary artery disease): Status: Acute Assessment and plan: Stable ASCVD. No current chest pain. Continue statin and ASA. (5) Type II diabetes mellitus: Status: Acute Assessment and plan: History of adequate recent control on basal/bolus insulin with NPH and GLP-1/metformin. Unfortunately his pyschiatric medications are diabetogenic. Will get A1c to monitor recent control. Simplify his basal insulin with Lantus while inpatient. (6) Nicotine dependence, cigarettes, uncomplicated: Status: Acute Assessment and plan: NRT as needed, encourage cessation when ready. (7) Hypertension: Status: Acute Assessment and plan: BP high, but I would not be in a johnson to change medications. Continue outpatient medications and follow. Qualifiers: Hypertension type: primary hypertension Qualified Code(s): I10 - Essential (primary) hypertension (8) DVT prophylaxis: Status: Acute Assessment and plan: Medical therapy not indicated as he is mobile. (9) Discharge planning issues: Status: Acute Assessment and plan: He is admitted here pending voluntary pscyhiatric placement. He is medically clear if a bed opens up any time. He will have a patient monitor for safety. History of Present Illness History of Present Illness Chief Complaint: acute paranoia Narrative: 62 yo M with DM, HTN, COPD, smoker with schizoaffective disorder, bipolar type, who presented to the emergency room with concerns for people stealing his things and threatening him at his therapeutic living home. States his landlord was yelling at him. States people took his money. States he is not going back. States his nurse had been out to the [place] he lives and he doesn't trust him (this is confirmed not true). He denies suicidal or homocidal ideation. He denies hearing or seeing things that aren't there. He states he has been taking his medication regularly with no recent change. No recent medical illness. He did have pneumonia in February 2023 with effusion that peristed and grew after treatment, negative paracentesis and he states his breathing is back to baseline. Reviewing the records, delusional thoughts have been typical of decompensation of his mental illness over the years. Review of Systems Constitutional Constitutional: Denies anorexia, Denies chills, Denies fever(s), Reports lethargy and Denies weakness Eyes Eyes: Denies change in vision and Denies irritation ENT Ears, Nose, Mouth, and Throat: Denies dizziness, Denies nasal congestion, Denies nasal discharge and Denies sore throat Cardiovascular Cardiovascular: Denies chest pain, Reports palpitations, Denies dyspnea and Denies orthopnea Respiratory Respiratory: Denies cough, Denies excessive phlegm production, Denies dyspnea and Denies wheezing Gastrointestinal Gastrointestinal: Reports abdominal pain, Denies heartburn, Denies diarrhea, Denies nausea and Denies vomiting Genitourinary Genitourinary: Denies hematuria, Denies dysuria, Denies urinary hesitancy and Denies urinary incontinence (history noted in record but he denies a problem currently) Integumentary/Breasts Skin/Breast: Denies rash and Denies skin ulcer Neurologic Neurologic: Denies confusion, Denies dizziness, Denies sensory deficit and Denies weakness Psychiatric Psychiatric: Reports as per HPI, Denies confusion, Denies depression, Denies mood swings and Denies panic attacks Endocrine Endocrine: Reports palpitations Hematologic/Lymphatic Hematologic/Lymphatic: Denies easy bleeding Allergic/Immunologic Allergic/Immunologic: Denies wheezing PFSH All Active Problems DVT prophylaxis (Acute) Discharge planning issues (Acute) Acute paranoia (Acute) Cough (Acute) Nicotine dependence, cigarettes, uncomplicated (Acute) Pleural effusion (Acute) Respiratory failure with hypoxia (Acute) COPD exacerbation (Acute) Type II diabetes mellitus (Acute) CAD (coronary artery disease) (Acute) Pneumonia (Acute) Hypoxia (Acute) Schizoaffective disorder (Acute 09/15/14) a. increased delusional thoughts b. depressed mood COPD (chronic obstructive pulmonary disease) (Acute) chronic tobacco use, but no symptoms Hypertension (Acute) Medical History Benign prostatic hypertrophy Chondromalacia of right patella Dental caries Encounter for Mahmood catheter replacement Internal derangement of right knee Obstructive uropathy Prostate irregularity Retinopathy a. due to diabetes type 2 Tobacco use disorder Tongue laceration Type II diabetes mellitus with ophthalmic manifestations Urinary hesitancy Surgical History History of heart artery stent S/P thoracentesis 03/2023 for persistent effusion after pneumonia Family History Other Family history unobtainable Social History Smoking/Tobacco Use Status: Current every day Tobacco Type: cigarettes Smoking risk assessment performed?: Yes Alcohol Intake: current Alcohol Intake frequency: holidays/special occasions only Alcohol type: beer Drug use: Never Substance use type: does not use Housing: other Current gender identity: male Do you feel safe at home: Yes Do you feel safe in your relationship?: Yes Additional Social history: 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 Meds Allergies and Home Medications Allergies Allergy/AdvReac Type Severity Reaction Status Date / Time Penicillins Allergy Mild Skin Rash Verified 04/03/23 06:44 ARB-Angiotensin Receptor Allergy Verified 04/03/23 06:44 Antagonist clopidogrel [From Plavix] Allergy Verified 04/03/23 06:44 Sulfa (Sulfonamide Allergy Verified 04/03/23 06:44 Antibiotics) JOSE Inhibitors AdvReac Severe Verified 04/03/23 06:44 Home Medications Medication Instructions Recorded Confirmed Type insulin NPH isoph U-100 human 100 0 unit SQ HS 11/20/16 05/13/23 History unit/mL subcutaneous suspension (Humulin N NPH U-100 Insulin (isophane susp)) diazepam 2 mg tablet (Valium) 2 mg PO BID 07/12/21 05/13/23 History dulaglutide 1.5 mg/0.5 mL 1.5 mg subcut QWEEK 08/07/21 05/13/23 History subcutaneous pen injector (Trulicity) rosuvastatin 40 mg tablet 40 mg PO DAILY 10/02/21 05/13/23 History acetaminophen 325 mg capsule 650 mg PO Q4H PRN PRN 11/06/21 05/13/23 History benztropine 2 mg tablet 2 mg PO BID 11/08/21 05/13/23 History divalproex 500 mg tablet,extended See Rx Instructions .Route .COMPLEX 11/08/21 05/13/23 History release 24 hr albuterol sulfate 90 mcg/actuation 2 inh inhalation Q6H PRN PRN 12/12/21 05/13/23 History aerosol inhaler olanzapine 20 mg tablet (Zyprexa) 20 mg PO HS 03/12/22 05/13/23 History trazodone 50 mg tablet 50 mg PO HS 03/12/22 05/13/23 History aspirin 81 mg chewable tablet 81 mg PO DAILY 02/17/23 05/13/23 History insulin aspart U-100 100 unit/mL 0 unit subcut DIRECTED 02/17/23 05/13/23 History (3 mL) subcutaneous pen (Novolog FlexPen U-100 Insulin aspart) metformin 1,000 mg tablet 1,000 mg PO BID 02/17/23 05/13/23 History tiotropium 2.5 mcg-olodaterol 2.5 2 puff inhalation DAILY #1 g 02/18/23 05/13/23 Rx mcg/actuation mist for inhalation (Stiolto Respimat) prednisone 20 mg tablet 20 mg PO DAILY #10 tabs 04/14/23 Rx amlodipine 5 mg tablet 5 mg PO DAILY 05/13/23 05/13/23 History Exam Narrative Exam Narrative: GEN: Alert and oriented, actively paranoid, but cooperative, gives limited tangential history. No acute distress at rest. HEENT: Head atraumatic. Conjunctiva clear, no icterus. PEERL, EOMI. no rhinorrhea. MMM, OP benign. Neck is supple with no masses or lymphadenopathy. LUNGS: CTAB with normal effort CV: RRR with no murmurs, gallops, or rubs. ABD: +BS, soft, NT/ND EXT: no cyanosis, clubbing, or edema MSK: No joint redness or swelling NEURO: CN 2-12 grossly intact. Normal movement of 4 extremities. Normal speech and coordination SKIN: No rashes or open wounds. PSYCH: anxious mood and affect, speech somewhat presssured, tangential, paranoid thought process, limited insight Results Labs 05/13/23 18:57 05/13/23 18:57 Labs: Laboratory Results - last 24 hr 05/13/23 05/13/23 05/13/23 18:35 18:57 18:57 WBC RBC Hgb Hct MCV MCH MCHC RDW Plt Count MPV Immature Gran % Neutrophils % Lymphocytes % Monocytes % Eosinophils % Basophils % Nucleated RBC % Absolute Neutrophils Absolute Lymphocytes Absolute Monocytes Absolute Eosinophils Absolute Basophils Sodium 142 Potassium 4.0 Chloride 104 Carbon Dioxide 26.0 Anion Gap 12.0 H BUN 9 Creatinine 0.8 Est GFR (CKD-EPI 2020) 100.06 Glucose 112 H Calcium 9.8 Total Bilirubin 0.4 AST 14 L ALT 17 Alkaline Phosphatase 64 Total Protein 7.7 Albumin 3.7 TSH 1.72 Salicylates 3.5 Urine Opiates Screen Negative Urine Methadone Screen Negative Acetaminophen < 2 Ur Barbiturates Screen Negative Ur Tricyclics Screen Negative Ur Amphetamines Screen Negative U Benzodiazepines Scrn Positive A Urine Cocaine Screen Negative Ur THC Screen Negative Ethyl Alcohol < 3.0 05/13/23 18:57 WBC 7.98 RBC 5.20 Hgb 13.9 Hct 41.6 MCV 80 MCH 26.7 L MCHC 33.4 RDW 14.8 H Plt Count 142 MPV 7.9 L Immature Gran % 0.3 Neutrophils % 47.7 Lymphocytes % 41.5 Monocytes % 7.4 Eosinophils % 2.6 Basophils % 0.5 Nucleated RBC % 0.0 Absolute Neutrophils 3.81 Absolute Lymphocytes 3.31 Absolute Monocytes 0.59 Absolute Eosinophils 0.21 Absolute Basophils 0.04 Sodium Potassium Chloride Carbon Dioxide Anion Gap BUN Creatinine Est GFR (CKD-EPI 2020) Glucose Calcium Total Bilirubin AST ALT Alkaline Phosphatase Total Protein Albumin TSH Salicylates Urine Opiates Screen Urine Methadone Screen Acetaminophen Ur Barbiturates Screen Ur Tricyclics Screen Ur Amphetamines Screen U Benzodiazepines Scrn Urine Cocaine Screen Ur THC Screen Ethyl Alcohol Last Vital Signs Temp 36.8 C 05/13/23 17:17 Pulse 84 05/13/23 17:17 Resp 18 05/13/23 17:17 BP 162/78 H 05/13/23 17:17 Pulse Ox 97 05/13/23 17:17 Time Spent Time spent with Patient: 55-74 minutes Time was spent: preparing to see the patient(eg.review tests), obtaining and/or reviewing separately otained hiistory, ordering medications,tests, procedures, referring, communicating with other health insurance healthcare consultant, indepentently interpreting results and counseling the patient
[2023-05-13 20:59] VITALS: BP 152/76; PULSE 63; RESP 18; TEMP 35.7; O2SAT 98
[2023-05-13 21:10] VITALS: BP 152/76; PULSE 63; RESP 18; TEMP 35.7
[2023-05-13] MEDS: Nicotine 21 MG/24 HR PATCH TD (21:33)
[2023-05-13] MEDS: traZODone 50 MG TAB PO (21:33)
[2023-05-13] MEDS: Divalproex 500 MG TABEC 1000 MG PO (21:33)
[2023-05-13] MEDS: OLANZapine 10 MG TAB 20 MG PO (21:34)
[2023-05-13] MEDS: Benztropine 1 MG TAB 2 MG PO (22:19)
--- NOTE | 2023-05-14 00:20 | NUR.NOTE ---
Marianela Kaufman from [facility] calls and asks for labs, notes faxed to [phone]. sent at [phone] 05/14/23 Nursing Note:
[2023-05-14 07:42] VITALS: BP 152/73; PULSE 71; RESP 17; TEMP 36.4; O2SAT 95
[2023-05-14] MEDS: metFORMIN 500 MG TAB 1000 MG PO (07:59)
[2023-05-14] MEDS: Benztropine 1 MG TAB 2 MG PO (08:01)
[2023-05-14] MEDS: amLODIPine 5 MG TAB PO (08:01)
[2023-05-14] MEDS: Aspirin 81 MG CHEW PO (08:02)
[2023-05-14] MEDS: diazePAM 2 MG TAB PO (08:02)
[2023-05-14 08:35] LABS: Hemoglobin A1C 6.8 % (<5.7); VALPROIC ACID 113.1 ug/mL
[2023-05-14] MEDS: Tiotropium/Olodaterol 10 PUFF INHALER 2 PUFF IH (09:22)
--- NOTE | 2023-05-14 11:04 | CMSP_ITS ---
Date of service: 05/14/23 Time of Service: 11:04 Care Management Safety Plan Status Status: Voluntary Reason for Wait Reason for Wait: Inpatient Admission Safety Plan Safety Plan: VOLUNTARY FOR INPATIENT PSYCHIATRIC STABILIZATION.? Patient is appropriate in all interactions since arriving at [facility]; Pt has demonstrated appropriate coping and communication skills, has articulated his or her needs and concerns and is fully engaged during staff interactions. Safety plan has been established with patient, and care team, to adhere to patient goals, identify restrictions based on behavioral status, address nutrition, and determine allowed personal belongings, tools for hygiene and personal care. Determine level of activity including ambulation, level of supervision, visitors, and determine privileges based on behaviors and level of engagement by pt. SAFETY PLAN: 1. Will remain on suicide precautions. In Paper Clothes 2. Will remain in room under direct supervision of one-on-one staff at all times provided by [employer], INTELLIGENCE INTERN, UNDERGROUND DRILL OPERATOR warehouse order selector. 3. May have paper cups, plates, finger foods as well as a cardboard spoon with which to eat meals. 4. Follow [facility] Management of the Admitted Behavioral Health Patient policy. 5. Comfort bath system only, shower permitted with escort at RN discretion. 6. No personal belongings-soft items permitted at RN discretion. 7. Visitors-none at this time. 8. Activities: soft cart items, television and other activities approved per RN discretion. 9.? Bathroom available in room without limitation on M/S. 10. Phone: contact limited to family at this time, via cordless phone at RN discretion. 11. Due to VOLUNTARY status, if patient wishes to leave [facility], staff will contact [facility] Crisis Screener ([phone]) and On-Call Drafter [employer] ([phone]) as soon as possible. In the event of elopement, notify [facility] Police ([phone]). Patient is currently voluntarily at [facility] and seeking inpatient admission when a bed becomes available. [facility] Frontline Bus Cleaner will continue seeking placement. Please contact the Tractor Mechanic Drafter [employer] ([phone]) and [facility] Bus Cleaner ([phone]) for any needed changes in the Safety Plan. Safety plan has been provided to interdepartmental care team.
--- NOTE | 2023-05-14 11:06 | W.PM.DS.N ---
Date of service: 05/14/23 Time of Service: 11:06 DS: Diagnosis Discharge Diagnosis (1) Acute paranoia: Status: Acute (2) Schizoaffective disorder: Status: Acute (3) COPD (chronic obstructive pulmonary disease): Status: Acute (4) CAD (coronary artery disease): Status: Acute (5) Type II diabetes mellitus: Status: Acute (6) Nicotine dependence, cigarettes, uncomplicated: Status: Acute (7) Hypertension: Status: Acute Discharge Plan Disposition Patient Disposition: Psychiatric Hospital/Unit Specific Psychiatric Facility: [facility] (Formerly [facility]) Condition: Serious Discharge Details Reason For Visit: Paranoia Admit Date/Time: 05/13/23 19:55 Admit Provider: Vikash Ashton Attending Provider: Vikash Ashton Primary Care Provider: Rekha Keys Hospital Course Hospital Course: This is a 63-year-old male patient with past medical history of diabetes mellitus type 2 hypertension chronic obstructive pulmonary disease with psychiatric disorder who presented to the emergency department with increased paranoia. He denied any suicidal or homicidal ideation. He has been compliant with his medication. There is been no recent medication changes. He has had no recent fever chills or illness. His medical screening in the emergency department was unremarkable blood sugars have been well-controlled with a hemoglobin A1c of 6.8. He underwent a mental health evaluation and was deemed appropriate for voluntary inpatient psychiatric management. He is agreeable. He has been held on the medical surgical unit holding area with no behavioral disturbances. Medically he remained stable with stable vital signs he has been eating and drinking. Case management has also been following his case and he has been accepted at [facility]. He will be transported by ground transportation for inpatient psychiatric admission. Discharge is discussed with Dr. Márquez Home Meds and New Rx's Prescriptions: Continued acetaminophen 325 mg capsule 650 mg PO Q4H PRN PRN trazodone 50 mg tablet 50 mg PO HS olanzapine [Zyprexa] 20 mg tablet 20 mg PO HS rosuvastatin 40 mg tablet 40 mg PO DAILY Trulicity 1.5 mg/0.5 mL pen injector 1.5 mg SUBCUT QWEEK Patient Comments: INJECT 0.5 ML SUBCUTANEOUSLY EVERY WEEK amlodipine 5 mg tablet 5 mg PO DAILY Patient Comments: Takes at 3 pm Humulin N NPH U-100 Insulin 100 UNIT/ML suspension 0 unit SQ HS Rx Instructions: Inject 20-40 units once a day diazepam [Valium] 2 mg tablet 2 mg PO BID benztropine 2 mg tablet 2 mg PO BID Patient Comments: TAKE ONE TABLET BY MOUTH TWICE A DAY divalproex 500 mg tablet extended release 24 hr See Rx Instructions .ROUTE .COMPLEX Patient Comments: TAKE TWO TABLETS BY MOUTH TWICE A DAY Rx Instructions: Take 1000 mg in the AM and 1000 mg at night albuterol sulfate 90 mcg/actuation HFA aerosol inhaler 2 inh INHALATION Q6H PRN PRN Patient Comments: INHALE 2 PUFFS EVERY 4 TO 6 HOURS NEEDED insulin aspart U-100 [Novolog FlexPen U-100 Insulin] 100 unit/mL (3 mL) insulin pen 0 unit SUBCUT DIRECTED Patient Comments: INJECT UNDER THE SKIN PER SLIDING SCALE BEFORE MEALS +MAX DOSE 60 UNITS PER DAY+ REPALCES HUMALOG Rx Instructions: Inject subq before meals per sliding scale. Max dose 60 units/day aspirin 81 mg tablet,chewable 81 mg PO DAILY Patient Comments: CHEW ONE TABLET BY MOUTH EVERY DAY metformin 1,000 mg tablet 1,000 mg PO BID Patient Comments: TAKE ONE TABLET BY MOUTH TWICE A DAY Stiolto Respimat 2.5-2.5 mcg/actuation Mist 2 puff inhalation DAILY Qty: 1 0RF Discontinued prednisone 20 mg tablet 20 mg PO DAILY Qty: 10 0RF Patient Comments: RX complete 05/13/23 CT Discharge Instructions Instructions: Psychotic Disorder (DC) Activity:: Activity as Tolerated Equipment/Supplies:: No Equipment Needed Diet:: Carb Counting Discharge Orders Discharge Orders: Discharge Order (Routine); Ordered 05/14/23 Ordered By: Karena Noguera DS: Summary Time Spent with Patient providing and/or coordinating discharge services: Less than 30 minutes Status at Discharge Functional status at discharge: independent ambulation Overall status at discharge: patient is not back to baseline Mental Status: other Speech and Movement: speech and movement normal Mood: paranoid and other Affect: blunted Exam Const Nutritional Appearance: average body habitus Orientation: alert and awake HENNY Head: normal to inspection, normocephalic and atraumatic Mouth: oral mucosae normal Chest Chest: normal inspection of the chest Resp Effort & Inspection: normal respiratory effort Cardio Rate: regular rate Rhythm: regular rhythm GI Inspection: normal to inspection Palpation: soft Neuro General: patient alert and patient awake Extrem General: normal to inspection, full ROM and no pedal edema Psych Mental Status: other Speech and Movement: speech and movement normal Mood: paranoid and other Affect: blunted DS: Data Vitals/I&O Vitals and I&O: Vital Signs Temperature 36.4 C L 05/14/23 07:42 Temperature Source Tympanic 05/14/23 07:42 Pulse 71 05/14/23 07:42 Pulse Rhythm Regular 05/14/23 08:05 Respiratory Rate 17 05/14/23 07:42 Respiratory Effort Normal, Non-Labored 05/14/23 08:05 Respiratory Depth Normal 05/14/23 08:05 Respiratory Pattern Normal 05/14/23 08:05 Blood Pressure 152/73 H 05/14/23 07:42 Blood Pressure Position Sitting 05/13/23 17:17 Pulse Oximetry 95 05/14/23 07:42 Oxygen Delivery Method Room Air 05/14/23 07:42 Oxygen Flow Rate 0 05/14/23 07:42 Pain Level 3 05/13/23 21:10 Intake & Output 05/13/23 05/13/23 05/14/23 11:59 23:59 11:59 Intake Total 230 / 230 Balance 230 / 230 Weight 84.6 kg Intake: Oral 230 / 230 Data Completed and Pending Labs on day of discharge: Labs from last 24 hours 05/14/23 05/14/23 05/13/23 07:20 07:20 18:57 WBC 7.98 RBC 5.20 Hgb 13.9 Hct 41.6 MCV 80 MCH 26.7 L MCHC 33.4 RDW 14.8 H Plt Count 142 MPV 7.9 L Immature Gran % 0.3 Neutrophils % 47.7 Lymphocytes % 41.5 Monocytes % 7.4 Eosinophils % 2.6 Basophils % 0.5 Nucleated RBC % 0.0 Absolute Neutrophils 3.81 Absolute Lymphocytes 3.31 Absolute Monocytes 0.59 Absolute Eosinophils 0.21 Absolute Basophils 0.04 Sodium Potassium Chloride Carbon Dioxide Anion Gap BUN Creatinine Est GFR (CKD-EPI 2020) Glucose Hemoglobin A1c 6.8 H Calcium Total Bilirubin AST ALT Alkaline Phosphatase Total Protein Albumin TSH Salicylates Urine Opiates Screen Urine Methadone Screen Acetaminophen Ur Barbiturates Screen Valproic Acid 113.1 Ur Tricyclics Screen Ur Amphetamines Screen U Benzodiazepines Scrn Urine Cocaine Screen Ur THC Screen Ethyl Alcohol 05/13/23 05/13/2305/13/23 18:57 18:57 18:35 WBC RBC Hgb Hct MCV MCH MCHC RDW Plt Count MPV Immature Gran % Neutrophils % Lymphocytes % Monocytes % Eosinophils % Basophils % Nucleated RBC % Absolute Neutrophils Absolute Lymphocytes Absolute Monocytes Absolute Eosinophils Absolute Basophils Sodium 142 Potassium 4.0 Chloride 104 Carbon Dioxide 26.0 Anion Gap 12.0 H BUN 9 Creatinine 0.8 Est GFR (CKD-EPI 2020) 100.06 Glucose 112 H Hemoglobin A1c Calcium 9.8 Total Bilirubin 0.4 AST 14 L ALT 17 Alkaline Phosphatase 64 Total Protein 7.7 Albumin 3.7 TSH 1.72 Salicylates 3.5 Urine Opiates Screen Negative Urine Methadone Screen Negative Acetaminophen < 2 Ur Barbiturates Screen Negative Valproic Acid Ur Tricyclics Screen Negative Ur Amphetamines Screen Negative U Benzodiazepines Scrn Positive A Urine Cocaine Screen Negative Ur THC Screen Negative Ethyl Alcohol < 3.0 PFSH All Active Problems DVT prophylaxis (Acute) Discharge planning issues (Acute) Acute paranoia (Acute) Cough (Acute) Nicotine dependence, cigarettes, uncomplicated (Acute) Pleural effusion (Acute) Respiratory failure with hypoxia (Acute) COPD exacerbation (Acute) Type II diabetes mellitus (Acute) CAD (coronary artery disease) (Acute) Pneumonia (Acute) Hypoxia (Acute) Schizoaffective disorder (Acute 09/15/14) a. increased delusional thoughts b. depressed mood COPD (chronic obstructive pulmonary disease) (Acute) chronic tobacco use, but no symptoms Hypertension (Acute) Medical History Benign prostatic hypertrophy Chondromalacia of right patella Dental caries Encounter for Mahmood catheter replacement Internal derangement of right knee Obstructive uropathy Prostate irregularity Retinopathy a. due to diabetes type 2 Tobacco use disorder Tongue laceration Type II diabetes mellitus with ophthalmic manifestations Urinary hesitancy Surgical History History of heart artery stent S/P thoracentesis 03/2023 for persistent effusion after pneumonia Family History Other Family history unobtainable Social History Smoking/Tobacco Use Status: Current every day Tobacco Type: cigarettes Smoking risk assessment performed?: Yes Alcohol Intake: current Alcohol Intake frequency: holidays/special occasions only Alcohol type: beer Drug use: Never Substance use type: does not use Housing: other Current gender identity: male Do you feel safe at home: Yes Do you feel safe in your relationship?: Yes Additional Social history: 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
[2023-05-14] MEDS: Insulin Aspart 300 UNITS/3 ML PEN SC (11:53)
--- NOTE | 2023-05-14 14:18 | PDOC.CMDIS ---
Date of service: 05/14/23 Time of Service: 14:18 LACE Index Scoring Tool Questions: Length of Stay (in days): 1 Was the patient admitted via the E.D.?: Yes Comorbidities: Chronic Pulmonary Disease E.D. Visits: 4 Answers: Total Score: 10 Risk of Readmission: High Risk Care Management Discharge Plan Reason for Hospitalization: Paranoia Discharge Plan: Kel is accepted by [facility] for a voluntary psychiatric hospitalization for mood stabilization. He will follow up with his PCP, [facility] [employer] team, and plan of care as instructed upon his discharge from the [facility]. [employer] provide transportation to [place]. Services Needed at Discharge: Psychiatric Facility MH Services (Omit if N/A) Current MH Services: [employer] Disposition Disposition: [place] Transport via of: EMS ([facility] [employer]
--- NOTE | 2023-05-15 05:52 | PDOC.MHCN ---
Date of service: 05/13/23 Time of Service: 17:34 PHQ-9 Over the last 2 weeks, how often have you been bothered by any of the following problems? 1. Little interest or pleasure in doing things: not at all 2. Feeling down, depressed, or hopeless: not at all 3. Trouble falling or staying asleep, or sleeping too much: nearly every day 4. Feeling tired or having little energy: not at all 5. Poor appetite or overeating: not at all 6. Feeling bad about yourself - or that you are a failure or have let yourself and your family down: not at all 7. Trouble concentrating on things, such as reading the newspaper or watching television: not at all 8. Moving or speaking so slowly that other people could have noticed? - Or the opposite - being so fidgety or restless that you have been moving around a lot more than usual: not at all 9. Thoughts that you would be better off or of hurting yourself in some way: not at all Total score: 3 If you checked off any problems, how difficult have these problems made it for you to do your work, take care of things at home, or get along with other people?: somewhat difficult Source: Developed by Drs. Jeffrey Lee, Maria De Jesus Zapata, Nj Pascual and colleagues, with an educational eliseo from [employer] Suicide Severity Rate CSSRS Have you wished you were or wished you could go to sleep and not wake up?: No Have you actually had any thoughts of killing yourself?: No CSSRS2 Have you been thinking about how you might do this?: No Have you had these thoughts and had some intention of acting on them?: No Have you started to work out or worked out the details of how to kill yourself? 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 Non Suicidal Self Injury Current: No History: No Safety Risk/Harm to Self or Others Current Ideation to Harm Self or Others: No Risk: Does risk to harm exist?: No Risk: Low Risk Duty to warn indicated: No Asssessment/Mental Status Appearance: Unremarkable Attitude: Cooperative and Friendly Behavior: Unremarkable Speech: Normal and Other (fast) Affect: Normal Mood: Other (Calm) Thought process: Loose associations and Poverty of content Hallucinations: yes, Visual and Auditory Delusions: yes, Grandiose and Bizarre Attention: Wandering Perception: Not impaired Orientation: Fully orientated Memory: Intact Insight: Good Judgement: Good Neurovegetative Symptoms Sleep: Decrease Appetitie: No change Interests: No change Energy: No change Libido: Not applicable Substance Use: Other (No) Drug Issues: Other (No) Do you use nicotine?: Yes Have you used substances in the last 7 days?: yes, Nicotine everyday Impression Client presented to the ED at [facility] 05/13 seeking voluntary treatment for his mental health. Client was screened and assessed client appears to be suffering from several different delusions involving his living situation neighbors and money. In addition, client also reported experiencing visual and auditory hallucinations as he has not been sleeping well due to his delusions. Client was not expressing SI or HI at this time. Play had a hard time focusing on questions and was experiencing loose association along with the flight of ideas when it came to his thought process. Client's appearance was unremarkable and his behavior was cooperative and friendly. Client will remain at [facility] until placement is opened at an inpatient treatment facility to help support the client get better stabilization of his medications and sleep. Plan/Disposition Recommended Disposition: Hospitalization facilities contacted. Reports/communication Outcome discussed with: ED/Personnel
== END 2023-05-14 14:57 | DRG 885 ==
LOC: ER 20:37 → MS 20:58
PROVIDERS: Admitting Provider Family Medicine; Emergency Provider Student in an Organized Health Care Education/Training Program; PCP Physician Assistant Medical; Visit Provider Family Medicine
DX: F25.0 Schizoaffective disorder, bipolar type (principal); N13.8 Other obstructive and reflux uropathy; F22 Delusional disorders; J44.9 Chronic obstructive pulmonary disease, unspecified; I25.10 Atherosclerotic heart disease of native coronary artery without angina pectoris; E11.9 Type 2 diabetes mellitus without complications; I10 Essential (primary) hypertension; F17.210 Nicotine dependence, cigarettes, uncomplicated; Z79.899 Other long term (current) drug therapy; Z79.4 Long term (current) use of insulin; Z95.5 Presence of coronary angioplasty implant and graft; N40.1 Benign prostatic hyperplasia with lower urinary tract symptoms
CPT/HCPCS: 36416; 80053; 80307; 82962; 94640; 99285; 80164; 80320; 80329; 83036; 84443; 85025; 94664; 99238

== ENCOUNTER 2023-06-07 14:27 | Emergency (ER) | payer MEDICARE, MEDICAID, SELFPAY ==
[2023-06-07 14:38] VITALS: BP 181/95; PULSE 79; RESP 18; TEMP 36.5; O2SAT 97
--- NOTE | 2023-06-07 15:01 | W.ED.GENAD ---
Discharge Plan Disposition Patient Disposition: Home Condition: Stable Discharge Details Clinical Impression: Dental abscess Primary Care Provider: Rekha Keys ED Provider: Yamileth Mckenzie Home Meds and New Rx's Prescriptions: New clindamycin HCl 150 mg capsule 450 mg PO TID 8 Days Qty: 72 0RF Continued acetaminophen 325 mg capsule 650 mg PO Q4H PRN PRN trazodone 50 mg tablet 50 mg PO HS olanzapine [Zyprexa] 20 mg tablet 20 mg PO HS rosuvastatin 40 mg tablet 40 mg PO DAILY Trulicity 1.5 mg/0.5 mL pen injector 1.5 mg SUBCUT QWEEK Patient Comments: INJECT 0.5 ML SUBCUTANEOUSLY EVERY WEEK amlodipine 5 mg tablet 5 mg PO DAILY Patient Comments: Takes at 3 pm Humulin N NPH U-100 Insulin 100 UNIT/ML suspension 0 unit SQ HS Rx Instructions: Inject 20-40 units once a day diazepam [Valium] 2 mg tablet 2 mg PO BID benztropine 2 mg tablet 2 mg PO BID Patient Comments: TAKE ONE TABLET BY MOUTH TWICE A DAY divalproex 500 mg tablet extended release 24 hr See Rx Instructions .ROUTE .COMPLEX Patient Comments: TAKE TWO TABLETS BY MOUTH TWICE A DAY Rx Instructions: Take 1000 mg in the AM and 1000 mg at night albuterol sulfate 90 mcg/actuation HFA aerosol inhaler 2 inh INHALATION Q6H PRN PRN Patient Comments: INHALE 2 PUFFS EVERY 4 TO 6 HOURS NEEDED insulin aspart U-100 [Novolog FlexPen U-100 Insulin] 100 unit/mL (3 mL) insulin pen 0 unit SUBCUT DIRECTED Patient Comments: INJECT UNDER THE SKIN PER SLIDING SCALE BEFORE MEALS +MAX DOSE 60 UNITS PER DAY+ REPALCES HUMALOG Rx Instructions: Inject subq before meals per sliding scale. Max dose 60 units/day aspirin 81 mg tablet,chewable 81 mg PO DAILY Patient Comments: CHEW ONE TABLET BY MOUTH EVERY DAY metformin 1,000 mg tablet 1,000 mg PO BID Patient Comments: TAKE ONE TABLET BY MOUTH TWICE A DAY Discharge Instructions Instructions: Dental Abscess (ED) Additional Instructions: Please take the antibiotic 3 times daily as prescribed. Wash out your mouth after eating or drinking anything. Apply the topical anesthetic as directed. Please follow-up with a dentist in the next 3 to 5 days. Return to the ER for any worsening facial swelling, fever chills, headache. Consider quitting or decreasing smoking as this will impact your teeth. Follow up with primary care provider in 3-5 days. Return to ED sooner if any worsening or concerns. Increase oral fluids. Please take Tylenol or Ibuprofen with food every 4-6 hours as needed for pain and swelling. Referrals: Rekha Keys PA [Primary Care Provider] - Return if symptoms worsen Discharge Data Discharge Date/Time-TO BE ENTERED AT DEPARTURE: 06/07/23 15:25 Medical Decision Making 62-year-old male with past medical history COPD, hypertension, coronary artery disease type 2 diabetes presents with some right-sided facial swelling and right upper tooth pain which began approximately 3 to 4 days ago. He reports that he has had some discharge expressed states that he does see a dentist in [place] and will call them first thing Thursday. He does have poor dentition and he is a daily smoker. He reports he has had an abscess in the past. He is speaking in full sentences no trismus noted denies any ear pain or nose pain no fever chills or any other associated symptoms. EOMs are intact. Discussed options with patient including incision and drainage at this time patient declined and would like antibiotics and follow-up with dentist. I did discuss strict return instructions with him including to return for any worsening swelling, fever chills, headache or feeling worse at any time he verbalizes understanding. At this time he reports that there has been some drainage which is reassuring. We will give clindamycin 4 mg 3 times daily first dose given here in the department and benzocaine topical gel for anesthetic. This text was generated using [employer] dictation system, please disregard any oddities of phrase or misspellings. Medical Records Medical records reviewed: Yes I reviewed the patient's medical records. HPI General Mode of arrival: ambulatory. Date/Time Provider Initiated Documentation: 06/07/23 14:52. Limitations to Documentation: no limitations. Information obtained by: patient, RN notes reviewed and old records reviewed. HPI Narrative: 62-year-old male with past medical history COPD, hypertension, coronary artery disease type 2 diabetes presents with some right-sided facial swelling and right upper tooth pain which began approximately 3 to 4 days ago. He reports that he has had some discharge expressed states that he does see a dentist in [place] and will call them first thing Carolyne morning. He does have poor dentition and he is a daily smoker. He reports he has had an abscess in the past. He is speaking in full sentences no trismus noted denies any ear pain or nose pain no fever chills or any other associated symptoms. EOMs are intact. Related Data Home Medications Medication Instructions Recorded Confirmed insulin NPH isoph U-100 human 100 0 unit SQ HS 11/20/16 06/07/23 unit/mL subcutaneous suspension (Humulin N NPH U-100 Insulin (isophane susp)) diazepam 2 mg tablet (Valium) 2 mg PO BID 07/12/21 06/07/23 dulaglutide 1.5 mg/0.5 mL 1.5 mg subcut QWEEK 08/07/21 06/07/23 subcutaneous pen injector (Trulicity) rosuvastatin 40 mg tablet 40 mg PO DAILY 10/02/21 06/07/23 acetaminophen 325 mg capsule 650 mg PO Q4H PRN PRN 11/06/21 06/07/23 benztropine 2 mg tablet 2 mg PO BID 11/08/21 06/07/23 divalproex 500 mg tablet,extended See Rx Instructions .Route .COMPLEX 11/08/21 06/07/23 release 24 hr albuterol sulfate 90 mcg/actuation 2 inh inhalation Q6H PRN PRN 12/12/21 06/07/23 aerosol inhaler olanzapine 20 mg tablet (Zyprexa) 20 mg PO HS 03/12/22 06/07/23 trazodone 50 mg tablet 50 mg PO HS 03/12/22 06/07/23 aspirin 81 mg chewable tablet 81 mg PO DAILY 02/17/23 06/07/23 insulin aspart U-100 100 unit/mL 0 unit subcut DIRECTED 02/17/23 06/07/23 (3 mL) subcutaneous pen (Novolog FlexPen U-100 Insulin aspart) metformin 1,000 mg tablet 1,000 mg PO BID 02/17/23 06/07/23 amlodipine 5 mg tablet 5 mg PO DAILY 05/13/23 06/07/23 clindamycin HCl 150 mg capsule 450 mg PO TID 8 days #72 caps 06/07/23 Previous Rx's Medication Instructions Recorded clindamycin HCl 150 mg capsule 450 mg PO TID 8 days #72 caps 06/07/23 Allergies Allergy/AdvReac Type Severity Reaction Status Date / Time Penicillins Allergy Mild Skin Rash Verified 04/03/23 06:44 ARB-Angiotensin Receptor Allergy Verified 04/03/23 06:44 Antagonist clopidogrel [From Plavix] Allergy Verified 04/03/23 06:44 Sulfa (Sulfonamide Allergy Verified 04/03/23 06:44 Antibiotics) JOSE Inhibitors AdvReac Severe Verified 04/03/23 06:44 General Stated Complaint: DentalOral HALLIE: 4 Review of Systems All systems reviewed & are unremarkable except as noted in HPI and below Constitutional Constitutional: Denies chills and Denies fever(s) ENT Ears, Nose, Mouth, and Throat: Reports as per HPI, Reports dental pain, Denies dizziness, Denies otalgia, Reports facial pain (Right sided facial swelling), Denies hoarseness, Denies lip swelling, Denies sinus pain, Denies sinus pressure, Denies sore throat and Denies throat swelling Neurologic Neurologic: Denies dizziness Allergic/Immunologic Allergic/Immunologic: Denies lip swelling and Denies throat swelling PFSH All Active Problems (Updated 06/07/23 @ 15:15 by Yamileth Mckenzie NP) Dental abscess (Acute) Acute paranoia (Acute) Cough (Acute) Nicotine dependence, cigarettes, uncomplicated (Acute) Pleural effusion (Acute) Respiratory failure with hypoxia (Acute) COPD exacerbation (Acute) Type II diabetes mellitus (Acute) CAD (coronary artery disease) (Acute) Pneumonia (Acute) Hypoxia (Acute) Schizoaffective disorder (Acute 09/15/14) a. increased delusional thoughts b. depressed mood COPD (chronic obstructive pulmonary disease) (Acute) chronic tobacco use, but no symptoms Hypertension (Acute) Medical History Benign prostatic hypertrophy Chondromalacia of right patella Dental caries Encounter for Mahmood catheter replacement Internal derangement of right knee Obstructive uropathy Prostate irregularity Retinopathy a. due to diabetes type 2 Tobacco use disorder Tongue laceration Type II diabetes mellitus with ophthalmic manifestations Urinary hesitancy Surgical History History of heart artery stent S/P thoracentesis 03/2023 for persistent effusion after pneumonia Family History Other Family history unobtainable Social History Smoking/Tobacco Use Status: Current every day Tobacco Type: cigarettes Smoking risk assessment performed?: Yes Alcohol Intake: former Drug use: Never Substance use type: does not use Housing: other Current gender identity: male Do you feel safe at home: Yes Do you feel safe in your relationship?: Yes Additional Social history: 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 Right sided facial swelling Teeth image: 1. Eroded dental caries with surrounding gingival erythema and swelling. 2. Tenderness, no area of obvious fluctuance. Throat: posterior oropharynx normal, tonsils normal and uvula midline Course Vital Signs Vital signs: Vital Signs Temperature 36.5 C 06/07/23 14:38 Pulse 79 06/07/23 14:38 Respiratory Rate 18 06/07/23 14:38 Blood Pressure 181/95 H 06/07/23 14:38 Pulse Oximetry 97 06/07/23 14:38 Temperature 36.5 C 06/07/23 14:38 Temperature Source Oral 06/07/23 14:38 Pulse 79 06/07/23 14:38 Respiratory Rate 18 06/07/23 14:38 Respiratory Effort Normal, Non-Labored 06/07/23 14:42 Blood Pressure 181/95 H 06/07/23 14:38 Blood Pressure Position Sitting 06/07/23 14:38 Pulse Oximetry 97 06/07/23 14:38 Oxygen Delivery Method Room Air 06/07/23 14:38 Oxygen Flow Rate 0 06/07/23 14:38 Pain Level 10 06/07/23 14:38
[2023-06-07] MEDS: Benzocaine 20% Gel 30 GM JAR MM (15:10)
[2023-06-07] MEDS: Clindamycin 150 MG CAP 450 MG PO (15:10)
[2023-06-07] MEDS: Clindamycin 150 MG CAP, 12 CAPS/BTL 450 MG PO (15:10)
[2023-06-07 15:24] VITALS: BP 178/89; PULSE 82; RESP 16; O2SAT 98
--- NOTE | 2023-06-08 10:54 | NUR.NOTE ---
Nursing Note: Accessed pt chart to determiine prescription for patient. Was sent to [facility] in [facility]. Pt told this and to try the pharmacy for it.
== END 2023-06-07 15:25 | disposition home or self-care (01) ==
PROVIDERS: Emergency Provider Registered Nurse Emergency; PCP Physician Assistant Medical
DX: K08.89 Other specified disorders of teeth and supporting structures (principal); F17.200 Nicotine dependence, unspecified, uncomplicated; K04.7 Periapical abscess without sinus; E11.9 Type 2 diabetes mellitus without complications
CPT/HCPCS: 99283

== ENCOUNTER → 2023-08-12 00:40 | Outpatient (CLI) | payer MEDICARE, SELFPAY ==
--- NOTE | 2023-08-12 | DI.CT_ITS ---
Exam(s) CT CHEST W EXAM: CT CHEST W CLINICAL HISTORY: PLEURAL EFFUSION,J90 TECHNIQUE: Imaging Protocol: Axial computed tomography images with coronal and sagittal reformatted images were created and reviewed CONTRAST MATERIAL: Intravenous: Omnipaque 350Contrast volume:70 mL. COMPARISON: CT CT CHEST WO from 03/16/2023 FINDINGS: Tracheobronchial tree: Patent where visualized. Pulmonary parenchyma: No consolidation or dominant measurable mass. No architectural distortion. Calc ified granuloma are present. Mediastinum and Ailyn: Stable lymph nodes in the mediastinum and axilla. The esophagus is unremarkabl e. Thyroid gland: Unremarkable. Pleura: No effusion or pneumothorax. The left pleural effusion has resolved. Heart: The heart is not dilated. Coronary artery calcification and/or stents are present. No pericar dial effusion. Aorta: Thoracic aorta non-dilated. Atherosclerosis. Pulmonary arteries: Pulmonary emboli cannot be evaluated on this examination due to the timing of the bolus. Upper abdomen: Unremarkable. Lymph nodes: Within normal limits. Bones: Within normal limits for the patient's age. There is a stable old L2 compression fracture def ormity. There is old stable deformity of the sternum. Soft tissues: Unremarkable. IMPRESSION: 1. Interval resolution of the left pleural effusion. No pleural effusion is seen. 2. No acute pulmonary process. RADIATION DOSE DELIVERED: Total DLP DATA REPOSITORY: All CT scans at this facility are submitted to the National Radiology Data Registry (NRDR) Dose Index Registry (DIR) with the [employer] (A[employer]). RADIATION OPTIMIZATION: All CT scans at this facility use at least one of these dose optimization te chniques: automated exposure control; mA and/or kV adjustment per patient size (includes targeted exa ms where dose is matched to clinical indication); or iterative reconstruction.
[2023-08-12 13:22] LABS: Estimated GFR 84.57 (mL/min/1.73m2)
[2023-08-12] MEDS: Normal Saline - Diluent 50 ML VIAL IJ (13:44)
[2023-08-12] MEDS: Normal Saline Flush 10 ML SYR IVP (13:44)
[2023-08-12] MEDS: Omnipaque 350 MG/ML 500 ML BTL-Imaging package IJ (13:45)
== END ==
PROVIDERS: PCP Physician Assistant Medical; Visit Provider Physician Assistant Medical
DX: J90 Pleural effusion, not elsewhere classified (principal)
CPT/HCPCS: 71260; 82565

== ENCOUNTER 2023-09-04 09:43 | Emergency (ER) | payer MEDICARE, SELFPAY ==
[2023-09-04 09:45] VITALS: BP 162/74; PULSE 78; RESP 18; TEMP 36.5; O2SAT 98
--- NOTE | 2023-09-04 10:01 | W.ED.GENAD ---
Discharge Plan Disposition Patient Disposition: Home Condition: Stable Discharge Details Clinical Impression: Hematuria Primary Care Provider: Rekha Keys ED Provider: Yamileth Mckenzie Home Meds and New Rx's Prescriptions: Continued acetaminophen 325 mg capsule 650 mg PO Q4H PRN PRN trazodone 50 mg tablet 50 mg PO HS olanzapine [Zyprexa] 20 mg tablet 20 mg PO HS rosuvastatin 40 mg tablet 40 mg PO DAILY Trulicity 1.5 mg/0.5 mL pen injector 1.5 mg SUBCUT QWEEK Patient Comments: INJECT 0.5 ML SUBCUTANEOUSLY EVERY WEEK amlodipine 5 mg tablet 5 mg PO DAILY Patient Comments: Takes at 3 pm Stiolto Respimat 2.5-2.5 mcg/actuation mist 2 puff inhalation DAILY Humulin N NPH U-100 Insulin 100 UNIT/ML suspension 0 unit SQ HS Rx Instructions: Inject 20-40 units once a day diazepam [Valium] 2 mg tablet 2 mg PO BID benztropine 2 mg tablet 2 mg PO BID Patient Comments: TAKE ONE TABLET BY MOUTH TWICE A DAY divalproex 500 mg tablet extended release 24 hr See Rx Instructions .ROUTE .COMPLEX Patient Comments: TAKE TWO TABLETS BY MOUTH TWICE A DAY Rx Instructions: Take 1000 mg in the AM and 1000 mg at night albuterol sulfate 90 mcg/actuation HFA aerosol inhaler 2 inh INHALATION Q6H PRN PRN Patient Comments: INHALE 2 PUFFS EVERY 4 TO 6 HOURS NEEDED insulin aspart U-100 [Novolog FlexPen U-100 Insulin] 100 unit/mL (3 mL) insulin pen 0 unit SUBCUT DIRECTED Patient Comments: INJECT UNDER THE SKIN PER SLIDING SCALE BEFORE MEALS +MAX DOSE 60 UNITS PER DAY+ REPALCES HUMALOG Rx Instructions: Inject subq before meals per sliding scale. Max dose 60 units/day aspirin 81 mg tablet,chewable 81 mg PO DAILY Patient Comments: CHEW ONE TABLET BY MOUTH EVERY DAY metformin 1,000 mg tablet 1,000 mg PO BID Patient Comments: TAKE ONE TABLET BY MOUTH TWICE A DAY Discharge Instructions Instructions: Hematuria (ED) Additional Instructions: At this time no evidence of urinary tract infection. You do have some blood in your urine. Please follow-up with your primary care provider and or urology. You have been placed on care management list to assist you in getting a follow-up appointment with urology clinic here. Follow up with primary care provider in 3-5 days. Return to ED sooner if any worsening or concerns. Increase oral fluids. Referrals: Juan Jaramillo MD [ [facility] STAFF PHYSICIAN] - 1 week Rekha Keys PA [Primary Care Provider] - 5 days Discharge Data Discharge Date/Time-TO BE ENTERED AT DEPARTURE: 09/04/23 11:14 Medical Decision Making 63-year-old male presents to the ER with a chief complaint of dysuria and hematuria which began 2 days ago. Denies any flank pain, fever nausea vomiting diarrhea or abdominal pain. He does report dripping blood at the end of the stream. Denies any concerns for STDs no lesions drainage or masses noted. He has no other complaints. He does note that some people in the house that he is staying with are tested COVID-positive. He has no complaints of shortness of breath headache or any URI type symptoms. CBC shows no leukocytosis, sodium 135 glucose 174 urinalysis shows trace ketones large blood 20-50 RBCs negative for leukocytes nitrites, moderate epithelial cells few bacteria squamous contamination culture is not indicated at this time. Glucose is 500 At this time will refer patient back to urology when she has been seen for it [facility] approximately a year ago. I will refer him to the urology clinic here at [facility] for further care and/or his PCP. This text was generated using [employer] dictation system, please disregard any oddities of phrase or misspellings. Patient remained hemodynamically stable throughout the remainder of her stay. Medical Records Medical records reviewed: Yes I reviewed the patient's medical records. Lab Data Lab results reviewed: Yes I reviewed the patient's lab results. Labs: Laboratory Tests Range/Units 09/04/23 09/04/23 10:06 10:15 WBC (4.4-10.8) 10^3/uL 9.57 RBC (4.36-5.78) 10^6/uL 5.03 Hgb (13.5-17.5) g/dL 13.9 Hct (40.0-50.0) % 41.4 MCV (80-95) fL 82 MCH (27.0-33.0) pg 27.6 MCHC (32.0-36.0) % 33.6 RDW (11.8-14.1) % 14.2 H Plt Count (130-400) 10^3/uL 146 MPV (8.0-11.0) fL 8.4 Sodium (136-145) mmol/L 135 L Potassium (3.5-5.1) mmol/L 4.3 Chloride (98-107) mmol/L 100 Carbon Dioxide (21.0-32.0) mmol/L 27.6 Anion Gap (3-11) mmol/L 7.4 BUN (7-18) mg/dL 17 Creatinine (0.70-1.30) mg/dL 0.9 Est GFR (CKD-EPI 2020) (mL/min/1.73m2) 95.97 Glucose (74-106) mg/dL 174 H Calcium (8.5-10.1) mg/dL 9.1 Total Bilirubin (0.2-1.0) mg/dL 0.4 AST (15-37) U/L 13 L ALT (16-63) U/L 20 Alkaline Phosphatase (46-116) U/L 58 Total Protein (6.4-8.2) g/dL 7.3 Albumin (3.4-5.0) g/dL 3.5 Urine Color (Yellow) Yellow Urine Clarity (Clear) Clear Urine pH (5-8) 6.0 Ur Specific [place] (1.005-1.025) 1.020 Urine Protein (Negative) mg/dL 30 H Urine Ketones (Negative) mg/dL Trace H Urine Blood (Negative) Large H Urine Nitrite (Negative) Negative Urine Bilirubin (Negative) Negative Urine Urobilinogen (Up to 0.2) mg/dL 0.2 Ur Leukocyte Esterase (Negative) Negative Urine RBC (0-2) HPF 20-50 H Urine WBC (0-5) HPF 0-2 Ur Epithelial Cells (Negative) HPF Moderate Urine Crystals (Negative) HPF Negative Urine Bacteria (Negative) HPF Few Urine Casts (Negative) LPF Negative Urine Mucus (Negative) Trace Ur Culture Indicated? No/Sq. Contamination Urine Glucose (Negative) mg/dL 500 H HPI General Mode of arrival: ambulatory. Date/Time Provider Initiated Documentation: 09/04/23 09:47. Limitations to Documentation: no limitations. Information obtained by: patient, RN notes reviewed and old records reviewed. HPI Narrative: 63-year-old male with past medical history of COPD, type 2 diabetes mellitus hypercholesterolemia, anxiety paranoia hypertension hyperlipidemia presents to the ER with a chief complaint of hematuria which she describes as frequency dysuria with dripping of blood.. He does live at a correction where there is COVID-positive people however he has no symptoms of upper respiratory. Related Data Home Medications Medication Instructions Recorded Confirmed insulin NPH isoph U-100 human 100 0 unit SQ HS 11/20/16 09/04/23 unit/mL subcutaneous suspension (Humulin N NPH U-100 Insulin (isophane susp)) diazepam 2 mg tablet (Valium) 2 mg PO BID 07/12/21 09/04/23 dulaglutide 1.5 mg/0.5 mL 1.5 mg subcut QWEEK 08/07/21 09/04/23 subcutaneous pen injector (Trulicity) rosuvastatin 40 mg tablet 40 mg PO DAILY 10/02/21 09/04/23 acetaminophen 325 mg capsule 650 mg PO Q4H PRN PRN 11/06/21 09/04/23 benztropine 2 mg tablet 2 mg PO BID 11/08/21 09/04/23 divalproex 500 mg tablet,extended See Rx Instructions .Route .COMPLEX 11/08/21 09/04/23 release 24 hr albuterol sulfate 90 mcg/actuation 2 inh inhalation Q6H PRN PRN 12/12/21 09/04/23 aerosol inhaler olanzapine 20 mg tablet (Zyprexa) 20 mg PO HS 03/12/22 09/04/23 trazodone 50 mg tablet 50 mg PO HS 03/12/22 09/04/23 aspirin 81 mg chewable tablet 81 mg PO DAILY 02/17/23 09/04/23 insulin aspart U-100 100 unit/mL 0 unit subcut DIRECTED 02/17/23 09/04/23 (3 mL) subcutaneous pen (Novolog FlexPen U-100 Insulin aspart) metformin 1,000 mg tablet 1,000 mg PO BID 02/17/23 09/04/23 amlodipine 5 mg tablet 5 mg PO DAILY 05/13/23 09/04/23 tiotropium 2.5 mcg-olodaterol 2.5 2 puff inhalation DAILY 09/04/23 09/04/23 mcg/actuation mist for inhalation (Stiolto Respimat) Allergies Allergy/AdvReac Type Severity Reaction Status Date / Time Penicillins Allergy Mild Skin Rash Verified 09/04/23 10:32 ARB-Angiotensin Receptor Allergy Verified 09/04/23 10:32 Antagonist clopidogrel [From Plavix] Allergy Verified 09/04/23 10:32 Sulfa (Sulfonamide Allergy Verified 09/04/23 10:32 Antibiotics) JOSE Inhibitors AdvReac Severe Verified 09/04/23 10:32 General Stated Complaint: Urinary HALLIE: 3 Review of Systems All systems reviewed & are unremarkable except as noted in HPI and below Genitourinary Genitourinary: Reports hematuria, Reports dysuria and Reports urinary frequency Comments: Hematuria, frequency PFSH All Active Problems (Updated 09/04/23 @ 11:02 by Yamileth Mckenzie NP) Hematuria (Acute) Acute paranoia (Acute) Cough (Acute) Nicotine dependence, cigarettes, uncomplicated (Acute) Pleural effusion (Acute) Respiratory failure with hypoxia (Acute) COPD exacerbation (Acute) Type II diabetes mellitus (Acute) CAD (coronary artery disease) (Acute) Pneumonia (Acute) Hypoxia (Acute) Schizoaffective disorder (Acute 09/15/14) a. increased delusional thoughts b. depressed mood COPD (chronic obstructive pulmonary disease) (Acute) chronic tobacco use, but no symptoms Hypertension (Acute) Medical History Benign prostatic hypertrophy Chondromalacia of right patella Dental caries Encounter for Mahmood catheter replacement Internal derangement of right knee Obstructive uropathy Prostate irregularity Retinopathy a. due to diabetes type 2 Tobacco use disorder Tongue laceration Type II diabetes mellitus with ophthalmic manifestations Urinary hesitancy Surgical History History of heart artery stent S/P thoracentesis 03/2023 for persistent effusion after pneumonia Family History Other Family history unobtainable Social History Smoking/Tobacco Use Status: Current every day Tobacco Type: cigarettes Smoking risk assessment performed?: Yes Alcohol Intake: former Drug use: Never Substance use type: does not use Housing: other Current gender identity: male Do you feel safe at home: Yes Do you feel safe in your relationship?: Yes Additional Social history: 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 Exam Narrative Exam Narrative: Constitutional: Alert and oriented x3. Appears stated age. Normal body habitus. Head: Normocephalic, no trauma. Eyes: Pupils PERRL, Red reflex noted, EOM's intact. Eyelids symmetrical without lesions, discharge, or swelling. Chest: RRR, Normal S1, S2, distal pulses intact. Resp: Lungs clear to auscultation bilaterally, no wheezes, rales, or rhonchi. Abdomen: Soft, non-distended, Normoactive bowel sounds all 4 quads. Musculoskeletal: Normal gait, 5/5 strength to all four extremities. Skin: No suspicious rashes or lesions. Capillary refill less than 2 sec. Neurologic: Cranial nerves II-XII intact. Alert and oriented x 3. Motor: No deficits noted. Hematologic/Lymphatic: No ecchymosis, no lymphadenopathy. Course Vital Signs Vital signs: Vital Signs Temperature 36.5 C 09/04/23 09:45 Pulse 78 09/04/23 09:45 Respiratory Rate 18 09/04/23 09:45 Blood Pressure 162/74 H 09/04/23 09:45 Pulse Oximetry 98 09/04/23 09:45 Temperature 36.5 C 09/04/23 09:45 Temperature Source Oral 09/04/23 09:45 Pulse 78 09/04/23 09:45 Respiratory Rate 18 09/04/23 09:45 Respiratory Effort Normal 09/04/23 09:59 Blood Pressure 162/74 H 09/04/23 09:45 Blood Pressure Position Sitting 09/04/23 09:45 Pulse Oximetry 98 09/04/23 09:45 Oxygen Delivery Method Room Air 09/04/23 09:45 Oxygen Flow Rate 0 09/04/23 09:45
[2023-09-04 10:10] LABS: Bilirubin Negative (Negative); Blood Large (Negative); Clarity Clear (Clear); Glucose 500 mg/dL (Negative); Ketones Trace mg/dL (Negative); Leukocyte Esterase Negative (Negative); Nitrite Negative (Negative); Urobilinogen 0.2 mg/dL (Up to 0.2)
[2023-09-04 10:18] LABS: Bacteria Few HPF (Negative); Crystals Negative HPF (Negative); Epithelial Cells Moderate HPF (Negative); Mucus Trace (Negative); RBC 20-50 HPF (0-2); WBC 0-2 HPF (0-5)
[2023-09-04 10:19] LABS: C & S Indicated? No/Sq. Contamination; Casts Negative LPF (Negative)
[2023-09-04 10:34] LABS: HCT 41.4 % (40.0-50.0); HGB 13.9 g/dL (13.5-17.5); MCH 27.6 pg (27.0-33.0); MCHC 33.6 % (32.0-36.0); MCV 82 fL (80-95); MPV 8.4 fL (8.0-11.0); Platelet Count 146 10^3/uL (130-400); RBC 5.03 10^6/uL (4.36-5.78); RDW 14.2 % (11.8-14.1); WBC 9.57 10^3/uL (4.4-10.8)
[2023-09-04 10:53] LABS: ALT 20 U/L (16-63); AST 13 U/L (15-37); Albumin 3.5 g/dL (3.4-5.0); Alkaline Phosphatase 58 U/L (46-116); Anion Gap 7.4 mmol/L (3-11); BUN 17 mg/dL (7-18); Bilirubin, Total 0.4 mg/dL (0.2-1.0); CO2 27.6 mmol/L (21.0-32.0); CREATININE 0.9 mg/dL (0.70-1.30); Calcium 9.1 mg/dL (8.5-10.1); Chloride 100 mmol/L (98-107); Estimated GFR 95.97 (mL/min/1.73m2); Glucose 174 mg/dL (74-106); Potassium 4.3 mmol/L (3.5-5.1); Sodium 135 mmol/L (136-145); Total Protein 7.3 g/dL (6.4-8.2)
--- NOTE | 2023-09-04 10:58 | NUR.NOTE ---
Nursing Note:PT needs follow up in one week with [facility] Urology for hematuria. Connie, ED
[2023-09-04 11:13] VITALS: BP 155/68; PULSE 68; RESP 18; O2SAT 99
== END 2023-09-04 11:14 | disposition home or self-care (01) ==
PROVIDERS: Emergency Provider Registered Nurse Emergency; PCP Physician Assistant Medical
DX: R31.9 Hematuria, unspecified (principal); E11.319 Type 2 diabetes mellitus with unspecified diabetic retinopathy without macular edema; Z95.5 Presence of coronary angioplasty implant and graft; Z79.4 Long term (current) use of insulin; Z79.84 Long term (current) use of oral hypoglycemic drugs
CPT/HCPCS: 36415; 80053; 85027; 87426; 99283; 81003; 81015

== ENCOUNTER 2023-09-30 16:30 | Outpatient (REF) | payer MEDICARE, SELFPAY | END 2023-09-30 16:31 | disposition home or self-care (01) | LOC: NCHCN 16:30 | PROVIDERS: PCP Physician Assistant Medical; Visit Provider Physician Assistant Medical | DX: R31.9 Hematuria, unspecified (principal); R32 Unspecified urinary incontinence | CPT/HCPCS: 87077; 87086; 87186 ==

== ENCOUNTER 2023-10-09 10:12 | Outpatient (REF) | payer MEDICARE, SELFPAY ==
[2023-10-09 16:59] LABS: VALPROIC ACID 62.3 ug/mL
== END 2023-10-09 10:13 | disposition home or self-care (01) ==
LOC: LBN 10:12
PROVIDERS: PCP Physician Assistant Medical; Visit Provider Registered Nurse
DX: F25.8 Other schizoaffective disorders (principal); Z51.81 Encounter for therapeutic drug level monitoring; Z79.899 Other long term (current) drug therapy
CPT/HCPCS: 80164

== ENCOUNTER 2023-10-23 17:44 | Emergency (ER) | payer MEDICARE, SELFPAY ==
[2023-10-23 17:44] VITALS: BP 165/67; PULSE 80; RESP 16; TEMP 37; O2SAT 96
--- NOTE | 2023-10-23 18:49 | NUR.NOTE ---
valuables with security Nursing Note:
[2023-10-23] MEDS: Divalproex Sodium 500 MG TAB.ER.24H PO ×2 (19:55→20:16)
[2023-10-23] MEDS: traZODone 50 MG TAB PO (19:56)
[2023-10-23] MEDS: Benztropine 1 MG TAB 2 MG PO (20:16)
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
== END 2023-10-23 20:37 | disposition home or self-care (01) ==
PROVIDERS: Emergency Provider Physician Assistant; PCP Physician Assistant Medical
DX: Z63.8 Other specified problems related to primary support group; F25.9 Schizoaffective disorder, unspecified; Y04.2XXA Assault by strike against or bumped into by another person, initial encounter
CPT/HCPCS: 99281; 99283; J3490

== ENCOUNTER 2023-10-23 23:37 | Emergency (ER) | payer MEDICARE, SELFPAY ==
[2023-10-23 23:41] VITALS: BP 166/73; PULSE 81; RESP 16; TEMP 36.5; O2SAT 97
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
[2023-10-24 00:03] VITALS: BP 166/73; PULSE 81; RESP 16; TEMP 36.5; O2SAT 97
[2023-10-24 00:05] VITALS: RESP 16
== END 2023-10-23 23:58 | disposition home or self-care (01) ==
PROVIDERS: Emergency Provider Student in an Organized Health Care Education/Training Program; PCP Physician Assistant Medical
DX: T69.9XXA Effect of reduced temperature, unspecified, initial encounter (principal); J44.9 Chronic obstructive pulmonary disease, unspecified; F25.9 Schizoaffective disorder, unspecified
CPT/HCPCS: 99281; 99283

== ENCOUNTER 2023-11-20 12:03 | Outpatient (REF) | payer MEDICARE, SELFPAY ==
[2023-11-20 16:25] LABS: Anion Gap 9.1 mmol/L (3-11); BUN 17 mg/dL (7-18); CO2 26.9 mmol/L (21.0-32.0); CREATININE 0.9 mg/dL (0.70-1.30); Calcium 9.7 mg/dL (8.5-10.1); Chloride 104 mmol/L (98-107); Estimated GFR 95.97 (mL/min/1.73m2); Glucose 107 mg/dL (74-106); Potassium 4.3 mmol/L (3.5-5.1); Sodium 140 mmol/L (136-145)
[2023-11-20 17:30] LABS: Hemoglobin A1C 7.9 % (<5.7)
[2023-11-20 22:26] LABS: PSA, Diagnostic 0.6 ng/mL (<=4.5)
== END 2023-11-20 12:04 | disposition home or self-care (01) ==
LOC: NCHCN 12:03
PROVIDERS: PCP Physician Assistant Medical; Visit Provider Physician Assistant Medical
DX: E11.8 Type 2 diabetes mellitus with unspecified complications (principal); N42.9 Disorder of prostate, unspecified
CPT/HCPCS: 80048; 83036; 84153

== ENCOUNTER 2024-02-23 13:11 | Outpatient (REF) | payer MEDICARE, SELFPAY ==
[2024-02-23 16:04] LABS: ALT 19 U/L (16-63); AST 16 U/L (15-37); Albumin 3.5 g/dL (3.4-5.0); Alkaline Phosphatase 64 U/L (46-116); Anion Gap 6.1 mmol/L (3-11); BUN 15 mg/dL (7-18); Bilirubin, Total 0.3 mg/dL (0.2-1.0); CO2 28.9 mmol/L (21.0-32.0); Calcium 9.8 mg/dL (8.5-10.1); Calculated LDL 24 mg/dL (<100); Chloride 103 mmol/L (98-107); Cholesterol 87 mg/dL (<200); Estimated GFR 84.57 (mL/min/1.73m2); Glucose 201 mg/dL (74-106); HDL Cholesterol 39 mg/dL (40-60); Sodium 138 mmol/L (136-145); Triglyceride 123 mg/dL (<150)
== END 2024-02-23 13:12 | disposition home or self-care (01) ==
LOC: NCHCN 13:11
PROVIDERS: PCP Physician Assistant Medical; Visit Provider Physician Assistant Medical
DX: I25.10 Atherosclerotic heart disease of native coronary artery without angina pectoris (principal); E11.9 Type 2 diabetes mellitus without complications
CPT/HCPCS: 80053; 80061; 83036

== ENCOUNTER 2024-08-31 01:23 | Outpatient (CLI) | payer MEDICARE, SELFPAY ==
--- NOTE | 2024-08-31 13:18 | DI.CTLCSR_ITS ---
Exam(s) CT CHEST LUNG CANCER SCREEN EXAM: CT CHEST LUNG CANCER SCREEN CLINICAL HISTORY: NICOTINE DEPENDENCE F17.210 TECHNIQUE: Imaging Protocol: Axial computed tomography images with coronal and sagittal reformatted images were created and reviewed. Lung Computer Aided Detection (CAD) was utilized. COMPARISON: CT CT CHEST WO from 03/16/[address] CHEST W from 08/12/2023 FINDINGS: Tracheobronchial tree: Patent where visualized. No bronchiectasis. Pulmonary parenchyma: No consolidation or dominant measurable mass. No architectural distortion. Lung Nodules: There is a 2 mm nodule in the left lower lobe (series 2, image 132). There is a 3 mm n odule in the right upper lobe (series 2, image 73). Mediastinum and Ailyn: No dominant adenopathy or fluid collection. The esophagus is unremarkable. Thyroid gland: Unremarkable. Lymph nodes: Unremarkable. Pleura: No effusion or pneumothorax. Heart: The heart is not dilated. Coronary artery calcifications are present. No pericardial effusion . Aorta: Thoracic aorta non-dilated.Atherosclerotic calcification is present. Upper abdomen: Unremarkable. Soft Tissues: Unremarkable. Bones: Within normal limits. There is an old healed sternal fracture. IMPRESSION: Two pulmonary nodules as described above. The largest measures 3 mm. Lung RADS Cat 2 - Benign Appearance / Behavior: Nodules with a very low likelihood of becoming a clin ically active cancer due to size or lack of growth Lung-RADS 1.0 CATEGORIES: Category 0 - Prior chest CT exam(s) being located for comparison. Category 1 - Annual screening in 12 months. No nodules or definitely benign nodules. Category 2 - Annual screening in 12 months. Benign appearance. Nodules with low likelihood of becomin g active cancer. Category 3 - 6-month follow-up. Probably benign. Short-term follow-up suggested. Nodules with low lik elihood of becoming active cancer. Category 4A - 3-month follow-up and CT/PET if >8 mm in size. Suspicious finding. Findings which requi re additional testing. Category 4B - Findings which require additional testing and tissue sampling. Suspicious finding. Category 4X - Category 3 or 4 nodules with additional features or imaging findings that increases the suspicion of malignancy. Modifier S- Potentially clinically significant finding. (Non lung cancer) RADIATION DOSE DELIVERED: 33.13mGy.cm Total DLP 33.13mGy.cmTotal DLP DATA REPOSITORY: All CT scans at this facility are submitted to the National Radiology Data Registry (NRDR) Dose Index Registry (DIR) with the [employer] (A[employer]). RADIATION OPTIMIZATION: All CT scans at this facility use at least one of these dose optimization te chniques: automated exposure control; mA and/or kV adjustment per patient size (includes targeted exa ms where dose is matched to clinical indication); or iterative reconstruction.
== END 2024-08-31 01:43 ==
PROVIDERS: PCP Physician Assistant Medical; Visit Provider Physician Assistant Medical
DX: F17.210 Nicotine dependence, cigarettes, uncomplicated (principal); Z12.2 Encounter for screening for malignant neoplasm of respiratory organs; R91.8 Other nonspecific abnormal finding of lung field
CPT/HCPCS: 71271

== ENCOUNTER 2024-11-18 15:54 | Emergency (ER) | payer MEDICARE, SELFPAY ==
[2024-11-18 15:59] VITALS: BP 171/77; PULSE 93; RESP 23; TEMP 36.6; O2SAT 97
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
--- NOTE | 2024-11-18 16:15 | DI.RAD_ITS ---
Exam(s) XR CHEST 2V PA LATERAL EXAM: XR CHEST 2V PA LATERAL CLINICAL HISTORY: cough; PUI. TECHNIQUE: 2D digital imaging was performed. COMPARISON: CR XR PORTABLE CHEST AP from 04/03/[address] CHEST LUNG CANCER SCREEN from 08/31/2024 FINDINGS: 2 views: Heart size is normal. The mediastinum is not widened. There is some infiltrate in the right middle lobe. This was not evident recent CT scan of 08/31/2024 . Left lung is clear. No pleural effusions. IMPRESSION: Right middle lobe infiltrate. DATA REPOSITORY: RADIATION DOSE DELIVERED:
[2024-11-18 16:16] VITALS: BP 171/77; PULSE 93; RESP 23; TEMP 36.6; O2SAT 97
[2024-11-18] MEDS: Albuterol/Ipratropium 3 ML UPD VIAL UPD (16:50)
[2024-11-18] MEDS: Ibuprofen 400 MG TAB PO (16:50)
[2024-11-18] MEDS: predniSONE 20 MG TAB 40 MG PO (16:51)
[2024-11-18] MEDS: Acetaminophen 500 MG TAB 1000 MG PO (16:51)
[2024-11-18 16:56] VITALS: BP 164/52; PULSE 69; RESP 14; O2SAT 98
== END 2024-11-18 17:24 | disposition home or self-care (01) ==
PROVIDERS: Emergency Provider Physician Assistant; PCP Physician Assistant Medical
DX: J18.9 Pneumonia, unspecified organism (principal); E11.319 Type 2 diabetes mellitus with unspecified diabetic retinopathy without macular edema; J44.9 Chronic obstructive pulmonary disease, unspecified; F17.210 Nicotine dependence, cigarettes, uncomplicated; Z79.4 Long term (current) use of insulin; Z79.82 Long term (current) use of aspirin; Z79.84 Long term (current) use of oral hypoglycemic drugs; Z79.85 Long-term (current) use of injectable non-insulin antidiabetic drugs
CPT/HCPCS: 87426; 94640; 99284; 71046; J7512; J7620

== ENCOUNTER → 2024-11-30 12:49 | Outpatient (BNVA) | payer MEDICARE, SELFPAY | PROVIDERS: PCP Physician Assistant Medical; Referring Provider Physician Assistant Medical; Visit Provider Podiatrist | DX: E11.9 Type 2 diabetes mellitus without complications (principal); L60.3 Nail dystrophy; B35.1 Tinea unguium | CPT/HCPCS: 99214 ==

== ENCOUNTER 2025-07-22 10:54 | Emergency (ER) | payer MEDICARE, SELFPAY ==
--- NOTE | 2025-07-22 11:00 | DI.CT_ITS ---
Exam(s) CT ABDOMEN PELVIS WO/W EXAM: CT ABDOMEN PELVIS WO/W CLINICAL HISTORY: hematuria and UTI sx, h/o urethral stricture. TECHNIQUE: Imaging Protocol: Axial computed tomography images with coronal and sagittal reformatted images were created and reviewed. Images were performed from the lung bases through the ischial tuberosities before IV contrast and following IV contrast using a 70 second delay, followed by 7 minutes delayed images. CONTRAST MATERIAL: Intravenous: Omnipaque 350 Contrast volume:75 cc Oral: no COMPARISON: CT CT CHEST PE ABD PELVIS W from 02/15/[address] CHEST LUNG CANCER SCREEN from 08/31/2024 FINDINGS: Lung Bases: The lung bases are clear. Liver: Normal density. No measurable mass. Gallbladder and biliary tract: No biliary dilation. Pancreas: Normal density, no abnormal calcifications or inflammatory process. Stable borderline dilatation of the proximal pancreatic duct. Spleen: Normal. Kidneys: Normal size, contour and axis. No radiodense stones or obstructive uropathy. No suspicious masses seen. Adrenal glands: No masses seen. Lymph nodes: Within normal limits. Abdominal Aorta: Abdominal portion non-dilated. Atherosclerotic calcification. Soft tissues: Small fat containing left inguinal hernia. Bladder: The bladder is mildly distended. Wall thickening, greater anteriorly. No focal mass is visualized. No evidence of calculi. Bowel: Stomach unremarkable. No obstruction or bowel wall thickening. Appendix normal. Diverticulosis. Peritoneal cavity: No ascites, collection or mesenteric inflammatory response. Bones: Stable L2 compression fracture. Degenerative disc changes with vacuum phenomena. Reproductive organs: Mildly enlarged. IMPRESSION: Diffuse bladder wall thickening without visible focal mass. Findings could indicate cystitis. Cystoscopy could be considered. No suspicious renal mass. No evidence of urinary tract calculi. No evidence of hydronephrosis. The preliminary [facility] report was reviewed. RADIATION DOSE DELIVERED: Total DLP DATA REPOSITORY: All CT scans at this facility are submitted to the National Radiology Data Registry (NRDR) Dose Index Registry (DIR) with the [employer] ([employer]). RADIATION OPTIMIZATION: All CT scans at this facility use at least one of these dose optimization techniques: automated exposure control; mA and/or kV adjustment per patient size (includes targeted exams where dose is matched to clinical indication); or iterative reconstruction.
--- NOTE | 2025-07-22 11:00 | RT.EKG_ITS ---
APPROVED REPORT Exam: Resting ECG Reason for Exam: r/o QT prolongation prior to zofran Patient Location: E HR:55 bpm ECG Measurements Heart Rate 55 AXIS HI 149 P 38 QRSd 110 QRS 19 QT 404 T 56 QTc 385 Conclusion Sinus bradycardia...rate< [address] elevation, anterior leads...ST >0.15mV in V1-V4 No STEMI
[2025-07-22 11:01] VITALS: BP 146/79; PULSE 69; RESP 10; TEMP 36.8; O2SAT 95
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
[2025-07-22 11:28] LABS: Glucose Negative (Negative)
[2025-07-22 11:34] LABS: C & S Indicated? Yes; WBC 20-50 HPF (0-5)
[2025-07-22 11:48] LABS: Abs Immature Grans 0.03 10^3/uL (0.0-0.06); HCT 39.2 % (40.0-50.0); HGB 12.8 g/dL (13.5-17.5); Immature Grans % 0.3 %; MCH 27.5 pg (27.0-33.0); MCHC 32.7 % (32.0-36.0); MCV 84 fL (80-95); MPV 8.5 fL (8.0-11.0); Platelet Count 123 10^3/uL (130-400); RBC 4.65 10^6/uL (4.36-5.78); RDW 14.1 % (11.8-14.1); RDW-SD 43.1 fL; WBC 9.73 10^3/uL (4.4-10.8)
[2025-07-22 12:01] LABS: ALT 22 U/L (16-63); AST 22 U/L (15-37); Albumin 3.4 g/dL (3.4-5.0); Alkaline Phosphatase 62 U/L (46-116); Anion Gap 8.7 mmol/L (3-11); BUN 14 mg/dL (7-18); Bilirubin, Total 0.4 mg/dL (0.2-1.0); CO2 27.3 mmol/L (21.0-32.0); Calcium 9.0 mg/dL (8.5-10.1); Chloride 100 mmol/L (98-107); Estimated GFR 83.52 (mL/min/1.73m2); Glucose 73 mg/dL (74-106); Potassium 4.0 mmol/L (3.5-5.1); Sodium 136 mmol/L (136-145); Total Protein 6.8 g/dL (6.4-8.2)
--- NOTE | 2025-07-22 14:03 | DI.VRAD_ITS ---
PROCEDURE INFORMATION: Exam: CT Abdomen And Pelvis Without And With Contrast Exam date and time: 07/22/2025 12:08 PM Age: 65 years old Clinical indication: Other: Blood in urine TECHNIQUE: Imaging protocol: Computed tomography of the abdomen and pelvis without and with contrast. Contrast material: OMNI 350; Contrast volume: 75 ml; Contrast route: INTRAVENOUS (IV); COMPARISON: CT CHEST PE ABD PELVIS W 02/15/2023 2:04 PM FINDINGS: Precontrast, venous phase and delayed phase imaging of obtained. Lungs: No concerning finding. Coronary arteries: Coronary artery calcification. Esophagus: There is a small esophageal hiatal hernia. Liver: The liver is unremarkable. Gallbladder and biliary ducts: The gallbladder is unremarkable. No biliary ductal dilatation. Pancreas: Pancreatic duct is borderline enlarged, measuring 4 mm in the neck head and uncinate, likely tapering to the ampulla. Otherwise unremarkable pancreas. Spleen: The spleen is unremarkable. Adrenal glands: Stable right adrenal gland. Possible subcentimeter nodule at the left adrenal genu versus normal variant configuration, unchanged dating to July 24, 2021 CT Kidneys and ureters: The intrarenal collecting systems and proximal ureters are slightly prominent with tapering of the proximal ureters without calculus or other obstructing lesion. The remainder of the ureters are of normal course and caliber. Symmetric nephrograms. No abnormal perinephric fat stranding. No enhancing mass. Stomach and bowel: Stomach is fluid and air-filled without detectable abnormality. No evidence of bowel obstruction. No pericolonic inflammatory stranding. Moderate colonic stool. Very mild diverticulosis without diverticulitis Appendix: Normal appendix Intraperitoneal space: Unremarkable. No free air. No significant fluid collection. Vasculature: Normal caliber abdominal aorta and proximal common iliac arteries with calcified atherosclerosis. Lymph nodes: Unremarkable. No enlarged lymph nodes. Urinary bladder: See Reproductive finding. Reproductive: Diffusely thick-walled urinary bladder, particularly anterior margin, prominent relative to degree of distension and top-normal size prostate. Mildly enlarged prostate Bones/joints: Degenerative change of the spine. L2 compression deformity with 2 mm of retropulsion, 70% height loss, unchanged compared with February 2023; small gas locules within the L1-L2 and L2-L3 disc spaces are also present on prior. Assessment limited without contrast however, no detectable paravertebral or epidural mass. Soft tissues: Small fat containing left inguinal hernia. There is a fat containing right inguinal hernia. IMPRESSION: 1. Diffuse urinary bladder wall thickening, prominent relative to degree of distension and top normal-sized prostate; correlate for outlet obstruction, cystitis and functional abnormality. Given hematuria, consider cystoscopy. 2. Fullness of intrarenal collecting system with tapering of proximal ureters without calculus or other obstructing process 3. Thick-walled distal esophagus, correlate for esophagitis, consider direct visualization 4. Dilated pancreatic duct without detectable obstructing process, likely stable or minimally increased compared with February 2023 and probably decreased compared with July 2021, favoring an indolent or benign process. As precaution, advise MRCP correlation. 5. Unchanged severe L2 compression deformity with minimal retropulsion Dictated and Authenticated by: Dina Barone MD. Orderin Clyde Tyler MD
[2025-07-22] MEDS: Cefpodoxime 200 MG TAB 400 MG PO (14:50)
[2025-07-22] MEDS: Cefpodoxime 200 MG TAB PO (14:50)
[2025-07-22 14:52] VITALS: BP 162/68; PULSE 72; RESP 16; O2SAT 96
[2025-07-22] MEDS: Omnipaque 350 MG/ML 100 ML BTL IJ (14:58)
[2025-07-22] MEDS: Normal Saline - Diluent 50 ML VIAL IJ (14:59)
--- NOTE | 2025-07-24 09:13 | NUR.NOTE ---
Access chart to determine antibiotics on discharge for urine culture. Result given to provider. Nursing Note:
== END 2025-07-22 14:55 | disposition home or self-care (01) ==
PROVIDERS: Emergency Provider Nurse Practitioner Family; PCP Physician Assistant Medical
DX: N39.0 Urinary tract infection, site not specified (principal); J44.9 Chronic obstructive pulmonary disease, unspecified; I10 Essential (primary) hypertension; E11.9 Type 2 diabetes mellitus without complications
CPT/HCPCS: 99285; 99284; 80053; 93005; 74178; 81003; 81015; 85025; 87086; 93010; J3490

== ENCOUNTER 2025-08-09 15:36 | Outpatient (REF) | payer MEDICARE, SELFPAY ==
[2025-08-09 21:27] LABS: HCT 39.8 % (40.0-50.0); HGB 12.9 g/dL (13.5-17.5); MCH 27.6 pg (27.0-33.0); MCHC 32.4 % (32.0-36.0); MCV 85 fL (80-95); MPV 8.8 fL (8.0-11.0); Platelet Count 162 10^3/uL (130-400); RBC 4.68 10^6/uL (4.36-5.78); RDW 14.1 % (11.8-14.1); RDW-SD 43.5 fL; WBC 7.24 10^3/uL (4.4-10.8)
[2025-08-09 21:47] LABS: Iron 42 ug/dL (65-175)
[2025-08-09 21:54] LABS: Hemoglobin A1C 7.0 % (<5.7)
[2025-08-09 22:09] LABS: ALT 34 U/L (16-63); AST 20 U/L (15-37); Albumin 3.3 g/dL (3.4-5.0); Alkaline Phosphatase 56 U/L (46-116); Anion Gap 6.6 mmol/L (3-11); BUN 26 mg/dL (7-18); Bilirubin, Total 0.3 mg/dL (0.2-1.0); CO2 29.4 mmol/L (21.0-32.0); Calcium 9.2 mg/dL (8.5-10.1); Chloride 102 mmol/L (98-107); Cholesterol 91 mg/dL (<200); Ferritin 86 ng/mL (26-388); Folate 9.1 ng/mL (8.6-20.0); Glucose 88 mg/dL (74-106); HDL Cholesterol 38 mg/dL (>or=40); Potassium 4.9 mmol/L (3.5-5.1); Sodium 138 mmol/L (136-145); Total Protein 6.6 g/dL (6.4-8.2); Vitamin B12 591 pg/mL (193-986)
== END 2025-08-09 15:37 | disposition home or self-care (01) ==
LOC: NCHCN 15:36
PROVIDERS: PCP Physician Assistant Medical; Visit Provider Physician Assistant Medical
DX: D64.9 Anemia, unspecified (principal); E11.8 Type 2 diabetes mellitus with unspecified complications; I10 Essential (primary) hypertension; Z76.89 Persons encountering health services in other specified circumstances; I25.10 Atherosclerotic heart disease of native coronary artery without angina pectoris
CPT/HCPCS: 80053; 80061; 85027; 82607; 82728; 82746; 83036; 83540

== ENCOUNTER 2025-09-21 13:49 | Outpatient (REF) | payer MEDICARE, SELFPAY ==
[2025-09-22 18:12] LABS: HIV-1/2 Ag & Ab Screen Negative (Negative)
== END 2025-09-21 13:50 | disposition home or self-care (01) ==
LOC: LBN 13:49
PROVIDERS: PCP Physician Assistant Medical; Visit Provider Physician Assistant Medical
DX: Z11.4 Encounter for screening for human immunodeficiency virus [HIV] (principal)
CPT/HCPCS: 87389